=== PATIENT | male | born 1940 ===

== ENCOUNTER 2016-12-25 13:15 | Inpatient (IN) | payer MEDICARE ==
--- NOTE | 2016-12-25 14:17 | ED PDOC ---
HPI: Altered Mental Status Time Seen by Provider: 12/25/16 13:34 Chief Complaint (Nursing): Altered Mental Status Chief Complaint (Provider): Altered mental status History Per: Family History/Exam Limitations: Clinical Condition Onset/Duration Of Symptoms: Days (1) Current Symptoms Are (Timing): Still Present Description Of Symptoms: Not At Baseline Usual Baseline: Alert Confused Exacerbating Factor(s): Other (multiple sclerosis) Additional Complaint(s): The patient is a 76yo male, with past medical history of multiple sclerosis, brought to the ED by his son for evaluation of altered mental status with associated agitation since last night. Per son, the patient has been increasingly agitated and is constantly moving his left upper and lower extremities. Son reports at baseline, the patient is awake, alert and oriented x 3. A full HPI and ROS is limited due to the patient's clinical condition. Past Medical History Reviewed: Historical Data, Nursing Documentation, Vital Signs Vital Signs: Last Vital Signs Temp 98 F 12/25/16 13:20 Pulse 79 12/25/16 13:20 Resp 20 12/25/16 13:20 BP 162/89 H 12/25/16 13:20 Pulse Ox 98 12/25/16 13:20 - Medical History PMH: Multiple Sclerosis - Surgical History Surgical History: No Surg Hx - Family History Family History: States: No Known Family Hx - Living Arrangements Living Arrangements: With Family - Home Medications Home Medications: Ambulatory Orders Medication Instructions Recorded Aspirin [Ecotrin] 81 mg PO DAILY 12/25/16 Atorvastatin [Lipitor] 20 mg PO HS 12/25/16 Baclofen [Lioresal] 20 mg PO BID 12/25/16 Citalopram Hydrobromide 40 mg PO HS 12/25/16 [Citalopram HBr] Clopidogrel [Plavix] 75 mg PO DAILY 12/25/16 Docusate [Colace] 100 mg PO HS 12/25/16 Fenofibrate [Tricor] 48 mg PO QPM 12/25/16 Gabapentin [Neurontin] 300 mg PO BID 12/25/16 Glipizide [Glucotrol] 10 mg PO BID 12/25/16 Insulin Detemir [Levemir] 40 unit SC HS 12/25/16 Multivitamin [Multi-Vitamin Daily] 1 tab PO DAILY 12/25/16 Tamsulosin [Flomax] 0.8 mg PO HS 12/25/16 Topiramate [Topamax] 50 mg PO DAILY 12/25/16 hydroCHLOROthiazide [Microzide] 12.5 mg PO DAILY 12/25/16 Enoxaparin [Lovenox] 30 mg SC DAILY syr 12/29/16 Haloperidol Lactate [Haldol] 2.5 mg IM Q6 PRN vial 12/29/16 Insulin Detemir [Levemir] 40 units SC HS vial 12/29/16 Insulin Human Regular [HumuLIN R] 0 units SC ACHS ml 12/29/16 Lacosamide [Vimpat] 100 mg PO BID tab 12/29/16 Metoprolol Tartrate [Lopressor] 25 mg PO Q12 tab 12/29/16 cloNIDine [Catapres] 0.2 mg PO Q8 tab 12/29/16 guaiFENesin/Dextromethorphan 1 tab PO BID tab 12/29/16 [Mucinex-DM 600-30 mg] - Allergies Allergies/Adverse Reactions: Allergies Allergy/AdvReac Type Severity Reaction Status Date / Time No Known Allergies Allergy Verified 12/25/16 13:20 Review of Systems Review Of Systems: ROS cannot be obtained secondary to pt's inabilty to answer questions. (patient is altered) Musculoskeletal: Positive for: Other (constantly moving left upper and lower extremities) Neurological: Positive for: Altered Mental Status Physical Exam - Reviewed Nursing Documentation Reviewed: Yes Vital Signs Reviewed: Yes - Physical Exam Appears: Positive for: No Acute Distress Head Exam: Positive for: ATRAUMATIC, NORMAL INSPECTION, NORMOCEPHALIC Skin: Positive for: Normal Color Eye Exam: Positive for: Normal appearance, EOMI, PERRL Neck: Positive for: Supple Cardiovascular/Chest: Positive for: Regular Rate, Rhythm Respiratory: Positive for: Normal Breath Sounds. Negative for: Respiratory Distress Extremity: Positive for: Normal ROM, Other (constant movement to left upper and lower extremity) Neurologic/Psych: Positive for: Alert. Negative for: Oriented - Laboratory Results Result Diagrams: 12/29/16 09:00 12/29/16 09:00 - ECG O2 Sat by Pulse Oximetry: 98 (RA) Pulse Ox Interpretation: Normal Medical Decision Making Medical Decision Making: Impression: Multiple sclerosis exacerbation Plan: -- Call placed to neurologist correctional cook -- CBC -- CMP -- Urinalysis [address] Obrien, who recommends MRI neck and brain, with and without contrast. 1542 Patient to be placed under ED observation pending MRI studies. Unable to obtain MRI secondary to pt unable to hold still despite Ativan X 2. Anesthesiologist states he is unavailable for conscious sedation because he is in the OR. Case discussed with Dr. Obrien again, agrees with MRI in AM under conscious sedation. Hold steroids until MRI performed. Plan discussed with Eric Solis. Scribe Attestation: Documented by Mamie Torres, acting as a scribe for Anabel Ty MD Provider Scribe Attestation: All medical record entries made by the Scribe were at my direction and personally dictated by me. I have reviewed the chart and agree that the record accurately reflects my personal performance of the history, physical exam, medical decision making, and the department course for this patient. I have also personally directed, reviewed, and agree with the discharge instructions and disposition. ED OBSERVATION Date of observation admission: 12/25/16 Time of observation admission: 15:42 - Observation admission statement Patient is being placed in observation because:: Patient with altered mental status - Goals of Observation Goals of observation are:: Patient pending MRI studies - Progress Note Progress Note: 12/25/16 17:[address] Obrien who advised patient to be admitted and will have MRI done tomorrow with conscious sedation. Dr. Obrien also recommends no steroids to be used. 12/25/2016 17:25 Case discussed with Eric Solis, who is aware of plan for MRI studies to be completed tomorrow with patient under conscious sedation. Disposition - Clinical Impression Clinical Impression: Multiple sclerosis exacerbation - Patient ED Disposition Is Patient to be Admitted: Yes - Disposition Disposition Time: 17:19 Condition: STABLE - Pt Status Changed To: Hospital Disposition Of: Inpatient - Admit Certification Admit to Inpatient:: After my assessment, the patient will require hospitalization for at least two midnights. This is because of the severity of symptoms shown, intensity of services needed, and/or the medical risk in this patient being treated as an outpatient. - POA Present On Arrival: None
[2016-12-25] MEDS ORDERED: Sodium Chloride 0.9% 1,000 ML IV STA (14:43)
[2016-12-25 14:45] LABS: BASO % 0.4 % (0.0-2.0); EOS # 0.2 K/uL (0.0-0.7); EOS % 2.1 % (0.0-4.0); HEMATOCRIT 36.1 % (35.0-51.0); LYMPH # 1.8 K/uL (1.0-4.3); MEAN CELL VOLUME 89.6 fl (80.0-94.0); MEAN CORPUSCULAR HEMOGLOBIN 28.8 pg (27.0-31.0); MEAN CORPUSCULAR HGB CONC 32.1 g/dL (33.0-37.0); MONO # 1.3 K/uL (0.0-0.8); MONO % 11.9 % (0.0-10.0); NEUT # 7.7 K/uL (1.8-7.0); NEUT % 69.6 % (50.0-75.0); NRBC % 0.1 % (0.0-0.0); RED CELL DISTRIBUTION WIDTH 13.2 % (11.5-14.5); WHITE BLOOD COUNT 11.1 K/uL (4.8-10.8)
[2016-12-25 14:51] LABS: ALB/GLOB RATIO 1.4 (1.0-2.1); BILIRUBIN,TOTAL 0.5 mg/dl (0.2-1.3); CALCIUM 9.5 mg/dL (8.4-10.2); POTASSIUM 4.5 MMOL/L (3.6-5.0); TOTAL PROTEIN 6.8 G/DL (6.3-8.2)
[2016-12-25] MEDS ORDERED: Sodium Chloride 0.9% 500 ML IV STA (15:06)
[2016-12-25] MEDS ORDERED: Gadodiamide 287 MG/ML VIAL (15ML) IV ONE (15:22)
[2016-12-25] MEDS ORDERED: Sodium Chloride 0.9% 1,000 ML IV SCH (17:45)
[2016-12-25 18:30] LABS: ABG ALLEN TEST YES; ARTERIAL BLOOD GAS O2 CAPACITY 16.7 mL/dL (16-24); ARTERIAL BLOOD GAS O2 CONTENT 16.7 ML/dL (15-23); ARTERIAL BLOOD GAS PH 7.29 (7.35-7.45); ARTERIAL BLOOD GAS PO2 132 mm/Hg (80-100); ARTERIAL BLOOD HGB O2 SAT 96.2 % (95.0-98.0); CARBOXYHEMOGLOBIN 2.1 % (0.5-1.5); METHEMOGLOBIN 1.7 % (0.0-3.0)
[2016-12-26] MEDS: Dextrose 5%/0.45% NS 1,000 ML IV SCH ×2 (02:00→15:08)
[2016-12-26] MEDS ORDERED: Albuterol-Ipratrop 3 mg / 0.5 (3 ml) UD ONE (04:27)
[2016-12-26] MEDS: Albuterol-Ipratrop 3 mg / 0.5 (3 ml) UD INH PRN ×2 (04:30→13:11)
[2016-12-26 05:09] LABS: ALB/GLOB RATIO 1.4 (1.0-2.1); BILIRUBIN,TOTAL 0.6 mg/dl (0.2-1.3); CALCIUM 9.2 mg/dL (8.4-10.2); TOTAL PROTEIN 6.9 G/DL (6.3-8.2)
[2016-12-26 05:10] LABS: POTASSIUM 5.3 MMOL/L (3.6-5.0)
--- NOTE | 2016-12-26 07:26 | CP.PCM.HP ---
History of Present Illness - History of Present Illness History of Present Illness: pt admitted for ms exacerbation. + weakness, agitation. overnight had difficulty swallowing secretions. has been intubated in past for diff breathing. at present calm and comfortable. no distress. nsr on monitor. for mri w/ conscious sedation. Present on Admission - Present on Admission Any Indicators Present on Admission: Yes History of Uncontrolled Diabetes: Yes Review of Systems - Musculoskeletal Musculoskeletal: As Per HPI, Muscle Weakness Past Patient History - Past Social History Smoking Status: Never Smoked - NEUROLOGICAL Hx Multiple Sclerosis: Yes - ENDOCRINE/METABOLIC Hx Diabetes Mellitus Type 2: Yes - PSYCHIATRIC Hx Substance Use: No Meds Allergies/Adverse Reactions: Allergies Allergy/AdvReac Type Severity Reaction Status Date / Time No Known Allergies Allergy Verified 12/25/16 13:20 Physical Exam - Constitutional Appears: Non-toxic, No Acute Distress, Chronically Ill - Head Exam Head Exam: ATRAUMATIC, NORMAL INSPECTION, NORMOCEPHALIC - Eye Exam Eye Exam: EOMI, Normal appearance, PERRL Pupil Exam: NORMAL ACCOMODATION, PERRL - ENT Exam ENT Exam: Mucous Membranes Moist, Normal Exam - Neck Exam Neck exam: Positive for: Normal Inspection - Respiratory Exam Respiratory Exam: Clear to Auscultation Bilateral, NORMAL BREATHING PATTERN - Cardiovascular Exam Cardiovascular Exam: REGULAR RHYTHM, RRR, +S1, +S2 - GI/Abdominal Exam GI & Abdominal Exam: Normal Bowel Sounds, Soft. absent: Tenderness - Extremities Exam Extremities exam: Positive for: full ROM, normal capillary refill, normal inspection, pedal pulses present - Back Exam Back exam: NORMAL INSPECTION - Neurological Exam Neurological exam: Abnormal Gait, Alert, CN II-XII Intact, Reflexes Normal - Psychiatric Exam Psychiatric exam: Normal Affect, Normal Mood - Skin Skin Exam: Dry, Intact, Normal Color, Warm Results - Vital Signs Recent Vital Signs: Last Vital Signs Temp 98 F 12/25/16 13:20 Pulse 54 L 12/26/16 02:16 Resp 16 12/26/16 02:16 BP 109/52 L 12/26/16 02:16 Pulse Ox 95 12/26/16 02:16 - Labs Result Diagrams: 12/26/16 04:48 12/26/16 04:48 Labs: Laboratory Results - last 24 hr 12/25/16 12/25/16 12/25/16 14:20 14:20 17:18 WBC 11.1 H RBC 4.03 L Hgb 11.6 L Hct 36.1 MCV 89.6 MCH 28.8 MCHC 32.1 L RDW 13.2 Plt Count 338 MPV 8.0 Neut % (Auto) 69.6 Lymph % (Auto) 16.0 L [place] % (Auto) 11.9 H Eos % (Auto) 2.1 Baso % (Auto) 0.4 Neut # 7.7 H Lymph # 1.8 [place] # 1.3 H Eos # 0.2 Baso # 0.0 pCO2 pO2 HCO3 ABG pH ABG Total CO2 ABG O2 Saturation ABG O2 Content ABG Base Excess ABG Hemoglobin ABG Carboxyhemoglobin POC ABG HHb (Measured) ABG Methemoglobin ABG O2 Capacity Rudy Test A-a O2 Difference Hgb O2 Saturation FiO2 Sodium 144 Potassium 4.5 Chloride 106 Carbon Dioxide 25 Anion Gap 19 BUN 36 H Creatinine 1.8 H Est GFR ( Amer) 45 Est GFR (Non-Af Amer) 37 POC Glucose (mg/dL) 164 H Random Glucose 155 H Calcium 9.5 Total Bilirubin 0.5 AST 41 ALT 44 Alkaline Phosphatase 87 Troponin I NT-Pro-B Natriuret Pep Total Protein 6.8 Albumin 3.9 Globulin 2.9 Albumin/Globulin Ratio 1.4 12/25/16 12/25/16 12/26/16 18:15 18:20 04:41 WBC RBC Hgb Hct MCV MCH MCHC RDW Plt Count MPV Neut % (Auto) Lymph % (Auto) [place] % (Auto) Eos % (Auto) Baso % (Auto) Neut # Lymph # [place] # Eos # Baso # pCO2 51 H pO2 132 H HCO3 23.0 ABG pH 7.29 L ABG Total CO2 26.1 ABG O2 Saturation 100.0 H ABG O2 Content 16.7 ABG Base Excess -2.5 L ABG Hemoglobin 12.2 ABG Carboxyhemoglobin 2.1 H POC ABG HHb (Measured) 0.0 ABG Methemoglobin 1.7 ABG O2 Capacity 16.7 Rduy Test Yes A-a O2 Difference 4.0 Hgb O2 Saturation 96.2 FiO2 28.0 Sodium Potassium Chloride Carbon Dioxide Anion Gap BUN Creatinine Est GFR ( Amer) Est GFR (Non-Af Amer) POC Glucose (mg/dL) 197 H Random Glucose Calcium Total Bilirubin AST ALT Alkaline Phosphatase Troponin I < 0.0120 NT-Pro-B Natriuret Pep 722 Total Protein Albumin Globulin Albumin/Globulin Ratio 12/26/16 12/26/16 04:48 04:48 WBC 10.7 RBC 3.93 L Hgb 11.4 L Hct 35.5 MCV 90.5 MCH 29.0 MCHC 32.1 L RDW 13.6 Plt Count 333 MPV 7.9 Neut % (Auto) Lymph % (Auto) 17.4 L [place] % (Auto) 10.3 H Eos % (Auto) 0.3 Baso % (Auto) 0.4 Neut # Lymph # 1.9 [place] # 1.1 H Eos # 0.0 Baso # 0.0 pCO2 pO2 HCO3 ABG pH ABG Total CO2 ABG O2 Saturation ABG O2 Content ABG Base Excess ABG Hemoglobin ABG Carboxyhemoglobin POC ABG HHb (Measured) ABG Methemoglobin ABG O2 Capacity Rudy Test A-a O2 Difference Hgb O2 Saturation FiO2 Sodium 145 Potassium 5.3 H Chloride 107 Carbon Dioxide 23 Anion Gap 20 BUN 46 H Creatinine 2.4 H Est GFR ( Amer) 32 Est GFR (Non-Af Amer) 26 POC Glucose (mg/dL) Random Glucose 203 H Calcium 9.2 Total Bilirubin 0.6 AST 43 ALT 43 Alkaline Phosphatase 80 Troponin I NT-Pro-B Natriuret Pep Total Protein 6.9 Albumin 4.0 Globulin 2.9 Albumin/Globulin Ratio 1.4 Assessment & Plan (1) Multiple sclerosis exacerbation Assessment and Plan: mri w/ sedation neuro pt/ot yancy Status: Acute (2) Difficulty swallowing Assessment and Plan: duoneb to loosen secretion [employer] eval Status: Acute (3) DVT prophylaxis Assessment and Plan: scd nad aehose, ambulation Status: Acute (4) ARF (acute renal failure) Assessment and Plan: ivf nephro trend bun/cr/k Status: Acute Decision To Admit - Pt Status Changed To: Hospital Disposition Of: Observation - . Bed Request Type: Telemetry Admitting Physician: Pillo Kelly
--- NOTE | 2016-12-26 08:10 | RAD ---
HISTORY: sob COMPARISON: Portable chest 11/27/2012 FINDINGS: LUNGS: Patient appears to been extubated with nasogastric tube also removed. No acute infiltrate bilaterally. History volume is slightly diminished. PLEURA: No significant pleural effusion identified, no pneumothorax apparent. CARDIOVASCULAR: Normal. OSSEOUS STRUCTURES: No significant abnormalities. VISUALIZED UPPER ABDOMEN: Normal. OTHER FINDINGS: None. IMPRESSION: Slight decrease in inspiratory volume. No acute infiltrate or pleural effusion bilaterally. No definite cardiomegaly. Status post apparent extubation and nasogastric tube removal.
[2016-12-26 08:14] LABS: BASO % 0.4 % (0.0-2.0); EOS % 0.3 % (0.0-4.0); HEMATOCRIT 35.5 % (35.0-51.0); LYMPH # 1.9 K/uL (1.0-4.3); LYMPH % 17.4 % (20.0-40.0); MEAN CELL VOLUME 90.5 fl (80.0-94.0); MEAN CORPUSCULAR HGB CONC 32.1 g/dL (33.0-37.0); MEAN PLATELET VOLUME 7.9 fl (7.2-11.7); MONO # 1.1 K/uL (0.0-0.8); MONO % 10.3 % (0.0-10.0); NEUT # 7.7 K/uL (1.8-7.0); NEUT % 71.6 % (50.0-75.0); RED CELL DISTRIBUTION WIDTH 13.6 % (11.5-14.5); WHITE BLOOD COUNT 10.7 K/uL (4.8-10.8)
[2016-12-26] MEDS ORDERED: Propofol 10 mg/ml Inj (20 ML) ONE (08:42)
[2016-12-26] MEDS ORDERED: Midazolam 2 MG/2 ML VIAL ONE (08:42)
[2016-12-26] MEDS ORDERED: Chlorhexidine Gluconate 1 APPL/PKT TP ONE (09:02)
[2016-12-26 09:39] LABS: RBC URINE 3 /hpf (0-3); URINE BILIRUBIN NEGATIVE (NEGATIVE); URINE BLOOD NEGATIVE (NEGATIVE); URINE COLOR AMBER (YELLOW); URINE GLUCOSE (UA) 150 mg/dL (Normal); URINE KETONE NEGATIVE (NEGATIVE); URINE LEUKOCYTE ESTERASE SMALL Leu/uL (Negative); URINE PROTEIN NEGATIVE (NEGATIVE); URINE UROBILINOGEN 0.2-1.0 mg/dL (0.2-1.0); WBC URINE 13 /hpf (0-5)
--- NOTE | 2016-12-26 11:01 | MRI ---
PROCEDURE: MRI BRAIN WITHOUT CONTRAST HISTORY: ms exacerbation COMPARISON: None. TECHNIQUE: Multiplanar, multisequence MR images of the brain were obtained without intravenous contrast enhancement. FINDINGS: HEMORRHAGE: None DWI: No evidence of an acute or early subacute infarction. BRAIN PARENCHYMA: Diffuse periventricular, subcortical and centrum semiovale white matter changes are reiterated the current examination with limited similar changes at the lola again evident. The findings likely reflect combination of not only chronic microangiopathy but also demyelination this patient has a known history of multiple sclerosis. There is no mass effect. There is no suspicious extra-axial fluid collection appreciated. Midline brain anatomy appears stable including corpus callosum. VENTRICLES: Unremarkable. No hydrocephalus. CRANIUM: Unremarkable. ORBITS: Grossly unremarkable. PARANASAL SINUSES/MASTOIDS: Clear VASCULAR SYSTEM: Skull base flow voids intact. OTHER FINDINGS: None. IMPRESSION: Stable combination of likely chronic microangiopathy and demyelination plaques scattered primarily throughout the cerebrum and minimally involving the lola once again. Next significant interval change compared to prior brain MRI 11/19/2012.
--- NOTE | 2016-12-26 11:15 | MRI ---
PROCEDURE: MR CERVICAL SPINE WITHOUT CONTRAST HISTORY: ms exacerbation COMPARISON: None available. TECHNIQUE: Multiecho multiplanar sequences were performed through the cervical spine without the use of intravenous contrast. FINDINGS: Cervical curvature is normal. There is no displaced fracture or spondylolisthesis or definite suspicious marrow signal change. Overall quality examination is limited due patient's heavy breathing. There is likely no significant signal change throughout the cervical spinal cord with the cord appear normal in course caliber and contour. Diffuse disc desiccation is appreciated throughout the cervical spine as well as multilevel mid cervical spondylosis. Prevertebral paraspinal soft tissues appear diffusely unremarkable as well as the craniocervical junction. C1-2 articulation is degenerated moderately. C2-C3: No disc herniation, spinal canal stenosis or neural foraminal narrowing. C3-C4: No disc herniation, spinal canal stenosis or neural foraminal narrowing. C4-C5: A mild disc osteophyte complex abuts the ventral cord without significant stenosis resulting. Ventral nerve roots are encroached if not mildly impinged. No definite disc herniation. C5-C6: An additional mild disc osteophyte complex is appreciated encroachment impinging ventral nerve roots without significant central stenosis resulting. No definite disc herniation. C6-C7: Limited disc bulging appreciate without stenosis or disc herniation appreciated. C7-T1: No disc herniation, spinal canal stenosis or neural foraminal narrowing. OTHER FINDINGS: None. IMPRESSION: Suboptimal examination due to heavy respirations during the examination however no severe stenosis appreciated or prominent cord signal abnormality evident. Disc osteophyte complexes are identified a multiple levels better seen encroaches on and potentially impinging the ventral nerve roots at C4-5 and C5-6.
[2016-12-26] MEDS ORDERED: Albuterol 0.083% Inhal Sol (2.5 mg/3 mL) UD INH ONE (11:43)
--- NOTE | 2016-12-26 13:35 | CP.PCM.CON ---
History of Present Illness - History of Present Illness History of Present Illness: Patient is a 76 years of age I was called to see him for abnormal kidney function. I cannot get any history from the patient who is already sedated. But the patient reported that he was very agitated restless and the emergency room note as noted The patient is a 76yo male, with past medical history of multiple sclerosis, brought to the ED by his son for evaluation of altered mental status with associated agitation since last night. Per son, the patient has been increasingly agitated and is constantly moving his left upper and lower extremities. Son reports at baseline, the patient is awake, alert and oriented x 3. A full HPI and ROS is limited due to the patient's clinical condition. Review of Systems - Constitutional Constitutional: As Per HPI - EENT Eyes: As Per HPI Nose/Mouth/Throat: As Per HPI - Cardiovascular Cardiovascular: absent: Chest Pain, Dyspnea - Respiratory Respiratory: As Per HPI - Gastrointestinal Gastrointestinal: absent: Abdominal Pain - Genitourinary Genitourinary: Nocturia - Musculoskeletal Musculoskeletal: As Per HPI - Neurological Neurological: As Per HPI - Psychiatric Psychiatric: As Per HPI Past Patient History - Past Social History Smoking Status: Never Smoked - NEUROLOGICAL Hx Multiple Sclerosis: Yes - ENDOCRINE/METABOLIC Hx Diabetes Mellitus Type 2: Yes - PSYCHIATRIC Hx Substance Use: No Meds Allergies/Adverse Reactions: Allergies Allergy/AdvReac Type Severity Reaction Status Date / Time No Known Allergies Allergy Verified 12/25/16 13:20 - Medications Medications: Current Medications Albuterol/Ipratropium (Duoneb 3 Mg/0.5 Mg (3 Ml) Ud) 3 ml INH RQ4 PRN PRN Reason: Shortness of Breath Last Admin: 12/26/16 13:11 Dose: 3 ml Aspirin (Ecotrin) 81 mg PO DAILY COUNTS INCLUDE 234 BEDS AT THE [facility] Atorvastatin Calcium (Lipitor) 20 mg PO HS COUNTS INCLUDE 234 BEDS AT THE [facility] Last Admin: 12/26/16 02:00 Dose: Not Given Baclofen (Lioresal) 20 mg PO BID COUNTS INCLUDE 234 BEDS AT THE [facility] Citalopram Hydrobromide (Celexa) 40 mg PO HS COUNTS INCLUDE 234 BEDS AT THE [facility] Last Admin: 12/26/16 02:00 Dose: Not Given Clopidogrel Bisulfate (Plavix) 75 mg PO DAILY COUNTS INCLUDE 234 BEDS AT THE [facility] Docusate Sodium (Colace) 100 mg PO HS COUNTS INCLUDE 234 BEDS AT THE [facility] Last Admin: 12/26/16 02:00 Dose: Not Given Fenofibrate (Tricor) 48 mg PO QPM COUNTS INCLUDE 234 BEDS AT THE [facility] Last Admin: 12/26/16 02:01 Dose: Not Given Gabapentin (Neurontin) 300 mg PO BID COUNTS INCLUDE 234 BEDS AT THE [facility] Glipizide (Glucotrol) 10 mg PO BID COUNTS INCLUDE 234 BEDS AT THE [facility] Haloperidol Lactate (Haldol) 2.5 mg IM Q6 PRN PRN Reason: Agitation Hydrochlorothiazide (Microzide) 12.5 mg PO DAILY COUNTS INCLUDE 234 BEDS AT THE [facility] Dextrose/Sodium Chloride (Dextrose 5%/0.45% Ns 1000 Ml) 1,000 mls @ 100 mls/hr IV .Q10H COUNTS INCLUDE 234 BEDS AT THE [facility] Stop: 12/27/16 00:05 Last Admin: 12/26/16 02:00 Dose: 100 mls/hr Sodium Chloride (Sodium Chloride 0.9%) 1,000 mls @ 100 mls/hr IV .Q10H COUNTS INCLUDE 234 BEDS AT THE [facility] Methylprednisolone 1 gm/ (Sodium Chloride) 250 mls @ 62.5 mls/hr IV DAILY COUNTS INCLUDE 234 BEDS AT THE [facility] Stop: 12/29/16 13:31 Insulin Detemir (Levemir) 40 units SC HS COUNTS INCLUDE 234 BEDS AT THE [facility] Multivitamins/Minerals (Therapeutic-M Tab) 1 tab PO DAILY COUNTS INCLUDE 234 BEDS AT THE [facility] Tamsulosin HCl (Flomax) 0.8 mg PO HS COUNTS INCLUDE 234 BEDS AT THE [facility] Last Admin: 12/26/16 02:00 Dose: Not Given Topiramate (Topamax) 50 mg PO DAILY COUNTS INCLUDE 234 BEDS AT THE [facility] Physical Exam - Constitutional Appears: No Acute Distress - ENT Exam ENT Exam: Mucous Membranes Dry - Respiratory Exam Respiratory Exam: NORMAL BREATHING PATTERN - Cardiovascular Exam Cardiovascular Exam: REGULAR RHYTHM. absent: JVD, Rubs - GI/Abdominal Exam GI & Abdominal Exam: Normal Bowel Sounds - Extremities Exam Extremities exam: Negative for: calf tenderness - Back Exam Back exam: absent: CVA tenderness (L), CVA tenderness (R) - Neurological Exam Neurological exam: Altered - Psychiatric Exam Psychiatric exam: Agitated Results - Vital Signs Recent Vital Signs: Last Vital Signs Temp 97.6 F 12/26/16 12:58 Pulse 72 12/26/16 12:58 Resp 20 12/26/16 12:58 BP 153/75 H 12/26/16 12:58 Pulse Ox 98 12/26/16 12:58 - Labs Result Diagrams: 12/26/16 07:30 12/26/16 04:48 Labs: Laboratory Results - last 24 hr 12/25/16 12/25/16 12/25/16 14:20 14:20 17:18 WBC 11.1 H RBC 4.03 L Hgb 11.6 L Hct 36.1 MCV 89.6 MCH 28.8 MCHC 32.1 L RDW 13.2 Plt Count 338 MPV 8.0 Gran % Neut % (Auto) 69.6 Lymph % (Auto) 16.0 L [place] % (Auto) 11.9 H Eos % (Auto) 2.1 Baso % (Auto) 0.4 Gran # Neut # 7.7 H Lymph # 1.8 [place] # 1.3 H Eos # 0.2 Baso # 0.0 pCO2 pO2 HCO3 ABG pH ABG Total CO2 ABG O2 Saturation ABG O2 Content ABG Base Excess ABG Hemoglobin ABG Carboxyhemoglobin POC ABG HHb (Measured) ABG Methemoglobin ABG O2 Capacity Rudy Test A-a O2 Difference Hgb O2 Saturation FiO2 Sodium 144 Potassium 4.5 Chloride 106 Carbon Dioxide 25 Anion Gap 19 BUN 36 H Creatinine 1.8 H Est GFR ( Amer) 45 Est GFR (Non-Af Amer) 37 POC Glucose (mg/dL) 164 H Random Glucose 155 H Calcium 9.5 Total Bilirubin 0.5 AST 41 ALT 44 Alkaline Phosphatase 87 Troponin I NT-Pro-B Natriuret Pep Total Protein 6.8 Albumin 3.9 Globulin 2.9 Albumin/Globulin Ratio 1.4 Urine Color Urine Clarity Urine pH Ur Specific [place] Urine Protein Urine Glucose (UA) Urine Ketones Urine Blood Urine Nitrate Urine Bilirubin Urine Urobilinogen Ur Leukocyte Esterase Urine RBC (Auto) Urine Microscopic WBC Ur Squamous Epith Cells Hyaline Casts 12/25/16 12/25/16 12/26/16 18:15 18:20 04:41 WBC RBC Hgb Hct MCV MCH MCHC RDW Plt Count MPV Gran % Neut % (Auto) Lymph % (Auto) [place] % (Auto) Eos % (Auto) Baso % (Auto) Gran # Neut # Lymph # [place] # Eos # Baso # pCO2 51 H pO2 132 H HCO3 23.0 ABG pH 7.29 L ABG Total CO2 26.1 ABG O2 Saturation 100.0 H ABG O2 Content 16.7 ABG Base Excess -2.5 L ABG Hemoglobin 12.2 ABG Carboxyhemoglobin 2.1 H POC ABG HHb (Measured) 0.0 ABG Methemoglobin 1.7 ABG O2 Capacity 16.7 Rudy Test Yes A-a O2 Difference 4.0 Hgb O2 Saturation 96.2 FiO2 28.0 Sodium Potassium Chloride Carbon Dioxide Anion Gap BUN Creatinine Est GFR ( Amer) Est GFR (Non-Af Amer) POC Glucose (mg/dL) 197 H Random Glucose Calcium Total Bilirubin AST ALT Alkaline Phosphatase Troponin I < 0.0120 NT-Pro-B Natriuret Pep 722 Total Protein Albumin Globulin Albumin/Globulin Ratio Urine Color Urine Clarity Urine pH Ur Specific [place] Urine Protein Urine Glucose (UA) Urine Ketones Urine Blood Urine Nitrate Urine Bilirubin Urine Urobilinogen Ur Leukocyte Esterase Urine RBC (Auto) Urine Microscopic WBC Ur Squamous Epith Cells Hyaline Casts 12/26/16 12/26/16 12/26/16 04:48 04:48 07:30 WBC Cancelled 10.7 RBC Cancelled 3.93 L Hgb Cancelled 11.4 L Hct Cancelled 35.5 MCV Cancelled 90.5 MCH Cancelled 29.0 MCHC Cancelled 32.1 L RDW Cancelled 13.6 Plt Count Cancelled 333 MPV Cancelled 7.9 Gran % Cancelled Neut % (Auto) 71.6 Lymph % (Auto) Cancelled 17.4 L [place] % (Auto) Cancelled 10.3 H Eos % (Auto) Cancelled 0.3 Baso % (Auto) Cancelled 0.4 Gran # Cancelled Neut # 7.7 H Lymph # Cancelled 1.9 [place] # Cancelled 1.1 H Eos # Cancelled 0.0 Baso # Cancelled 0.0 pCO2 pO2 HCO3 ABG pH ABG Total CO2 ABG O2 Saturation ABG O2 Content ABG Base Excess ABG Hemoglobin ABG Carboxyhemoglobin POC ABG HHb (Measured) ABG Methemoglobin ABG O2 Capacity Rudy Test A-a O2 Difference Hgb O2 Saturation FiO2 Sodium 145 Potassium 5.3 H Chloride 107 Carbon Dioxide 23 Anion Gap 20 BUN 46 H Creatinine 2.4 H Est GFR ( Amer) 32 Est GFR (Non-Af Amer) 26 POC Glucose (mg/dL) Random Glucose 203 H Calcium 9.2 Total Bilirubin 0.6 AST 43 ALT 43 Alkaline Phosphatase 80 Troponin I NT-Pro-B Natriuret Pep Total Protein 6.9 Albumin 4.0 Globulin 2.9 Albumin/Globulin Ratio 1.4 Urine Color Urine Clarity Urine pH Ur Specific [place] Urine Protein Urine Glucose (UA) Urine Ketones Urine Blood Urine Nitrate Urine Bilirubin Urine Urobilinogen Ur Leukocyte Esterase Urine RBC (Auto) Urine Microscopic WBC Ur Squamous Epith Cells Hyaline Casts 12/26/16 12/26/16 09:12 10:49 WBC RBC Hgb Hct MCV MCH MCHC RDW Plt Count MPV Gran % Neut % (Auto) Lymph % (Auto) [place] % (Auto) Eos % (Auto) Baso % (Auto) Gran # Neut # Lymph # [place] # Eos # Baso # pCO2 pO2 HCO3 ABG pH ABG Total CO2 ABG O2 Saturation ABG O2 Content ABG Base Excess ABG Hemoglobin ABG Carboxyhemoglobin POC ABG HHb (Measured) ABG Methemoglobin ABG O2 Capacity Rudy Test A-a O2 Difference Hgb O2 Saturation FiO2 Sodium Potassium Chloride Carbon Dioxide Anion Gap BUN Creatinine Est GFR ( Amer) Est GFR (Non-Af Amer) POC Glucose (mg/dL) 270 H Random Glucose Calcium Total Bilirubin AST ALT Alkaline Phosphatase Troponin I NT-Pro-B Natriuret Pep Total Protein Albumin Globulin Albumin/Globulin Ratio Urine Color [place] Urine Clarity Cloudy Urine pH 5.0 Ur Specific [place] 1.018 Urine Protein Negative Urine Glucose (UA) 150 Urine Ketones Negative Urine Blood Negative Urine Nitrate Negative Urine Bilirubin Negative Urine Urobilinogen 0.2-1.0 Ur Leukocyte Esterase Small Urine RBC (Auto) 3 Urine Microscopic WBC 13 H Ur Squamous Epith Cells < 1 Hyaline Casts 3-5 H Assessment & Plan (1) Acute renal injury Assessment and Plan: Patient appeared to have acute kidney injury related perhaps to dehydration. Patient appeared to be dry and reported he was agitated overnight although he is sedated at this point and he has not been eating. So the plan continue with the volume expansion IV fluid Spot urine for sodium osmolality and creatinine Avoid nephrotoxic drug Discussed with the neurologist regarding his exacerbation of multiple sclerosis patient started on pulse steroid. Give monitoring kidney function Status: Acute (2) Multiple sclerosis exacerbation Status: Acute
--- NOTE | 2016-12-26 13:56 | CP.PCM.CON ---
History of Present Illness - History of Present Illness History of Present Illness: Mr. Rees is a 76-year-old man with a past medical history of MS, who is wheelchair bound, requiring assistance with most activities of daily living at baseline, but is conversant. However, for the last several days, he has become progressively more lethargic, and has begun having shaking episodes. He is contracted and does not open his eyes. At home, he was starting to yell and became upset with episodes of crying with agitation. Overnight, the patient has received several doses of Ativan due to agitation. When I saw him, he was moving all extremities, but refusing to follow commands or open eyes, unless he was given painful stimulus. The history was obtained from the family, who was at bedside. Review of Systems - Review of Systems All systems: reviewed and no additional remarkable complaints except Past Patient History - Past Social History Smoking Status: Never Smoked - NEUROLOGICAL Hx Multiple Sclerosis: Yes - ENDOCRINE/METABOLIC Hx Diabetes Mellitus Type 2: Yes - PSYCHIATRIC Hx Substance Use: No Meds Allergies/Adverse Reactions: Allergies Allergy/AdvReac Type Severity Reaction Status Date / Time No Known Allergies Allergy Verified 12/25/16 13:20 - Medications Medications: Current Medications Albuterol/Ipratropium (Duoneb 3 Mg/0.5 Mg (3 Ml) Ud) 3 ml INH RQ4 PRN PRN Reason: Shortness of Breath Last Admin: 12/26/16 13:11 Dose: 3 ml Aspirin (Ecotrin) 81 mg PO DAILY [facility] Atorvastatin Calcium (Lipitor) 20 mg PO HS [facility] Last Admin: 12/26/16 02:00 Dose: Not Given Baclofen (Lioresal) 20 mg PO BID [facility] Citalopram Hydrobromide (Celexa) 40 mg PO HS [facility] Last Admin: 12/26/16 02:00 Dose: Not Given Clopidogrel Bisulfate (Plavix) 75 mg PO DAILY [facility] Docusate Sodium (Colace) 100 mg PO HS [facility] Last Admin: 12/26/16 02:00 Dose: Not Given Fenofibrate (Tricor) 48 mg PO QPM [facility] Last Admin: 12/26/16 02:01 Dose: Not Given Gabapentin (Neurontin) 300 mg PO BID [facility] Glipizide (Glucotrol) 10 mg PO BID [facility] Haloperidol Lactate (Haldol) 2.5 mg IM Q6 PRN PRN Reason: Agitation Hydrochlorothiazide (Microzide) 12.5 mg PO DAILY [facility] Dextrose/Sodium Chloride (Dextrose 5%/0.45% Ns 1000 Ml) 1,000 mls @ 100 mls/hr IV .Q10H [facility] Stop: 12/27/16 00:05 Last Admin: 12/26/16 02:00 Dose: 100 mls/hr Sodium Chloride (Sodium Chloride 0.9%) 1,000 mls @ 100 mls/hr IV .Q10H [facility] Methylprednisolone 1 gm/ (Sodium Chloride) 250 mls @ 62.5 mls/hr IV DAILY [facility] Stop: 12/29/16 13:31 Insulin Detemir (Levemir) 40 units SC HS [facility] Multivitamins/Minerals (Therapeutic-M Tab) 1 tab PO DAILY [facility] Tamsulosin HCl (Flomax) 0.8 mg PO HS [facility] Last Admin: 12/26/16 02:00 Dose: Not Given Topiramate (Topamax) 50 mg PO DAILY [facility] Physical Exam - Constitutional Appears: Chronically Ill - Head Exam Head Exam: ATRAUMATIC, NORMAL INSPECTION - Eye Exam Pupil Exam: PERRL - ENT Exam ENT Exam: Mucous Membranes Moist, Normal Exam - Neck Exam Neck exam: Positive for: Normal Inspection - Respiratory Exam Respiratory Exam: Wheezes - Cardiovascular Exam Cardiovascular Exam: REGULAR RHYTHM, +S1, +S2 - GI/Abdominal Exam GI & Abdominal Exam: Normal Bowel Sounds, Soft. absent: Tenderness - Rectal Exam Rectal Exam: Deferred - Extremities Exam Extremities exam: Positive for: normal inspection - Back Exam Back exam: NORMAL INSPECTION - Neurological Exam Neurological exam: Altered, CN II-XII Intact Additional comments: Moves all extremities, but unable to assess strength due to lack of mental status and ability to follow commands. Reflexes are brisk throughout with upgoing plantar response. Gait could not be assessed, sensation was intact. Results - Vital Signs Recent Vital Signs: Last Vital Signs Temp 97.6 F 12/26/16 12:58 Pulse 72 12/26/16 12:58 Resp 20 12/26/16 12:58 BP 153/75 H 12/26/16 12:58 Pulse Ox 98 12/26/16 12:58 - Labs Result Diagrams: 12/26/16 07:30 12/26/16 04:48 Labs: Laboratory Results - last 24 hr 12/25/16 12/25/1617 14:20 14:20 17:18 WBC 11.1 H RBC 4.03 L Hgb 11.6 L Hct 36.1 MCV 89.6 MCH 28.8 MCHC 32.1 L RDW 13.2 Plt Count 338 MPV 8.0 Gran % Neut % (Auto) 69.6 Lymph % (Auto) 16.0 L [place] % (Auto) 11.9 H Eos % (Auto) 2.1 Baso % (Auto) 0.4 Gran # Neut # 7.7 H Lymph # 1.8 [place] # 1.3 H Eos # 0.2 Baso # 0.0 pCO2 pO2 HCO3 ABG pH ABG Total CO2 ABG O2 Saturation ABG O2 Content ABG Base Excess ABG Hemoglobin ABG Carboxyhemoglobin POC ABG HHb (Measured) ABG Methemoglobin ABG O2 Capacity Rudy Test A-a O2 Difference Hgb O2 Saturation FiO2 Sodium 144 Potassium 4.5 Chloride 106 Carbon Dioxide 25 Anion Gap 19 BUN 36 H Creatinine 1.8 H Est GFR ( Amer) 45 Est GFR (Non-Af Amer) 37 POC Glucose (mg/dL) 164 H Random Glucose 155 H Calcium 9.5 Total Bilirubin 0.5 AST 41 ALT 44 Alkaline Phosphatase 87 Troponin I NT-Pro-B Natriuret Pep Total Protein 6.8 Albumin 3.9 Globulin 2.9 Albumin/Globulin Ratio 1.4 Urine Color Urine Clarity Urine pH Ur Specific [place] Urine Protein Urine Glucose (UA) Urine Ketones Urine Blood Urine Nitrate Urine Bilirubin Urine Urobilinogen Ur Leukocyte Esterase Urine RBC (Auto) Urine Microscopic WBC Ur Squamous Epith Cells Hyaline Casts 12/25/16 12/25/16 12/26/16 18:15 18:20 04:41 WBC RBC Hgb Hct MCV MCH MCHC RDW Plt Count MPV Gran % Neut % (Auto) Lymph % (Auto) [place] % (Auto) Eos % (Auto) Baso % (Auto) Gran # Neut # Lymph # [place] # Eos # Baso # pCO2 51 H pO2 132 H HCO3 23.0 ABG pH 7.29 L ABG Total CO2 26.1 ABG O2 Saturation 100.0 H ABG O2 Content 16.7 ABG Base Excess -2.5 L ABG Hemoglobin 12.2 ABG Carboxyhemoglobin 2.1 H POC ABG HHb (Measured) 0.0 ABG Methemoglobin 1.7 ABG O2 Capacity 16.7 Rudy Test Yes A-a O2 Difference 4.0 Hgb O2 Saturation 96.2 FiO2 28.0 Sodium Potassium Chloride Carbon Dioxide Anion Gap BUN Creatinine Est GFR ( Amer) Est GFR (Non-Af Amer) POC Glucose (mg/dL) 197 H Random Glucose Calcium Total Bilirubin AST ALT Alkaline Phosphatase Troponin I < 0.0120 NT-Pro-B Natriuret Pep 722 Total Protein Albumin Globulin Albumin/Globulin Ratio Urine Color Urine Clarity Urine pH Ur Specific [place] Urine Protein Urine Glucose (UA) Urine Ketones Urine Blood Urine Nitrate Urine Bilirubin Urine Urobilinogen Ur Leukocyte Esterase Urine RBC (Auto) Urine Microscopic WBC Ur Squamous Epith Cells Hyaline Casts 12/26/16 12/26/16 12/26/16 04:48 04:48 07:30 WBC Cancelled 10.7 RBC Cancelled 3.93 L Hgb Cancelled 11.4 L Hct Cancelled 35.5 MCV Cancelled 90.5 MCH Cancelled 29.0 MCHC Cancelled 32.1 L RDW Cancelled 13.6 Plt Count Cancelled 333 MPV Cancelled 7.9 Gran % Cancelled Neut % (Auto) 71.6 Lymph % (Auto) Cancelled 17.4 L [place] % (Auto) Cancelled 10.3 H Eos % (Auto) Cancelled 0.3 Baso % (Auto) Cancelled 0.4 Gran # Cancelled Neut # 7.7 H Lymph # Cancelled 1.9 [place] # Cancelled 1.1 H Eos # Cancelled 0.0 Baso # Cancelled 0.0 pCO2 pO2 HCO3 ABG pH ABG Total CO2 ABG O2 Saturation ABG O2 Content ABG Base Excess ABG Hemoglobin ABG Carboxyhemoglobin POC ABG HHb (Measured) ABG Methemoglobin ABG O2 Capacity Rudy Test A-a O2 Difference Hgb O2 Saturation FiO2 Sodium 145 Potassium 5.3 H Chloride 107 Carbon Dioxide 23 Anion Gap 20 BUN 46 H Creatinine 2.4 H Est GFR ( Amer) 32 Est GFR (Non-Af Amer) 26 POC Glucose (mg/dL) Random Glucose 203 H Calcium 9.2 Total Bilirubin 0.6 AST 43 ALT 43 Alkaline Phosphatase 80 Troponin I NT-Pro-B Natriuret Pep Total Protein 6.9 Albumin 4.0 Globulin 2.9 Albumin/Globulin Ratio 1.4 Urine Color Urine Clarity Urine pH Ur Specific [place] Urine Protein Urine Glucose (UA) Urine Ketones Urine Blood Urine Nitrate Urine Bilirubin Urine Urobilinogen Ur Leukocyte Esterase Urine RBC (Auto) Urine Microscopic WBC Ur Squamous Epith Cells Hyaline Casts 12/26/16 12/26/16 09:12 10:49 WBC RBC Hgb Hct MCV MCH MCHC RDW Plt Count MPV Gran % Neut % (Auto) Lymph % (Auto) [place] % (Auto) Eos % (Auto) Baso % (Auto) Gran # Neut # Lymph # [place] # Eos # Baso # pCO2 pO2 HCO3 ABG pH ABG Total CO2 ABG O2 Saturation ABG O2 Content ABG Base Excess ABG Hemoglobin ABG Carboxyhemoglobin POC ABG HHb (Measured) ABG Methemoglobin ABG O2 Capacity Rudy Test A-a O2 Difference Hgb O2 Saturation FiO2 Sodium Potassium Chloride Carbon Dioxide Anion Gap BUN Creatinine Est GFR ( Amer) Est GFR (Non-Af Amer) POC Glucose (mg/dL) 270 H Random Glucose Calcium Total Bilirubin AST ALT Alkaline Phosphatase Troponin I NT-Pro-B Natriuret Pep Total Protein Albumin Globulin Albumin/Globulin Ratio Urine Color [place] Urine Clarity Cloudy Urine pH 5.0 Ur Specific [place] 1.018 Urine Protein Negative Urine Glucose (UA) 150 Urine Ketones Negative Urine Blood Negative Urine Nitrate Negative Urine Bilirubin Negative Urine Urobilinogen 0.2-1.0 Ur Leukocyte Esterase Small Urine RBC (Auto) 3 Urine Microscopic WBC 13 H Ur Squamous Epith Cells < 1 Hyaline Casts 3-5 H - Imaging and Cardiology MRI - head Status: Image reviewed by me, Report reviewed by me (MRI brain and cervical spine consistent with chronic MS. ) Assessment & Plan (1) Multiple sclerosis exacerbation Assessment and Plan: Will start a 3 day course of 1 gram of solumedrol daily, and monitor closely for improvement. PT/OT is recommended. GI and DVT Px is recommended. Continue fluids and conservative management for acute dehydration. Treat underlying infection. The patient will need good outpatient neurology follow- up. Thank you. Status: Acute Priority: High
[2016-12-26] MEDS: Multivitamin With Minerals Tab PO SCH (15:09)
[2016-12-26] MEDS: Sodium Chloride 0.9% 1,000 ML IV SCH ×2 (15:09→22:03)
[2016-12-26] MEDS ORDERED: Influenza Vaccine 18yr & older 0.5 ML/45 MCG SYR IM ONE (16:21)
[2016-12-26] MEDS ORDERED: Pneumococcal 23-Valent Vaccine IM ONE (16:21)
[2016-12-26 16:33] VITALS: RESP 20
[2016-12-26] MEDS: methylPREDNISolone 1 GM in Sodium Chloride 0.9% 250 ML IV SCH (16:57)
[2016-12-26] MEDS: Insulin Detemir 100 Units/ml Inj SC SCH (22:04)
[2016-12-27] MEDS: Sodium Chloride 0.9% 1,000 ML IV SCH (02:00)
[2016-12-27 09:44] LABS: HEMATOCRIT 34.9 % (35.0-51.0); LYMPH # 0.8 K/uL (1.0-4.3); LYMPH % 7.7 % (20.0-40.0); MEAN CELL VOLUME 89.9 fl (80.0-94.0); MEAN CORPUSCULAR HEMOGLOBIN 29.6 pg (27.0-31.0); MEAN CORPUSCULAR HGB CONC 32.9 g/dL (33.0-37.0); MEAN PLATELET VOLUME 8.6 fl (7.2-11.7); MONO # 0.1 K/uL (0.0-0.8); MONO % 1.5 % (0.0-10.0); NEUT # 8.9 K/uL (1.8-7.0); NEUT % 90.8 % (50.0-75.0); PLATELET COUNT 325 K/uL (130-400); RED CELL DISTRIBUTION WIDTH 13.6 % (11.5-14.5); WHITE BLOOD COUNT 9.8 K/uL (4.8-10.8)
[2016-12-27 09:52] LABS: ALB/GLOB RATIO 1.4 (1.0-2.1); BILIRUBIN,TOTAL 0.5 mg/dl (0.2-1.3); CALCIUM 9.4 mg/dL (8.4-10.2); POTASSIUM 5.1 MMOL/L (3.6-5.0)
--- NOTE | 2016-12-27 09:56 | CP.PCM.PN ---
Subjective - Date & Time of Evaluation Date of Evaluation: 12/27/16 Time of Evaluation: 09:54 - Subjective Subjective: pt more alert, responding to name. nof /c, n/v/d alert but confused. responds to name calm and cooperative mri suboptimal r/t lack of contrast penidgn am labs Objective - Vital Signs/Intake and Output Vital Signs (last 24 hours): Temp Pulse Resp BP Pulse Ox 98.1 F 73 20 173/66 H 95 12/27/16 07:26 12/27/16 07:26 12/27/16 07:26 12/27/16 07:12/27/16 07:26 - Medications Medications: Current Medications Albuterol/Ipratropium (Duoneb 3 Mg/0.5 Mg (3 Ml) Ud) 3 ml INH RQ4 PRN PRN Reason: Shortness of Breath Last Admin: 12/26/16 13:11 Dose: 3 ml Aspirin (Ecotrin) 81 mg PO DAILY [facility] Last Admin: 12/26/16 15:08 Dose: Not Given Atorvastatin Calcium (Lipitor) 20 mg PO HS [facility] Last Admin: 12/27/16 02:09 Dose: 20 mg Baclofen (Lioresal) 20 mg PO BID [facility] Last Admin: 12/26/16 16:45 Dose: Not Given Citalopram Hydrobromide (Celexa) 40 mg PO HS [facility] Last Admin: 12/26/16 21:52 Dose: 40 mg Clopidogrel Bisulfate (Plavix) 75 mg PO DAILY [facility] Last Admin: 12/26/16 15:09 Dose: Not Given Docusate Sodium (Colace) 100 mg PO HS [facility] Last Admin: 12/27/16 02:02 Dose: 100 mg Enoxaparin Sodium (Lovenox) 30 mg SC DAILY [facility] PRN Reason: Protocol Fenofibrate (Tricor) 48 mg PO QPM [facility] Last Admin: 12/26/16 02:01 Dose: Not Given Gabapentin (Neurontin) 300 mg PO BID [facility] Last Admin: 12/26/16 16:46 Dose: Not Given Glipizide (Glucotrol) 10 mg PO BID [facility] Last Admin: 12/26/16 16:45 Dose: Not Given Haloperidol Lactate (Haldol) 2.5 mg IM Q6 PRN PRN Reason: Agitation Hydrochlorothiazide (Microzide) 12.5 mg PO DAILY [facility] Last Admin: 12/26/16 15:08 Dose: Not Given Sodium Chloride (Sodium Chloride 0.9%) 1,000 mls @ 100 mls/hr IV .Q10H [facility] Last Admin: 12/27/16 02:00 Dose: 100 mls/hr Methylprednisolone 1 gm/ (Sodium Chloride) 250 mls @ 62.5 mls/hr IV DAILY [facility] Stop: 12/29/16 13:31 Last Admin: 12/26/16 16:57 Dose: 62.5 mls/hr Insulin Detemir (Levemir) 40 units SC [facility] Last Admin: 12/26/16 22:04 Dose: 40 unit Insulin Human Regular (Humulin R) 0 units SC [facility] PRN Reason: Protocol Multivitamins/Minerals (Therapeutic-M Tab) 1 tab PO DAILY [facility] Last Admin: 12/26/16 15:09 Dose: Not Given Tamsulosin HCl (Flomax) 0.8 mg PO [facility] Last Admin: 12/26/16 21:53 Dose: 0.8 mg Topiramate (Topamax) 50 mg PO DAILY [facility] Last Admin: 12/26/16 15:09 Dose: Not Given - Labs Labs: 12/27/16 08:45 12/26/16 04:48 - Constitutional Appears: Well, Non-toxic, No Acute Distress - Head Exam Head Exam: ATRAUMATIC, NORMAL INSPECTION, NORMOCEPHALIC - Eye Exam Eye Exam: EOMI, Normal appearance, PERRL Pupil Exam: NORMAL ACCOMODATION, PERRL - ENT Exam ENT Exam: Mucous Membranes Moist, Normal Exam - Neck Exam Neck Exam: Full ROM, Normal Inspection. absent: Lymphadenopathy - Respiratory Exam Respiratory Exam: Clear to Ausculation Bilateral, NORMAL BREATHING PATTERN - Cardiovascular Exam Cardiovascular Exam: REGULAR RHYTHM, RRR, +S1, +S2. absent: Murmur - GI/Abdominal Exam GI & Abdominal Exam: Soft, Normal Bowel Sounds. absent: Tenderness - Extremities Exam Extremities Exam: Full ROM, Normal Capillary Refill, Normal Inspection. absent : Joint Swelling, Pedal Edema - Back Exam Back Exam: NORMAL INSPECTION - Neurological Exam Neurological Exam: Abnormal Gait, Alert, Awake, CN II-XII Intact - Psychiatric Exam Psychiatric exam: Normal Affect, Normal Mood - Skin Skin Exam: Dry, Intact, Normal Color, Warm Assessment and Plan (1) Multiple sclerosis exacerbation Status: Acute (2) Difficulty swallowing Status: Acute (3) DVT prophylaxis Status: Acute (4) ARF (acute renal failure) Status: Acute - Assessment and Plan (Free Text) Assessment: (1) Multiple sclerosis exacerbation Assessment and Plan: mri w/ sedation-noted neuro pt/ot yancy pulse steroids Status: Acute (2) Difficulty swallowing Assessment and Plan: duoneb to loosen secretion life enrichment specialist eval Status: Acute (3) DVT prophylaxis Assessment and Plan: scd nad aehose, ambulation Status: Acute (4) ARF (acute renal failure) Assessment and Plan: ivf nephro trend bun/cr/k am labs pending Status: Acute
[2016-12-27] MEDS: Enoxaparin 30 mg Syringe SC SCH (10:12)
[2016-12-27] MEDS: Multivitamin With Minerals Tab PO SCH (10:16)
[2016-12-27] MEDS ORDERED: Dextrose 50% SYRINGE Inj (50 ml) IVP ONE (10:32)
[2016-12-27] MEDS ORDERED: Calcium Gluconate 4.65 mEq/10 ml Inj IV ONE (10:33)
[2016-12-27] MEDS: Albuterol-Ipratrop 3 mg / 0.5 (3 ml) UD INH PRN (10:34)
[2016-12-27] MEDS ORDERED: Labetalol 5mg/ml (4ml) ONE (10:35)
[2016-12-27] MEDS ORDERED: Insulin Regular 100 units/ml IV STA (10:36)
[2016-12-27] MEDS ORDERED: Albuterol-Ipratrop 3 mg / 0.5 (3 ml) UD INH STA (10:37)
[2016-12-27] MEDS ORDERED: Labetalol 5 mg/ml Inj 20ML IVP STA (10:46)
[2016-12-27 10:47] LABS: ABG ALLEN TEST YES; ARTERIAL BLOOD GAS HCO3 21.2 mmol/L (21-28); ARTERIAL BLOOD GAS O2 CAPACITY 17.4 mL/dL (16-24); ARTERIAL BLOOD GAS O2 CONTENT 17.1 ML/dL (15-23); ARTERIAL BLOOD GAS PO2 148 mm/Hg (80-100); ARTERIAL BLOOD HGB O2 SAT 96.4 % (95.0-98.0); CARBOXYHEMOGLOBIN 0.6 % (0.5-1.5); HHB 1.9 % (0.0-5.0); METHEMOGLOBIN 1.1 % (0.0-3.0)
--- NOTE | 2016-12-27 10:57 | PCM.RRT ---
FISHER POT Nurse Assessment - Situation FISHER POT Responder Arrival Time: 10:05 Location: 6th floor Room Number: [id number] FISHER POT Reason for Call: Tachycardia, Hypertension, Respiratory Distress, O2 Saturation below 90%, Change in Mental Status FISHER POT Called By: RN - IV IV Inserted during FISHER POT?: No IV Fluids Initiated During FISHER POT?: no, was NPO and on fluids so d/c due to HTN - Respiratory Oxygen Delivery Method: Nasal Cannula, Mask Received Nebulizer Treatments: Yes Was the Patient Ventilated with Bag/Mask 100% O2?: No Secretions Suctioned?: No Was the Patient Intubated?: No Was the Patient Placed on a Ventilator?: No - Diagnostic Test Ordered EKG: Yes (sinus tachy) Chest X-Ray: Yes (no acute changes ) - Stat Labs Ordered FISHER POT Stat Labs Ordered: TROPONIN, ABG CPR started during FISHER POT?: No I.Reason for FISHER POT - A) Acute Change in Patient: (Select all that apply): Staff member or family is worried about patient, Acute change in SpO2 less Subjective: FISHER POT was called on 76 y/o M with PMH of MS, DM2, HTN and HLD, for SOB, low 02 sat in 70s, confusion and HTN. Upon arrival, pt BP 220/98, O2 sat 85% and HR 108. POC glucose 205, PE unremarkable. pt was started on Duoneb treatment, Labetalol 10mg given, calcium gluconate IV 4.6 and insulin/D50 given. Stat CXR, EKG, Troponin and ABG was done. CXR showed no acute changes, EKG showed sinus Tachycardia and AB.30/44/148/21.2/98.1/-4.7. pt started on Norvasc 10mg PO. FISHER POT was ended after 15 mins and BP 165/66, HR 93 and 98% O2 sat. Continue current medications and off fluids. Case discussed with Dr. Suri Mary, PGY-1 - Neurological Status (Select all that apply): Confused - Respiratory Oxygen Delivery Method: Nasal Cannula @L/min (3L) - Constitutional Appears: No Acute Distress, Agitated - Head Head Exam: ATRAUMATIC - Eyes Eye Exam: Normal appearance - Respiratory Exam Respiratory Exam: Clear to Ausculation Bilateral, NORMAL BREATHING PATTERN - Cardiovascular Exam Cardiovascular Exam: REGULAR RHYTHM, +S1, +S2 - GI/Abdominal Exam GI & Abdominal Exam: Soft, Normal Bowel Sounds - Neurological Exam Neurological Exam: Alert, Awake - Extremities Exam Extremities Exam: absent: Pedal Edema
[2016-12-27 10:58] LABS: NEUTROPHIL 88 % (42-75); TOTAL CELLS COUNTED 100
--- NOTE | 2016-12-27 10:58 | RAD ---
HISTORY: SOB COMPARISON: 12/25/2016 FINDINGS: LUNGS: No active pulmonary disease. PLEURA: No significant pleural effusion identified, no pneumothorax apparent. CARDIOVASCULAR: Normal. OSSEOUS STRUCTURES: No significant abnormalities. VISUALIZED UPPER ABDOMEN: Normal. OTHER FINDINGS: None. IMPRESSION: No active disease.
[2016-12-27] MEDS ORDERED: Lacosamide 200mg/20ml 200 MG in Sodium Chloride 0.9% 100 ML IVPB ONE (11:29)
--- NOTE | 2016-12-27 11:35 | CP.PCM.PN ---
Subjective - Date & Time of Evaluation Date of Evaluation: 12/27/16 Time of Evaluation: 11:31 - Subjective Subjective: Mr Rees was seen and examined at the bedside. They had called for rapid response on him due to shortness of breath and elevated blood pressure fro baseline. Patient was placed on non- rebreathing mask for few minutes and oxygen saturation ranging in the 90's. Replaced non- rebreathing mask with nasal cannula and oxygen saturation remains in the 90's. Patient is more responsive today in comparison from yesterday. Objective - Vital Signs/Intake and Output Vital Signs (last 24 hours): Temp Pulse Resp BP Pulse Ox 98.1 F 73 20 173/66 H 95 12/27/16 07:26 12/27/16 07:26 12/27/16 07:26 12/27/16 07:26 12/27/16 07:26 - Medications Medications: Current Medications Albuterol/Ipratropium (Duoneb 3 Mg/0.5 Mg (3 Ml) Ud) 3 ml INH RQ4 PRN PRN Reason: Shortness of Breath Last Admin: 12/27/16 10:34 Dose: 3 ml Amlodipine Besylate (Norvasc) 5 mg PO DAILY [facility] Aspirin (Ecotrin) 81 mg PO DAILY [facility] Last Admin: 12/27/16 10:10 Dose: 81 mg Atorvastatin Calcium (Lipitor) 20 mg PO HS [facility] Last Admin: 12/27/16 02:09 Dose: 20 mg Baclofen (Lioresal) 20 mg PO BID [facility] Last Admin: 12/27/16 10:12 Dose: 20 mg Citalopram Hydrobromide (Celexa) 40 mg PO HS [facility] Last Admin: 12/26/16 21:52 Dose: 40 mg Clopidogrel Bisulfate (Plavix) 75 mg PO DAILY [facility] Last Admin: 12/27/16 10:14 Dose: 75 mg Docusate Sodium (Colace) 100 mg PO HS [facility] Last Admin: 12/27/16 02:02 Dose: 100 mg Enoxaparin Sodium (Lovenox) 30 mg SC DAILY [facility] PRN Reason: Protocol Last Admin: 12/27/16 10:12 Dose: 30 mg Fenofibrate (Tricor) 48 mg PO QPM [facility] Last Admin: 12/26/16 02:01 Dose: Not Given Gabapentin (Neurontin) 300 mg PO BID [facility] Last Admin: 12/27/16 10:14 Dose: 300 mg Glipizide (Glucotrol) 10 mg PO BID [facility] Last Admin: 12/27/16 10:10 Dose: 10 mg Haloperidol Lactate (Haldol) 2.5 mg IM Q6 PRN PRN Reason: Agitation Hydrochlorothiazide (Microzide) 12.5 mg PO DAILY [facility] Last Admin: 12/27/16 10:13 Dose: 12.5 mg Sodium Chloride (Sodium Chloride 0.9%) 1,000 mls @ 100 mls/hr IV .Q10H [facility] Last Admin: 12/27/16 02:00 Dose: 100 mls/hr Methylprednisolone 1 gm/ (Sodium Chloride) 250 mls @ 62.5 mls/hr IV DAILY [facility] Stop: 12/29/16 13:31 Last Admin: 12/26/16 16:57 Dose: 62.5 mls/hr Lacosamide 200mg/20ml 200 mg/ (Sodium Chloride) 120 mls @ 120 mls/hr IVPB ONCE ONE Stop: 12/27/16 12:28 Insulin Detemir (Levemir) 40 units SC [facility] Last Admin: 12/26/16 22:04 Dose: 40 unit Insulin Human Regular (Humulin R) 0 units SC [facility] PRN Reason: Protocol Multivitamins/Minerals (Therapeutic-M Tab) 1 tab PO DAILY [facility] Last Admin: 12/27/16 10:16 Dose: 1 tab Tamsulosin HCl (Flomax) 0.8 mg PO HS [facility] Last Admin: 12/26/16 21:53 Dose: 0.8 mg Topiramate (Topamax) 50 mg PO DAILY [facility] Last Admin: 12/27/16 10:17 Dose: 50 mg - Labs Labs: 12/27/16 08:45 12/27/16 08:45 - Constitutional Appears: Other - Head Exam Head Exam: ATRAUMATIC, NORMAL INSPECTION, NORMOCEPHALIC - Neurological Exam Neurological Exam: Alert, Awake, CN II-XII Intact, Oriented x3 Neuro motor strength exam: Left Upper Extremity: 5, Right Upper Extremity: 5, Left Lower Extremity: 4, Right Lower Extremity: 4 Additional comments: Neurological improved from previous examination, There was minimal shaking, able to open his his without any painful stimuli. He is able to follow simple commands such as touching his nose raising his arms. Assessment and Plan (1) Multiple sclerosis exacerbation Assessment & Plan: Case discussed with Dr. Obrien, to start Vimpat 200 mg IVPB for 1 dose and Vimpat 100 mg PO BID. continue medical, physical, and occupational therapies. Status: Acute
[2016-12-27] MEDS: Insulin Regular 100 units/ml SC SCH ×3 (11:47→21:58)
--- NOTE | 2016-12-27 12:06 | PCM.RRT ---
TACK CUTTER Nurse Assessment - Situation TACK CUTTER Responder Arrival Time: 11:05 Location: 6th floor Room Number: [id number] TACK CUTTER Reason for Call: Tachycardia, Hypertension, Respiratory Distress, O2 Saturation below 90%, Change in Mental Status TACK CUTTER Called By: RN - IV IV Inserted during TACK CUTTER?: No IV Fluids Initiated During TACK CUTTER?: no, was NPO and on fluids so d/c due to HTN - Respiratory Oxygen Delivery Method: Nasal Cannula, Mask Received Nebulizer Treatments: Yes Was the Patient Ventilated with Bag/Mask 100% O2?: No Secretions Suctioned?: No Was the Patient Intubated?: No Was the Patient Placed on a Ventilator?: No - Medication Medications Administered During TACK CUTTER: labetalol 10mg po - Diagnostic Test Ordered EKG: Yes (sinus tachy) Chest X-Ray: Yes (no acute changes ) - Stat Labs Ordered TACK CUTTER Stat Labs Ordered: TROPONIN, ABG CPR started during TACK CUTTER?: No - Vital Signs Vital Signs: Rapid Response Vital Sign Blood Pressure 206/76 Pulse Rate 95 Respiratory Rate 24 Temperature 99 F Oxygen Saturation 100 - Time TACK CUTTER Ended Time TACK CUTTER Ended: 11:11 - Vital Signs at end of TACK CUTTER Vital Signs at end of TACK CUTTER: Rapid Response End Vital Sign Blood Pressure 178/74 Pulse Rate 86 Respiratory Rate 20 Temperature 99 F O2 Sat by Pulse Oximetry 98 - Recommendations TACK CUTTER Level of Care Recommendations: Remain in current setting I.Reason for TACK CUTTER - A) Acute Change in Patient: (Select all that apply): Acute change in SpO2 less Subjective: Second TACK CUTTER was called at 11:00 AM on 76 y/o M with PMH of MS, DM2, HTN and HLD, for SOB, low 02 sat in 70s, confusion/anxious and HTN. Upon arrival, pt BP 226/ 89, O2 sat 80% and HR 110. Patient again given Labetalol 10mg, started on 100% non re-breather mask. D-dim ordered and possible V/Q scan after. after 10 mins pt was alert, with BP 158/71, HR of 77 and O2 sat 98%. pt was started on Norvasc 10mg PO. (Previous TACK CUTTER 30 mins before: POC glucose 205, PE unremarkable. pt was started on Duoneb treatment, Labetalol 10mg given, calcium gluconate IV 4.6 and D50 given. Stat CXR, EKG, Troponin and ABG was done. CXR showed no acute changes, EKG showed sinus Tachycardia and AB.30/44/148/21.2/98.1/-4.7. TACK CUTTER was ended after 15 mins and BP 165/66, HR 93 and 98% O2 sat. Continue current medications and off fluids). Case discussed with Dr. Suri Mary, PGY-1 - Respiratory Oxygen Delivery Method: Nasal Cannula @L/min (3L) - Constitutional Appears: No Acute Distress, Agitated - Head Head Exam: ATRAUMATIC - Eyes Eye Exam: Normal appearance - Respiratory Exam Respiratory Exam: Clear to Ausculation Bilateral, NORMAL BREATHING PATTERN - Cardiovascular Exam Cardiovascular Exam: Tachycardia, +S1, +S2 - GI/Abdominal Exam GI & Abdominal Exam: Normal Bowel Sounds - Neurological Exam Neurological Exam: Alert, Awake - Extremities Exam Extremities Exam: Normal Capillary Refill, Normal Inspection. absent: Pedal Edema Additional comments: pt seems anxious
--- NOTE | 2016-12-27 12:10 | CP.PCM.PN ---
Subjective - Date & Time of Evaluation Date of Evaluation: 12/27/16 Time of Evaluation: 12:09 - Subjective Subjective: Patient very much agitated To get his vital sign CLAM DIGGER was called Objective - Vital Signs/Intake and Output Vital Signs (last 24 hours): Temp Pulse Resp BP Pulse Ox 98.1 F 73 20 173/66 H 95 12/27/16 07:26 12/27/16 07:26 12/27/16 07:26 12/27/16 07:26 12/27/16 07:26 - Medications Medications: Current Medications Albuterol/Ipratropium (Duoneb 3 Mg/0.5 Mg (3 Ml) Ud) 3 ml INH RQ4 PRN PRN Reason: Shortness of Breath Last Admin: 12/27/16 10:34 Dose: 3 ml Amlodipine Besylate (Norvasc) 5 mg PO DAILY [facility] Aspirin (Ecotrin) 81 mg PO DAILY [facility] Last Admin: 12/27/16 10:10 Dose: 81 mg Atorvastatin Calcium (Lipitor) 20 mg PO HS [facility] Last Admin: 12/27/16 02:09 Dose: 20 mg Baclofen (Lioresal) 20 mg PO BID [facility] Last Admin: 12/27/16 10:12 Dose: 20 mg Citalopram Hydrobromide (Celexa) 40 mg PO HS [facility] Last Admin: 12/26/16 21:52 Dose: 40 mg Clopidogrel Bisulfate (Plavix) 75 mg PO DAILY [facility] Last Admin: 12/27/16 10:14 Dose: 75 mg Docusate Sodium (Colace) 100 mg PO HS [facility] Last Admin: 12/27/16 02:02 Dose: 100 mg Enoxaparin Sodium (Lovenox) 30 mg SC DAILY [facility] PRN Reason: Protocol Last Admin: 12/27/16 10:12 Dose: 30 mg Fenofibrate (Tricor) 48 mg PO QPM [facility] Last Admin: 12/26/16 02:01 Dose: Not Given Gabapentin (Neurontin) 300 mg PO BID [facility] Last Admin: 12/27/16 10:14 Dose: 300 mg Glipizide (Glucotrol) 10 mg PO BID [facility] Last Admin: 12/27/16 10:10 Dose: 10 mg Haloperidol Lactate (Haldol) 2.5 mg IM Q6 PRN PRN Reason: Agitation Hydrochlorothiazide (Microzide) 12.5 mg PO DAILY [facility] Last Admin: 12/27/16 10:13 Dose: 12.5 mg Sodium Chloride (Sodium Chloride 0.9%) 1,000 mls @ 100 mls/hr IV .Q10H [facility] Last Admin: 12/27/16 02:00 Dose: 100 mls/hr Methylprednisolone 1 gm/ (Sodium Chloride) 250 mls @ 62.5 mls/hr IV DAILY [facility] Stop: 12/29/16 13:31 Last Admin: 12/26/16 16:57 Dose: 62.5 mls/hr Lacosamide 200mg/20ml 200 mg/ (Sodium Chloride) 120 mls @ 120 mls/hr IVPB ONCE ONE Stop: 12/27/16 12:28 Insulin Detemir (Levemir) 40 units SC [facility] Last Admin: 12/26/16 22:04 Dose: 40 unit Insulin Human Regular (Humulin R) 0 units SC [facility] PRN Reason: Protocol Last Admin: 12/27/16 11:47 Dose: 2 unit Multivitamins/Minerals (Therapeutic-M Tab) 1 tab PO DAILY [facility] Last Admin: 12/27/16 10:16 Dose: 1 tab Tamsulosin HCl (Flomax) 0.8 mg PO HS [facility] Last Admin: 12/26/16 21:53 Dose: 0.8 mg Topiramate (Topamax) 50 mg PO DAILY [facility] Last Admin: 12/27/16 10:17 Dose: 50 mg - Labs Labs: 12/27/16 08:45 12/27/16 08:45 - Constitutional Appears: Combative - ENT Exam ENT Exam: Mucous Membranes Dry - Respiratory Exam Respiratory Exam: NORMAL BREATHING PATTERN. absent: Chest Wall Tenderness - Cardiovascular Exam Cardiovascular Exam: absent: JVD, Rubs - GI/Abdominal Exam GI & Abdominal Exam: Normal Bowel Sounds - Extremities Exam Extremities Exam: absent: Calf Tenderness - Back Exam Back Exam: absent: CVA tenderness (L), CVA tenderness (R) - Neurological Exam Neurological Exam: Altered Assessment and Plan (1) Acute renal injury Assessment & Plan: Acute kidney injury related to multifactorial perhaps dehydration Kidney function improving continue hydration Patient is very agitated Blood pressure was high during episode of agitation Increase Norvasc 10 mg daily Add a clonidine 0.1 mg every 8 hours As per neurology for the pulse steroid treatment and the multiple sclerosis Status: Acute (2) Multiple sclerosis exacerbation Status: Acute
[2016-12-27] MEDS: methylPREDNISolone 1 GM in Sodium Chloride 0.9% 250 ML IV SCH (13:07)
[2016-12-27] MEDS: Lacosamide 50 MG Tab PO SCH (16:42)
[2016-12-27] MEDS ORDERED: Lacosamide 200mg/20ml 200 MG in Sodium Chloride 0.9% 100 ML IVPB SCH (17:00)
[2016-12-27] MEDS: Insulin Detemir 100 Units/ml Inj SC SCH (22:00)
[2016-12-28] MEDS: Insulin Regular 100 units/ml SC SCH ×4 (07:10→22:29)
[2016-12-28] MEDS ORDERED: Insulin Regular 100 units/ml IV SCH (07:30)
[2016-12-28 07:35] LABS: BASO % 0.1 % (0.0-2.0); HEMATOCRIT 37.3 % (35.0-51.0); LYMPH # 0.9 K/uL (1.0-4.3); LYMPH % 5.9 % (20.0-40.0); MEAN CELL VOLUME 90.2 fl (80.0-94.0); MEAN CORPUSCULAR HEMOGLOBIN 28.5 pg (27.0-31.0); MEAN CORPUSCULAR HGB CONC 31.6 g/dL (33.0-37.0); MEAN PLATELET VOLUME 8.6 fl (7.2-11.7); MONO # 0.9 K/uL (0.0-0.8); MONO % 5.6 % (0.0-10.0); NEUT # 13.6 K/uL (1.8-7.0); NEUT % 88.4 % (50.0-75.0); RED CELL DISTRIBUTION WIDTH 13.4 % (11.5-14.5); WHITE BLOOD COUNT 15.4 K/uL (4.8-10.8)
[2016-12-28 07:51] LABS: ALB/GLOB RATIO 1.5 (1.0-2.1); BILIRUBIN,TOTAL 0.5 mg/dl (0.2-1.3); CALCIUM 9.7 mg/dL (8.4-10.2); POTASSIUM 4.8 MMOL/L (3.6-5.0); TOTAL PROTEIN 7.1 G/DL (6.3-8.2)
--- NOTE | 2016-12-28 08:09 | CP.PCM.PN ---
Subjective - Date & Time of Evaluation Date of Evaluation: 12/28/16 Time of Evaluation: 08:07 - Subjective Subjective: pt more alert no distress. more conversant. no f/c, n/v/d. 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 at present pt is good on nrb and removed from nrb and maintaind spo2. will place on nc. for pt/ot eval today chema po well at present for tcu/yancy Objective - Vital Signs/Intake and Output Vital Signs (last 24 hours): Temp Pulse Resp BP Pulse Ox 97.9 F 83 20 190/77 H 100 12/28/16 07:42 12/28/16 07:42 12/28/16 07:42 12/28/16 07:42 12/28/16 07:42 - Medications Medications: Current Medications Albuterol/Ipratropium (Duoneb 3 Mg/0.5 Mg (3 Ml) Ud) 3 ml INH RQ4 PRN PRN Reason: Shortness of Breath Last Admin: 12/27/16 10:34 Dose: 3 ml Amlodipine Besylate (Norvasc) 10 mg PO DAILY [facility] Aspirin (Ecotrin) 81 mg PO DAILY [facility] Last Admin: 12/27/16 10:10 Dose: 81 mg Atorvastatin Calcium (Lipitor) 20 mg PO HS [facility] Last Admin: 12/27/16 22:00 Dose: 20 mg Baclofen (Lioresal) 20 mg PO BID [facility] Last Admin: 12/27/16 18:48 Dose: 20 mg Citalopram Hydrobromide (Celexa) 40 mg PO HS [facility] Last Admin: 12/27/16 21:53 Dose: 40 mg Clonidine HCl (Catapres) 0.1 mg PO Q8 [facility] Last Admin: 12/28/16 02:56 Dose: 0.1 mg Clopidogrel Bisulfate (Plavix) 75 mg PO DAILY [facility] Last Admin: 12/27/16 10:14 Dose: 75 mg Docusate Sodium (Colace) 100 mg PO HS [facility] Last Admin: 12/27/16 21:53 Dose: 100 mg Enoxaparin Sodium (Lovenox) 30 mg SC DAILY [facility] PRN Reason: Protocol Last Admin: 12/27/16 10:12 Dose: 30 mg Fenofibrate (Tricor) 48 mg PO QPM [facility] Last Admin: 12/27/16 17:01 Dose: 48 mg Gabapentin (Neurontin) 300 mg PO BID [facility] Last Admin: 12/27/16 16:45 Dose: 300 mg Glipizide (Glucotrol) 10 mg PO BID [facility] Last Admin: 12/27/16 16:47 Dose: 10 mg Guaifenesin/Dextromethorphan (Mucinex-Dm 600-30 Mg) 1 tab PO BID [facility] Haloperidol Lactate (Haldol) 2.5 mg IM Q6 PRN PRN Reason: Agitation Hydrochlorothiazide (Microzide) 12.5 mg PO DAILY [facility] Last Admin: 12/27/16 10:13 Dose: 12.5 mg Sodium Chloride (Sodium Chloride 0.9%) 1,000 mls @ 100 mls/hr IV .Q10H [facility] Last Admin: 12/27/16 02:00 Dose: 100 mls/hr Methylprednisolone 1 gm/ (Sodium Chloride) 250 mls @ 62.5 mls/hr IV DAILY [facility] Stop: 12/29/16 13:31 Last Admin: 12/27/16 13:07 Dose: 62.5 mls/hr Insulin Detemir (Levemir) 40 units SC [facility] Last Admin: 12/27/16 22:00 Dose: 40 unit Insulin Human Regular (Humulin R) 0 units SC [facility] PRN Reason: Protocol Last Admin: 12/28/16 07:10 Dose: 2 unit Multivitamins/Minerals (Therapeutic-M Tab) 1 tab PO DAILY [facility] Last Admin: 12/27/16 10:16 Dose: 1 tab Tamsulosin HCl (Flomax) 0.8 mg PO [facility] Last Admin: 12/27/16 21:54 Dose: 0.8 mg Topiramate (Topamax) 50 mg PO DAILY [facility] Last Admin: 12/27/16 10:17 Dose: 50 mg - Labs Labs: 12/28/16 07:10 12/28/16 07:10 - Constitutional Appears: Well, Non-toxic, No Acute Distress - Head Exam Head Exam: ATRAUMATIC, NORMAL INSPECTION, NORMOCEPHALIC - Eye Exam Eye Exam: EOMI, Normal appearance, PERRL Pupil Exam: NORMAL ACCOMODATION, PERRL - ENT Exam ENT Exam: Mucous Membranes Moist, Normal Exam - Neck Exam Neck Exam: Full ROM, Normal Inspection. absent: Lymphadenopathy - Respiratory Exam Respiratory Exam: Clear to Ausculation Bilateral, NORMAL BREATHING PATTERN - Cardiovascular Exam Cardiovascular Exam: REGULAR RHYTHM, RRR, +S1, +S2. absent: Murmur - GI/Abdominal Exam GI & Abdominal Exam: Soft, Normal Bowel Sounds. absent: Tenderness - Extremities Exam Extremities Exam: Full ROM, Normal Capillary Refill, Normal Inspection. absent : Joint Swelling, Pedal Edema - Back Exam Back Exam: NORMAL INSPECTION - Neurological Exam Neurological Exam: Abnormal Gait, Alert, Awake, CN II-XII Intact. absent: Oriented x3 - Psychiatric Exam Psychiatric exam: Normal Affect, Normal Mood - Skin Skin Exam: Dry, Intact, Normal Color, Warm Assessment and Plan (1) Multiple sclerosis exacerbation Status: Acute (2) Difficulty swallowing Status: Acute (3) DVT prophylaxis Status: Acute (4) ARF (acute renal failure) Status: Acute - Assessment and Plan (Free Text) Assessment: (1) Multiple sclerosis exacerbation Assessment and Plan: mri w/ sedation-noted neuro pt/ot yancy pulse steroids doing much better, more alert Status: Acute (2) Difficulty swallowing Assessment and Plan: duoneb to loosen secretion die repairer forging eval Status: Acute (3) DVT prophylaxis Assessment and Plan: scd nad aehose, ambulation Status: Acute (4) ARF (acute renal failure) Assessment and Plan: ivf nephro trend bun/cr/k bun/cr appear stable, k down after meds yesterday Status: Acute 5-thick secretions/resp difficulty-mucinex, albuterol, o2 prn
[2016-12-28] MEDS: Enoxaparin 30 mg Syringe SC SCH (08:54)
[2016-12-28] MEDS: Multivitamin With Minerals Tab PO SCH (08:57)
[2016-12-28] MEDS: guaiFENesin-DM 600-30 mg ER Tab PO SCH ×2 (09:00→16:55)
--- NOTE | 2016-12-28 09:30 | CP.PCM.PN ---
Subjective - Date & Time of Evaluation Date of Evaluation: 12/28/16 Time of Evaluation: :28 - Subjective Subjective: Patient appeared to be less confused somewhat Vital sign noted was blood pressure is still high Objective - Vital Signs/Intake and Output Vital Signs (last 24 hours): Temp Pulse Resp BP Pulse Ox 97.9 F 83 20 190/77 H 100 12/28/16 07:42 12/28/16 08:56 12/28/16 07:42 12/28/16 08:56 12/28/16 07:42 - Medications Medications: Current Medications Albuterol/Ipratropium (Duoneb 3 Mg/0.5 Mg (3 Ml) Ud) 3 ml INH RQ4 PRN PRN Reason: Shortness of Breath Last Admin: 12/27/16 10:34 Dose: 3 ml Amlodipine Besylate (Norvasc) 10 mg PO DAILY [facility] Last Admin: 12/28/16 08:56 Dose: 10 mg Aspirin (Ecotrin) 81 mg PO DAILY [facility] Last Admin: 12/28/16 08:49 Dose: 81 mg Atorvastatin Calcium (Lipitor) 20 mg PO HS [facility] Last Admin: 12/27/16 22:00 Dose: 20 mg Baclofen (Lioresal) 20 mg PO BID [facility] Last Admin: 12/28/16 08:54 Dose: 20 mg Citalopram Hydrobromide (Celexa) 40 mg PO HS [facility] Last Admin: 12/27/16 21:53 Dose: 40 mg Clonidine HCl (Catapres) 0.2 mg PO Q8 [facility] Clopidogrel Bisulfate (Plavix) 75 mg PO DAILY [facility] Last Admin: 12/28/16 09:01 Dose: 75 mg Docusate Sodium (Colace) 100 mg PO HS [facility] Last Admin: 12/27/16 21:53 Dose: 100 mg Enoxaparin Sodium (Lovenox) 30 mg SC DAILY [facility] PRN Reason: Protocol Last Admin: 12/28/16 08:54 Dose: 30 mg Fenofibrate (Tricor) 48 mg PO QPM [facility] Last Admin: 12/27/16 17:01 Dose: 48 mg Gabapentin (Neurontin) 300 mg PO BID [facility] Last Admin: 12/28/16 08:55 Dose: 300 mg Glipizide (Glucotrol) 10 mg PO BID [facility] Last Admin: 12/28/16 08:49 Dose: 10 mg Guaifenesin/Dextromethorphan (Mucinex-Dm 600-30 Mg) 1 tab PO BID [facility] Haloperidol Lactate (Haldol) 2.5 mg IM Q6 PRN PRN Reason: Agitation Hydrochlorothiazide (Microzide) 12.5 mg PO DAILY [facility] Last Admin: 12/28/16 08:55 Dose: 12.5 mg Sodium Chloride (Sodium Chloride 0.9%) 1,000 mls @ 100 mls/hr IV .Q10H [facility] Last Admin: 12/27/16 02:00 Dose: 100 mls/hr Methylprednisolone 1 gm/ (Sodium Chloride) 250 mls @ 62.5 mls/hr IV DAILY [facility] Stop: 12/29/16 13:31 Last Admin: 12/27/16 13:07 Dose: 62.5 mls/hr Insulin Detemir (Levemir) 40 units SC [facility] Last Admin: 12/27/16 22:00 Dose: 40 unit Insulin Human Regular (Humulin R) 0 units SC ACHS [facility] PRN Reason: Protocol Last Admin: 12/28/16 07:10 Dose: 2 unit Multivitamins/Minerals (Therapeutic-M Tab) 1 tab PO DAILY [facility] Last Admin: 12/28/16 08:57 Dose: 1 tab Tamsulosin HCl (Flomax) 0.8 mg PO HS [facility] Last Admin: 12/27/16 21:54 Dose: 0.8 mg Topiramate (Topamax) 50 mg PO DAILY [facility] Last Admin: 12/28/16 08:58 Dose: 50 mg - Labs Labs: 12/28/16 07:10 12/28/16 07:10 - Constitutional Appears: No Acute Distress - Respiratory Exam Respiratory Exam: absent: Chest Wall Tenderness - Cardiovascular Exam Cardiovascular Exam: absent: JVD, Rubs - GI/Abdominal Exam GI & Abdominal Exam: Soft - Extremities Exam Extremities Exam: absent: Calf Tenderness - Back Exam Back Exam: absent: CVA tenderness (L), CVA tenderness (R) - Neurological Exam Neurological Exam: Altered Assessment and Plan (1) Acute renal injury Assessment & Plan: Acute renal injury continued to improve serum creatinine and BU and improving every day Hypertension blood pressure continue to be elevated increase clonidine from 0.1 mg to 0.2 mg every 8 hours hold if systolic 120 or less Multiple sclerosis as per neurology patient receiving pulsed steroid for 3 days Continue monitoring Status: Acute (2) Multiple sclerosis exacerbation Status: Acute
--- NOTE | 2016-12-28 09:33 | CARD ---
APPROVED REPORT EKG Measurement Heart [id number] <Conclusion> Sinus tachycardia ST & T wave abnormality, consider lateral ischemia Abnormal ECG
[2016-12-28] MEDS: Lacosamide 50 MG Tab PO SCH ×2 (09:35→16:57)
[2016-12-28] MEDS: methylPREDNISolone 1 GM in Sodium Chloride 0.9% 250 ML IV SCH (10:02)
--- NOTE | 2016-12-28 11:10 | CP.PCM.PN ---
Subjective - Date & Time of Evaluation Date of Evaluation: 12/28/16 Time of Evaluation: 11:08 - Subjective Subjective: Mr Rees was seen and examined at the bedside. He denies any SOB, headache dayana to follow simple commands. There was no untoward events overnight. He is not in any kind of distress. Objective - Vital Signs/Intake and Output Vital Signs (last 24 hours): Temp Pulse Resp BP Pulse Ox 97.9 F 83 20 190/77 H 100 12/28/16 07:42 12/28/16 08:56 12/28/16 07:42 12/28/16 08:56 12/28/16 07:42 - Medications Medications: Current Medications Albuterol/Ipratropium (Duoneb 3 Mg/0.5 Mg (3 Ml) Ud) 3 ml INH RQ4 PRN PRN Reason: Shortness of Breath Last Admin: 12/27/16 10:34 Dose: 3 ml Amlodipine Besylate (Norvasc) 10 mg PO DAILY [facility] Last Admin: 12/28/16 08:56 Dose: 10 mg Aspirin (Ecotrin) 81 mg PO DAILY [facility] Last Admin: 12/28/16 08:49 Dose: 81 mg Atorvastatin Calcium (Lipitor) 20 mg PO HS [facility] Last Admin: 12/27/16 22:00 Dose: 20 mg Baclofen (Lioresal) 20 mg PO BID [facility] Last Admin: 12/28/16 08:54 Dose: 20 mg Citalopram Hydrobromide (Celexa) 40 mg PO HS [facility] Last Admin: 12/27/16 21:53 Dose: 40 mg Clonidine HCl (Catapres) 0.2 mg PO Q8 [facility] Clopidogrel Bisulfate (Plavix) 75 mg PO DAILY [facility] Last Admin: 12/28/16 09:01 Dose: 75 mg Docusate Sodium (Colace) 100 mg PO HS [facility] Last Admin: 12/27/16 21:53 Dose: 100 mg Enoxaparin Sodium (Lovenox) 30 mg SC DAILY [facility] PRN Reason: Protocol Last Admin: 12/28/16 08:54 Dose: 30 mg Fenofibrate (Tricor) 48 mg PO QPM [facility] Last Admin: 12/27/16 17:01 Dose: 48 mg Gabapentin (Neurontin) 300 mg PO BID [facility] Last Admin: 12/28/16 08:55 Dose: 300 mg Glipizide (Glucotrol) 10 mg PO BID [facility] Last Admin: 12/28/16 08:49 Dose: 10 mg Guaifenesin/Dextromethorphan (Mucinex-Dm 600-30 Mg) 1 tab PO BID [facility] Haloperidol Lactate (Haldol) 2.5 mg IM Q6 PRN PRN Reason: Agitation Hydrochlorothiazide (Microzide) 12.5 mg PO DAILY [facility] Last Admin: 12/28/16 08:55 Dose: 12.5 mg Sodium Chloride (Sodium Chloride 0.9%) 1,000 mls @ 100 mls/hr IV .Q10H [facility] Last Admin: 12/27/16 02:00 Dose: 100 mls/hr Methylprednisolone 1 gm/ (Sodium Chloride) 250 mls @ 62.5 mls/hr IV DAILY [facility] Stop: 12/29/16 13:31 Last Admin: 12/28/16 10:02 Dose: 62.5 mls/hr Insulin Detemir (Levemir) 40 units SC [facility] Last Admin: 12/27/16 22:00 Dose: 40 unit Insulin Human Regular (Humulin R) 0 units SC ACHS [facility] PRN Reason: Protocol Last Admin: 12/28/16 07:10 Dose: 2 unit Multivitamins/Minerals (Therapeutic-M Tab) 1 tab PO DAILY [facility] Last Admin: 12/28/16 08:57 Dose: 1 tab Tamsulosin HCl (Flomax) 0.8 mg PO HS [facility] Last Admin: 12/27/16 21:54 Dose: 0.8 mg Topiramate (Topamax) 50 mg PO DAILY [facility] Last Admin: 12/28/16 08:58 Dose: 50 mg - Labs Labs: 12/28/16 07:10 12/28/16 07:10 - Constitutional Appears: Well - Neurological Exam Neurological Exam: Alert, Awake, Oriented x3 Neuro motor strength exam: Left Upper Extremity: 5, Right Upper Extremity: 5, Left Lower Extremity: 4, Right Lower Extremity: 4 Additional comments: Neurological improved from previous examination. He is able to follow simple commands Assessment and Plan (1) Multiple sclerosis exacerbation Assessment & Plan: Case discussed with Dr. Obrien, Continue current medical, physical therapies. Status: Acute
[2016-12-28] MEDS: Insulin Detemir 100 Units/ml Inj SC SCH (22:31)
[2016-12-28] MEDS: Sodium Chloride 0.9% 1,000 ML IV SCH (23:45)
[2016-12-29] MEDS: Insulin Regular 100 units/ml SC SCH ×3 (06:41→11:30)
[2016-12-29] MEDS: Enoxaparin 30 mg Syringe SC SCH (08:24)
[2016-12-29 08:31] VITALS: BP 153/70; PULSE 68; TEMP 98.3
[2016-12-29] MEDS: guaiFENesin-DM 600-30 mg ER Tab PO SCH (08:38)
[2016-12-29] MEDS: Multivitamin With Minerals Tab PO SCH (08:39)
[2016-12-29 09:42] LABS: HEMATOCRIT 37.8 % (35.0-51.0); LYMPH # 1.2 K/uL (1.0-4.3); LYMPH % 7.2 % (20.0-40.0); MEAN CELL VOLUME 89.8 fl (80.0-94.0); MEAN CORPUSCULAR HEMOGLOBIN 28.5 pg (27.0-31.0); MEAN CORPUSCULAR HGB CONC 31.7 g/dL (33.0-37.0); MEAN PLATELET VOLUME 8.3 fl (7.2-11.7); MONO # 1.4 K/uL (0.0-0.8); MONO % 8.5 % (0.0-10.0); NEUT # 13.5 K/uL (1.8-7.0); NEUT % 84.3 % (50.0-75.0); NRBC % 0.1 % (0.0-0.0); RED CELL DISTRIBUTION WIDTH 13.4 % (11.5-14.5); WHITE BLOOD COUNT 16.1 K/uL (4.8-10.8)
--- NOTE | 2016-12-29 09:51 | CP.PCM.PN ---
Subjective - Date & Time of Evaluation Date of Evaluation: 12/29/16 Time of Evaluation: 09:49 - Subjective Subjective: doign well, a/oritented to person.no resp distress. bp better. pending am labs karen meng to yancy today Objective - Vital Signs/Intake and Output Vital Signs (last 24 hours): Temp Pulse Resp BP Pulse Ox 98.3 F 68 20 153/70 H 99 12/29/16 08:31 12/29/16 08:39 12/29/16 08:31 12/29/16 08:39 12/29/16 08:31 - Medications Medications: Current Medications Albuterol/Ipratropium (Duoneb 3 Mg/0.5 Mg (3 Ml) Ud) 3 ml INH RQ4 PRN PRN Reason: Shortness of Breath Last Admin: 12/27/16 10:34 Dose: 3 ml Amlodipine Besylate (Norvasc) 10 mg PO DAILY [facility] Last Admin: 12/29/16 08:39 Dose: 10 mg Aspirin (Ecotrin) 81 mg PO DAILY [facility] Last Admin: 12/29/16 08:18 Dose: 81 mg Atorvastatin Calcium (Lipitor) 20 mg PO HS [facility] Last Admin: 12/28/16 21:19 Dose: 20 mg Baclofen (Lioresal) 20 mg PO BID [facility] Last Admin: 12/29/16 08:19 Dose: 20 mg Citalopram Hydrobromide (Celexa) 40 mg PO HS [facility] Last Admin: 12/28/16 21:19 Dose: 40 mg Clonidine HCl (Catapres) 0.2 mg PO Q8 [facility] Last Admin: 12/29/16 08:23 Dose: 0.2 mg Clopidogrel Bisulfate (Plavix) 75 mg PO DAILY [facility] Last Admin: 12/29/16 08:39 Dose: 75 mg Docusate Sodium (Colace) 100 mg PO HS [facility] Last Admin: 12/28/16 21:21 Dose: 100 mg Enoxaparin Sodium (Lovenox) 30 mg SC DAILY [facility] PRN Reason: Protocol Last Admin: 12/29/16 08:24 Dose: 30 mg Fenofibrate (Tricor) 48 mg PO QPM [facility] Last Admin: 12/28/16 19:58 Dose: 48 mg Gabapentin (Neurontin) 300 mg PO BID [facility] Last Admin: 12/29/16 08:38 Dose: 300 mg Glipizide (Glucotrol) 10 mg PO BID [facility] Last Admin: 12/29/16 08:19 Dose: 10 mg Guaifenesin/Dextromethorphan (Mucinex-Dm 600-30 Mg) 1 tab PO BID [facility] Last Admin: 12/29/16 08:38 Dose: 1 tab Haloperidol Lactate (Haldol) 2.5 mg IM Q6 PRN PRN Reason: Agitation Hydrochlorothiazide (Microzide) 12.5 mg PO DAILY [facility] Last Admin: 12/29/16 08:38 Dose: 12.5 mg Sodium Chloride (Sodium Chloride 0.9%) 1,000 mls @ 100 mls/hr IV .Q10H [facility] Last Admin: 12/28/16 23:45 Dose: Not Given Methylprednisolone 1 gm/ (Sodium Chloride) 250 mls @ 62.5 mls/hr IV DAILY [facility] Stop: 12/29/16 13:31 Last Admin: 12/28/16 10:02 Dose: 62.5 mls/hr Insulin Detemir (Levemir) 40 units SC [facility] Last Admin: 12/28/16 22:31 Dose: 40 unit Insulin Human Regular (Humulin R) 0 units SC [facility] PRN Reason: Protocol Last Admin: 12/29/16 06:43 Dose: 1 unit Metoprolol Tartrate (Lopressor) 25 mg PO Q12 [facility] Last Admin: 12/29/16 08:20 Dose: 25 mg Multivitamins/Minerals (Therapeutic-M Tab) 1 tab PO DAILY [facility] Last Admin: 12/29/16 08:39 Dose: 1 tab Tamsulosin HCl (Flomax) 0.8 mg PO HS [facility] Last Admin: 12/28/16 21:19 Dose: 0.8 mg Topiramate (Topamax) 50 mg PO DAILY [facility] Last Admin: 12/29/16 08:39 Dose: 50 mg - Labs Labs: 12/28/16 07:10 12/28/16 07:10 - Constitutional Appears: Well, Non-toxic, No Acute Distress, Chronically Ill - Head Exam Head Exam: ATRAUMATIC, NORMAL INSPECTION, NORMOCEPHALIC - Eye Exam Eye Exam: EOMI, Normal appearance, PERRL Pupil Exam: NORMAL ACCOMODATION, PERRL - ENT Exam ENT Exam: Mucous Membranes Moist, Normal Exam - Neck Exam Neck Exam: Full ROM, Normal Inspection. absent: Lymphadenopathy - Respiratory Exam Respiratory Exam: Clear to Ausculation Bilateral, NORMAL BREATHING PATTERN - Cardiovascular Exam Cardiovascular Exam: REGULAR RHYTHM, RRR, +S1, +S2. absent: Murmur - GI/Abdominal Exam GI & Abdominal Exam: Soft, Normal Bowel Sounds. absent: Tenderness - Extremities Exam Extremities Exam: Full ROM, Normal Capillary Refill, Normal Inspection. absent : Joint Swelling, Pedal Edema - Back Exam Back Exam: NORMAL INSPECTION - Neurological Exam Neurological Exam: Abnormal Gait, Alert, Awake, CN II-XII Intact, Oriented x3 - Psychiatric Exam Psychiatric exam: Normal Affect, Normal Mood - Skin Skin Exam: Dry, Intact, Normal Color, Warm Assessment and Plan (1) Multiple sclerosis exacerbation Status: Acute (2) Difficulty swallowing Status: Acute (3) DVT prophylaxis Status: Acute (4) ARF (acute renal failure) Status: Acute - Assessment and Plan (Free Text) Assessment: (1) Multiple sclerosis exacerbation Assessment and Plan: mri w/ sedation-noted neuro pt/ot yancy pulse steroids doing much better, more alert Status: Acute (2) Difficulty swallowing Assessment and Plan: duoneb to loosen secretion simulation technician eval Status: Acute (3) DVT prophylaxis Assessment and Plan: scd nad aehose, ambulation Status: Acute (4) ARF (acute renal failure) Assessment and Plan: ivf nephro trend bun/cr/k bun/cr appear stable, k down after meds yesterday Status: Acute 5-thick secretions/resp difficulty-mucinex, albuterol, o2 prn-improved 6-htn-d/c diovan r/t arf start clonidine, norvasc, metoprolol bp doing well
[2016-12-29 10:07] LABS: ALB/GLOB RATIO 1.4 (1.0-2.1); BILIRUBIN,TOTAL 0.5 mg/dl (0.2-1.3); CALCIUM 9.2 mg/dL (8.4-10.2); POTASSIUM 4.5 MMOL/L (3.6-5.0); TOTAL PROTEIN 6.7 G/DL (6.3-8.2)
[2016-12-29] MEDS: Lacosamide 50 MG Tab PO SCH (10:08)
[2016-12-29] MEDS: methylPREDNISolone 1 GM in Sodium Chloride 0.9% 250 ML IV SCH (10:08)
[2016-12-29] MEDS: Sodium Chloride 0.9% 1,000 ML IV SCH ×3 (10:42→10:47)
--- NOTE | 2016-12-29 12:11 | CP.PCM.PN ---
Subjective - Date & Time of Evaluation Date of Evaluation: 12/29/16 Time of Evaluation: 12:09 - Subjective Subjective: Mr. Rees was seen and examined at the bedside. He denies any headache, dizziness, lightheadedness, numbness. He is more responsive to all stimuli. There was no untoward events overnight. He does not need supplemental oxygen. He is not in any kind of distress. Per daughter, the patient will be transferred to a subacute rehab today. Objective - Vital Signs/Intake and Output Vital Signs (last 24 hours): Temp Pulse Resp BP Pulse Ox 98.3 F 68 20 153/70 H 99 12/29/16 08:31 12/29/16 08:39 12/29/16 08:31 12/29/16 08:39 12/29/16 08:31 - Medications Medications: Current Medications Albuterol/Ipratropium (Duoneb 3 Mg/0.5 Mg (3 Ml) Ud) 3 ml INH RQ4 PRN PRN Reason: Shortness of Breath Last Admin: 12/27/16 10:34 Dose: 3 ml Amlodipine Besylate (Norvasc) 10 mg PO DAILY [facility] Last Admin: 12/29/16 08:39 Dose: 10 mg Aspirin (Ecotrin) 81 mg PO DAILY [facility] Last Admin: 12/29/16 08:18 Dose: 81 mg Atorvastatin Calcium (Lipitor) 20 mg PO HS [facility] Last Admin: 12/28/16 21:19 Dose: 20 mg Baclofen (Lioresal) 20 mg PO BID [facility] Last Admin: 12/29/16 08:19 Dose: 20 mg Citalopram Hydrobromide (Celexa) 40 mg PO HS [facility] Last Admin: 12/28/16 21:19 Dose: 40 mg Clonidine HCl (Catapres) 0.2 mg PO Q8 [facility] Last Admin: 12/29/16 08:23 Dose: 0.2 mg Clopidogrel Bisulfate (Plavix) 75 mg PO DAILY [facility] Last Admin: 12/29/16 08:39 Dose: 75 mg Docusate Sodium (Colace) 100 mg PO HS [facility] Last Admin: 12/28/16 21:21 Dose: 100 mg Enoxaparin Sodium (Lovenox) 30 mg SC DAILY [facility] PRN Reason: Protocol Last Admin: 12/29/16 08:24 Dose: 30 mg Fenofibrate (Tricor) 48 mg PO QPM [facility] Last Admin: 12/28/16 19:58 Dose: 48 mg Gabapentin (Neurontin) 300 mg PO BID [facility] Last Admin: 12/29/16 08:38 Dose: 300 mg Glipizide (Glucotrol) 10 mg PO BID [facility] Last Admin: 12/29/16 08:19 Dose: 10 mg Guaifenesin/Dextromethorphan (Mucinex-Dm 600-30 Mg) 1 tab PO BID [facility] Last Admin: 12/29/16 08:38 Dose: 1 tab Haloperidol Lactate (Haldol) 2.5 mg IM Q6 PRN PRN Reason: Agitation Hydrochlorothiazide (Microzide) 12.5 mg PO DAILY [facility] Last Admin: 12/29/16 08:38 Dose: 12.5 mg Sodium Chloride (Sodium Chloride 0.9%) 1,000 mls @ 100 mls/hr IV .Q10H [facility] Last Admin: 12/29/16 10:47 Dose: Not Given Methylprednisolone 1 gm/ (Sodium Chloride) 250 mls @ 62.5 mls/hr IV DAILY [facility] Stop: 12/29/16 13:31 Last Admin: 12/29/16 10:08 Dose: 62.5 mls/hr Insulin Detemir (Levemir) 40 units SC HS [facility] Last Admin: 12/28/16 22:31 Dose: 40 unit Insulin Human Regular (Humulin R) 0 units SC ACHS [facility] PRN Reason: Protocol Last Admin: 12/29/16 11:30 Dose: 1 unit Metoprolol Tartrate (Lopressor) 25 mg PO Q12 [facility] Last Admin: 12/29/16 08:20 Dose: 25 mg Multivitamins/Minerals (Therapeutic-M Tab) 1 tab PO DAILY [facility] Last Admin: 12/29/16 08:39 Dose: 1 tab Tamsulosin HCl (Flomax) 0.8 mg PO HS [facility] Last Admin: 12/28/16 21:19 Dose: 0.8 mg Topiramate (Topamax) 50 mg PO DAILY [facility] Last Admin: 12/29/16 08:39 Dose: 50 mg - Labs Labs: 12/29/16 09:00 12/29/16 09:00 - Constitutional Appears: Well - Head Exam Head Exam: ATRAUMATIC, NORMAL INSPECTION, NORMOCEPHALIC - Neurological Exam Neurological Exam: Alert, Awake, Oriented x3 Neuro motor strength exam: Left Upper Extremity: 4, Right Upper Extremity: 4, Left Lower Extremity: 3, Right Lower Extremity: 3 Additional comments: Neurologically improved from previous examination. He is able to follow simple commands. Assessment and Plan (1) Multiple sclerosis exacerbation Assessment & Plan: Case discussed with Dr. Obrien, continue current medical treatment, physical therapies. There is no need for repeat MRI of the brain post solumedrol drip treatment. Will discontinue Vimpat. Status: Acute
--- NOTE | 2016-12-29 12:15 | CP.PCM.PN ---
Subjective - Date & Time of Evaluation Date of Evaluation: 12/29/16 Time of Evaluation: 12:13 - Subjective Subjective: Patient appears to be improving Vital signs stable Chest no rales Heart no rubs Abdomen soft Extremity no edema Impression and plan #1 acute kidney injury continued to improve. #2 hypertension much better controlled on adjustment of the medication yesterday Objective - Vital Signs/Intake and Output Vital Signs (last 24 hours): Temp Pulse Resp BP Pulse Ox 98.3 F 68 20 153/70 H 99 12/29/16 08:31 12/29/16 08:39 12/29/16 08:31 12/29/16 08:39 12/29/16 08:31 - Medications Medications: Current Medications Albuterol/Ipratropium (Duoneb 3 Mg/0.5 Mg (3 Ml) Ud) 3 ml INH RQ4 PRN PRN Reason: Shortness of Breath Last Admin: 12/27/16 10:34 Dose: 3 ml Amlodipine Besylate (Norvasc) 10 mg PO DAILY [facility] Last Admin: 12/29/16 08:39 Dose: 10 mg Aspirin (Ecotrin) 81 mg PO DAILY [facility] Last Admin: 12/29/16 08:18 Dose: 81 mg Atorvastatin Calcium (Lipitor) 20 mg PO HS [facility] Last Admin: 12/28/16 21:19 Dose: 20 mg Baclofen (Lioresal) 20 mg PO BID [facility] Last Admin: 12/29/16 08:19 Dose: 20 mg Citalopram Hydrobromide (Celexa) 40 mg PO HS [facility] Last Admin: 12/28/16 21:19 Dose: 40 mg Clonidine HCl (Catapres) 0.2 mg PO Q8 [facility] Last Admin: 12/29/16 08:23 Dose: 0.2 mg Clopidogrel Bisulfate (Plavix) 75 mg PO DAILY [facility] Last Admin: 12/29/16 08:39 Dose: 75 mg Docusate Sodium (Colace) 100 mg PO HS [facility] Last Admin: 12/28/16 21:21 Dose: 100 mg Enoxaparin Sodium (Lovenox) 30 mg SC DAILY [facility] PRN Reason: Protocol Last Admin: 12/29/16 08:24 Dose: 30 mg Fenofibrate (Tricor) 48 mg PO QPM [facility] Last Admin: 12/28/16 19:58 Dose: 48 mg Gabapentin (Neurontin) 300 mg PO BID [facility] Last Admin: 12/29/16 08:38 Dose: 300 mg Glipizide (Glucotrol) 10 mg PO BID [facility] Last Admin: 12/29/16 08:19 Dose: 10 mg Guaifenesin/Dextromethorphan (Mucinex-Dm 600-30 Mg) 1 tab PO BID [facility] Last Admin: 12/29/16 08:38 Dose: 1 tab Haloperidol Lactate (Haldol) 2.5 mg IM Q6 PRN PRN Reason: Agitation Hydrochlorothiazide (Microzide) 12.5 mg PO DAILY [facility] Last Admin: 12/29/16 08:38 Dose: 12.5 mg Sodium Chloride (Sodium Chloride 0.9%) 1,000 mls @ 100 mls/hr IV .Q10H [facility] Last Admin: 12/29/16 10:47 Dose: Not Given Methylprednisolone 1 gm/ (Sodium Chloride) 250 mls @ 62.5 mls/hr IV DAILY [facility] Stop: 12/29/16 13:31 Last Admin: 12/29/16 10:08 Dose: 62.5 mls/hr Insulin Detemir (Levemir) 40 units SC HS [facility] Last Admin: 12/28/16 22:31 Dose: 40 unit Insulin Human Regular (Humulin R) 0 units SC ACHS [facility] PRN Reason: Protocol Last Admin: 12/29/16 11:30 Dose: 1 unit Metoprolol Tartrate (Lopressor) 25 mg PO Q12 [facility] Last Admin: 12/29/16 08:20 Dose: 25 mg Multivitamins/Minerals (Therapeutic-M Tab) 1 tab PO DAILY [facility] Last Admin: 12/29/16 08:39 Dose: 1 tab Tamsulosin HCl (Flomax) 0.8 mg PO HS [facility] Last Admin: 12/28/16 21:19 Dose: 0.8 mg Topiramate (Topamax) 50 mg PO DAILY [facility] Last Admin: 12/29/16 08:39 Dose: 50 mg - Labs Labs: 12/29/16 09:00 12/29/16 09:00 Assessment and Plan (1) Acute renal injury Status: Acute (2) Multiple sclerosis exacerbation Status: Acute
[2016-12-29] MEDS: Albuterol-Ipratrop 3 mg / 0.5 (3 ml) UD INH PRN (13:10)
[2016-12-30 14:26] VITALS: O2SAT 98
== END 2016-12-29 14:00 | DRG 59 ==
LOC: H.ER 13:15 → H.EROBSV 15:42 → OBSVTOIN 17:19 → H.ERHOLD 17:38 → H.MEDSURG1 12-26 12:52
PROVIDERS: ADMIT Family Medicine; ATTEND Family Medicine
PROC: 3E0234Z Introduction of Serum, Toxoid and Vaccine into Muscle, Percutaneous Approach (ICD-10-PCS; principal; 2016-12-26)
DX: G35 Multiple sclerosis (principal); N17.9 Acute kidney failure, unspecified; E86.0 Dehydration; E11.9 Type 2 diabetes mellitus without complications; R13.10 Dysphagia, unspecified; I10 Essential (primary) hypertension; Z79.02 Long term (current) use of antithrombotics/antiplatelets; Z79.4 Long term (current) use of insulin; Z79.82 Long term (current) use of aspirin; Z79.899 Other long term (current) drug therapy; Z99.3 Dependence on wheelchair; Z79.84 Long term (current) use of oral hypoglycemic drugs; R06.02 Shortness of breath; Z23 Encounter for immunization

== ENCOUNTER 2017-01-25 21:43 | Inpatient (IN) | payer MEDICARE ==
[2017-01-25 22:12] VITALS: BMI 31.6
[2017-01-26] MEDS ORDERED: Promethazine DM 6.25 mg-15 mg/5 ml Syrup PO PRN (00:16)
[2017-01-26] MEDS ORDERED: Dextrose 50% SYRINGE Inj (50 ml) IV PRN (00:16)
[2017-01-26] MEDS: Insulin Detemir 100 Units/ml Inj SC SCH ×2 (00:41→22:49)
[2017-01-26] MEDS: Insulin Regular 100 units/ml SC SCH ×4 (06:37→22:51)
[2017-01-26 08:30] VITALS: RESP 20
[2017-01-26] MEDS ORDERED: Patient's Own Med (Multivitamin [Multi-Vitamin Daily] 1 TAB) PO SCH (09:00)
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
[2017-01-26] MEDS: Multivitamin With Minerals Tab PO SCH (10:46)
[2017-01-26] MEDS: guaiFENesin-DM 600-30 mg ER Tab PO SCH ×2 (10:46→18:36)
[2017-01-26] MEDS: Enoxaparin 30 mg Syringe SC SCH (10:49)
--- NOTE | 2017-01-26 16:59 | RAD ---
PROCEDURE: Right Knee Radiographs. HISTORY: s/p fall right knee COMPARISON: None. FINDINGS: BONES: Normal. No fracture. JOINTS: Patellofemoral osteoarthritis. No articular erosions. JOINT EFFUSION: None. OTHER FINDINGS: None. IMPRESSION: Patellofemoral osteoarthritis. No fracture
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
[2017-01-26] MEDS ORDERED: INSULIN DETEMIR 40 UNIT SC SCH (22:00)
--- NOTE | 2017-01-27 08:21 | CP.PCM.PN ---
Subjective - Date & Time of Evaluation Date of Evaluation: 01/27/17 Time of Evaluation: 08:19 - Subjective Subjective: doing well, no f/c, n/v/d no cough/congestion, no dyspnea or cp. pt had "fall" yesterday but denies pain. per rn pt got up by himself and slipped to ground. no bruising noted. xr completed. Objective - Vital Signs/Intake and Output Vital Signs (last 24 hours): Temp Pulse Resp BP Pulse Ox 98.6 F 81 20 133/53 L 98 01/26/17 22:11 01/26/17 22:53 01/26/17 22:11 01/27/17 02:35 01/26/17 22:11 - Medications Medications: Current Medications Aspirin (Ecotrin) 81 mg PO DAILY [facility] Last Admin: 01/26/17 10:45 Dose: 81 mg Atorvastatin Calcium (Lipitor) 20 mg PO HS [facility] Last Admin: 01/26/17 22:51 Dose: 20 mg Baclofen (Lioresal) 20 mg PO BID [facility] Last Admin: 01/26/17 18:36 Dose: 20 mg Citalopram Hydrobromide (Celexa) 40 mg PO DAILY [facility] Last Admin: 01/26/17 10:45 Dose: 40 mg Clonidine HCl (Catapres) 0.2 mg PO Q8 [facility] Last Admin: 01/27/17 02:35 Dose: 0.2 mg Clopidogrel Bisulfate (Plavix) 75 mg PO DAILY [facility] Last Admin: 01/26/17 10:46 Dose: 75 mg Dextrose (Dextrose 50% Inj) 50 ml IV STAT PRN PRN Reason: Hyglycemia Protocol Dextrose (Glutose 15) 15 gm PO ONCE PRN PRN Reason: Hypoglycemia Protocol Docusate Sodium (Colace) 100 mg PO HS [facility] Last Admin: 01/26/17 22:52 Dose: 100 mg Enoxaparin Sodium (Lovenox) 30 mg SC DAILY [facility] PRN Reason: Protocol Last Admin: 01/26/17 10:49 Dose: 30 mg Fenofibrate (Tricor) 48 mg PO QPM [facility] Last Admin: 01/26/17 18:36 Dose: 48 mg Ferrous Sulfate (Feosol) 325 mg PO BID [facility] Last Admin: 01/26/17 18:35 Dose: 325 mg Furosemide (Lasix) 40 mg PO DAILY [facility] Last Admin: 01/26/17 10:38 Dose: 40 mg Gabapentin (Neurontin) 300 mg PO BID [facility] Last Admin: 01/26/17 18:36 Dose: 300 mg Glipizide (Glucotrol) 5 mg PO BID [facility] Last Admin: 01/26/17 18:36 Dose: 5 mg Guaifenesin/Dextromethorphan (Mucinex-Dm 600-30 Mg) 1 tab PO BID [facility] Last Admin: 01/26/17 18:36 Dose: 1 tab Hydrochlorothiazide (Microzide) 12.5 mg PO DAILY [facility] Last Admin: 01/26/17 10:45 Dose: 12.5 mg Insulin Detemir (Levemir) 40 units SC [facility] Last Admin: 01/26/17 22:49 Dose: 40 u Insulin Human Regular (Humulin R) 0 units SC [facility] PRN Reason: Protocol Last Admin: 01/26/17 22:51 Dose: Not Given Metoprolol Tartrate (Lopressor) 25 mg PO Q12 [facility] Last Admin: 01/26/17 22:53 Dose: 25 mg Multivitamins/Minerals (Therapeutic-M Tab) 1 tab PO DAILY [facility] Last Admin: 01/26/17 10:46 Dose: 1 tab Promethazine HCl/Dextromethorphan (Phenergan Dm Syrup) 5 ml PO Q6 PRN PRN Reason: cough Last Admin: 01/26/17 22:51 Dose: 5 ml Tamsulosin HCl (Flomax) 0.8 mg PO HS [facility] Last Admin: 01/26/17 22:52 Dose: 0.8 mg Topiramate (Topamax) 50 mg PO DAILY [facility] Last Admin: 01/26/17 10:45 Dose: 50 mg - Constitutional Appears: Well, Non-toxic, No Acute Distress - Head Exam Head Exam: ATRAUMATIC, NORMAL INSPECTION, NORMOCEPHALIC - Eye Exam Eye Exam: EOMI, Normal appearance, PERRL Pupil Exam: NORMAL ACCOMODATION, PERRL - ENT Exam ENT Exam: Mucous Membranes Moist, Normal Exam - Neck Exam Neck Exam: Full ROM, Normal Inspection. absent: Lymphadenopathy - Respiratory Exam Respiratory Exam: Clear to Ausculation Bilateral, NORMAL BREATHING PATTERN - Cardiovascular Exam Cardiovascular Exam: REGULAR RHYTHM, RRR, +S1, +S2. absent: Murmur - GI/Abdominal Exam GI & Abdominal Exam: Soft, Normal Bowel Sounds. absent: Tenderness - Extremities Exam Extremities Exam: Full ROM, Normal Capillary Refill, Normal Inspection. absent : Joint Swelling, Pedal Edema - Back Exam Back Exam: NORMAL INSPECTION - Neurological Exam Neurological Exam: Alert, Awake, CN II-XII Intact, Normal Gait, Oriented x3 - Psychiatric Exam Psychiatric exam: Normal Affect, Normal Mood - Skin Skin Exam: Dry, Intact, Normal Color, Warm Assessment and Plan (1) CHF (congestive heart failure) Status: Acute (2) DVT prophylaxis Status: Acute (3) Multiple sclerosis Status: Acute - Assessment and Plan (Free Text) Assessment: (1) CHF (congestive heart failure) Assessment and Plan: cont all meds, cardio Status: Acute (2) DVT prophylaxis Assessment and Plan: scd nad ae hose lovenox Status: Acute (3) Multiple sclerosis Assessment and Plan: pt/ot home meds Status: Acute
[2017-01-27] MEDS: Insulin Regular 100 units/ml SC SCH ×4 (09:08→22:58)
[2017-01-27] MEDS: Enoxaparin 30 mg Syringe SC SCH (09:13)
[2017-01-27] MEDS: guaiFENesin-DM 600-30 mg ER Tab PO SCH ×2 (09:14→16:56)
[2017-01-27] MEDS: Multivitamin With Minerals Tab PO SCH (09:15)
--- NOTE | 2017-01-27 11:33 | RAD ---
PROCEDURE: Right Hip Radiographs. HISTORY: s/p fall right side of body COMPARISON: None. FINDINGS: BONES: The pelvic ring is intact. There is no acute displaced fracture or bone destruction. JOINTS: Normal. SOFT TISSUES: Normal. OTHER FINDINGS: There atherosclerotic vascular calcifications. IMPRESSION: No acute displaced fracture or dislocation. Please note occult fractures cannot be excluded on plain radiographs. If there is a persistent clinical concern, an MRI of the hip may be performed for further evaluation.
[2017-01-27] MEDS: Insulin Detemir 100 Units/ml Inj SC SCH (22:06)
[2017-01-28] MEDS: Insulin Regular 100 units/ml SC SCH ×4 (08:03→22:34)
[2017-01-28] MEDS: guaiFENesin-DM 600-30 mg ER Tab PO SCH ×2 (08:30→17:36)
[2017-01-28] MEDS: Multivitamin With Minerals Tab PO SCH (08:31)
[2017-01-28] MEDS: Enoxaparin 30 mg Syringe SC SCH (08:33)
[2017-01-28] MEDS: Insulin Detemir 100 Units/ml Inj SC SCH (21:56)
[2017-01-29] MEDS: Insulin Regular 100 units/ml SC SCH ×4 (06:50→21:25)
[2017-01-29] MEDS: Multivitamin With Minerals Tab PO SCH (08:12)
[2017-01-29] MEDS: guaiFENesin-DM 600-30 mg ER Tab PO SCH ×2 (08:12→17:18)
[2017-01-29] MEDS: Enoxaparin 30 mg Syringe SC SCH (08:13)
--- NOTE | 2017-01-29 08:22 | CP.PCM.PN ---
Subjective - Date & Time of Evaluation Date of Evaluation: 01/29/17 Time of Evaluation: 08:22 - Subjective Subjective: doing well w/o complaitns. no f/c, n/v/d. chema phys therapy. gait getting steadier per cindy reports no cough, congestion, plapitations, dyspnea, cp Objective - Vital Signs/Intake and Output Vital Signs (last 24 hours): Temp Pulse Resp BP Pulse Ox 97.7 F 60 20 118/56 L 98 01/29/17 08:00 01/29/17 08:12 01/29/17 08:00 01/29/17 08:12 01/29/17 08:00 - Medications Medications: Current Medications Aspirin (Ecotrin) 81 mg PO DAILY [facility] Last Admin: 01/29/17 08:13 Dose: 81 mg Atorvastatin Calcium (Lipitor) 20 mg PO HS [facility] Last Admin: 01/28/17 21:57 Dose: 20 mg Baclofen (Lioresal) 20 mg PO BID [facility] Last Admin: 01/29/17 08:13 Dose: 20 mg Citalopram Hydrobromide (Celexa) 40 mg PO DAILY [facility] Last Admin: 01/29/17 08:13 Dose: 40 mg Clonidine HCl (Catapres) 0.2 mg PO Q8 [facility] Last Admin: 01/29/17 01:27 Dose: 0.2 mg Clopidogrel Bisulfate (Plavix) 75 mg PO DAILY [facility] Last Admin: 01/29/17 08:13 Dose: 75 mg Dextrose (Dextrose 50% Inj) 50 ml IV STAT PRN PRN Reason: Hyglycemia Protocol Dextrose (Glutose 15) 15 gm PO ONCE PRN PRN Reason: Hypoglycemia Protocol Docusate Sodium (Colace) 100 mg PO HS [facility] Last Admin: 01/28/17 22:35 Dose: Not Given Enoxaparin Sodium (Lovenox) 30 mg SC DAILY [facility] PRN Reason: Protocol Last Admin: 01/29/17 08:13 Dose: 30 mg Fenofibrate (Tricor) 48 mg PO QPM [facility] Last Admin: 01/28/17 17:36 Dose: 48 mg Ferrous Sulfate (Feosol) 325 mg PO BID [facility] Last Admin: 01/29/17 08:13 Dose: 325 mg Furosemide (Lasix) 40 mg PO DAILY [facility] Last Admin: 01/29/17 08:11 Dose: 40 mg Gabapentin (Neurontin) 300 mg PO BID [facility] Last Admin: 01/29/17 08:13 Dose: 300 mg Glipizide (Glucotrol) 5 mg PO BID [facility] Last Admin: 01/29/17 08:13 Dose: 5 mg Guaifenesin/Dextromethorphan (Mucinex-Dm 600-30 Mg) 1 tab PO BID [facility] Last Admin: 01/29/17 08:12 Dose: 1 tab Hydrochlorothiazide (Microzide) 12.5 mg PO DAILY [facility] Last Admin: 01/29/17 08:13 Dose: 12.5 mg Insulin Detemir (Levemir) 40 units SC [facility] Last Admin: 01/28/17 21:56 Dose: 40 u Insulin Human Regular (Humulin R) 0 units SC [facility] PRN Reason: Protocol Last Admin: 01/29/17 06:50 Dose: Not Given Metoprolol Tartrate (Lopressor) 25 mg PO Q12 [facility] Last Admin: 01/29/17 08:12 Dose: 25 mg Multivitamins/Minerals (Therapeutic-M Tab) 1 tab PO DAILY [facility] Last Admin: 01/29/17 08:12 Dose: 1 tab Promethazine HCl/Dextromethorphan (Phenergan Dm Syrup) 5 ml PO Q6 PRN PRN Reason: cough Last Admin: 01/26/17 22:51 Dose: 5 ml Tamsulosin HCl (Flomax) 0.8 mg PO [facility] Last Admin: 01/28/17 21:57 Dose: 0.8 mg Topiramate (Topamax) 50 mg PO DAILY [facility] Last Admin: 01/29/17 08:12 Dose: 50 mg - Constitutional Appears: Well, Non-toxic, No Acute Distress - Head Exam Head Exam: ATRAUMATIC, NORMAL INSPECTION, NORMOCEPHALIC - Eye Exam Eye Exam: EOMI, Normal appearance, PERRL Pupil Exam: NORMAL ACCOMODATION, PERRL - ENT Exam ENT Exam: Mucous Membranes Moist, Normal Exam - Neck Exam Neck Exam: Full ROM, Normal Inspection. absent: Lymphadenopathy - Respiratory Exam Respiratory Exam: Clear to Ausculation Bilateral, NORMAL BREATHING PATTERN - Cardiovascular Exam Cardiovascular Exam: REGULAR RHYTHM, RRR, +S1, +S2. absent: Murmur - GI/Abdominal Exam GI & Abdominal Exam: Soft, Normal Bowel Sounds. absent: Tenderness - Extremities Exam Extremities Exam: Full ROM, Normal Capillary Refill, Normal Inspection. absent : Joint Swelling, Pedal Edema - Back Exam Back Exam: NORMAL INSPECTION - Neurological Exam Neurological Exam: Alert, Awake, CN II-XII Intact, Normal Gait, Oriented x3 - Psychiatric Exam Psychiatric exam: Normal Affect, Normal Mood - Skin Skin Exam: Dry, Intact, Normal Color, Warm Assessment and Plan (1) CHF (congestive heart failure) Status: Acute (2) DVT prophylaxis Status: Acute (3) Multiple sclerosis Status: Acute - Assessment and Plan (Free Text) Assessment: (1) CHF (congestive heart failure) Assessment and Plan: cont all meds, cardio Status: Acute (2) DVT prophylaxis Assessment and Plan: scd nad ae hose lovenox Status: Acute (3) Multiple sclerosis Assessment and Plan: pt/ot home meds Status: Acute
[2017-01-29] MEDS: Insulin Detemir 100 Units/ml Inj SC SCH (21:32)
[2017-01-30] MEDS: Insulin Regular 100 units/ml SC SCH ×4 (06:33→21:14)
[2017-01-30] MEDS: Enoxaparin 30 mg Syringe SC SCH (09:01)
[2017-01-30] MEDS: Multivitamin With Minerals Tab PO SCH (09:02)
[2017-01-30] MEDS: guaiFENesin-DM 600-30 mg ER Tab PO SCH ×2 (09:03→16:04)
[2017-01-30] MEDS: Insulin Detemir 100 Units/ml Inj SC SCH (21:14)
[2017-01-31] MEDS: Insulin Regular 100 units/ml SC SCH ×4 (06:50→22:34)
--- NOTE | 2017-01-31 08:20 | CP.PCM.PN ---
Subjective - Date & Time of Evaluation Date of Evaluation: 01/31/17 Time of Evaluation: 08:19 - Subjective Subjective: denies complaints. doing well. no f/c n/v/d. no cough/congestion. for dc tomorrow Objective - Vital Signs/Intake and Output Vital Signs (last 24 hours): Temp Pulse Resp BP Pulse Ox 97.3 F L 66 20 132/51 L 94 L 01/31/17 07:58 01/31/17 07:58 01/31/17 07:58 01/31/17 07:58 01/31/17 07:58 - Medications Medications: Current Medications Aspirin (Ecotrin) 81 mg PO DAILY [facility] Last Admin: 01/30/17 09:02 Dose: 81 mg Atorvastatin Calcium (Lipitor) 20 mg PO HS [facility] Last Admin: 01/30/17 21:04 Dose: 20 mg Baclofen (Lioresal) 20 mg PO BID [facility] Last Admin: 01/30/17 16:04 Dose: 20 mg Citalopram Hydrobromide (Celexa) 40 mg PO DAILY [facility] Last Admin: 01/30/17 09:01 Dose: 40 mg Clonidine HCl (Catapres) 0.2 mg PO Q8 [facility] Last Admin: 01/31/17 00:23 Dose: Not Given Clopidogrel Bisulfate (Plavix) 75 mg PO DAILY [facility] Last Admin: 01/30/17 09:04 Dose: 75 mg Dextrose (Dextrose 50% Inj) 50 ml IV STAT PRN PRN Reason: Hyglycemia Protocol Dextrose (Glutose 15) 15 gm PO ONCE PRN PRN Reason: Hypoglycemia Protocol Docusate Sodium (Colace) 100 mg PO HS [facility] Last Admin: 01/30/17 21:02 Dose: 100 mg Enoxaparin Sodium (Lovenox) 30 mg SC DAILY [facility] PRN Reason: Protocol Last Admin: 01/30/17 09:01 Dose: 30 mg Fenofibrate (Tricor) 48 mg PO QPM [facility] Last Admin: 01/30/17 18:40 Dose: 48 mg Ferrous Sulfate (Feosol) 325 mg PO BID [facility] Last Admin: 01/30/17 16:03 Dose: 325 mg Furosemide (Lasix) 40 mg PO DAILY [facility] Last Admin: 01/30/17 09:00 Dose: 40 mg Gabapentin (Neurontin) 300 mg PO BID [facility] Last Admin: 01/30/17 16:03 Dose: 300 mg Glipizide (Glucotrol) 5 mg PO BID [facility] Last Admin: 01/30/17 16:03 Dose: 5 mg Guaifenesin/Dextromethorphan (Mucinex-Dm 600-30 Mg) 1 tab PO BID [facility] Last Admin: 01/30/17 16:04 Dose: 1 tab Hydrochlorothiazide (Microzide) 12.5 mg PO DAILY [facility] Last Admin: 01/30/17 09:02 Dose: 12.5 mg Insulin Detemir (Levemir) 40 units SC [facility] Last Admin: 01/30/17 21:14 Dose: 40 u Insulin Human Regular (Humulin R) [address] [facility] PRN Reason: Protocol Last Admin: 01/31/17 06:50 Dose: Not Given Metoprolol Tartrate (Lopressor) 25 mg PO Q12 [facility] Last Admin: 01/30/17 21:03 Dose: 25 mg Multivitamins/Minerals (Therapeutic-M Tab) 1 tab PO DAILY [facility] Last Admin: 01/30/17 09:02 Dose: 1 tab Promethazine HCl/Dextromethorphan (Phenergan Dm Syrup) 5 ml PO Q6 PRN PRN Reason: cough Last Admin: 01/26/17 22:51 Dose: 5 ml Tamsulosin HCl (Flomax) 0.8 mg PO [facility] Last Admin: 01/30/17 21:04 Dose: 0.8 mg Topiramate (Topamax) 50 mg PO DAILY [facility] Last Admin: 01/30/17 09:02 Dose: 50 mg - Constitutional Appears: Well, Non-toxic, No Acute Distress - Head Exam Head Exam: ATRAUMATIC, NORMAL INSPECTION, NORMOCEPHALIC - Eye Exam Eye Exam: EOMI, Normal appearance, PERRL Pupil Exam: NORMAL ACCOMODATION, PERRL - ENT Exam ENT Exam: Mucous Membranes Moist, Normal Exam - Neck Exam Neck Exam: Full ROM, Normal Inspection. absent: Lymphadenopathy - Respiratory Exam Respiratory Exam: Clear to Ausculation Bilateral, NORMAL BREATHING PATTERN - Cardiovascular Exam Cardiovascular Exam: REGULAR RHYTHM, RRR, +S1, +S2. absent: Murmur - GI/Abdominal Exam GI & Abdominal Exam: Soft, Normal Bowel Sounds. absent: Tenderness - Extremities Exam Extremities Exam: Full ROM, Normal Capillary Refill, Normal Inspection. absent : Joint Swelling, Pedal Edema - Back Exam Back Exam: NORMAL INSPECTION - Neurological Exam Neurological Exam: Alert, Awake, CN II-XII Intact, Normal Gait, Oriented x3 - Psychiatric Exam Psychiatric exam: Normal Affect, Normal Mood - Skin Skin Exam: Dry, Intact, Normal Color, Warm Assessment and Plan (1) CHF (congestive heart failure) Status: Acute (2) DVT prophylaxis Status: Acute (3) Multiple sclerosis Status: Acute - Assessment and Plan (Free Text) Assessment: (1) CHF (congestive heart failure) Assessment and Plan: cont all meds, cardio Status: Acute (2) DVT prophylaxis Assessment and Plan: scd nad ae hose lovenox Status: Acute (3) Multiple sclerosis Assessment and Plan: pt/ot home meds Status: Acute
[2017-01-31] MEDS: Enoxaparin 30 mg Syringe SC SCH (08:21)
[2017-01-31] MEDS: guaiFENesin-DM 600-30 mg ER Tab PO SCH ×2 (08:24→17:12)
[2017-01-31] MEDS: Multivitamin With Minerals Tab PO SCH (08:25)
[2017-01-31] MEDS: Insulin Detemir 100 Units/ml Inj SC SCH (22:31)
[2017-02-01] MEDS: Insulin Regular 100 units/ml SC SCH ×2 (06:36→12:47)
[2017-02-01 07:46] VITALS: PULSE 54; TEMP 97.7; O2SAT 92
[2017-02-01] MEDS: Enoxaparin 30 mg Syringe SC SCH (08:22)
[2017-02-01] MEDS: Multivitamin With Minerals Tab PO SCH (08:24)
[2017-02-01] MEDS: guaiFENesin-DM 600-30 mg ER Tab PO SCH ×2 (08:27→16:19)
--- NOTE | 2017-02-01 09:06 | CP.PCM.DIS ---
Provider - Provider Date of Admission: 01/25/17 22:39 Attending physician: Pillo Kelly MD Primary care physician: Ike Washington MD Time Spent in preparation of Discharge (in minutes): 15 Diagnosis - Discharge Diagnosis (1) CHF (congestive heart failure) Status: Acute (2) DVT prophylaxis Status: Acute (3) Multiple sclerosis Status: Acute Hospital Course - Lab Results Lab Results: Most Recent Lab Values POC Glucose (mg/dL) 100 mg/dL (65-110) 02/01/17 05:32 Discharge Exam - Head Exam Head Exam: ATRAUMATIC, NORMAL INSPECTION, NORMOCEPHALIC Discharge Plan - Discharge Medications Prescriptions: Furosemide [Lasix] 40 mg PO DAILY #30 tab Multimineral/Multivitamin [Therapeutic-M Tab] 1 tab PO DAILY #30 tab - Follow Up Plan Condition: GOOD Disposition: HOME/ ROUTINE Additional Instructions: doing well, cleared for dc, f/u w/ pmd in office. rted prn, meds per med rec final dx- chf, multiple sclerosis, cough Referrals: Ike Washington MD [Primary Care Provider] -
[2017-02-01 16:19] VITALS: BP 124/55
== END 2017-02-01 16:35 | disposition home or self-care (01) | DRG 293 ==
LOC: H.TCU 22:39
PROVIDERS: ADMIT Family Medicine; ATTEND Family Medicine
PROC: F07Z9FZ Gait Training/Functional Ambulation Treatment using Assistive, Adaptive, Supportive or Protective Equipment (ICD-10-PCS; principal; 2017-01-25)
PROC: F07M6FZ Therapeutic Exercise Treatment of Musculoskeletal System - Whole Body using Assistive, Adaptive, Supportive or Protective Equipment (ICD-10-PCS; 2017-01-25)
PROC: F08Z4FZ Home Management Treatment using Assistive, Adaptive, Supportive or Protective Equipment (ICD-10-PCS; 2017-01-26)
DX: I11.0 Hypertensive heart disease with heart failure (principal); E10.51 Type 1 diabetes mellitus with diabetic peripheral angiopathy without gangrene; I42.9 Cardiomyopathy, unspecified; G35 Multiple sclerosis; I50.9 Heart failure, unspecified; F41.9 Anxiety disorder, unspecified; Z79.4 Long term (current) use of insulin; Z87.891 Personal history of nicotine dependence

== ENCOUNTER 2017-03-01 16:23 | Inpatient (IN) | payer MEDICARE ==
[2017-03-01 16:23] VITALS: BMI 31.6
[2017-03-01] MEDS ORDERED: Sodium Chloride 0.9% 1,000 ML IV STA (16:50)
--- NOTE | 2017-03-01 16:54 | ED PDOC ---
HPI: Altered Mental Status Time Seen by Provider: 03/01/17 16:39 Chief Complaint (Nursing): Weakness/Neurological Deficit History Per: Family Onset/Duration Of Symptoms: Days (5) Current Symptoms Are (Timing): Still Present Description Of Symptoms: Confused Usual Baseline: Alert Oriented Exacerbating Factor(s): Diabetic Severity: Moderate Associated Symptoms: denies: Fever Additional Complaint(s): Daughter states pt increasingly confused over past weak. No fever. Glucose at home elevated above 400. BP at home also low.. No vomiting or diarrhea. Past Medical History Vital Signs: Last Vital Signs Temp 97.5 F L 03/01/17 16:28 Pulse 66 03/01/17 16:28 Resp 20 03/01/17 16:28 BP 100/55 L 03/01/17 16:28 Pulse Ox 100 03/01/17 16:28 - Medical History PMH: Anxiety, CHF, Diabetes, HTN, Multiple Sclerosis Denies: HIV, Chronic Kidney Disease Other PMH: MS - Family History Family History: States: Unknown Family Hx - Immunization History Hx Tetanus Toxoid Vaccination: No Hx Influenza Vaccination: No Hx Pneumococcal Vaccination: No - Home Medications Home Medications: Ambulatory Orders Medication Instructions Recorded Aspirin [Ecotrin] 81 mg PO DAILY 12/25/16 Atorvastatin [Lipitor] 20 mg PO HS 12/25/16 Baclofen [Lioresal] 20 mg PO BID 12/25/16 Citalopram Hydrobromide 40 mg PO HS 12/25/16 [Citalopram HBr] Clopidogrel [Plavix] 75 mg PO DAILY 12/25/16 Docusate [Colace] 100 mg PO HS 12/25/16 Fenofibrate [Tricor] 48 mg PO QPM 12/25/16 Gabapentin [Neurontin] 300 mg PO BID 12/25/16 Glipizide [Glucotrol] 5 mg PO BID 12/25/16 Insulin Detemir [Levemir] 40 unit SC HS 12/25/16 Multivitamin [Multi-Vitamin Daily] 1 tab PO DAILY 12/25/16 Tamsulosin [Flomax] 0.8 mg PO HS 12/25/16 Topiramate [Topamax] 50 mg PO DAILY 12/25/16 hydroCHLOROthiazide [Microzide] 12.5 mg PO DAILY 12/25/16 Metoprolol Tartrate [Lopressor] 25 mg PO Q12 tab 12/29/16 guaiFENesin/Dextromethorphan 1 tab PO BID tab 12/29/16 [Mucinex-DM 600-30 mg] Dextrose Oral [Glutose 15] 0 gm PO ONCE PRN tube 01/25/17 Ferrous Sulfate [Feosol] 325 mg PO BID tab 01/25/17 Insulin Human Regular [HumuLIN R] 0 units SC [facility]CHS ml 01/25/17 Furosemide [Lasix] 40 mg PO DAILY #30 tab 02/01/17 Multimineral/Multivitamin 1 tab PO DAILY #30 tab 02/01/17 [Therapeutic-M Tab] cloNIDine [clonidine HCl] 0.2 mg PO Q12 02/01/17 - Allergies Allergies/Adverse Reactions: Allergies Allergy/AdvReac Type Severity Reaction Status Date / Time No Known Allergies Allergy Verified 01/24/17 01:35 Review of Systems ROS Statement: Except As Marked, All Systems Reviewed And Found Negative Neurological: Positive for: Confusion Physical Exam - Reviewed Nursing Documentation Reviewed: Yes Vital Signs Reviewed: Yes - Physical Exam Appears: Positive for: Non-toxic, No Acute Distress Head Exam: Positive for: ATRAUMATIC, NORMAL INSPECTION, NORMOCEPHALIC Skin: Positive for: Normal Color, Warm, DRY Eye Exam: Positive for: EOMI, Normal appearance, PERRL ENT: Positive for: Other (Mucous membranes dry) Neck: Positive for: Normal, Painless ROM Cardiovascular/Chest: Positive for: Regular Rate, Rhythm Respiratory: Positive for: CNT, Normal Breath Sounds Gastrointestinal/Abdominal: Positive for: Normal Exam, Bowel Sounds, Soft Back: Positive for: Normal Inspection Extremity: Positive for: Normal ROM Neurologic/Psych: Negative for: Alert (lethargic), Oriented (x 1), Motor/ Sensory Deficits - Laboratory Results Result Diagrams: 03/01/17 16:54 03/01/17 16:54 - ECG O2 Sat by Pulse Oximetry: 100 Disposition - Clinical Impression Clinical Impression: ARF (acute renal failure), Dehydration, Multiple sclerosis, Uncontrolled diabetes mellitus - Patient ED Disposition Is Patient to be Admitted: Yes - Disposition Disposition: Routine/Home Disposition Time: 17:31 Condition: FAIR Forms: [facility] ([place]) - Pt Status Changed To: Hospital Disposition Of: Inpatient - Admit Certification Admit to Inpatient:: After my assessment, the patient will require hospitalization for at least two midnights. This is because of the severity of symptoms shown, intensity of services needed, and/or the medical risk in this patient being treated as an outpatient. - POA Present On Arrival: None
[2017-03-01 17:07] LABS: BASO # 0.1 K/uL (0.0-0.2); BASO % 0.8 % (0.0-2.0); EOS # 0.4 K/uL (0.0-0.7); EOS % 3.6 % (0.0-4.0); HEMATOCRIT 36.9 % (35.0-51.0); LYMPH # 2.7 K/uL (1.0-4.3); LYMPH % 22.1 % (20.0-40.0); MEAN CELL VOLUME 89.4 fl (80.0-94.0); MEAN CORPUSCULAR HEMOGLOBIN 27.9 pg (27.0-31.0); MEAN CORPUSCULAR HGB CONC 31.2 g/dL (33.0-37.0); MEAN PLATELET VOLUME 7.8 fl (7.2-11.7); MONO # 1.4 K/uL (0.0-0.8); NEUT # 7.7 K/uL (1.8-7.0); NEUT % 62.5 % (50.0-75.0); RED CELL DISTRIBUTION WIDTH 13.7 % (11.5-14.5); WHITE BLOOD COUNT 12.4 K/uL (4.8-10.8)
[2017-03-01 17:09] LABS: ABG ALLEN TEST YES; ARTERIAL BLOOD GAS HCO3 29.5 mmol/L (21-28); ARTERIAL BLOOD GAS PH 7.37 (7.35-7.45); ARTERIAL BLOOD GAS PO2 79 mm/Hg (80-100)
[2017-03-01 17:23] LABS: ALB/GLOB RATIO 1.3 (1.0-2.1); BILIRUBIN,TOTAL 0.6 mg/dl (0.2-1.3); CALCIUM 9.1 mg/dL (8.4-10.2); POTASSIUM 4.3 MMOL/L (3.6-5.0); TOTAL PROTEIN 6.4 G/DL (6.3-8.2)
[2017-03-01] MEDS ORDERED: Insulin Regular 100 units/ml IV STA (17:27)
[2017-03-01] MEDS ORDERED: Insulin Regular 100 units/ml ONE (17:57)
--- NOTE | 2017-03-01 18:09 | CT ---
PROCEDURE: CT HEAD WITHOUT CONTRAST. HISTORY: r/o bleed COMPARISON: Unenhanced head CT 12/24/2012. TECHNIQUE: Axial computed tomography images were obtained through the head/brain without intravenous contrast. Radiation dose: Total exam DLP = 1752.53 mGy-cm. This CT exam was performed using one or more of the following dose reduction techniques: Automated exposure control, adjustment of the mA and/or kV according to patient size, and/or use of iterative reconstruction technique. FINDINGS: HEMORRHAGE: No intracranial hemorrhage. BRAIN: The price-white matter differentiation is well preserved. There is no mass effect or definitive edema pattern appreciate including the cortex. There is expansion of the ventriculosulcal and cisternal spaces however in a pattern most compatible with diffuse cerebral atrophy. No suspicious extra-axial fluid collection is identified in the midline brain anatomy appears grossly nonfocal as imaged. VENTRICLES: Unremarkable. No hydrocephalus. CALVARIUM: Unremarkable. PARANASAL SINUSES: Unremarkable as visualized. No significant inflammatory changes. MASTOID AIR CELLS: Unremarkable as visualized. No inflammatory changes. OTHER FINDINGS: None. IMPRESSION: Stable age related neuro degenerative changes are identified without acute intracranial findings as discussed above. Follow up CT or MRI as clinically warranted.
--- NOTE | 2017-03-01 18:20 | CP.CCUPN ---
CCU Subjective - Physician Review Subjective (Free Text): Available EMR records reviewed, no HG&P available, no reliable HPI obtainable from patient: Discussed with ER MD- 76M admitted with AMS, hyperglycemia, dehydration; given fluid bolus in ER, BP responded from 70s systolic to approx. 100; hyperglycemic with BS 402 and appears severely dehydrated; and hypotensive, no s/sx Sepsis. Progressive lethargy, worse today. Other vitals and I/O's reviewed. Bradycardic, 55/min, T= 97/5, RR shallow, 11/ min, 98% SPO2 on RA. ALLERGIES: NKDA Home Meds: ASA, Lipitor, Lioresal, Clonidine, Plavix, Tricor, :asix, Gabapentin , Glucotrol, HCTZ, Lopressor, Flomax, Topamax, Levemir. ROS: Unobtainable due to AMS. No other pertinent negs or positives on 10+ system review. PMSFH: Multiple Sclerosis, HTN, DM II, Falls at home, non-drinker, former smoker- Otherwise all Nursing and physician documentation reviewed to date; no new pertinent info noted relevant to current medical problems. CXR: clear lung rodriguez, no gross consolidation, no cardiomegaly (my interp). EKG: pending IMPRESSION / MAJOR PROBLEMS NOW: 1. Hyperosmolar State 2 Uncontrolled DII, no other identifiable concurrent active illnesses 2. Severe Dehydration with Azotemia 3. Acute Resp Insuff with Hypercarbia 4. Acute on Chronic CKD II 5. Chronic Disease Anemia 6. Multiple Sclerosis PLAN: 1. IVF hydration with NSS for now. Switching to dextrose-supplemented fluids later when BS levels improve to 250 mg/dl or less. Insulin drip regimen for now. Follow serum osmolarity and ketones. Calculated serum osmo= 314.7. No other toxic ingestions suspected or known. 2. Monitor serial lytes, BUN/Cr, urine output. 3. Neurochecks, seizure precautions, HOB elevation, CT Brain. 4. Check old records for any MS treatments or exacerbations in the past. 5. Hold antihypertensives, DIURETICS; and [employer]-acting Home medications: Clonidine, Lasix, Gabapentin, HCTZ, Lopressor, Flomax, Topamax. 6. Hold Baclofen (Lioresal) unless there is intolerable spasticity. 7. Does not need assisted breathing support; reflexive airway protection mechanisms intact. Check repeat ABG. 8. Clarify baseline neuromental status and functional status level, clarify and Advance Directives. He may be wheelchair bound as well. CCU Objective - Vital Signs / Intake & Output Vital Signs (Last 4 hours): Vital Signs Temp Pulse Resp BP Pulse Ox 03/01/17 18:14 55 L 11 L 72/41 L 03/01/17 17:32 100 03/01/17 16:54 55 L 11 L 72/41 L 98 03/01/17 16:35 61 17 77/47 L 100 03/01/17 16:28 97.5 F L 66 20 100/55 L 100 Intake and Output (Last 8hrs): Intake & Output 03/01/17 03/01/17 03/01/17 06:59 14:59 22:59 Weight 210 lb - Physical Exam Physical Exam Limitations: Positive for: Altered Mental Status Head: Positive for: Atraumatic, Normocephalic Pupils: Positive for: PERRL Extroacular Muscles: Positive for: EOMI. Negative for: Gaze Palsy Conjunctiva: Positive for: Normal. Negative for: Icteric Mouth: Positive for: Dry Neck: Positive for: Normal Range of Motion. Negative for: JVD Respiratory/Chest: Positive for: Clear to Auscultation. Negative for: Accessory Muscle Use, Wheezes Cardiovascular: Positive for: Bradycardic Abdomen: Positive for: Normal Bowel Sounds. Negative for: Tenderness, Distention, Mass/Organomegaly Lower Extremity: Positive for: NORMAL PULSES. Negative for: CALF TENDERNESS, Cyanosis Neurological: Positive for: Motor Func Grossly Intact. Negative for: GCS=15 ( GCS = 12), Normal Sensory Function Skin: Positive for: Warm, Dry. Negative for: Rashes Psychiatric: Positive for: Lethargic. Negative for: Oriented x 3 (to person only) - Medications Active Medications: Active Medications Generic Name Dose Route Start Last Admin Trade Name Freq PRN Reason Stop Dose Admin Aspirin 81 mg 03/02/17 09:00 Ecotrin PO DAILY [facility] Atorvastatin Calcium 20 mg 03/01/17 22:00 Lipitor PO HS [facility] Baclofen 20 mg 03/02/17 09:00 Lioresal PO BID [facility] Citalopram Hydrobromide 40 mg 03/01/17 22:00 Celexa PO HS [facility] Clopidogrel Bisulfate 75 mg 03/02/17 09:00 Plavix PO DAILY [facility] Fenofibrate 48 mg 03/02/17 18:00 Tricor PO QPM [facility] Ferrous Sulfate 325 mg 03/02/17 09:00 Feosol PO BID [facility] Gabapentin 300 mg 03/02/17 09:00 Neurontin PO BID [facility] Glipizide 5 mg 03/02/17 09:00 Glucotrol PO BID [facility] Sodium Chloride 1,000 mls @ 250 mls/hr 03/01/17 16:50 03/01/17 17:01 Sodium Chloride 0.9% IV 03/01/17 20:49 250 mls/hr .Q4H STA Administration Insulin Detemir 40 units 03/01/17 22:00 Levemir SC HS [facility] Multivitamins/Minerals 1 tab 03/02/17 09:00 Therapeutic-M Tab PO DAILY [facility] Tamsulosin HCl 0.8 mg 03/01/17 22:00 Flomax PO HS [facility] Topiramate 50 mg 03/02/17 09:00 Topamax PO DAILY [facility] - Patient Studies Lab Studies: Lab Studies 03/01/17 03/01/17 03/01/17 Range/Units 17:06 16:54 16:54 WBC 12.4 H D (4.8-10.8) K/uL RBC 4.13 L (4.40-5.90) Mil/uL Hgb 11.5 L D (12.0-18.0) g/dL Hct 36.9 (35.0-51.0) % MCV 89.4 (80.0-94.0) fl MCH 27.9 (27.0-31.0) pg MCHC 31.2 L (33.0-37.0) g/dL RDW 13.7 (11.5-14.5) % Plt Count 355 (130-400) K/uL MPV 7.8 (7.2-11.7) fl Neut % (Auto) 62.5 (50.0-75.0) % Lymph % (Auto) 22.1 (20.0-40.0) % Schleicher % (Auto) 11.0 H (0.0-10.0) % Eos % (Auto) 3.6 (0.0-4.0) % Baso % (Auto) 0.8 (0.0-2.0) % Neut # 7.7 H (1.8-7.0) K/uL Lymph # 2.7 (1.0-4.3) K/uL Schleicher # 1.4 H (0.0-0.8) K/uL Eos # 0.4 (0.0-0.7) K/uL Baso # 0.1 (0.0-0.2) K/uL pCO2 57 H (35-45) mm/Hg pO2 79 L (80-100) mm/Hg HCO3 29.5 H (21-28) mmol/L ABG pH 7.37 (7.35-7.45) ABG Total CO2 34.7 H (22-28) mmol/L ABG O2 Saturation 98.8 H (95-98) % ABG Base Excess 6.0 H (-2.0-3.0) mmol/L Rudy Test Yes ABG Potassium 3.8 (3.6-5.2) mmol/L A-a O2 Difference 49.0 mm/Hg Glucose 399 H (75-110) mg/dL Lactate 1.2 (0.7-2.1) mmol/L FiO2 28.0 % Blood Gas Comments 2l/m nc,rr Crit Value Read Back N Sodium 131.0 L 136 (132-148) mmol/l Potassium 4.3 (3.6-5.0) MMOL/L Chloride 96.0 L 95 L (98-107) mmol/L Carbon Dioxide 29 (22-30) mmol/L Anion Gap 16 (10-20) BUN 57 H (9-20) mg/dl Creatinine 4.5 H (0.8-1.5) mg/dl Est GFR ( Amer) 15 Est GFR (Non-Af Amer) 13 Random Glucose 402 H* D (75-110) mg/dL Calcium 9.1 (8.4-10.2) mg/dL Total Bilirubin 0.6 (0.2-1.3) mg/dl AST 53 (17-59) U/L ALT 35 (21-72) U/L Alkaline Phosphatase 79 (38-126) U/L Total Protein 6.4 (6.3-8.2) G/DL Albumin 3.7 (3.5-5.0) g/dL Globulin 2.7 (2.2-3.9) gm/dL Albumin/Globulin Ratio 1.3 (1.0-2.1) Arterial Blood Potassium 3.8 (3.6-5.2) mmol/L Laboratory Results - last 24 hr 03/01/17 03/01/17 03/01/17 16:54 16:54 17:06 WBC 12.4 H D RBC 4.13 L Hgb 11.5 L D Hct 36.9 MCV 89.4 MCH 27.9 MCHC 31.2 L RDW 13.7 Plt Count 355 MPV 7.8 Neut % (Auto) 62.5 Lymph % (Auto) 22.1 Schleicher % (Auto) 11.0 H Eos % (Auto) 3.6 Baso % (Auto) 0.8 Neut # 7.7 H Lymph # 2.7 Schleicher # 1.4 H Eos # 0.4 Baso # 0.1 pCO2 57 H pO2 79 L HCO3 29.5 H ABG pH 7.37 ABG Total CO2 34.7 H ABG O2 Saturation 98.8 H ABG Base Excess 6.0 H Rudy Test Yes ABG Potassium 3.8 A-a O2 Difference 49.0 Glucose 399 H Lactate 1.2 FiO2 28.0 Blood Gas Comments 2l/m nc,rr Crit Value Read Back N Sodium 136 131.0 L Potassium 4.3 Chloride 95 L 96.0 L Carbon Dioxide 29 Anion Gap 16 BUN 57 H Creatinine 4.5 H Est GFR ( Amer) 15 Est GFR (Non-Af Amer) 13 Random Glucose 402 H* D Calcium 9.1 Total Bilirubin 0.6 AST 53 ALT 35 Alkaline Phosphatase 79 Total Protein 6.4 Albumin 3.7 Globulin 2.7 Albumin/Globulin Ratio 1.3 Arterial Blood Potassium 3.8 Radiology Interpretations (Free Text): see above Fingerstick Blood Sugar Results: 419 Review of Systems - Review of Systems Systems not reviewed;Unavailable: Altered Mental Status Critical Care Progress Note - Extremities/Vascular Does the Patient have a Central Venous Catheter?: No Does the Patient need a Central Venous Catheter?: No Does the Patient have a Perez Catheter?: Yes Does the Patient need a Perez Catheter?: Yes Catheter Insertion Criteria: Need for accurate measurement of output in critically ill patient - Prophylaxis GI Prophylaxis GI: Pepsid - Prophylaxis DVT Prophylaxis DVT: SCDs
[2017-03-01] MEDS ORDERED: Dextrose 50% SYRINGE Inj (50 ml) IV PRN (18:36)
[2017-03-01] MEDS ORDERED: Sodium Chloride 0.9% 1,000 ML IV SCH (18:45)
[2017-03-01] MEDS ORDERED: Sodium Chloride 0.9% 500 ML IV ONE (20:05)
[2017-03-01] MEDS: Dextrose 5%/0.45% NS 1,000 ML IV SCH (20:35)
[2017-03-01 20:42] LABS: CALCIUM 9.1 mg/dL (8.4-10.2); POTASSIUM 3.6 MMOL/L (3.6-5.0)
[2017-03-01] MEDS: Sodium Chloride 0.9% 1,000 ML IV SCH (20:51)
[2017-03-01] MEDS: Insulin Lispro (humaLOG) 100 Units/ml Inj SC SCH (21:56)
[2017-03-01] MEDS ORDERED: Insulin Detemir 100 Units/ml Inj SC SCH (22:00)
[2017-03-01] MEDS: Insulin Detemir 100 Units/ml Inj SC SCH (22:36)
[2017-03-02 03:12] LABS: RBC URINE 5 /hpf (0-3); URINE BILIRUBIN NEGATIVE (NEGATIVE); URINE BLOOD MODERATE (NEGATIVE); URINE COLOR AMBER (YELLOW); URINE GLUCOSE (UA) >=500 mg/dL (Normal); URINE KETONE NEGATIVE (NEGATIVE); URINE LEUKOCYTE ESTERASE NEG Leu/uL (Negative); URINE PROTEIN NEGATIVE (NEGATIVE); URINE UROBILINOGEN 0.2-1.0 mg/dL (0.2-1.0); WBC URINE 2 /hpf (0-5)
[2017-03-02 03:29] LABS: URINE BACTERIA FEW (<OCC)
[2017-03-02] MEDS: Dextrose 5%/0.45% NS 1,000 ML IV SCH (04:23)
[2017-03-02] MEDS: Sodium Chloride 0.9% 1,000 ML IV SCH (04:25)
[2017-03-02 05:54] LABS: BASO # 0.1 K/uL (0.0-0.2); BASO % 0.6 % (0.0-2.0); EOS # 0.3 K/uL (0.0-0.7); EOS % 2.3 % (0.0-4.0); HEMATOCRIT 36.2 % (35.0-51.0); LYMPH # 2.4 K/uL (1.0-4.3); LYMPH % 20.5 % (20.0-40.0); MEAN CELL VOLUME 88.9 fl (80.0-94.0); MEAN CORPUSCULAR HEMOGLOBIN 28.4 pg (27.0-31.0); MEAN CORPUSCULAR HGB CONC 31.9 g/dL (33.0-37.0); MONO # 0.7 K/uL (0.0-0.8); NEUT # 8.4 K/uL (1.8-7.0); NEUT % 70.6 % (50.0-75.0); NRBC % 0.1 % (0.0-0.0); RED CELL DISTRIBUTION WIDTH 13.8 % (11.5-14.5); WHITE BLOOD COUNT 11.9 K/uL (4.8-10.8)
[2017-03-02 06:01] LABS: ALB/GLOB RATIO 1.3 (1.0-2.1); ALKALINE PHOSPHATASE 65 U/L (38-126); ALT/SGPT 34 U/L (21-72); AST/SGOT 30 U/L (17-59); BILIRUBIN,TOTAL 0.5 mg/dl (0.2-1.3); BLOOD UREA NITROGEN 56 mg/dl (9-20); CALCIUM 8.9 mg/dL (8.4-10.2); CARBON DIOXIDE 29 mmol/L (22-30); CHLORIDE 100 mmol/L (98-107); GFR AFRICAN-AMERICAN 13; GLUCOSE,RANDOM 219 mg/dL (75-110); POTASSIUM 4.3 MMOL/L (3.6-5.0); SODIUM 139 mmol/l (132-148); TOTAL PROTEIN 6.5 G/DL (6.3-8.2)
[2017-03-02 06:17] LABS: ABG ALLEN TEST YES; ARTERIAL BLOOD GAS HCO3 28.7 mmol/L (21-28); ARTERIAL BLOOD GAS PH 7.38 (7.35-7.45); ARTERIAL BLOOD GAS PO2 90 mm/Hg (80-100)
[2017-03-02 06:36] LABS: PARTIAL THROMBOPLASTIN TIME 26.1 Seconds (25.6-37.1)
--- NOTE | 2017-03-02 06:57 | CP.CCUPN ---
CCU Subjective - Physician Review Subjective (Free Text): Intermittently moaning, non-conversant, not following commands, vomited coffee- ground like fluid, no resp distress, on IVFs with D5hal saline at 125 ml/hr, Insulin drip not started overnight due to low BS levels. BP levels 89-109 systolic. Other vitals and I/O's reviewed. Bradycardic, 50-67/min, T= 97/5, RR shallow, 11 /min, 98% SPO2 on RA. ROS: Unobtainable due to AMS. No other pertinent negs or positives on 10+ system review. PMSFH: Multiple Sclerosis, HTN, DM II, Falls at home, non-drinker, former smoker- Otherwise all Nursing and physician documentation reviewed to date; no new pertinent info noted relevant to current medical problems. CXR: clear lung rodriguez, no gross consolidation, no cardiomegaly (my interp). EKG: sinus dewey 57/min, no acute ischemic changes IMPRESSION / MAJOR PROBLEMS NOW: 1. Hyperosmolar State 2 Uncontrolled DII, no other identifiable concurrent active illnesses 2. Severe Dehydration with Azotemia 3. Acute Resp Insuff with Hypercarbia 4. Acute on Chronic CKD II 5. Chronic Disease Anemia 6. Multiple Sclerosis PLAN: 1. Increase IVFs, fluid challenge again now with NSS. Maiantain Q1-2 H accuchecks. Serial Serum osmo levels. Resumption of Insulin drip pending BS levels if above 250. 2. Monitor serial lytes, BUN/Cr, urine output. 3. Neurochecks, seizure precautions, HOB elevation, CT Brain was negative for ay acute structural changes. 4. 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 5. Hold Baclofen (Lioresal) unless there is intolerable spasticity. 6. Does not need assisted breathing support; reflexive airway protection mechanisms intact. Check repeat ABG does show less hypercarbia. 7. Clarify baseline neuromental status and functional status level, clarify any Advance Directives. 8. All PO meds placed on hold for now unless his mental status and ability to follow commands improves. 9. He may need Perez, required straight cath overnight for bladder distention. Flomax on hold. CCU Objective - Vital Signs / Intake & Output Vital Signs (Last 4 hours): Vital Signs Temp Pulse Resp BP Pulse Ox 03/02/17 06:00 67 15 109/54 L 98 03/02/17 04:00 98.2 F 63 14 90/47 L 96 Intake and Output (Last 8hrs): Intake & Output 03/01/17 03/01/17 03/02/17 14:59 22:59 06:59 Weight 210 lb - Physical Exam Head: Positive for: Atraumatic, Normocephalic Pupils: Positive for: PERRL Extroacular Muscles: Positive for: EOMI. Negative for: Gaze Palsy Conjunctiva: Positive for: Normal. Negative for: Icteric Mouth: Positive for: Dry Neck: Positive for: Normal Range of Motion. Negative for: JVD Respiratory/Chest: Positive for: Clear to Auscultation. Negative for: Accessory Muscle Use, Wheezes Cardiovascular: Positive for: Bradycardic Abdomen: Positive for: Normal Bowel Sounds. Negative for: Tenderness, Distention, Mass/Organomegaly Upper Extremity: Positive for: Other (healed circular skin lesion over dorsal Left hand.) Lower Extremity: Positive for: NORMAL PULSES. Negative for: Edema, CALF TENDERNESS, Cyanosis Neurological: Positive for: Motor Func Grossly Intact. Negative for: GCS=15 ( GCS = 12), Normal Sensory Function Skin: Positive for: Warm, Dry. Negative for: Rashes Psychiatric: Positive for: Lethargic. Negative for: Oriented x 3 (to person only) - Medications Active Medications: Active Medications Generic Name Dose Route Start Last Admin Trade Name Freq PRN Reason Stop Dose Admin Aspirin 81 mg 03/02/17 09:00 Ecotrin PO DAILY [facility] Atorvastatin Calcium 20 mg 03/01/17 22:00 03/01/17 22:26 Lipitor PO Not Given HS EMMY Clopidogrel Bisulfate 75 mg 03/02/17 09:00 Plavix PO DAILY EMMY Dextrose 0 ml 03/01/17 18:36 Dextrose 50% Inj IV STAT PRN Hypoglycemia Protocol Protocol Fenofibrate 48 mg 03/02/17 18:00 Tricor PO QPM EMM[facility] Ferrous Sulfate 325 mg 03/02/17 09:00 Feosol PO BID EMMY Sodium Chloride 1,000 mls @ 150 mls/hr 03/01/17 18:30 03/02/17 04:25 Sodium Chloride 0.9% IV 03/02/17 18:29 Not Given .[id number] EMMY Dextrose/Sodium Chloride 1,000 mls @ 125 mls/hr 03/01/17 20:15 03/02/17 04:23 Dextrose 5%/0.45% Ns 1000 Ml IV 03/02/17 12:14 125 mls/hr .Q8H EMMY Administration Insulin Detemir 20 units 03/01/17 22:00 03/01/17 22:36 Levemir SC 20 units HS EMMY Administration Insulin Human Lispro 0 units 03/01/17 22:00 03/01/17 21:56 Humalog SC Not Given ACHS [facility] Protocol Multivitamins/Minerals 1 tab 03/02/17 09:00 Therapeutic-M Tab PO DAILY EMMY - Patient Studies Lab Studies: Lab Studies 03/02/17 03/02/17 03/02/17 Range/Units 06:00 05:53 04:20 WBC (4.8-10.8) K/uL RBC (4.40-5.90) Mil/uL Hgb (12.0-18.0) g/dL Hct (35.0-51.0) % MCV (80.0-94.0) fl MCH (27.0-31.0) pg MCHC (33.0-37.0) g/dL RDW (11.5-14.5) % Plt Count (130-400) K/uL MPV (7.2-11.7) fl Neut % (Auto) (50.0-75.0) % Lymph % (Auto) (20.0-40.0) % [place] % (Auto) (0.0-10.0) % Eos % (Auto) (0.0-4.0) % Baso % (Auto) (0.0-2.0) % Neut # (1.8-7.0) K/uL Lymph # (1.0-4.3) K/uL Webster # (0.0-0.8) K/uL Eos # (0.0-0.7) K/uL Baso # (0.0-0.2) K/uL PT 10.7 (9.8-13.1) Seconds INR 1.0 (0.9-1.2) APTT 26.1 (25.6-37.1) Seconds pCO2 53 H (35-45) mm/Hg pO2 90 (80-100) mm/Hg HCO3 28.7 H (21-28) mmol/L ABG pH 7.38 (7.35-7.45) ABG Total CO2 33.0 H (22-28) mmol/L ABG O2 Saturation 97.8 (95-98) % ABG Base Excess 4.9 H (-2.0-3.0) mmol/L Rudy Test Yes ABG Potassium 3.8 (3.6-5.2) mmol/L A-a O2 Difference 43.0 mm/Hg Glucose 241 H (75-110) mg/dL Lactate 1.0 (0.7-2.1) mmol/L FiO2 28.0 % Blood Gas Comments Crit Value Read Back Sodium 136.0 (132-148) mmol/l Potassium (3.6-5.0) MMOL/L Chloride 101.0 (98-107) mmol/L Carbon Dioxide (22-30) mmol/L Anion Gap (10-20) BUN (9-20) mg/dl Creatinine (0.8-1.5) mg/dl Est GFR ( Amer) Est GFR (Non-Af Amer) POC Glucose (mg/dL) 244 H (65-110) mg/dL Random Glucose (75-110) mg/dL Serum Osmolality (272-300) mosm/kg Lactic Acid (0.7-2.1) MMOL/L Calcium (8.4-10.2) mg/dL Total Bilirubin (0.2-1.3) mg/dl AST (17-59) U/L ALT (21-72) U/L Alkaline Phosphatase (38-126) U/L Troponin I (0.00-0.120) ng/mL Total Protein (6.3-8.2) G/DL Albumin (3.5-5.0) g/dL Globulin (2.2-3.9) gm/dL Albumin/Globulin Ratio (1.0-2.1) Arterial Blood Potassium 3.8 (3.6-5.2) mmol/L Urine Color (YELLOW) Urine Clarity (Clear) Urine pH (5.0-8.0) Ur Specific [place] (1.003-1.030) Urine Protein (NEGATIVE) mg/dL Urine Glucose (UA) (Normal) mg/dL Urine Ketones (NEGATIVE) mg/dL Urine Blood (NEGATIVE) Urine Nitrate (NEGATIVE) Urine Bilirubin (NEGATIVE) Urine Urobilinogen (0.2-1.0) mg/dL Ur Leukocyte Esterase (Negative) Mayra/uL Urine RBC (Auto) (0-3) /hpf Urine Microscopic WBC (0-5) /hpf Ur Squamous Epith Cells (0-5) /hpf Urine Bacteria (<OCC) Ur Random Sodium meq/L Ur Random Potassium mmol/L 03/02/17 03/02/17 03/02/17 Range/Units 04:20 04:20 04:20 WBC (4.8-10.8) K/uL RBC (4.40-5.90) Mil/uL Hgb (12.0-18.0) g/dL Hct (35.0-51.0) % MCV (80.0-94.0) fl MCH (27.0-31.0) pg MCHC (33.0-37.0) g/dL RDW (11.5-14.5) % Plt Count (130-400) K/uL MPV (7.2-11.7) fl Neut % (Auto) (50.0-75.0) % Lymph % (Auto) (20.0-40.0) % [place] % (Auto) (0.0-10.0) % Eos % (Auto) (0.0-4.0) % Baso % (Auto) (0.0-2.0) % Neut # (1.8-7.0) K/uL Lymph # (1.0-4.3) K/uL Webster # (0.0-0.8) K/uL Eos # (0.0-0.7) K/uL Baso # (0.0-0.2) K/uL PT (9.8-13.1) Seconds INR (0.9-1.2) APTT (25.6-37.1) Seconds pCO2 (35-45) mm/Hg pO2 (80-100) mm/Hg HCO3 (21-28) mmol/L ABG pH (7.35-7.45) ABG Total CO2 (22-28) mmol/L ABG O2 Saturation (95-98) % ABG Base Excess (-2.0-3.0) mmol/L Rudy Test ABG Potassium (3.6-5.2) mmol/L A-a O2 Difference mm/Hg Glucose (75-110) mg/dL Lactate (0.7-2.1) mmol/L FiO2 % Blood Gas Comments Crit Value Read Back Sodium 139 (132-148) mmol/l Potassium 4.3 (3.6-5.0) MMOL/L Chloride 100 (98-107) mmol/L Carbon Dioxide 29 (22-30) mmol/L Anion Gap 14 (10-20) BUN 56 H (9-20) mg/dl Creatinine 5.1 H (0.8-1.5) mg/dl Est GFR ( Amer) 13 Est GFR (Non-Af Amer) 11 POC Glucose (mg/dL) (65-110) mg/dL Random Glucose 219 H (75-110) mg/dL Serum Osmolality 318 H (272-300) mosm/kg Lactic Acid 1.7 (0.7-2.1) MMOL/L Calcium 8.9 (8.4-10.2) mg/dL Total Bilirubin 0.5 (0.2-1.3) mg/dl AST 30 (17-59) U/L ALT 34 (21-72) U/L Alkaline Phosphatase 65 (38-126) U/L Troponin I (0.00-0.120) ng/mL Total Protein 6.5 (6.3-8.2) G/DL Albumin 3.7 (3.5-5.0) g/dL Globulin 2.8 (2.2-3.9) gm/dL Albumin/Globulin Ratio 1.3 (1.0-2.1) Arterial Blood Potassium (3.6-5.2) mmol/L Urine Color (YELLOW) Urine Clarity (Clear) Urine pH (5.0-8.0) Ur Specific [place] (1.003-1.030) Urine Protein (NEGATIVE) mg/dL Urine Glucose (UA) (Normal) mg/dL Urine Ketones (NEGATIVE) mg/dL Urine Blood (NEGATIVE) Urine Nitrate (NEGATIVE) Urine Bilirubin (NEGATIVE) Urine Urobilinogen (0.2-1.0) mg/dL Ur Leukocyte Esterase (Negative) Mayra/uL Urine RBC (Auto) (0-3) /hpf Urine Microscopic WBC (0-5) /hpf Ur Squamous Epith Cells (0-5) /hpf Urine Bacteria (<OCC) Ur Random Sodium meq/L Ur Random Potassium mmol/L 03/02/17 03/02/17 03/02/17 Range/Units 04:20 02:44 02:44 WBC 11.9 H (4.8-10.8) K/uL RBC 4.07 L (4.40-5.90) Mil/uL Hgb 11.5 L (12.0-18.0) g/dL Hct 36.2 (35.0-51.0) % MCV 88.9 (80.0-94.0) fl MCH 28.4 (27.0-31.0) pg MCHC 31.9 L (33.0-37.0) g/dL RDW 13.8 (11.5-14.5) % Plt Count 360 (130-400) K/uL MPV 8.0 (7.2-11.7) fl Neut % (Auto) 70.6 (50.0-75.0) % Lymph % (Auto) 20.5 (20.0-40.0) % Webster % (Auto) 6.0 (0.0-10.0) % Eos % (Auto) 2.3 (0.0-4.0) % Baso % (Auto) 0.6 (0.0-2.0) % Neut # 8.4 H (1.8-7.0) K/uL Lymph # 2.4 (1.0-4.3) K/uL Webster # 0.7 (0.0-0.8) K/uL Eos # 0.3 (0.0-0.7) K/uL Baso # 0.1 (0.0-0.2) K/uL PT (9.8-13.1) Seconds INR (0.9-1.2) APTT (25.6-37.1) Seconds pCO2 (35-45) mm/Hg pO2 (80-100) mm/Hg HCO3 (21-28) mmol/L ABG pH (7.35-7.45) ABG Total CO2 (22-28) mmol/L ABG O2 Saturation (95-98) % ABG Base Excess (-2.0-3.0) mmol/L Rudy Test ABG Potassium (3.6-5.2) mmol/L A-a O2 Difference mm/Hg Glucose (75-110) mg/dL Lactate (0.7-2.1) mmol/L FiO2 % Blood Gas Comments Crit Value Read Back Sodium (132-148) mmol/l Potassium (3.6-5.0) MMOL/L Chloride (98-107) mmol/L Carbon Dioxide (22-30) mmol/L Anion Gap (10-20) BUN (9-20) mg/dl Creatinine (0.8-1.5) mg/dl Est GFR ( Amer) Est GFR (Non-Af Amer) POC Glucose (mg/dL) (65-110) mg/dL Random Glucose (75-110) mg/dL Serum Osmolality (272-300) mosm/kg Lactic Acid (0.7-2.1) MMOL/L Calcium (8.4-10.2) mg/dL Total Bilirubin (0.2-1.3) mg/dl AST (17-59) U/L ALT (21-72) U/L Alkaline Phosphatase (38-126) U/L Troponin I 0.0170 (0.00-0.120) ng/mL Total Protein (6.3-8.2) G/DL Albumin (3.5-5.0) g/dL Globulin (2.2-3.9) gm/dL Albumin/Globulin Ratio (1.0-2.1) Arterial Blood Potassium (3.6-5.2) mmol/L Urine Color Peyton (YELLOW) Urine Clarity Cloudy (Clear) Urine pH 5.0 (5.0-8.0) Ur Specific [place] 1.014 (1.003-1.030) Urine Protein Negative (NEGATIVE) mg/dL Urine Glucose (UA) >=500 (Normal) mg/dL Urine Ketones Negative (NEGATIVE) mg/dL Urine Blood Moderate (NEGATIVE) Urine Nitrate Negative (NEGATIVE) Urine Bilirubin Negative (NEGATIVE) Urine Urobilinogen 0.2-1.0 (0.2-1.0) mg/dL Ur Leukocyte Esterase Neg (Negative) Mayra/uL Urine RBC (Auto) 5 H (0-3) /hpf Urine Microscopic WBC 2 (0-5) /hpf Ur Squamous Epith Cells 1 (0-5) /hpf Urine Bacteria Few H (<OCC) Ur Random Sodium meq/L Ur Random Potassium mmol/L 03/02/17 03/01/17 03/01/17 Range/Units 02:44 21:37 20:20 WBC (4.8-10.8) K/uL RBC (4.40-5.90) Mil/uL Hgb (12.0-18.0) g/dL Hct (35.0-51.0) % MCV (80.0-94.0) fl MCH (27.0-31.0) pg MCHC (33.0-37.0) g/dL RDW (11.5-14.5) % Plt Count (130-400) K/uL MPV (7.2-11.7) fl Neut % (Auto) (50.0-75.0) % Lymph % (Auto) (20.0-40.0) % [place] % (Auto) (0.0-10.0) % Eos % (Auto) (0.0-4.0) % Baso % (Auto) (0.0-2.0) % Neut # (1.8-7.0) K/uL Lymph # (1.0-4.3) K/uL Webster # (0.0-0.8) K/uL Eos # (0.0-0.7) K/uL Baso # (0.0-0.2) K/uL PT (9.8-13.1) Seconds INR (0.9-1.2) APTT (25.6-37.1) Seconds pCO2 (35-45) mm/Hg pO2 (80-100) mm/Hg HCO3 (21-28) mmol/L ABG pH (7.35-7.45) ABG Total CO2 (22-28) mmol/L ABG O2 Saturation (95-98) % ABG Base Excess (-2.0-3.0) mmol/L Rudy Test ABG Potassium (3.6-5.2) mmol/L A-a O2 Difference mm/Hg Glucose (75-110) mg/dL Lactate (0.7-2.1) mmol/L FiO2 % Blood Gas Comments Crit Value Read Back Sodium 141 (132-148) mmol/l Potassium 3.6 (3.6-5.0) MMOL/L Chloride 100 (98-107) mmol/L Carbon Dioxide 31 H (22-30) mmol/L Anion Gap 14 (10-20) BUN 56 H (9-20) mg/dl Creatinine 4.9 H (0.8-1.5) mg/dl Est GFR ( Amer) 14 Est GFR (Non-Af Amer) 12 POC Glucose (mg/dL) 137 H (65-110) mg/dL Random Glucose 126 H (75-110) mg/dL Serum Osmolality (272-300) mosm/kg Lactic Acid (0.7-2.1) MMOL/L Calcium 9.1 (8.4-10.2) mg/dL Total Bilirubin (0.2-1.3) mg/dl AST (17-59) U/L ALT (21-72) U/L Alkaline Phosphatase (38-126) U/L Troponin I (0.00-0.120) ng/mL Total Protein (6.3-8.2) G/DL Albumin (3.5-5.0) g/dL Globulin (2.2-3.9) gm/dL Albumin/Globulin Ratio (1.0-2.1) Arterial Blood Potassium (3.6-5.2) mmol/L Urine Color (YELLOW) Urine Clarity (Clear) Urine pH (5.0-8.0) Ur Specific [place] (1.003-1.030) Urine Protein (NEGATIVE) mg/dL Urine Glucose (UA) (Normal) mg/dL Urine Ketones (NEGATIVE) mg/dL Urine Blood (NEGATIVE) Urine Nitrate (NEGATIVE) Urine Bilirubin (NEGATIVE) Urine Urobilinogen (0.2-1.0) mg/dL Ur Leukocyte Esterase (Negative) Mayra/uL Urine RBC (Auto) (0-3) /hpf Urine Microscopic WBC (0-5) /hpf Ur Squamous Epith Cells (0-5) /hpf Urine Bacteria (<OCC) Ur Random Sodium 50 meq/L Ur Random Potassium 30.8 mmol/L 03/01/17 03/01/17 03/01/17 Range/Units 19:29 19:07 19:07 WBC (4.8-10.8) K/uL RBC (4.40-5.90) Mil/uL Hgb (12.0-18.0) g/dL Hct (35.0-51.0) % MCV (80.0-94.0) fl MCH (27.0-31.0) pg MCHC (33.0-37.0) g/dL RDW (11.5-14.5) % Plt Count (130-400) K/uL MPV (7.2-11.7) fl Neut % (Auto) (50.0-75.0) % Lymph % (Auto) (20.0-40.0) % [place] % (Auto) (0.0-10.0) % Eos % (Auto) (0.0-4.0) % Baso % (Auto) (0.0-2.0) % Neut # (1.8-7.0) K/uL Lymph # (1.0-4.3) K/uL [place] # (0.0-0.8) K/uL Eos # (0.0-0.7) K/uL Baso # (0.0-0.2) K/uL PT (9.8-13.1) Seconds INR (0.9-1.2) APTT (25.6-37.1) Seconds pCO2 (35-45) mm/Hg pO2 (80-100) mm/Hg HCO3 (21-28) mmol/L ABG pH (7.35-7.45) ABG Total CO2 (22-28) mmol/L ABG O2 Saturation (95-98) % ABG Base Excess (-2.0-3.0) mmol/L Rudy Test ABG Potassium (3.6-5.2) mmol/L A-a O2 Difference mm/Hg Glucose (75-110) mg/dL Lactate (0.7-2.1) mmol/L FiO2 % Blood Gas Comments Crit Value Read Back Sodium (132-148) mmol/l Potassium (3.6-5.0) MMOL/L Chloride (98-107) mmol/L Carbon Dioxide (22-30) mmol/L Anion Gap (10-20) BUN (9-20) mg/dl Creatinine (0.8-1.5) mg/dl Est GFR ( Amer) Est GFR (Non-Af Amer) POC Glucose (mg/dL) 134 H (65-110) mg/dL Random Glucose (75-110) mg/dL Serum Osmolality 313 H (272-300) mosm/kg Lactic Acid (0.7-2.1) MMOL/L Calcium (8.4-10.2) mg/dL Total Bilirubin (0.2-1.3) mg/dl AST (17-59) U/L ALT (21-72) U/L Alkaline Phosphatase (38-126) U/L Troponin I 0.0200 (0.00-0.120) ng/mL Total Protein (6.3-8.2) G/DL Albumin (3.5-5.0) g/dL Globulin (2.2-3.9) gm/dL Albumin/Globulin Ratio (1.0-2.1) Arterial Blood Potassium (3.6-5.2) mmol/L Urine Color (YELLOW) Urine Clarity (Clear) Urine pH (5.0-8.0) Ur Specific [place] (1.003-1.030) Urine Protein (NEGATIVE) mg/dL Urine Glucose (UA) (Normal) mg/dL Urine Ketones (NEGATIVE) mg/dL Urine Blood (NEGATIVE) Urine Nitrate (NEGATIVE) Urine Bilirubin (NEGATIVE) Urine Urobilinogen (0.2-1.0) mg/dL Ur Leukocyte Esterase (Negative) Mayra/uL Urine RBC (Auto) (0-3) /hpf Urine Microscopic WBC (0-5) /hpf Ur Squamous Epith Cells (0-5) /hpf Urine Bacteria (<OCC) Ur Random Sodium meq/L Ur Random Potassium mmol/L 03/01/17 03/01/17 03/01/17 Range/Units 17:06 16:54 16:54 WBC 12.4 H D (4.8-10.8) K/uL RBC 4.13 L (4.40-5.90) Mil/uL Hgb 11.5 L D (12.0-18.0) g/dL Hct 36.9 (35.0-51.0) % MCV 89.4 (80.0-94.0) fl MCH 27.9 (27.0-31.0) pg MCHC 31.2 L (33.0-37.0) g/dL RDW 13.7 (11.5-14.5) % Plt Count 355 (130-400) K/uL MPV 7.8 (7.2-11.7) fl Neut % (Auto) 62.5 (50.0-75.0) % Lymph % (Auto) 22.1 (20.0-40.0) % [place] % (Auto) 11.0 H (0.0-10.0) % Eos % (Auto) 3.6 (0.0-4.0) % Baso % (Auto) 0.8 (0.0-2.0) % Neut # 7.7 H (1.8-7.0) K/uL Lymph # 2.7 (1.0-4.3) K/uL [place] # 1.4 H (0.0-0.8) K/uL Eos # 0.4 (0.0-0.7) K/uL Baso # 0.1 (0.0-0.2) K/uL PT (9.8-13.1) Seconds INR (0.9-1.2) APTT (25.6-37.1) Seconds pCO2 57 H (35-45) mm/Hg pO2 79 L (80-100) mm/Hg HCO3 29.5 H (21-28) mmol/L ABG pH 7.37 (7.35-7.45) ABG Total CO2 34.7 H (22-28) mmol/L ABG O2 Saturation 98.8 H (95-98) % ABG Base Excess 6.0 H (-2.0-3.0) mmol/L Rudy Test Yes ABG Potassium 3.8 (3.6-5.2) mmol/L A-a O2 Difference 49.0 mm/Hg Glucose 399 H (75-110) mg/dL Lactate 1.2 (0.7-2.1) mmol/L FiO2 28.0 % Blood Gas Comments 2l/m nc,rr Crit Value Read Back N Sodium 131.0 L 136 (132-148) mmol/l Potassium 4.3 (3.6-5.0) MMOL/L Chloride 96.0 L 95 L (98-107) mmol/L Carbon Dioxide 29 (22-30) mmol/L Anion Gap 16 (10-20) BUN 57 H (9-20) mg/dl Creatinine 4.5 H (0.8-1.5) mg/dl Est GFR ( Amer) 15 Est GFR (Non-Af Amer) 13 POC Glucose (mg/dL) (65-110) mg/dL Random Glucose 402 H* D (75-110) mg/dL Serum Osmolality (272-300) mosm/kg Lactic Acid (0.7-2.1) MMOL/L Calcium 9.1 (8.4-10.2) mg/dL Total Bilirubin 0.6 (0.2-1.3) mg/dl AST 53 (17-59) U/L ALT 35 (21-72) U/L Alkaline Phosphatase 79 (38-126) U/L Troponin I (0.00-0.120) ng/mL Total Protein 6.4 (6.3-8.2) G/DL Albumin 3.7 (3.5-5.0) g/dL Globulin 2.7 (2.2-3.9) gm/dL Albumin/Globulin Ratio 1.3 (1.0-2.1) Arterial Blood Potassium 3.8 (3.6-5.2) mmol/L Urine Color (YELLOW) Urine Clarity (Clear) Urine pH (5.0-8.0) Ur Specific [place] (1.003-1.030) Urine Protein (NEGATIVE) mg/dL Urine Glucose (UA) (Normal) mg/dL Urine Ketones (NEGATIVE) mg/dL Urine Blood (NEGATIVE) Urine Nitrate (NEGATIVE) Urine Bilirubin (NEGATIVE) Urine Urobilinogen (0.2-1.0) mg/dL Ur Leukocyte Esterase (Negative) Mayra/uL Urine RBC (Auto) (0-3) /hpf Urine Microscopic WBC (0-5) /hpf Ur Squamous Epith Cells (0-5) /hpf Urine Bacteria (<OCC) Ur Random Sodium meq/L Ur Random Potassium mmol/L Laboratory Results - last 24 hr 03/01/17 03/01/17 03/01/17 16:54 16:54 17:06 WBC 12.4 H D RBC 4.13 L Hgb 11.5 L D Hct 36.9 MCV 89.4 MCH 27.9 MCHC 31.2 L RDW 13.7 Plt Count 355 MPV 7.8 Neut % (Auto) 62.5 Lymph % (Auto) 22.1 [place] % (Auto) 11.0 H Eos % (Auto) 3.6 Baso % (Auto) 0.8 Neut # 7.7 H Lymph # 2.7 Webster # 1.4 H Eos # 0.4 Baso # 0.1 PT INR APTT pCO2 57 H pO2 79 L HCO3 29.5 H ABG pH 7.37 ABG Total CO2 34.7 H ABG O2 Saturation 98.8 H ABG Base Excess 6.0 H Rudy Test Yes ABG Potassium 3.8 A-a O2 Difference 49.0 Glucose 399 H Lactate 1.2 FiO2 28.0 Blood Gas Comments 2l/m nc,rr Crit Value Read Back N Sodium 136 131.0 L Potassium 4.3 Chloride 95 L 96.0 L Carbon Dioxide 29 Anion Gap 16 BUN 57 H Creatinine 4.5 H Est GFR ( Amer) 15 Est GFR (Non-Af Amer) 13 POC Glucose (mg/dL) Random Glucose 402 H* D Serum Osmolality Lactic Acid Calcium 9.1 Total Bilirubin 0.6 AST 53 ALT 35 Alkaline Phosphatase 79 Troponin I Total Protein 6.4 Albumin 3.7 Globulin 2.7 Albumin/Globulin Ratio 1.3 Arterial Blood Potassium 3.8 Urine Color Urine Clarity Urine pH Ur Specific [place] Urine Protein Urine Glucose (UA) Urine Ketones Urine Blood Urine Nitrate Urine Bilirubin Urine Urobilinogen Ur Leukocyte Esterase Urine RBC (Auto) Urine Microscopic WBC Ur Squamous Epith Cells Urine Bacteria Ur Random Sodium Ur Random Potassium 03/01/17 03/01/17 03/01/17 19:07 19:07 19:29 WBC RBC Hgb Hct MCV MCH MCHC RDW Plt Count MPV Neut % (Auto) Lymph % (Auto) [place] % (Auto) Eos % (Auto) Baso % (Auto) Neut # Lymph # [place] # Eos # Baso # PT INR APTT pCO2 pO2 HCO3 ABG pH ABG Total CO2 ABG O2 Saturation ABG Base Excess Rudy Test ABG Potassium A-a O2 Difference Glucose Lactate FiO2 Blood Gas Comments Crit Value Read Back Sodium Potassium Chloride Carbon Dioxide Anion Gap BUN Creatinine Est GFR ( Amer) Est GFR (Non-Af Amer) POC Glucose (mg/dL) 134 H Random Glucose Serum Osmolality 313 H Lactic Acid Calcium Total Bilirubin AST ALT Alkaline Phosphatase Troponin I 0.0200 Total Protein Albumin Globulin Albumin/Globulin Ratio Arterial Blood Potassium Urine Color Urine Clarity Urine pH Ur Specific [place] Urine Protein Urine Glucose (UA) Urine Ketones Urine Blood Urine Nitrate Urine Bilirubin Urine Urobilinogen Ur Leukocyte Esterase Urine RBC (Auto) Urine Microscopic WBC Ur Squamous Epith Cells Urine Bacteria Ur Random Sodium Ur Random Potassium 03/01/17 03/01/17 03/02/17 20:20 21:37 02:44 WBC RBC Hgb Hct MCV MCH MCHC RDW Plt Count MPV Neut % (Auto) Lymph % (Auto) [place] % (Auto) Eos % (Auto) Baso % (Auto) Neut # Lymph # [place] # Eos # Baso # PT INR APTT pCO2 pO2 HCO3 ABG pH ABG Total CO2 ABG O2 Saturation ABG Base Excess Rudy Test ABG Potassium A-a O2 Difference Glucose Lactate FiO2 Blood Gas Comments Crit Value Read Back Sodium 141 Potassium 3.6 Chloride 100 Carbon Dioxide 31 H Anion Gap 14 BUN 56 H Creatinine 4.9 H Est GFR ( Amer) 14 Est GFR (Non-Af Amer) 12 POC Glucose (mg/dL) 137 H Random Glucose 126 H Serum Osmolality Lactic Acid Calcium 9.1 Total Bilirubin AST ALT Alkaline Phosphatase Troponin I Total Protein Albumin Globulin Albumin/Globulin Ratio Arterial Blood Potassium Urine Color Urine Clarity Urine pH Ur Specific [place] Urine Protein Urine Glucose (UA) Urine Ketones Urine Blood Urine Nitrate Urine Bilirubin Urine Urobilinogen Ur Leukocyte Esterase Urine RBC (Auto) Urine Microscopic WBC Ur Squamous Epith Cells Urine Bacteria Ur Random Sodium 50 Ur Random Potassium 30.8 03/02/17 03/02/17 03/02/17 02:44 02:44 04:20 WBC 11.9 H RBC 4.07 L Hgb 11.5 L Hct 36.2 MCV 88.9 MCH 28.4 MCHC 31.9 L RDW 13.8 Plt Count 360 MPV 8.0 Neut % (Auto) 70.6 Lymph % (Auto) 20.5 [place] % (Auto) 6.0 Eos % (Auto) 2.3 Baso % (Auto) 0.6 Neut # 8.4 H Lymph # 2.4 [place] # 0.7 Eos # 0.3 Baso # 0.1 PT INR APTT pCO2 pO2 HCO3 ABG pH ABG Total CO2 ABG O2 Saturation ABG Base Excess Rudy Test ABG Potassium A-a O2 Difference Glucose Lactate FiO2 Blood Gas Comments Crit Value Read Back Sodium Potassium Chloride Carbon Dioxide Anion Gap BUN Creatinine Est GFR ( Amer) Est GFR (Non-Af Amer) POC Glucose (mg/dL) Random Glucose Serum Osmolality Lactic Acid Calcium Total Bilirubin AST ALT Alkaline Phosphatase Troponin I 0.0170 Total Protein Albumin Globulin Albumin/Globulin Ratio Arterial Blood Potassium Urine Color [place] Urine Clarity Cloudy Urine pH 5.0 Ur Specific [place] 1.014 Urine Protein Negative Urine Glucose (UA) >=500 Urine Ketones Negative Urine Blood Moderate Urine Nitrate Negative Urine Bilirubin Negative Urine Urobilinogen 0.2-1.0 Ur Leukocyte Esterase Neg Urine RBC (Auto) 5 H Urine Microscopic WBC 2 Ur Squamous Epith Cells 1 Urine Bacteria Few H Ur Random Sodium Ur Random Potassium 03/02/17 03/02/17 03/02/17 04:20 04:20 04:20 WBC RBC Hgb Hct MCV MCH MCHC RDW Plt Count MPV Neut % (Auto) Lymph % (Auto) [place] % (Auto) Eos % (Auto) Baso % (Auto) Neut # Lymph # [place] # Eos # Baso # PT INR APTT pCO2 pO2 HCO3 ABG pH ABG Total CO2 ABG O2 Saturation ABG Base Excess Rudy Test ABG Potassium A-a O2 Difference Glucose Lactate FiO2 Blood Gas Comments Crit Value Read Back Sodium 139 Potassium 4.3 Chloride 100 Carbon Dioxide 29 Anion Gap 14 BUN 56 H Creatinine 5.1 H Est GFR ( Amer) 13 Est GFR (Non-Af Amer) 11 POC Glucose (mg/dL) Random Glucose 219 H Serum Osmolality 318 H Lactic Acid 1.7 Calcium 8.9 Total Bilirubin 0.5 AST 30 ALT 34 Alkaline Phosphatase 65 Troponin I Total Protein 6.5 Albumin 3.7 Globulin 2.8 Albumin/Globulin Ratio 1.3 Arterial Blood Potassium Urine Color Urine Clarity Urine pH Ur Specific [place] Urine Protein Urine Glucose (UA) Urine Ketones Urine Blood Urine Nitrate Urine Bilirubin Urine Urobilinogen Ur Leukocyte Esterase Urine RBC (Auto) Urine Microscopic WBC Ur Squamous Epith Cells Urine Bacteria Ur Random Sodium Ur Random Potassium 03/02/17 03/02/17 03/02/17 04:20 05:53 06:00 WBC RBC Hgb Hct MCV MCH MCHC RDW Plt Count MPV Neut % (Auto) Lymph % (Auto) [place] % (Auto) Eos % (Auto) Baso % (Auto) Neut # Lymph # [place] # Eos # Baso # PT 10.7 INR 1.0 APTT 26.1 pCO2 53 H pO2 90 HCO3 28.7 H ABG pH 7.38 ABG Total CO2 33.0 H ABG O2 Saturation 97.8 ABG Base Excess 4.9 H Rudy Test Yes ABG Potassium 3.8 A-a O2 Difference 43.0 Glucose 241 H Lactate 1.0 FiO2 28.0 Blood Gas Comments Crit Value Read Back Sodium 136.0 Potassium Chloride 101.0 Carbon Dioxide Anion Gap BUN Creatinine Est GFR ( Amer) Est GFR (Non-Af Amer) POC Glucose (mg/dL) 244 H Random Glucose Serum Osmolality Lactic Acid Calcium Total Bilirubin AST ALT Alkaline Phosphatase Troponin I Total Protein Albumin Globulin Albumin/Globulin Ratio Arterial Blood Potassium 3.8 Urine Color Urine Clarity Urine pH Ur Specific [place] Urine Protein Urine Glucose (UA) Urine Ketones Urine Blood Urine Nitrate Urine Bilirubin Urine Urobilinogen Ur Leukocyte Esterase Urine RBC (Auto) Urine Microscopic WBC Ur Squamous Epith Cells Urine Bacteria Ur Random Sodium Ur Random Potassium EKG/Cardiology Studies: Cardiology / EKG Studies 03/01/17 16:49 ELECTROCARDIOGRAM Stat Comment: Mode Of Transportation: Reason For Exam: dehydration Fingerstick Blood Sugar Results: 157 Review of Systems - Review of Systems Systems not reviewed;Unavailable: Altered Mental Status
[2017-03-02] MEDS ORDERED: Sodium Chloride 0.9% 1,000 ML IV SCH (07:00)
[2017-03-02] MEDS: Insulin Lispro (humaLOG) 100 Units/ml Inj SC SCH (07:15)
[2017-03-02] MEDS: Dextrose 5%/0.9% NS 1,000 ML IV SCH ×3 (08:01→21:34)
--- NOTE | 2017-03-02 09:18 | RAD ---
HISTORY: cough COMPARISON: Chest radiograph dated 01/25/2017. FINDINGS: LUNGS: No active pulmonary disease. PLEURA: No significant pleural effusion identified, no pneumothorax apparent. CARDIOVASCULAR: Atherosclerotic aortic calcifications. Cardiomediastinal silhouette within normal limits. OSSEOUS STRUCTURES: Unchanged. VISUALIZED UPPER ABDOMEN: Normal. OTHER FINDINGS: None. IMPRESSION: No active disease.
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
--- NOTE | 2017-03-02 12:05 | CARD ---
APPROVED REPORT EKG Measurement Heart [id number] <Conclusion> Sinus bradycardia Otherwise normal ECG
[2017-03-02] MEDS: Insulin Regular 100 units/ml SC SCH ×3 (12:16→22:02)
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
[2017-03-02] MEDS ORDERED: Vitamin A/D oint 60G TP PRN (13:16)
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
[2017-03-02] MEDS: Insulin Detemir 100 Units/ml Inj SC SCH (21:36)
[2017-03-03] MEDS: Dextrose 5%/0.9% NS 1,000 ML IV SCH ×2 (02:20→09:51)
[2017-03-03] MEDS: Insulin Regular 100 units/ml SC SCH ×4 (06:38→23:00)
[2017-03-03 07:34] LABS: BASO # 0.1 K/uL (0.0-0.2); BASO % 0.8 % (0.0-2.0); EOS # 0.4 K/uL (0.0-0.7); EOS % 3.5 % (0.0-4.0); HEMATOCRIT 34.3 % (35.0-51.0); LYMPH # 2.7 K/uL (1.0-4.3); LYMPH % 26.1 % (20.0-40.0); MEAN CELL VOLUME 87.9 fl (80.0-94.0); MEAN PLATELET VOLUME 8.1 fl (7.2-11.7); MONO % 9.7 % (0.0-10.0); NEUT # 6.2 K/uL (1.8-7.0); NEUT % 59.9 % (50.0-75.0); NRBC % 0.1 % (0.0-0.0); RED CELL DISTRIBUTION WIDTH 14.1 % (11.5-14.5); WHITE BLOOD COUNT 10.3 K/uL (4.8-10.8)
[2017-03-03 07:52] LABS: ALB/GLOB RATIO 1.2 (1.0-2.1); BILIRUBIN,TOTAL 0.4 mg/dl (0.2-1.3); CALCIUM 8.5 mg/dL (8.4-10.2); POTASSIUM 3.4 MMOL/L (3.6-5.0); TOTAL PROTEIN 6.4 G/DL (6.3-8.2)
--- NOTE | 2017-03-03 10:31 | CP.PCM.PN ---
Subjective - Date & Time of Evaluation Date of Evaluation: 03/03/17 Time of Evaluation: 10:30 - Subjective Subjective: more awake/alert today. closes eyes after answers questions however. bw noted. consults appriciated. no f/c, n/v/d. failed speech eval family deciding on peg Objective - Vital Signs/Intake and Output Vital Signs (last 24 hours): Temp Pulse Resp BP Pulse Ox 98.7 F 72 18 153/61 H 97 03/03/17 08:00 03/03/17 08:00 03/03/17 08:00 03/03/17 08:00 03/03/17 08:00 Intake and Output: 03/03/17 03/03/17 06:59 18:59 Output Total 1150 Balance -1150 - Medications Medications: Current Medications Aspirin (Ecotrin) 81 mg PO DAILY [facility] Atorvastatin Calcium (Lipitor) 20 mg PO HS [facility] Last Admin: 03/01/17 22:26 Dose: Not Given Clopidogrel Bisulfate (Plavix) 75 mg PO DAILY [facility] Dextrose (Dextrose 50% Inj) 0 ml IV STAT PRN; Protocol PRN Reason: Hypoglycemia Protocol Ferrous Sulfate (Feosol) 325 mg PO BID [facility] Insulin Detemir (Levemir) 20 units SC HS [facility] Last Admin: 03/02/17 21:36 Dose: 20 units Insulin Human Regular (Humulin R) 0 units SC ACCU-CHECK [facility] PRN Reason: Protocol Last Admin: 03/03/17 06:38 Dose: 3 units Multivitamins/Minerals (Therapeutic-M Tab) 1 tab PO DAILY [facility] Ondansetron HCl (Zofran Inj) 4 mg IVP Q4 PRN PRN Reason: Nausea/Vomiting Last Admin: 03/02/17 15:46 Dose: 4 mg Vitamin A (Vitamin A&D) 1 applic TP Q8 PRN PRN Reason: Other - Labs Labs: 03/03/17 05:20 03/03/17 05:20 PT 10.7 Seconds (9.8-13.1) 03/02/17 04:20 INR 1.0 (0.9-1.2) 03/02/17 04:20 APTT 26.1 Seconds (25.6-37.1) 03/02/17 04:20 - Constitutional Appears: Non-toxic, No Acute Distress, Chronically Ill - Head Exam Head Exam: ATRAUMATIC, NORMAL INSPECTION, NORMOCEPHALIC - Eye Exam Eye Exam: EOMI, Normal appearance, PERRL Pupil Exam: NORMAL ACCOMODATION, PERRL - ENT Exam ENT Exam: Mucous Membranes Moist, Normal Exam - Neck Exam Neck Exam: Full ROM, Normal Inspection. absent: Lymphadenopathy - Respiratory Exam Respiratory Exam: Clear to Ausculation Bilateral, NORMAL BREATHING PATTERN - Cardiovascular Exam Cardiovascular Exam: REGULAR RHYTHM, RRR, +S1, +S2. absent: Murmur - GI/Abdominal Exam GI & Abdominal Exam: Soft, Normal Bowel Sounds. absent: Tenderness - Extremities Exam Extremities Exam: Full ROM, Normal Capillary Refill, Normal Inspection. absent : Joint Swelling, Pedal Edema - Back Exam Back Exam: NORMAL INSPECTION - Neurological Exam Neurological Exam: Alert, Awake, CN II-XII Intact, Normal Gait, Oriented x3 - Psychiatric Exam Psychiatric exam: Normal Affect, Normal Mood - Skin Skin Exam: Dry, Intact, Normal Color, Warm Assessment and Plan (1) Multiple sclerosis Status: Acute (2) Uncontrolled diabetes mellitus Status: Acute (3) DVT prophylaxis Status: Acute (4) Difficulty swallowing Status: Acute - Assessment and Plan (Free Text) Assessment: (1) Multiple sclerosis Assessment and Plan: meds for spasticity on hold for now neuro ?? steroids mri Status: Acute (2) Uncontrolled diabetes mellitus Assessment and Plan: fsbg, ivf insulin, home meds is on d5/0.9 as is npo Status: Acute (3) DVT prophylaxis Assessment and Plan: scd and ae hose asa/plavix Status: Acute (4) Difficulty swallowing Assessment and Plan: speech path eval ??ngt ?? peg vs hospice Status: Acute [id number] add kcl to ivf, monitor k. dc/tx if hyperkalemia occurs.
[2017-03-03] MEDS ORDERED: Dextrose 5%/0.9% NS 1,000 ML IV SCH (10:45)
[2017-03-03] MEDS: Potassium Chl 20 mEq in D5-NS 1,000 ML IV SCH ×2 (11:53→21:30)
--- NOTE | 2017-03-03 16:57 | CP.PCM.PN ---
Subjective - Date & Time of Evaluation Date of Evaluation: 03/03/17 Time of Evaluation: 16:57 - Subjective Subjective: renal follow up note please call us at [phone] if any qs. no events overnight PE: vitals reviewed heent normal op moist nad s1s2 present no resp distress abd soft skin grossly normal no edema flat affect awake, oriented to self, cooperative PLAN: prince/ckd stage 3/dm/htn/volume depletion cr is improving with iv fluids continue iv fluids monitor UOP monitor lytes and replace as needed Objective - Vital Signs/Intake and Output Vital Signs (last 24 hours): Temp Pulse Resp BP Pulse Ox 98.7 F 66 18 172/64 H 97 03/03/17 16:12 03/03/17 16:12 03/03/17 16:12 03/03/17 16:12 03/03/17 16:12 Intake and Output: 03/03/17 03/03/17 06:59 18:59 Output Total 1150 Balance -1150 - Medications Medications: Current Medications Aspirin (Ecotrin) 81 mg PO DAILY [facility] Atorvastatin Calcium (Lipitor) 20 mg PO HS [facility] Last Admin: 03/01/17 22:26 Dose: Not Given Clopidogrel Bisulfate (Plavix) 75 mg PO DAILY [facility] Dextrose (Dextrose 50% Inj) 0 ml IV STAT PRN; Protocol PRN Reason: Hypoglycemia Protocol Ferrous Sulfate (Feosol) 325 mg PO BID [facility] Potassium Chloride/Dextrose/Sod Cl (Potassium Chl 20 Meq In D5-Ns) 1,000 mls @ 123.762 mls/hr IV .Q8H5M [facility] Stop: 03/04/17 10:31 Last Admin: 03/03/17 11:53 Dose: 123.762 mls/hr Insulin Detemir (Levemir) 20 units SC HS [facility] Last Admin: 03/02/17 21:36 Dose: 20 units Insulin Human Regular (Humulin R) 0 units SC ACCU-CHECK [facility] PRN Reason: Protocol Last Admin: 03/03/17 12:46 Dose: 3 units Multivitamins/Minerals (Therapeutic-M Tab) 1 tab PO DAILY [facility] Ondansetron HCl (Zofran Inj) 4 mg IVP Q4 PRN PRN Reason: Nausea/Vomiting Last Admin: 03/02/17 15:46 Dose: 4 mg Vitamin A (Vitamin A&D) 1 applic TP Q8 PRN PRN Reason: Other - Labs Labs: 03/03/17 05:20 03/03/17 05:20 PT 10.7 Seconds (9.8-13.1) 03/02/17 04:20 INR 1.0 (0.9-1.2) 03/02/17 04:20 APTT 26.1 Seconds (25.6-37.1) 03/02/17 04:20
[2017-03-03] MEDS: Insulin Detemir 100 Units/ml Inj SC SCH (21:26)
[2017-03-04] MEDS: Potassium Chl 20 mEq in D5-NS 1,000 ML IV SCH (06:51)
[2017-03-04] MEDS: Insulin Regular 100 units/ml SC SCH ×4 (09:06→22:35)
[2017-03-04] MEDS: Metoprolol 1 mg/ml Inj IVP SCH ×2 (09:39→20:42)
[2017-03-04 11:10] LABS: HEMATOCRIT 37.6 % (35.0-51.0); MEAN CELL VOLUME 88.7 fl (80.0-94.0); MEAN CORPUSCULAR HEMOGLOBIN 29.1 pg (27.0-31.0); MEAN CORPUSCULAR HGB CONC 32.9 g/dL (33.0-37.0); WHITE BLOOD COUNT 10.3 K/uL (4.8-10.8)
--- NOTE | 2017-03-04 12:11 | CP.PCM.PN ---
Subjective - Date & Time of Evaluation Date of Evaluation: 03/04/17 Time of Evaluation: 12:11 - Subjective Subjective: more awake/alert, no f/c, n/v/d. bun/cr improving. c/o b/l calf pain. case d/c at length w/ family. mri and speech eval tomorrow. ?? yancy sunday Objective - Vital Signs/Intake and Output Vital Signs (last 24 hours): Temp Pulse Resp BP Pulse Ox 98.6 F 75 20 183/73 H 98 03/04/17 08:00 03/04/17 09:50 03/04/17 08:00 03/04/17 09:50 03/04/17 08:00 Intake and Output: 03/04/17 03/04/17 06:59 18:59 Intake Total 1480 Output Total 950 Balance 530 - Medications Medications: Current Medications Aspirin (Ecotrin) 81 mg PO DAILY [facility] Atorvastatin Calcium (Lipitor) 20 mg PO HS [facility] Last Admin: 03/01/17 22:26 Dose: Not Given Clonidine HCl (Catapres-Tts3 0.3 Mg/24 Hr) 1 patch TD Q7D [facility] Last Admin: 03/04/17 09:50 Dose: 1 patch Clopidogrel Bisulfate (Plavix) 75 mg PO DAILY [facility] Dextrose (Dextrose 50% Inj) 0 ml IV STAT PRN; Protocol PRN Reason: Hypoglycemia Protocol Ferrous Sulfate (Feosol) 325 mg PO BID [facility] Insulin Detemir (Levemir) 20 units SC [facility] Last Admin: 03/03/17 21:26 Dose: 20 units Insulin Human Regular (Humulin R) 0 units SC ACCU-CHECK [facility] PRN Reason: Protocol Last Admin: 03/04/17 09:06 Dose: Not Given Metoprolol Tartrate (Lopressor) 5 mg IVP Q12 [facility] Last Admin: 03/04/17 09:39 Dose: 5 mg Multivitamins/Minerals (Therapeutic-M Tab) 1 tab PO DAILY [facility] Ondansetron HCl (Zofran Inj) 4 mg IVP Q4 PRN PRN Reason: Nausea/Vomiting Last Admin: 03/02/17 15:46 Dose: 4 mg Vitamin A (Vitamin A&D) 1 applic TP Q8 PRN PRN Reason: Other - Labs Labs: 03/04/17 10:40 12/03/17 10:40 PT 10.7 Seconds (9.8-13.1) 03/02/17 04:20 INR 1.0 (0.9-1.2) 03/02/17 04:20 APTT 26.1 Seconds (25.6-37.1) 03/02/17 04:20 - Constitutional Appears: Non-toxic, No Acute Distress, Chronically Ill - Head Exam Head Exam: ATRAUMATIC, NORMAL INSPECTION, NORMOCEPHALIC - Eye Exam Eye Exam: EOMI, Normal appearance, PERRL Pupil Exam: NORMAL ACCOMODATION, PERRL - ENT Exam ENT Exam: Mucous Membranes Moist, Normal Exam - Neck Exam Neck Exam: Full ROM, Normal Inspection. absent: Lymphadenopathy - Respiratory Exam Respiratory Exam: Clear to Ausculation Bilateral, NORMAL BREATHING PATTERN - Cardiovascular Exam Cardiovascular Exam: REGULAR RHYTHM, RRR, +S1, +S2. absent: Murmur - GI/Abdominal Exam GI & Abdominal Exam: Soft, Normal Bowel Sounds. absent: Tenderness - Exam Bimanual exam: NORMAL BIMANUAL EXAM - Extremities Exam Extremities Exam: Calf Tenderness, Full ROM, Normal Capillary Refill, Normal Inspection. absent: Joint Swelling, Pedal Edema - Back Exam Back Exam: NORMAL INSPECTION - Neurological Exam Neurological Exam: Alert, Awake, CN II-XII Intact, Normal Gait, Oriented x3 - Psychiatric Exam Psychiatric exam: Normal Affect, Normal Mood - Skin Skin Exam: Dry, Intact, Normal Color, Warm Assessment and Plan (1) Multiple sclerosis Status: Acute (2) Uncontrolled diabetes mellitus Status: Acute (3) DVT prophylaxis Status: Acute (4) Difficulty swallowing Status: Acute - Assessment and Plan (Free Text) Assessment: (1) Multiple sclerosis Assessment and Plan: meds for spasticity on hold for now neuro ?? steroids mri Status: Acute (2) Uncontrolled diabetes mellitus Assessment and Plan: fsbg, ivf insulin, home meds is on d5/0.9 as is npo Status: Acute (3) DVT prophylaxis Assessment and Plan: scd and ae hose lovenox Status: Acute (4) Difficulty swallowing Assessment and Plan: speech path eval ??ngt ?? peg vs hospice Status: Acute [id number] add kcl to ivf, monitor k. dc/tx if hyperkalemia occurs. normalized today [id number] to take po meds, iv metoprolol, clonidine patch, will monitor, ?? iv enalapril 7-calf pain-venous duplex, tylenol prn pain
--- NOTE | 2017-03-04 17:18 | CP.PCM.PN ---
Subjective - Date & Time of Evaluation Date of Evaluation: 03/04/17 Time of Evaluation: 17:16 - Subjective Subjective: Mr. Rees was seen and examined today at bedside. His family was in the room. The patient was sitting up in bed. He was awake, alert, responsive and conversant. He complained of bilateral lower extremity pain. He said he was feeling better. Objective - Vital Signs/Intake and Output Vital Signs (last 24 hours): Temp Pulse Resp BP Pulse Ox 98.7 F 76 20 191/67 H 95 03/04/17 16:00 03/04/17 16:00 03/04/17 16:00 03/04/17 16:00 03/04/17 16:00 Intake and Output: 03/04/17 03/04/17 06:59 18:59 Intake Total 1480 Output Total 950 Balance 530 - Medications Medications: Current Medications Aspirin (Ecotrin) 81 mg PO DAILY [facility] Atorvastatin Calcium (Lipitor) 20 mg PO HS [facility] Last Admin: 03/01/17 22:26 Dose: Not Given Clonidine HCl (Catapres-Tts3 0.3 Mg/24 Hr) 1 patch TD Q7D [facility] Last Admin: 03/04/17 09:50 Dose: 1 patch Clopidogrel Bisulfate (Plavix) 75 mg PO DAILY [facility] Dextrose (Dextrose 50% Inj) 0 ml IV STAT PRN; Protocol PRN Reason: Hypoglycemia Protocol Enoxaparin Sodium (Lovenox) 40 mg SC DAILY [facility] PRN Reason: Protocol Ferrous Sulfate (Feosol) 325 mg PO BID [facility] Dextrose/Sodium Chloride (Dextrose 5%/0.9% Ns 1000 Ml) 1,000 mls @ 125 mls/hr IV .Q8H [facility] Stop: 03/05/17 13:03 Insulin Detemir (Levemir) 20 units SC [facility] Last Admin: 03/03/17 21:26 Dose: 20 units Insulin Human Regular (Humulin R) 0 units SC ACCU-CHECK [facility] PRN Reason: Protocol Last Admin: 03/04/17 12:58 Dose: 2 units Metoprolol Tartrate (Lopressor) 5 mg IVP Q12 [facility] Last Admin: 03/04/17 09:39 Dose: 5 mg Multivitamins/Minerals (Therapeutic-M Tab) 1 tab PO DAILY [facility] Ondansetron HCl (Zofran Inj) 4 mg IVP Q4 PRN PRN Reason: Nausea/Vomiting Last Admin: 03/02/17 15:46 Dose: 4 mg Vitamin A (Vitamin A&D) 1 applic TP Q8 PRN PRN Reason: Other - Labs Labs: 03/04/17 10:40 03/04/17 10:40 PT 10.7 Seconds (9.8-13.1) 03/02/17 04:20 INR 1.0 (0.9-1.2) 03/02/17 04:20 APTT 26.1 Seconds (25.6-37.1) 03/02/17 04:20 - Neurological Exam Neurological Exam: Alert, Awake, CN II-XII Intact, Oriented x3 Neuro motor strength exam: Left Upper Extremity: 3, Right Upper Extremity: 3, Left Lower Extremity: 3, Right Lower Extremity: 3 Additional comments: Unable to ambulate Assessment and Plan (1) Toxic metabolic encephalopathy Assessment & Plan: Seems to be resolving with treatment of underlying cause. Continue conservative management and refer to PT/OT for continued management and transition of care. Status: Acute
[2017-03-04] MEDS: Enoxaparin 40 mg Syringe SC SCH (17:57)
[2017-03-04] MEDS: Dextrose 5%/0.9% NS 1,000 ML IV SCH ×2 (17:57→22:39)
[2017-03-04] MEDS: Insulin Detemir 100 Units/ml Inj SC SCH (22:36)
[2017-03-05 05:33] LABS: BASO # 0.1 K/uL (0.0-0.2); BASO % 1.2 % (0.0-2.0); EOS # 0.2 K/uL (0.0-0.7); EOS % 2.3 % (0.0-4.0); HEMATOCRIT 38.9 % (35.0-51.0); LYMPH # 2.1 K/uL (1.0-4.3); LYMPH % 22.6 % (20.0-40.0); MEAN CELL VOLUME 89.7 fl (80.0-94.0); MEAN CORPUSCULAR HEMOGLOBIN 28.3 pg (27.0-31.0); MEAN CORPUSCULAR HGB CONC 31.6 g/dL (33.0-37.0); MEAN PLATELET VOLUME 8.2 fl (7.2-11.7); MONO # 0.7 K/uL (0.0-0.8); MONO % 7.2 % (0.0-10.0); NEUT # 6.4 K/uL (1.8-7.0); NEUT % 66.7 % (50.0-75.0); WHITE BLOOD COUNT 9.5 K/uL (4.8-10.8)
[2017-03-05] MEDS: Dextrose 5%/0.9% NS 1,000 ML IV SCH ×2 (06:22→12:18)
[2017-03-05] MEDS: Insulin Regular 100 units/ml SC SCH ×4 (06:27→22:59)
[2017-03-05 06:57] LABS: ALB/GLOB RATIO 1.2 (1.0-2.1); BILIRUBIN,TOTAL 0.4 mg/dl (0.2-1.3); CALCIUM 9.2 mg/dL (8.4-10.2); POTASSIUM 4.4 MMOL/L (3.6-5.0); TOTAL PROTEIN 6.9 G/DL (6.3-8.2)
--- NOTE | 2017-03-05 08:23 | CP.PCM.PN ---
Subjective - Date & Time of Evaluation Date of Evaluation: 03/05/17 Time of Evaluation: 08:22 - Subjective Subjective: pt denies complaints. nof /c, n/v/d. slightly more awake/alert today. mri pending. was unable to complete venous dopplar yesterday but pt has no calf pain today. yancy when ready speech path eval Objective - Vital Signs/Intake and Output Vital Signs (last 24 hours): Temp Pulse Resp BP Pulse Ox 98.6 F 61 20 190/73 H 99 03/05/17 08:08 03/05/17 08:08 03/05/17 08:08 03/05/17 08:08 03/05/17 08:08 - Medications Medications: Current Medications Aspirin (Ecotrin) 81 mg PO DAILY [facility] Atorvastatin Calcium (Lipitor) 20 mg PO HS [facility] Last Admin: 03/01/17 22:26 Dose: Not Given Clonidine HCl (Catapres-Tts3 0.3 Mg/24 Hr) 1 patch TD Q7D [facility] Last Admin: 03/04/17 09:50 Dose: 1 patch Clopidogrel Bisulfate (Plavix) 75 mg PO DAILY [facility] Dextrose (Dextrose 50% Inj) 0 ml IV STAT PRN; Protocol PRN Reason: Hypoglycemia Protocol Enoxaparin Sodium (Lovenox) 40 mg SC DAILY [facility] PRN Reason: Protocol Last Admin: 03/04/17 17:57 Dose: 40 mg Ferrous Sulfate (Feosol) 325 mg PO BID [facility] Dextrose/Sodium Chloride (Dextrose 5%/0.9% Ns 1000 Ml) 1,000 mls @ 125 mls/hr IV .Q8H [facility] Stop: 03/05/17 13:03 Last Admin: 03/05/17 06:22 Dose: Not Given Insulin Detemir (Levemir) 20 units SC [facility] Last Admin: 03/04/17 22:36 Dose: Not Given Insulin Human Regular (Humulin R) 0 units SC ACCU-CHECK [facility] PRN Reason: Protocol Last Admin: 03/05/17 06:27 Dose: 2 units Metoprolol Tartrate (Lopressor) 5 mg IVP Q12 [facility] Last Admin: 03/04/17 20:42 Dose: 5 mg Multivitamins/Minerals (Therapeutic-M Tab) 1 tab PO DAILY [facility] Ondansetron HCl (Zofran Inj) 4 mg IVP Q4 PRN PRN Reason: Nausea/Vomiting Last Admin: 03/02/17 15:46 Dose: 4 mg Vitamin A (Vitamin A&D) 1 applic TP Q8 PRN PRN Reason: Other - Labs Labs: 03/05/17 04:20 03/05/17 04:20 PT 10.7 Seconds (9.8-13.1) 03/02/17 04:20 INR 1.0 (0.9-1.2) 03/02/17 04:20 APTT 26.1 Seconds (25.6-37.1) 03/02/17 04:20 - Constitutional Appears: Non-toxic, No Acute Distress, Chronically Ill - Head Exam Head Exam: ATRAUMATIC, NORMAL INSPECTION, NORMOCEPHALIC - Eye Exam Eye Exam: EOMI, Normal appearance, PERRL Pupil Exam: NORMAL ACCOMODATION, PERRL - ENT Exam ENT Exam: Mucous Membranes Moist, Normal Exam - Neck Exam Neck Exam: Full ROM, Normal Inspection. absent: Lymphadenopathy - Respiratory Exam Respiratory Exam: Clear to Ausculation Bilateral, NORMAL BREATHING PATTERN - Cardiovascular Exam Cardiovascular Exam: REGULAR RHYTHM, RRR, +S1, +S2. absent: Murmur - GI/Abdominal Exam GI & Abdominal Exam: Soft, Normal Bowel Sounds. absent: Tenderness - Extremities Exam Extremities Exam: Full ROM, Normal Capillary Refill, Normal Inspection. absent : Joint Swelling, Pedal Edema - Back Exam Back Exam: NORMAL INSPECTION - Neurological Exam Neurological Exam: Abnormal Gait, Alert, Awake, CN II-XII Intact, Oriented x3 - Psychiatric Exam Psychiatric exam: Normal Affect, Normal Mood - Skin Skin Exam: Dry, Intact, Normal Color, Warm Assessment and Plan (1) Multiple sclerosis Status: Acute (2) Uncontrolled diabetes mellitus Status: Acute (3) DVT prophylaxis Status: Acute (4) Difficulty swallowing Status: Acute - Assessment and Plan (Free Text) Assessment: (1) Multiple sclerosis Assessment and Plan: meds for spasticity on hold for now neuro ?? steroids mri Status: Acute (2) Uncontrolled diabetes mellitus Assessment and Plan: fsbg, ivf insulin, home meds is on d5/0.9 as is npo Status: Acute (3) DVT prophylaxis Assessment and Plan: scd and ae hose lovenox Status: Acute (4) Difficulty swallowing Assessment and Plan: speech path eval today for decision ??ngt ?? peg vs hospice Status: Acute [id number] add kcl to ivf, monitor k. dc/tx if hyperkalemia occurs. normalized today 2-mqr-[id number] to take po meds, iv metoprolol, clonidine patch, will monitor, ?? iv enalapril 7-calf pain-venous duplex, tylenol prn pain
[2017-03-05] MEDS: Enoxaparin 40 mg Syringe SC SCH (08:53)
[2017-03-05] MEDS: Metoprolol 1 mg/ml Inj IVP SCH ×2 (08:53→22:58)
--- NOTE | 2017-03-05 09:42 | CP.PCM.PN ---
Subjective - Date & Time of Evaluation Date of Evaluation: 03/05/17 Time of Evaluation: 09:40 - Subjective Subjective: Mr. Rees was seen and examined at the bedside. He is alert, able to answer questions appropriately. He is able to recal their house telephone number.He follows simple commands. He denies any headache, dizziness, lightheadedness, numbness, nausea, or vomiting. There was no untoward events overnight. Objective - Vital Signs/Intake and Output Vital Signs (last 24 hours): Temp Pulse Resp BP Pulse Ox 98.6 F 92 H 20 123/69 99 03/05/17 08:08 03/05/17 08:53 03/05/17 08:08 03/05/17 08:53 03/05/17 08:08 - Medications Medications: Current Medications Aspirin (Ecotrin) 81 mg PO DAILY [facility] Atorvastatin Calcium (Lipitor) 20 mg PO HS [facility] Last Admin: 03/01/17 22:26 Dose: Not Given Clonidine HCl (Catapres-Tts3 0.3 Mg/24 Hr) 1 patch TD Q7D [facility] Last Admin: 03/04/17 09:50 Dose: 1 patch Clopidogrel Bisulfate (Plavix) 75 mg PO DAILY [facility] Dextrose (Dextrose 50% Inj) 0 ml IV STAT PRN; Protocol PRN Reason: Hypoglycemia Protocol Enoxaparin Sodium (Lovenox) 40 mg SC DAILY [facility] PRN Reason: Protocol Last Admin: 03/05/17 08:53 Dose: 40 mg Ferrous Sulfate (Feosol) 325 mg PO BID [facility] Dextrose/Sodium Chloride (Dextrose 5%/0.9% Ns 1000 Ml) 1,000 mls @ 125 mls/hr IV .Q8H [facility] Stop: 03/05/17 13:03 Last Admin: 03/05/17 06:22 Dose: Not Given Insulin Detemir (Levemir) 20 units SC [facility] Last Admin: 03/04/17 22:36 Dose: Not Given Insulin Human Regular (Humulin R) 0 units SC ACCU-CHECK [facility] PRN Reason: Protocol Last Admin: 03/05/17 06:27 Dose: 2 units Metoprolol Tartrate (Lopressor) 5 mg IVP Q12 [facility] Last Admin: 03/05/17 08:53 Dose: 5 mg Multivitamins/Minerals (Therapeutic-M Tab) 1 tab PO DAILY [facility] Ondansetron HCl (Zofran Inj) 4 mg IVP Q4 PRN PRN Reason: Nausea/Vomiting Last Admin: 03/02/17 15:46 Dose: 4 mg Vitamin A (Vitamin A&D) 1 applic TP Q8 PRN PRN Reason: Other - Labs Labs: 03/05/17 04:20 03/05/17 04:20 PT 10.7 Seconds (9.8-13.1) 03/02/17 04:20 INR 1.0 (0.9-1.2) 03/02/17 04:20 APTT 26.1 Seconds (25.6-37.1) 03/02/17 04:20 - Constitutional Appears: No Acute Distress - Head Exam Head Exam: ATRAUMATIC - Neurological Exam Neurological Exam: Alert, Awake, CN II-XII Intact, Oriented x3 Neuro motor strength exam: Left Upper Extremity: 5, Right Upper Extremity: 5, Left Lower Extremity: 3, Right Lower Extremity: 3 Additional comments: Neurological improved from previous examination. Assessment and Plan (1) Toxic metabolic encephalopathy Assessment & Plan: Case discussed with Dr. Obrien, continue all current medical, physical, and occupation therapies. Follow up with speech for repeat swallowing eval and threat. Status: Acute
--- NOTE | 2017-03-05 09:52 | CP.PCM.PN ---
Subjective - Date & Time of Evaluation Date of Evaluation: 03/05/17 Time of Evaluation: 09:49 - Subjective Subjective: Patient is more awake and consciousness. He appeared to be more oriented. Vital signs noted to have high blood pressure. No nausea no vomiting. Objective - Vital Signs/Intake and Output Vital Signs (last 24 hours): Temp Pulse Resp BP Pulse Ox 98.6 F 92 H 20 123/69 99 03/05/17 08:08 03/05/17 08:53 03/05/17 08:08 03/05/17 08:53 03/05/17 08:08 - Medications Medications: Current Medications Aspirin (Ecotrin) 81 mg PO DAILY [facility] Atorvastatin Calcium (Lipitor) 20 mg PO HS [facility] Last Admin: 03/01/17 22:26 Dose: Not Given Clonidine HCl (Catapres-Tts3 0.3 Mg/24 Hr) 1 patch TD Q7D [facility] Last Admin: 03/04/17 09:50 Dose: 1 patch Clopidogrel Bisulfate (Plavix) 75 mg PO DAILY [facility] Dextrose (Dextrose 50% Inj) 0 ml IV STAT PRN; Protocol PRN Reason: Hypoglycemia Protocol Enoxaparin Sodium (Lovenox) 40 mg SC DAILY [facility] PRN Reason: Protocol Last Admin: 03/05/17 08:53 Dose: 40 mg Ferrous Sulfate (Feosol) 325 mg PO BID [facility] Dextrose/Sodium Chloride (Dextrose 5%/0.9% Ns 1000 Ml) 1,000 mls @ 125 mls/hr IV .Q8H [facility] Stop: 03/05/17 13:03 Last Admin: 03/05/17 06:22 Dose: Not Given Insulin Detemir (Levemir) 20 units SC [facility] Last Admin: 03/04/17 22:36 Dose: Not Given Insulin Human Regular (Humulin R) 0 units SC ACCU-CHECK [facility] PRN Reason: Protocol Last Admin: 03/05/17 06:27 Dose: 2 units Metoprolol Tartrate (Lopressor) 5 mg IVP Q12 [facility] Last Admin: 03/05/17 08:53 Dose: 5 mg Multivitamins/Minerals (Therapeutic-M Tab) 1 tab PO DAILY [facility] Ondansetron HCl (Zofran Inj) 4 mg IVP Q4 PRN PRN Reason: Nausea/Vomiting Last Admin: 03/02/17 15:46 Dose: 4 mg Vitamin A (Vitamin A&D) 1 applic TP Q8 PRN PRN Reason: Other - Labs Labs: 03/05/17 04:20 03/05/17 04:20 PT 10.7 Seconds (9.8-13.1) 03/02/17 04:20 INR 1.0 (0.9-1.2) 03/02/17 04:20 APTT 26.1 Seconds (25.6-37.1) 03/02/17 04:20 - Constitutional Appears: No Acute Distress - ENT Exam ENT Exam: Mucous Membranes Moist - Neck Exam Neck Exam: absent: Lymphadenopathy - Respiratory Exam Respiratory Exam: NORMAL BREATHING PATTERN. absent: Chest Wall Tenderness, Rales - Cardiovascular Exam Cardiovascular Exam: REGULAR RHYTHM. absent: Rubs - GI/Abdominal Exam GI & Abdominal Exam: Normal Bowel Sounds - Extremities Exam Extremities Exam: absent: Calf Tenderness, Pedal Edema - Back Exam Back Exam: absent: CVA tenderness (L), CVA tenderness (R) - Neurological Exam Neurological Exam: Alert - Skin Skin Exam: absent: Cyanosis Assessment and Plan (1) Acute renal injury Assessment & Plan: #2 status post cardiac arrest. #3 respiratory failure on ventilator. #4 anoxic encephalopathy. #5 alcohol intoxication on admission #6 hypertension which has been controlled with difficulties. On multiple medication and dialysis. #7 hyperphosphatemia and secondary hyperparathyroidism. Patient receiving hypothermic therapeutic for cardiac arrest. And also as per the primary team management. Dialysis to continue. Prognosis very poor. #8 anemia . EPO 10,000 units IV to be given on each hemodialysis #9 leukocytosis patient receiving antibiotics. Status: Chronic Status: Acute
--- NOTE | 2017-03-05 09:59 | CP.PCM.PN ---
Subjective - Date & Time of Evaluation Date of Evaluation: 03/05/17 Time of Evaluation: 09:56 - Subjective Subjective: Patient is more awake and responsive. Patient is more oriented. Blood pressure noted to be high. Need adjustment of antihypertensive medication. Objective - Vital Signs/Intake and Output Vital Signs (last 24 hours): Temp Pulse Resp BP Pulse Ox 98.6 F 92 H 20 123/69 99 03/05/17 08:08 03/05/17 08:53 03/05/17 08:08 03/05/17 08:53 03/05/17 08:08 - Medications Medications: Current Medications Aspirin (Ecotrin) 81 mg PO DAILY [facility] Atorvastatin Calcium (Lipitor) 20 mg PO HS [facility] Last Admin: 03/01/17 22:26 Dose: Not Given Clonidine HCl (Catapres-Tts3 0.3 Mg/24 Hr) 1 patch TD Q7D [facility] Last Admin: 03/04/17 09:50 Dose: 1 patch Clopidogrel Bisulfate (Plavix) 75 mg PO DAILY [facility] Dextrose (Dextrose 50% Inj) 0 ml IV STAT PRN; Protocol PRN Reason: Hypoglycemia Protocol Enoxaparin Sodium (Lovenox) 40 mg SC DAILY [facility] PRN Reason: Protocol Last Admin: 03/05/17 08:53 Dose: 40 mg Ferrous Sulfate (Feosol) 325 mg PO BID [facility] Dextrose/Sodium Chloride (Dextrose 5%/0.9% Ns 1000 Ml) 1,000 mls @ 125 mls/hr IV .Q8H [facility] Stop: 03/05/17 13:03 Last Admin: 03/05/17 06:22 Dose: Not Given Insulin Detemir (Levemir) 20 units SC [facility] Last Admin: 03/04/17 22:36 Dose: Not Given Insulin Human Regular (Humulin R) 0 units SC ACCU-CHECK [facility] PRN Reason: Protocol Last Admin: 03/05/17 06:27 Dose: 2 units Metoprolol Tartrate (Lopressor) 5 mg IVP Q12 [facility] Last Admin: 03/05/17 08:53 Dose: 5 mg Multivitamins/Minerals (Therapeutic-M Tab) 1 tab PO DAILY [facility] Ondansetron HCl (Zofran Inj) 4 mg IVP Q4 PRN PRN Reason: Nausea/Vomiting Last Admin: 03/02/17 15:46 Dose: 4 mg Vitamin A (Vitamin A&D) 1 applic TP Q8 PRN PRN Reason: Other - Labs Labs: 03/05/17 04:20 03/05/17 04:20 PT 10.7 Seconds (9.8-13.1) 03/02/17 04:20 INR 1.0 (0.9-1.2) 03/02/17 04:20 APTT 26.1 Seconds (25.6-37.1) 03/02/17 04:20 - Constitutional Appears: No Acute Distress - ENT Exam ENT Exam: Mucous Membranes Moist - Respiratory Exam Respiratory Exam: absent: Chest Wall Tenderness - Cardiovascular Exam Cardiovascular Exam: absent: JVD, Rubs - GI/Abdominal Exam GI & Abdominal Exam: Soft, Normal Bowel Sounds - Extremities Exam Extremities Exam: absent: Calf Tenderness - Back Exam Back Exam: absent: CVA tenderness (L), CVA tenderness (R) - Neurological Exam Neurological Exam: Alert - Psychiatric Exam Psychiatric exam: Normal Mood - Skin Skin Exam: absent: Cyanosis Assessment and Plan (1) Acute renal injury Assessment & Plan: Patient is recovering from acute kidney injury. Serum creatinine 1.6 which is his baseline. Consistent with CK D stage III. Patient responded very well to hydration that was the cause of his acute kidney injury dehydration. Mentally improving. Glycemic control as per primary team. Status: Acute
--- NOTE | 2017-03-05 14:21 | US ---
PROCEDURE: Bilateral lower extremity venous duplex Doppler. HISTORY: Calf pain COMPARISON: None available. TECHNIQUE: Bilateral common femoral, superficial femoral, popliteal and posterior tibial veins were evaluated. Flow was assessed with color Doppler, compressibility, assessment of phasic flow and augmentation response. FINDINGS: COMMON FEMORAL VEIN: Right CFV: Normal color flow, compressibility and augmentation response. Left CFV: Normal color flow, compressibility and augmentation response.. SUPERFICIAL FEMORAL VEIN: Right SFV: Normal color flow, compressibility and augmentation response.. Left SFV: Normal color flow, compressibility and augmentation response.. POPLITEAL VEIN: Right Popliteal: Normal color flow, compressibility and augmentation response.. Left Popliteal: Normal color flow, compressibility and augmentation response.. POSTERIOR TIBIAL VEIN: Right PTV: Normal color flow, compressibility and augmentation response.. Left PTV: Normal color flow, compressibility and augmentation response.. OTHER FINDINGS: None. IMPRESSION: No evidence of deep venous thrombosis.
[2017-03-05] MEDS: Insulin Detemir 100 Units/ml Inj SC SCH (22:59)
[2017-03-06 05:45] LABS: BASO # 0.1 K/uL (0.0-0.2); BASO % 1.1 % (0.0-2.0); EOS # 0.2 K/uL (0.0-0.7); EOS % 2.2 % (0.0-4.0); HEMATOCRIT 37.2 % (35.0-51.0); LYMPH # 2.9 K/uL (1.0-4.3); LYMPH % 25.4 % (20.0-40.0); MEAN CELL VOLUME 88.6 fl (80.0-94.0); MEAN CORPUSCULAR HEMOGLOBIN 28.5 pg (27.0-31.0); MEAN CORPUSCULAR HGB CONC 32.2 g/dL (33.0-37.0); MEAN PLATELET VOLUME 8.1 fl (7.2-11.7); MONO % 9.2 % (0.0-10.0); NEUT % 62.1 % (50.0-75.0); RED CELL DISTRIBUTION WIDTH 13.7 % (11.5-14.5); WHITE BLOOD COUNT 11.3 K/uL (4.8-10.8)
[2017-03-06 06:19] LABS: ALB/GLOB RATIO 1.3 (1.0-2.1); BILIRUBIN,TOTAL 0.5 mg/dl (0.2-1.3); CALCIUM 8.8 mg/dL (8.4-10.2); POTASSIUM 3.7 MMOL/L (3.6-5.0); TOTAL PROTEIN 6.9 G/DL (6.3-8.2)
[2017-03-06 06:43] LABS: PARTIAL THROMBOPLASTIN TIME 31.7 Seconds (25.6-37.1)
[2017-03-06] MEDS: Insulin Regular 100 units/ml SC SCH ×3 (06:50→17:11)
--- NOTE | 2017-03-06 08:23 | CP.PCM.PN ---
Subjective - Date & Time of Evaluation Date of Evaluation: 03/06/17 Time of Evaluation: 08:20 - Subjective Subjective: no distress/complaints. nof /c, n/v/d. bw noted. pt has small amt of blood in urine last night but ua noted and hgb, pt /inr stable. cleared by specialists for dc. for shannan kohli today Objective - Vital Signs/Intake and Output Vital Signs (last 24 hours): Temp Pulse Resp BP Pulse Ox 99.5 F 75 16 165/70 H 96 03/06/17 05:00 03/06/17 05:00 03/06/17 05:00 03/06/17 05:00 03/06/17 05:00 Intake and Output: 03/06/17 03/06/17 06:59 18:59 Intake Total 700 Output Total 1600 Balance -900 - Medications Medications: Current Medications Aspirin (Ecotrin) 81 mg PO DAILY [facility] Atorvastatin Calcium (Lipitor) 20 mg PO [facility] Last Admin: 03/01/17 22:26 Dose: Not Given Clonidine HCl (Catapres-Tts3 0.3 Mg/24 Hr) 1 patch TD Q7D [facility] Last Admin: 03/04/17 09:50 Dose: 1 patch Clopidogrel Bisulfate (Plavix) 75 mg PO DAILY [facility] Dextrose (Dextrose 50% Inj) 0 ml IV STAT PRN; Protocol PRN Reason: Hypoglycemia Protocol Ferrous Sulfate (Feosol) 325 mg PO BID [facility] Insulin Detemir (Levemir) 20 units SC [facility] Last Admin: 03/05/17 22:59 Dose: 20 units Insulin Human Regular (Humulin R) 0 units SC ACCU-CHECK [facility] PRN Reason: Protocol Last Admin: 03/06/17 06:50 Dose: Not Given Metoprolol Tartrate (Lopressor) 5 mg IVP Q12 [facility] Last Admin: 03/05/17 22:58 Dose: 5 mg Multivitamins/Minerals (Therapeutic-M Tab) 1 tab PO DAILY [facility] Ondansetron HCl (Zofran Inj) 4 mg IVP Q4 PRN PRN Reason: Nausea/Vomiting Last Admin: 03/02/17 15:46 Dose: 4 mg Vitamin A (Vitamin A&D) 1 applic TP Q8 PRN PRN Reason: Other - Labs Labs: 03/06/17 04:15 03/06/17 04:15 PT 12.5 Seconds (9.8-13.1) 03/06/17 04:15 INR 1.1 (0.9-1.2) 03/06/17 04:15 APTT 31.7 Seconds (25.6-37.1) 03/06/17 04:15 - Constitutional Appears: Non-toxic, No Acute Distress, Chronically Ill - Head Exam Head Exam: ATRAUMATIC, NORMAL INSPECTION, NORMOCEPHALIC - Eye Exam Eye Exam: EOMI, Normal appearance, PERRL Pupil Exam: NORMAL ACCOMODATION, PERRL - ENT Exam ENT Exam: Mucous Membranes Moist, Normal Exam - Neck Exam Neck Exam: Full ROM, Normal Inspection. absent: Lymphadenopathy - Respiratory Exam Respiratory Exam: Clear to Ausculation Bilateral, NORMAL BREATHING PATTERN - Cardiovascular Exam Cardiovascular Exam: REGULAR RHYTHM, RRR, +S1, +S2. absent: Murmur - GI/Abdominal Exam GI & Abdominal Exam: Soft, Normal Bowel Sounds. absent: Tenderness - Extremities Exam Extremities Exam: Full ROM, Normal Capillary Refill, Normal Inspection. absent : Joint Swelling, Pedal Edema - Back Exam Back Exam: NORMAL INSPECTION - Neurological Exam Neurological Exam: Alert, Awake, CN II-XII Intact, Normal Gait, Oriented x3 - Psychiatric Exam Psychiatric exam: Normal Affect, Normal Mood - Skin Skin Exam: Dry, Intact, Normal Color, Warm Assessment and Plan (1) Multiple sclerosis Status: Acute (2) Uncontrolled diabetes mellitus Status: Acute (3) DVT prophylaxis Status: Acute (4) Difficulty swallowing Status: Acute - Assessment and Plan (Free Text) Assessment: (1) Multiple sclerosis Assessment and Plan: meds for spasticity on hold for now neuro cleared by neuro for dc Status: Acute (2) Uncontrolled diabetes mellitus Assessment and Plan: fsbg, ivf insulin, home meds Status: Acute (3) DVT prophylaxis Assessment and Plan: scd and ae hose lovenox held r/t hematuria, restart asa/plavix Status: Acute (4) Difficulty swallowing Assessment and Plan: speech path eval today for decision ??ngt ?? peg vs hospice Status: Acute 1-[id number] add kcl to ivf, monitor k. dc/tx if hyperkalemia occurs. normalized today [id number] all po meds 7-calf pain-venous duplex-negative, tylenol prn pain
[2017-03-06 08:35] VITALS: PULSE 70
[2017-03-06 11:00] LABS: RBC URINE 165 /hpf (0-3); URINE BACTERIA RARE (<OCC); URINE BILIRUBIN NEGATIVE (NEGATIVE); URINE BLOOD LARGE (NEGATIVE); URINE COLOR YELLOW (YELLOW); URINE GLUCOSE (UA) >=500 mg/dL (Normal); URINE KETONE NEGATIVE (NEGATIVE); URINE LEUKOCYTE ESTERASE NEG Leu/uL (Negative); URINE PROTEIN 100 mg/dL (NEGATIVE); WBC URINE 8 /hpf (0-5)
--- NOTE | 2017-03-06 12:16 | CP.PCM.PN ---
Subjective - Date & Time of Evaluation Date of Evaluation: 03/06/17 Time of Evaluation: 12:14 - Subjective Subjective: Patient is awake and conscious comfortable and eating Vital signs stable Physical exam Chest no rales Heart no rubs Abdomen soft Extremity no edema Impression and plan Recovering from acute kidney injury to his serum creatinine continued to improve. Hypertension blood pressures are still high suggestive increase her clonidine 0.2 mg every 8 hours to [facility] and the patient made to do PSA blood test as outpatient at the [facility]. Objective - Vital Signs/Intake and Output Vital Signs (last 24 hours): Temp Pulse Resp BP Pulse Ox 98.7 F 70 20 186/79 H 99 03/06/17 08:00 03/06/17 09:48 03/06/17 08:00 03/06/17 09:48 03/06/17 08:00 Intake and Output: 03/06/17 03/06/17 06:59 18:59 Intake Total 700 Output Total 1600 Balance -900 - Medications Medications: Current Medications Aspirin (Ecotrin) 81 mg PO DAILY [facility] Last Admin: 03/06/17 09:46 Dose: 81 mg Atorvastatin Calcium (Lipitor) 20 mg PO [facility] Last Admin: 03/01/17 22:26 Dose: Not Given Clonidine HCl (Catapres) 0.2 mg PO Q12 [facility] Last Admin: 03/06/17 09:44 Dose: 0.2 mg Clopidogrel Bisulfate (Plavix) 75 mg PO DAILY [facility] Last Admin: 03/06/17 09:54 Dose: 75 mg Dextrose (Dextrose 50% Inj) 0 ml IV STAT PRN; Protocol PRN Reason: Hypoglycemia Protocol Ferrous Sulfate (Feosol) 325 mg PO BID [facility] Last Admin: 03/06/17 09:47 Dose: 325 mg Furosemide (Lasix) 40 mg PO DAILY [facility] Last Admin: 03/06/17 09:47 Dose: 40 mg Hydrochlorothiazide (Microzide) 12.5 mg PO DAILY [facility] Last Admin: 03/06/17 09:49 Dose: 12.5 mg Insulin Detemir (Levemir) 20 units SC [facility] Last Admin: 03/05/17 22:59 Dose: 20 units Insulin Human Regular (Humulin R) 0 units SC ACCU-CHECK [facility] PRN Reason: Protocol Last Admin: 03/06/17 06:50 Dose: Not Given Metoprolol Tartrate (Lopressor) 25 mg PO Q12 [facility] Last Admin: 03/06/17 09:48 Dose: 25 mg Multivitamins/Minerals (Therapeutic-M Tab) 1 tab PO DAILY [facility] Ondansetron HCl (Zofran Inj) 4 mg IVP Q4 PRN PRN Reason: Nausea/Vomiting Last Admin: 03/02/17 15:46 Dose: 4 mg Polymyxin/Trimethoprim Sulfate (Polytrim Ophth Soln) 1 drop OU Q6 [facility] Vitamin A (Vitamin A&D) 1 applic TP Q8 PRN PRN Reason: Other - Labs Labs: 03/06/17 04:15 03/06/17 04:15 PT 12.5 Seconds (9.8-13.1) 03/06/17 04:15 INR 1.1 (0.9-1.2) 03/06/17 04:15 APTT 31.7 Seconds (25.6-37.1) 03/06/17 04:15 Assessment and Plan (1) Acute renal injury Status: Acute
[2017-03-06] MEDS: Polymyxin/Trimethoprim Ophth Soln OU SCH ×2 (13:31→17:14)
[2017-03-06] MEDS: Multivitamin With Minerals Tab PO SCH ×2 (13:38→13:39)
[2017-03-06 15:56] VITALS: BP 171/70; RESP 20; TEMP 99.5; O2SAT 99
--- NOTE | 2017-03-06 19:16 | CP.PCM.PN ---
Subjective - Date & Time of Evaluation Date of Evaluation: 03/06/17 Time of Evaluation: 14:00 - Subjective Subjective: Mr. Rees was seen and examined today while he sat up in his chair. He was doing well and was pleasant and conversant. There were no acute events overnight. He is scheduled to be transferred to a subacute rehab facility. Objective - Vital Signs/Intake and Output Vital Signs (last 24 hours): Temp Pulse Resp BP Pulse Ox 99.5 F 70 20 171/70 H 99 03/06/17 15:55 03/06/17 17:05 03/06/17 15:55 03/06/17 17:05 03/06/17 15:55 - Medications Medications: Current Medications Aspirin (Ecotrin) 81 mg PO DAILY [facility] Last Admin: 03/06/17 09:46 Dose: 81 mg Atorvastatin Calcium (Lipitor) 20 mg PO HS [facility] Last Admin: 03/01/17 22:26 Dose: Not Given Clonidine HCl (Catapres) 0.2 mg PO TID [facility] Last Admin: 03/06/17 17:05 Dose: 0.2 mg Clopidogrel Bisulfate (Plavix) 75 mg PO DAILY [facility] Last Admin: 03/06/17 09:54 Dose: 75 mg Dextrose (Dextrose 50% Inj) 0 ml IV STAT PRN; Protocol PRN Reason: Hypoglycemia Protocol Ferrous Sulfate (Feosol) 325 mg PO BID [facility] Last Admin: 03/06/17 17:11 Dose: 325 mg Furosemide (Lasix) 40 mg PO DAILY [facility] Last Admin: 03/06/17 09:47 Dose: 40 mg Hydrochlorothiazide (Microzide) 12.5 mg PO DAILY [facility] Last Admin: 03/06/17 09:49 Dose: 12.5 mg Insulin Detemir (Levemir) 20 units SC [facility] Last Admin: 03/05/17 22:59 Dose: 20 units Insulin Human Regular (Humulin R) 0 units SC ACCU-CHECK [facility] PRN Reason: Protocol Last Admin: 03/06/17 17:11 Dose: 2 units Metoprolol Tartrate (Lopressor) 25 mg PO Q12 [facility] Last Admin: 03/06/17 09:48 Dose: 25 mg Multivitamins/Minerals (Therapeutic-M Tab) 1 tab PO DAILY [facility] Last Admin: 03/06/17 13:39 Dose: 1 tab Polymyxin/Trimethoprim Sulfate (Polytrim Ophth Soln) 1 drop OU Q6 [facility] Last Admin: 03/06/17 17:14 Dose: 1 drop Vitamin A (Vitamin A&D) 1 applic TP Q8 PRN PRN Reason: Other - Labs Labs: 03/06/17 04:15 03/06/17 04:15 PT 12.5 Seconds (9.8-13.1) 03/06/17 04:15 INR 1.1 (0.9-1.2) 03/06/17 04:15 APTT 31.7 Seconds (25.6-37.1) 03/06/17 04:15 - Neurological Exam Neurological Exam: Abnormal Gait, Alert, Awake, CN II-XII Intact, Oriented x3 Neuro motor strength exam: Left Upper Extremity: 4, Right Upper Extremity: 4, Left Lower Extremity: 4, Right Lower Extremity: 4 Assessment and Plan (1) Toxic metabolic encephalopathy Assessment & Plan: Improved with treatment of infection and dehydration. I will follow up with the patient in the outpatient neurology clinic in one month. Status: Acute
== END 2017-03-06 18:20 | DRG 682 ==
LOC: H.ER 16:23 → H.ERHOLD 17:29 → H.ICU/CCU 18:56 → H.TEL 03-02 17:03
PROVIDERS: ADMIT Family Medicine; ATTEND Family Medicine
DX: N17.9 Acute kidney failure, unspecified (principal); G92 Toxic encephalopathy; I95.9 Hypotension, unspecified; E11.22 Type 2 diabetes mellitus with diabetic chronic kidney disease; E11.51 Type 2 diabetes mellitus with diabetic peripheral angiopathy without gangrene; E11.65 Type 2 diabetes mellitus with hyperglycemia; G35 Multiple sclerosis; R13.10 Dysphagia, unspecified; I13.0 Hypertensive heart and chronic kidney disease with heart failure and stage 1 through stage 4 chronic kidney disease, or unspecified chronic kidney disease; E86.0 Dehydration; E87.6 Hypokalemia; I50.9 Heart failure, unspecified; N18.9 Chronic kidney disease, unspecified; Z79.02 Long term (current) use of antithrombotics/antiplatelets; Z79.82 Long term (current) use of aspirin; Z79.899 Other long term (current) drug therapy; Z87.891 Personal history of nicotine dependence; F41.9 Anxiety disorder, unspecified; Z79.84 Long term (current) use of oral hypoglycemic drugs; M79.662 Pain in left lower leg; M79.661 Pain in right lower leg; R00.1 Bradycardia, unspecified; R31.9 Hematuria, unspecified

== ENCOUNTER 2017-03-12 04:47 | Emergency (ER) | payer MEDICARE ==
[2017-03-12 04:49] VITALS: BMI 31.6
--- NOTE | 2017-03-12 05:45 | ED PDOC ---
HPI: Psych/Substance Abuse Time Seen by Provider: 03/12/17 05:01 Chief Complaint (Nursing): Psychiatric Evaluation Chief Complaint (Provider): Suicidal Ideation History Per: Patient History/Exam Limitations: no limitations Suicide/Self Injury Attempted (Context): None Associated Symptoms: Depression Additional Complaint(s): 76 year old male brought in by EMS presents to ED with complaints of suicidal ideation x2-3 days and has a past medical history of multiple sclerosis, DM, HTN , and depression. Patient notes that he was discharged from [facility] x1[facility]5 weeks ago after diabetic complications and [facility]. EMS states patient wants to jump out of a window. Patient tells ED staff that he wants to stab himself with a knife. Patient denies all medical complaints. (-) SOB, chest pain, or headache. PCP: Trey Davenport Past Medical History Reviewed: Historical Data, Nursing Documentation, Vital Signs Vital Signs: Last Vital Signs Temp 98.0 F 03/12/17 04:56 Pulse 57 L 03/12/17 04:56 Resp 16 03/12/17 04:56 BP 120/56 L 03/12/17 04:56 Pulse Ox 98 03/12/17 04:56 - Medical History PMH: Anxiety, CHF, Diabetes, HTN, Multiple Sclerosis Denies: HIV, Chronic Kidney Disease - Family History Family History: States: Unknown Family Hx - Living Arrangements Living Arrangements: Alf/Assist Lvng - Social History Drugs: Denies - Immunization History Hx Tetanus Toxoid Vaccination: No Hx Influenza Vaccination: No Hx Pneumococcal Vaccination: No - Home Medications Home Medications: Ambulatory Orders Medication Instructions Recorded Aspirin [Ecotrin] 81 mg PO DAILY 12/25/16 Atorvastatin [Lipitor] 20 mg PO HS 12/25/16 Baclofen [Lioresal] 20 mg PO BID 12/25/16 Citalopram Hydrobromide 40 mg PO HS 12/25/16 [Citalopram HBr] Clopidogrel [Plavix] 75 mg PO DAILY 12/25/16 Fenofibrate [Tricor] 48 mg PO QPM 12/25/16 Gabapentin [Neurontin] 300 mg PO BID 12/25/16 Glipizide [Glucotrol] 5 mg PO BID 12/25/16 Tamsulosin [Flomax] 0.8 mg PO HS 12/25/16 Topiramate [Topamax] 50 mg PO DAILY 12/25/16 hydroCHLOROthiazide [Microzide] 12.5 mg PO DAILY 12/25/16 Metoprolol Tartrate [Lopressor] 25 mg PO Q12 tab 12/29/16 Ferrous Sulfate [Feosol] 325 mg PO BID tab 01/25/17 Furosemide [Lasix] 40 mg PO DAILY #30 tab 02/01/17 Multimineral/Multivitamin 1 tab PO DAILY #30 tab 02/01/17 [Therapeutic-M Tab] Insulin Detemir [Levemir] 20 units SC HS vial 03/06/17 cloNIDine [Catapres] 0.2 mg PO TID tab 03/06/17 - Allergies Allergies/Adverse Reactions: Allergies Allergy/AdvReac Type Severity Reaction Status Date / Time No Known Allergies Allergy Verified 01/24/17 01:35 Review of Systems ROS Statement: Except As Marked, All Systems Reviewed And Found Negative ( denies all medical complaints) Cardiovascular: Negative for: Chest Pain Respiratory: Negative for: Shortness of Breath Gastrointestinal: Negative for: Abdominal Pain Musculoskeletal: Negative for: Back Pain, Leg Pain Neurological: Negative for: Headache Psych: Positive for: Suicidal ideation Physical Exam - Reviewed Nursing Documentation Reviewed: Yes Vital Signs Reviewed: Yes - Physical Exam Appears: Positive for: Non-toxic, No Acute Distress Skin: Positive for: Normal Color, Warm, Dry Eye Exam: Positive for: Normal appearance Cardiovascular/Chest: Positive for: Regular Rate, Rhythm. Negative for: Murmur Respiratory: Positive for: Normal Breath Sounds. Negative for: Respiratory Distress Gastrointestinal/Abdominal: Positive for: Soft. Negative for: Tenderness Back: Positive for: Normal Inspection Extremity: Positive for: Normal ROM. Negative for: Deformity Neurologic/Psych: Positive for: Alert, Oriented (x3), Mood/Affect (depressed affect). Negative for: Motor/Sensory Deficits - Laboratory Results Result Diagrams: 03/12/17 05:45 03/12/17 05:45 - ECG O2 Sat by Pulse Oximetry: 98 (RA) Pulse Ox Interpretation: Normal Medical Decision Making Medical Decision Makin Initial impression: suicidal ideation in setting of depression and multiple sclerosis Initial plan: * EKG * Acetaminophen * EtOH serum * Labs * UDrug screen * Salicylate * CXR * UA * Crisis evaluation 0700 Patient is medically cleared for crisis eval. Patient will be signed out to Dr. Ty pending crisis eval. Scribe Attestation: Documented by Aishwarya Desir acting as a scribe for Qasim Small MD. Scribe Attestation: All medical record entries made by the Scribe were at my direction and personally dictated by me. I have reviewed the chart and agree that the record accurately reflects my personal performance of the history, physical exam, medical decision making, and the department course for this patient. I have also personally directed, reviewed, and agree with the discharge instructions and disposition. Disposition - Clinical Impression Clinical Impression: Suicidal ideation, Depression - Disposition Referrals: Ike Washington MD [Primary Care Provider] - Disposition: Transfer of Care Disposition Time: 07:00 Condition: STABLE Forms: [employer] (Central African) Patient Signed Over To: Anabel Ty Handoff Comments: pending crisis eval
[2017-03-12 06:24] LABS: ALCOHOL SERUM < 10 mg/dl (0-10); BLOOD UREA NITROGEN 58 mg/dl (9-20); CALCIUM 9.5 mg/dL (8.4-10.2); CARBON DIOXIDE 33 mmol/L (22-30); CHLORIDE 99 mmol/L (98-107); GFR AFRICAN-AMERICAN 40; GLUCOSE,RANDOM 93 mg/dL (75-110); POTASSIUM 3.7 MMOL/L (3.6-5.0); SODIUM 141 mmol/l (132-148)
[2017-03-12 06:32] LABS: BASO # 0.1 K/uL (0.0-0.2); BASO % 1.2 % (0.0-2.0); EOS # 0.4 K/uL (0.0-0.7); EOS % 3.4 % (0.0-4.0); HEMATOCRIT 39.2 % (35.0-51.0); LYMPH # 3.7 K/uL (1.0-4.3); LYMPH % 34.1 % (20.0-40.0); MEAN CELL VOLUME 87.2 fl (80.0-94.0); MEAN CORPUSCULAR HEMOGLOBIN 28.2 pg (27.0-31.0); MEAN CORPUSCULAR HGB CONC 32.3 g/dL (33.0-37.0); MEAN PLATELET VOLUME 8.5 fl (7.2-11.7); MONO # 1.1 K/uL (0.0-0.8); MONO % 10.1 % (0.0-10.0); NEUT # 5.5 K/uL (1.8-7.0); NEUT % 51.2 % (50.0-75.0); NRBC % 0.2 % (0.0-0.0); RED CELL DISTRIBUTION WIDTH 13.5 % (11.5-14.5); WHITE BLOOD COUNT 10.9 K/uL (4.8-10.8)
[2017-03-12 06:38] LABS: RBC URINE 1 /hpf (0-3); URINE BILIRUBIN NEGATIVE (NEGATIVE); URINE BLOOD NEGATIVE (NEGATIVE); URINE COLOR YELLOW (YELLOW); URINE GLUCOSE (UA) NEG (Normal); URINE KETONE NEGATIVE (NEGATIVE); URINE LEUKOCYTE ESTERASE NEG Leu/uL (Negative); URINE PROTEIN NEGATIVE (NEGATIVE); URINE UROBILINOGEN 0.2-1.0 mg/dL (0.2-1.0); WBC URINE 1 /hpf (0-5)
--- NOTE | 2017-03-12 07:22 | ED PDOC ---
- Laboratory Results Result Diagrams: 03/12/17 05:45 03/12/17 05:45 - ECG O2 Sat by Pulse Oximetry: 98 (RA) Medical Decision Making Medical Decision Makin -Patient transferred to sd by Dr. Small, pending crisis evaluation. Disposition - Clinical Impression Clinical Impression: Suicidal ideation, Depression - Disposition Referrals: Ike Washington MD [Primary Care Provider] - Condition: STABLE Forms: [employer] (Slovenian)
[2017-03-12 08:44] VITALS: RESP 18
--- NOTE | 2017-03-12 11:05 | RAD ---
PROCEDURE: CHEST RADIOGRAPH, 1 VIEW HISTORY: SI COMPARISON: Chest radiograph 01/29/2017. FINDINGS: LUNGS: Clear. PLEURA: No pneumothorax or pleural fluid seen. CARDIOVASCULAR: Normal. OSSEOUS STRUCTURES: No significant abnormalities. VISUALIZED UPPER ABDOMEN: Normal. OTHER FINDINGS: None. IMPRESSION: No interval acute cardiopulmonary disease appreciated.
--- NOTE | 2017-03-12 11:44 | CP.PCM.CON ---
History of Present Illness - History of Present Illness History of Present Illness: Psychiatry Consult note CC: "I don't want to kill myself." HPI: 76 yo Thai male, BIB EMS for expressing suicidal ideation while at the custodial. Patient currently A + O x 3, denies any ideation to harm himself or others. States that he wants to live with his and family and that he is fearful of . He denies AH/VH/SI/HI. He does not want psychiatric admission at this time. He denies eating/sleeping disturbances. He was calm, cooperative and pleasant on interview. PPHx: Pt is presently staying at [facility] in [place], [place] to treat his medical problems. As per pt's (Mrs. Rees), pt is taking anti- depressants, Celexa and other medication, but she could not recall their names. PMHx: multiple sclerosis, DM, HTN, and depression. SHx: , Thai. 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 No drugs/etoh/cig. 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 -Discharge to custodial Past Patient History - Past Medical History & Family History Past Medical History?: Yes - Past Social History Drugs: Denies - CARDIAC Hx Cardiac Disorders: No Hx Hypertension: Yes - PULMONARY Hx Tuberculosis: No (Pt denies) - NEUROLOGICAL HX Cerebrovascular Accident: No Hx Seizures: No - HEENT Hx HEENT Problems: No - RENAL Hx Chronic Kidney Disease: No - ENDOCRINE/METABOLIC Hx Endocrine Disorders: Yes Hx Diabetes Mellitus Type 2: Yes - HEMATOLOGICAL/ONCOLOGICAL Hx Cancer: No Hx Human Immunodeficiency Virus (HIV): No - INTEGUMENTARY Hx Dermatological Problems: Yes Other/Comment: Stage 1 sacral decubitus - MUSCULOSKELETAL/RHEUMATOLOGICAL Hx Musculoskeletal Disorders: Yes Hx Falls: Yes - GASTROINTESTINAL Hx Gastrointestinal Disorders: No - GENITOURINARY/GYNECOLOGICAL Hx Sexually Transmitted Disorders: No - PSYCHIATRIC Hx Anxiety: Yes - SURGICAL HISTORY Hx Surgeries: Yes Other/Comment: Hx cyst removal from back. Hx LLE stent placement. Hx tatyana filter - ANESTHESIA Hx Anesthesia: Yes Hx Anesthesia Reactions: No Hx Malignant Hyperthermia: No Meds Allergies/Adverse Reactions: Allergies Allergy/AdvReac Type Severity Reaction Status Date / Time No Known Allergies Allergy Verified 01/24/17 01:35 Results - Vital Signs Recent Vital Signs: Last Vital Signs Temp 97.5 F L 03/12/17 08:43 Pulse 55 L 03/12/17 08:43 Resp 18 03/12/17 08:43 BP 102/48 L 03/12/17 08:43 Pulse Ox 96 03/12/17 08:43 - Labs Result Diagrams: 03/12/17 05:45 03/12/17 05:45 Labs: Laboratory Results - last 24 hr 03/12/17 03/12/17 03/12/17 05:19 05:45 05:45 WBC RBC Hgb Hct MCV MCH MCHC RDW Plt Count MPV Neut % (Auto) Lymph % (Auto) [place] % (Auto) Eos % (Auto) Baso % (Auto) Neut # Lymph # Deuel # Eos # Baso # Sodium 141 Potassium 3.7 Chloride 99 Carbon Dioxide 33 H Anion Gap 13 BUN 58 H Creatinine 2.0 H Est GFR ( Amer) 40 Est GFR (Non-Af Amer) 33 POC Glucose (mg/dL) 103 Random Glucose 93 Calcium 9.5 Troponin I 0.0170 NT-Pro-B Natriuret Pep 122 Urine Color Urine Clarity Urine pH Ur Specific [place] Urine Protein Urine Glucose (UA) Urine Ketones Urine Blood Urine Nitrate Urine Bilirubin Urine Urobilinogen Ur Leukocyte Esterase Urine RBC (Auto) Urine Microscopic WBC Hyaline Casts Salicylates Urine Opiates Screen Urine Methadone Screen Acetaminophen < 10.0 L Ur Barbiturates Screen Ur Phencyclidine Scrn Ur Amphetamines Screen U Benzodiazepines Scrn U Oth Cocaine Metabols U Cannabinoids Screen Alcohol, Quantitative < 10 03/12/17 03/12/17 03/12/17 05:45 05:45 06:20 WBC 10.9 H RBC 4.49 Hgb 12.7 Hct 39.2 MCV 87.2 MCH 28.2 MCHC 32.3 L RDW 13.5 Plt Count 423 H MPV 8.5 Neut % (Auto) 51.2 Lymph % (Auto) 34.1 Deuel % (Auto) 10.1 H Eos % (Auto) 3.4 Baso % (Auto) 1.2 Neut # 5.5 Lymph # 3.7 Deuel # 1.1 H Eos # 0.4 Baso # 0.1 Sodium Potassium Chloride Carbon Dioxide Anion Gap BUN Creatinine Est GFR ( Amer) Est GFR (Non-Af Amer) POC Glucose (mg/dL) Random Glucose Calcium Troponin I NT-Pro-B Natriuret Pep Urine Color Yellow Urine Clarity Slighty-cloudy Urine pH 5.0 Ur Specific [place] 1.012 Urine Protein Negative Urine Glucose (UA) Neg Urine Ketones Negative Urine Blood Negative Urine Nitrate Negative Urine Bilirubin Negative Urine Urobilinogen 0.2-1.0 Ur Leukocyte Esterase Neg Urine RBC (Auto) 1 Urine Microscopic WBC 1 Hyaline Casts 0-2 Salicylates < 1.0 Urine Opiates Screen Urine Methadone Screen Acetaminophen Ur Barbiturates Screen Ur Phencyclidine Scrn Ur Amphetamines Screen U Benzodiazepines Scrn U Oth Cocaine Metabols U Cannabinoids Screen Alcohol, Quantitative 03/12/17 06:20 WBC RBC Hgb Hct MCV MCH MCHC RDW Plt Count MPV Neut % (Auto) Lymph % (Auto) [place] % (Auto) Eos % (Auto) Baso % (Auto) Neut # Lymph # [place] # Eos # Baso # Sodium Potassium Chloride Carbon Dioxide Anion Gap BUN Creatinine Est GFR ( Amer) Est GFR (Non-Af Amer) POC Glucose (mg/dL) Random Glucose Calcium Troponin I NT-Pro-B Natriuret Pep Urine Color Urine Clarity Urine pH Ur Specific [place] Urine Protein Urine Glucose (UA) Urine Ketones Urine Blood Urine Nitrate Urine Bilirubin Urine Urobilinogen Ur Leukocyte Esterase Urine RBC (Auto) Urine Microscopic WBC Hyaline Casts Salicylates Urine Opiates Screen Negative Urine Methadone Screen Negative Acetaminophen Ur Barbiturates Screen Negative Ur Phencyclidine Scrn Negative Ur Amphetamines Screen Negative U Benzodiazepines Scrn Negative U Oth Cocaine Metabols Negative U Cannabinoids Screen Negative Alcohol, Quantitative
[2017-03-12 12:17] VITALS: BP 142/54; PULSE 74; TEMP 98; O2SAT 97
--- NOTE | 2017-03-13 00:32 | CARD ---
APPROVED REPORT EKG Measurement Heart [id number] <Conclusion> Sinus bradycardia Otherwise normal ECG
== END 2017-03-12 12:25 ==
LOC: H.ER 04:47
DX: F41.9 Anxiety disorder, unspecified (principal); F32.9 Major depressive disorder, single episode, unspecified; G35 Multiple sclerosis; I11.0 Hypertensive heart disease with heart failure; I50.9 Heart failure, unspecified; R45.851 Suicidal ideations
CPT/HCPCS: 71010; 80048; 81003; 82948; 83880; 84484; 85025; 93005; 99282; G0480

== ENCOUNTER 2017-04-06 15:54 | Inpatient (IN) | payer MEDICARE ==
[2017-04-06 15:55] VITALS: BMI 31.6
[2017-04-06] MEDS ORDERED: Albuterol-Ipratrop 3 mg / 0.5 (3 ml) UD INH STA (16:15)
[2017-04-06] MEDS ORDERED: Albuterol 0.083% Inhal Sol (2.5 mg/3 mL) UD INH STA (16:18)
--- NOTE | 2017-04-06 16:25 | ED PDOC ---
HPI: SOB/CHF/COPD Time Seen by Provider: 04/06/17 16:08 Chief Complaint (Nursing): Shortness Of Breath History Per: Family (This is a 76 yo male who is transferred to the ER via EMS from home because acutely confusion that started this morning. His daughter, with who he lives with, states that he has been coughing since discharge from acute rehab 4 days ago when he was noted to have a cough. She has not noted fever but notes that he has been breathing heavily. There is no reports of vomiting or diarrhea. She has noted the presence of sudden jerking tremors of the upper extremities.) History/Exam Limitations: physical impairment Onset/Duration Of Symptoms: Waxing/Waning, Gradual Initiating Event: Upper Respiratory Illness Current Respiratory Medications: See Home Med List Severity: Moderate Past Medical History Reviewed: Historical Data, Nursing Documentation, Vital Signs Vital Signs: Last Vital Signs Temp 97.3 F L 04/06/17 16:20 Pulse 56 L 04/06/17 16:20 Resp 20 04/06/17 17:14 BP 140/104 H 04/06/17 16:20 Pulse Ox 93 L 04/06/17 17:14 - Medical History PMH: Anxiety, Benign Prostatic Hyperplasia, CHF, Depression, Diabetes, Deep Vein Thrombosis, HTN, Hypercholesterolemia, Hyperlipidemia, Multiple Sclerosis Denies: Hepatitis, HIV, Chronic Kidney Disease, Seizures, Sexually Transmitted Disease - Surgical History Surgical History: No Surg Hx - Family History Family History: States: Unknown Family Hx - Living Arrangements Living Arrangements: With Family - Social History Current smoker - smoking cessation education provided: No Alcohol: None - Immunization History Hx Tetanus Toxoid Vaccination: No Hx Influenza Vaccination: No Hx Pneumococcal Vaccination: No - Home Medications Home Medications: Ambulatory Orders Medication Instructions Recorded Aspirin [Ecotrin] 81 mg PO DAILY 12/25/16 Atorvastatin [Lipitor] 20 mg PO HS 12/25/16 Baclofen [Lioresal] 20 mg PO BID 12/25/16 Citalopram Hydrobromide 40 mg PO HS 12/25/16 [Citalopram HBr] Clopidogrel [Plavix] 75 mg PO DAILY 12/25/16 Fenofibrate [Tricor] 48 mg PO QPM 12/25/16 Gabapentin [Neurontin] 300 mg PO BID 12/25/16 Glipizide [Glucotrol] 5 mg PO BID 12/25/16 Tamsulosin [Flomax] 0.8 mg PO HS 12/25/16 Topiramate [Topamax] 50 mg PO DAILY 12/25/16 hydroCHLOROthiazide [Microzide] 12.5 mg PO DAILY 12/25/16 Metoprolol Tartrate [Lopressor] 25 mg PO Q12 tab 12/29/16 Furosemide [Lasix] 40 mg PO DAILY #30 tab 02/01/17 Multimineral/Multivitamin 1 tab PO DAILY #30 tab 02/01/17 [Therapeutic-M Tab] cloNIDine [Catapres] 0.2 mg PO TID tab 03/06/17 Docusate Sodium [Robles' 100 mg PO HS 04/06/17 Laxative] Guaifenesin [Mucinex] 600 mg PO Q12 04/06/17 Insulin Detemir [Levemir] 40 units SC HS 04/06/17 - Allergies Allergies/Adverse Reactions: Allergies Allergy/AdvReac Type Severity Reaction Status Date / Time No Known Allergies Allergy Verified 01/24/17 01:35 Curb-65 Severity Score - CURB-65 Severity Score Confusion: Yes Curb-65 Score: 1 Percentage 30-day mortality: 2.7% Review of Systems ROS Statement: Except As Marked, All Systems Reviewed And Found Negative Constitutional: Negative for: Fever Respiratory: Positive for: Shortness of Breath Gastrointestinal: Negative for: Vomiting, Abdominal Pain, Diarrhea Neurological: Positive for: Weakness (generalized), Confusion (baseline dementia with worsening noted today). Negative for: Incoordination, Headache Physical Exam - Reviewed Nursing Documentation Reviewed: Yes Vital Signs Reviewed: Yes - Physical Exam Appears: Positive for: Well, Non-toxic, Uncomfortable Head Exam: Positive for: ATRAUMATIC, NORMAL INSPECTION, NORMOCEPHALIC Skin: Positive for: Normal Color, Warm, DRY Eye Exam: Positive for: Normal appearance ENT: Positive for: Normal ENT Inspection Neck: Positive for: Normal, Painless ROM Cardiovascular/Chest: Positive for: Regular Rate, Rhythm Respiratory: Positive for: Decreased Breath Sounds, Accessory Muscle Use, Rales (base bilaterally), Wheezing Gastrointestinal/Abdominal: Positive for: Normal Exam, Soft Back: Positive for: Normal Inspection Extremity: Positive for: Normal ROM Neurologic/Psych: Positive for: Alert (responds to name and follows instructions ) - Laboratory Results Result Diagrams: 04/06/17 17:11 04/06/17 17:11 - ECG O2 Sat by Pulse Oximetry: 95 Medical Decision Making Medical Decision Making: patient has evidence of AMS, most likely metabolic in nature based on the worsening renal function. His WBC is elevated despite lack of obvious focus and fever. Case d/w Eric Solis for admission to med/surgery for hydration and monitoring. Disposition - Clinical Impression Clinical Impression: Altered mental status, Acute renal insufficiency - Patient ED Disposition Is Patient to be Admitted: Yes Doctor Will See Patient In The: Hospital - Disposition Disposition: Transfer of Care Disposition Time: 17:45 Condition: STABLE Forms: [employer] (Portuguese) - Pt Status Changed To: Hospital Disposition Of: Inpatient - Admit Certification Admit to Inpatient:: After my assessment, the patient will require hospitalization for at least two midnights. This is because of the severity of symptoms shown, intensity of services needed, and/or the medical risk in this patient being treated as an outpatient. - POA Present On Arrival: None
[2017-04-06] MEDS ORDERED: Albuterol-Ipratrop 3 mg / 0.5 (3 ml) UD ONE ×2 (16:32→20:17)
[2017-04-06] MEDS ORDERED: Albuterol 0.083% Inhal Sol (2.5 mg/3 mL) UD ONE (16:32)
--- NOTE | 2017-04-06 17:09 | RAD ---
PROCEDURE: CHEST RADIOGRAPH, 1 VIEW HISTORY: dyspnea COMPARISON: 03/12/2017 FINDINGS: LUNGS: Clear. PLEURA: No pneumothorax or pleural fluid seen. CARDIOVASCULAR: Normal. OSSEOUS STRUCTURES: No significant abnormalities. VISUALIZED UPPER ABDOMEN: Normal. OTHER FINDINGS: None. IMPRESSION: No active disease. No acute/significant interval changes. Concordant results with the preliminary interpretation rendered by the emergency department physician procedure.
[2017-04-06 17:27] LABS: BASO # 0.1 K/uL (0.0-0.2); BASO % 0.5 % (0.0-2.0); EOS # 0.4 K/uL (0.0-0.7); EOS % 2.3 % (0.0-4.0); LYMPH # 3.1 K/uL (1.0-4.3); LYMPH % 19.3 % (20.0-40.0); MEAN CELL VOLUME 87.1 fl (80.0-94.0); MEAN CORPUSCULAR HEMOGLOBIN 28.2 pg (27.0-31.0); MEAN CORPUSCULAR HGB CONC 32.4 g/dL (33.0-37.0); MEAN PLATELET VOLUME 7.8 fl (7.2-11.7); MONO # 1.9 K/uL (0.0-0.8); MONO % 11.6 % (0.0-10.0); NEUT # 10.6 K/uL (1.8-7.0); NEUT % 66.3 % (50.0-75.0); NRBC % 0.1 % (0.0-0.0); RBC 4.27 Mil/uL (4.40-5.90); RED CELL DISTRIBUTION WIDTH 14.1 % (11.5-14.5)
[2017-04-06 17:36] LABS: ALB/GLOB RATIO 1.2 (1.0-2.1)
[2017-04-06 17:47] LABS: PARTIAL THROMBOPLASTIN TIME 30.9 Seconds (25.6-37.1); PROTHROMBIN TIME 11.6 Seconds (9.8-13.1)
[2017-04-06 18:23] LABS: ABG ALLEN TEST YES; ARTERIAL BLOOD GAS HCO3 29.6 mmol/L (21-28); ARTERIAL BLOOD GAS PCO2 49 mm/Hg (35-45); ARTERIAL BLOOD GAS PH 7.42 (7.35-7.45); ARTERIAL BLOOD GAS PO2 60 mm/Hg (80-100); ARTERIAL BLOOD GAS TCO2 33.3 mmol/L (22-28)
--- NOTE | 2017-04-06 19:02 | CT ---
PROCEDURE: CT scan brain dated 04/06/2017 HISTORY: Altered mental status COMPARISON: Comparison made with prior CT scan brain 03/01/2017 . Comparison also made with prior MRI brain 11/28/2012. TECHNIQUE: Axial computed tomography images were obtained through the head/brain without intravenous contrast. Radiation dose: Total exam DLP = 1845.44 mGy-cm. This CT exam was performed using one or more of the following dose reduction techniques: Automated exposure control, adjustment of the mA and/or kV according to patient size, and/or use of iterative reconstruction technique. FINDINGS: HEMORRHAGE: No acute parenchymal, subarachnoid or extra-axial hemorrhage. BRAIN: Moderate diffuse/confluent chronic white matter ischemic changes seen extending peripherally into the deep and subcortical white matter both cerebral hemispheres. Scattered chronic bilateral basal nuclei lacunar type infarcts present though less well seen compared to prior MRI brain Moderate central volume loss evidenced by disproportionate enlargement of the ventricles as compared the sulci. Vascular calcifications both carotid siphons and left vertebral artery. VENTRICLES: No obstructive hydrocephalus. CALVARIUM: No acute calvarial fractures. PARANASAL SINUSES: Mild mucosal thickening present within both maxillary antra with mild to moderate mucosal thickening in the ethmoid air complex extending superiorly slightly into the inferior margin of the frontal sinus. There is also mild mucosal thickening within the sphenoid sinus. MASTOID AIR CELLS: Unremarkable as visualized. No inflammatory changes. OTHER FINDINGS: Changes of bilateral cataract surgery present IMPRESSION: Moderate diffuse/ confluent chronic white matter ischemic changes with some extension into the white matter tracts of both basal nuclei. Additionally, there are also a few scattered chronic bilateral basal nuclei lacunar type infarcts which are seen to much better advantage on prior MRI of the brain. If acute infarct is suspected clinically consider followup emergent MRI of the brain.
[2017-04-06] MEDS: Albuterol-Ipratrop 3 mg / 0.5 (3 ml) UD INH PRN ×2 (20:17→20:26)
[2017-04-06 20:56] LABS: SQUAMOUS EPITHIAL < 1 /hpf (0-5); URINE BILIRUBIN NEGATIVE (NEGATIVE); URINE BLOOD NEGATIVE (NEGATIVE); URINE CLARITY SLIGHTY-CLOUDY (Clear); URINE COLOR YELLOW (YELLOW); URINE GLUCOSE (UA) NEG (Normal); URINE LEUKOCYTE ESTERASE NEG Leu/uL (Negative); URINE NITRATE NEGATIVE (NEGATIVE); URINE PROTEIN NEGATIVE (NEGATIVE); URINE UROBILINOGEN 0.2-1.0 mg/dL (0.2-1.0)
[2017-04-06] MEDS: guaiFENesin 600 mg ER Tab PO SCH (22:18)
[2017-04-06] MEDS: Insulin Detemir 100 Units/ml Inj SC SCH (22:35)
[2017-04-07] MEDS: Albuterol-Ipratrop 3 mg / 0.5 (3 ml) UD INH PRN ×3 (00:11→11:13)
--- NOTE | 2017-04-07 07:21 | CP.PCM.HP ---
History of Present Illness - History of Present Illness History of Present Illness: pt admitted for wheezing/wbc elevation, dehydration. pt also presented w/ ams but at present is mentating at baseline. was placed on 1:1 and given haldol for agitation/aggression.-not present at this time. no f/c, n/v/d. 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 am labs pending. er labs noted. imaging reviewed. neuro consult pending. Present on Admission - Present on Admission Any Indicators Present on Admission: Yes History of Uncontrolled Diabetes: Yes Review of Systems - Respiratory Respiratory: As Per HPI, Wheezing - Neurological Neurological: As Per HPI, Behavioral Changes Past Patient History - Past Medical History & Family History Past Medical History?: Yes - Past Social History Smoking Status: Former Smoker - CARDIAC Hx Cardiac Disorders: Yes Hx Hypercholesterolemia: Yes Hx Hypertension: Yes - PULMONARY Hx Respiratory Disorders: Yes Hx Tuberculosis: No (Pt denies) Other/Comment: former smoker - NEUROLOGICAL Hx Neurological Disorder: Yes Hx Dementia: Yes Hx Multiple Sclerosis: Yes Hx Seizures: No - HEENT Hx HEENT Problems: Yes Other/Comment: [place] - RENAL Hx Chronic Kidney Disease: No - ENDOCRINE/METABOLIC Hx Endocrine Disorders: Yes Hx Diabetes Mellitus Type 2: Yes - HEMATOLOGICAL/ONCOLOGICAL Hx Blood Disorders: No Hx AIDS: No Hx Hepatitis C: No Hx Human Immunodeficiency Virus (HIV): No - INTEGUMENTARY Hx Dermatological Problems: Yes Other/Comment: Stage 1 sacral decubitus hx. skin intact now 04/06/17 - MUSCULOSKELETAL/RHEUMATOLOGICAL Hx Musculoskeletal Disorders: Yes Hx Falls: Yes (2 weeks ago at [place]) Hx Unsteady Gait: Yes - GASTROINTESTINAL Hx Gastrointestinal Disorders: No - GENITOURINARY/GYNECOLOGICAL Hx Genitourinary Disorders: Yes Hx Prostate Problems: Yes - PSYCHIATRIC Hx Psychophysiologic Disorder: Yes Hx Anxiety: Yes Hx Depression: Yes Hx Hallucinations: Yes (per dgtr pt experienced hallucinations yesterday/visual) Hx Substance Use: No - SURGICAL HISTORY Hx Surgeries: Yes Hx Coronary Stent: Yes (x1, hx of DVT 1992) Other/Comment: Hx cyst removal from back. Hx LLE stent placement. Hx tatyana filter / IVC filter - ANESTHESIA Hx Anesthesia: Yes Hx Anesthesia Reactions: No Hx Malignant Hyperthermia: No Meds Allergies/Adverse Reactions: Allergies Allergy/AdvReac Type Severity Reaction Status Date / Time No Known Allergies Allergy Verified 01/24/17 01:35 Physical Exam - Constitutional Appears: Well, Non-toxic, No Acute Distress - Head Exam Head Exam: ATRAUMATIC, NORMAL INSPECTION, NORMOCEPHALIC - Eye Exam Eye Exam: EOMI, Normal appearance, PERRL Pupil Exam: NORMAL ACCOMODATION, PERRL - ENT Exam ENT Exam: Mucous Membranes Moist, Normal Exam - Neck Exam Neck exam: Positive for: Normal Inspection - Respiratory Exam Respiratory Exam: Clear to Auscultation Bilateral, NORMAL BREATHING PATTERN - Cardiovascular Exam Cardiovascular Exam: REGULAR RHYTHM, RRR, +S1, +S2 - GI/Abdominal Exam GI & Abdominal Exam: Normal Bowel Sounds, Soft. absent: Tenderness - Exam Bimanual exam: NORMAL BIMANUAL EXAM - Extremities Exam Extremities exam: Positive for: full ROM, normal capillary refill, normal inspection, pedal pulses present - Back Exam Back exam: NORMAL INSPECTION - Neurological Exam Neurological exam: Abnormal Gait, Alert, CN II-XII Intact, Oriented x3, Reflexes Normal - Psychiatric Exam Psychiatric exam: Normal Affect, Normal Mood - Skin Skin Exam: Dry, Intact, Normal Color, Warm Results - Vital Signs Recent Vital Signs: Last Vital Signs Temp 97.5 F L 04/06/17 21:25 Pulse 62 04/07/17 00:12 Resp 20 04/06/17 21:25 BP 159/61 H 04/06/17 22:18 Pulse Ox 93 L 04/06/17 21:25 - Labs Result Diagrams: 04/07/17 05:30 04/06/17 17:11 Labs: Laboratory Results - last 24 hr 04/06/17 04/06/17 04/06/17 16:12 16:18 17:11 WBC 16.0 H RBC 4.27 L Hgb 12.0 Hct 37.2 MCV 87.1 MCH 28.2 MCHC 32.4 L RDW 14.1 Plt Count 429 H MPV 7.8 Neut % (Auto) 66.3 Lymph % (Auto) 19.3 L [place] % (Auto) 11.6 H Eos % (Auto) 2.3 Baso % (Auto) 0.5 Neut # 10.6 H Lymph # 3.1 [place] # 1.9 H Eos # 0.4 Baso # 0.1 PT INR APTT pCO2 49 H pO2 60 L HCO3 29.6 H ABG pH 7.42 ABG Total CO2 33.3 H ABG O2 Saturation 95.0 ABG Base Excess 6.2 H Rudy Test Yes ABG Potassium 3.1 L A-a O2 Difference 28.0 Sodium 140.0 Chloride 105.0 Glucose 71 L Lactate 0.8 FiO2 21.0 Potassium Carbon Dioxide Anion Gap BUN Creatinine Est GFR ( Amer) Est GFR (Non-Af Amer) POC Glucose (mg/dL) 95 Random Glucose Calcium Total Bilirubin AST ALT Alkaline Phosphatase Total Protein Albumin Globulin Albumin/Globulin Ratio Arterial Blood Potassium 3.1 L Urine Color Urine Appearance Urine Clarity Urine pH Ur Specific [place] Urine Protein Urine Glucose (UA) Urine Ketones Urine Blood Urine Nitrate Urine Bilirubin Urine Urobilinogen Ur Leukocyte Esterase Urine RBC (Auto) Urine RBC Urine WBC Urine Microscopic WBC Ur Squamous Epith Cells Hyaline Casts Influenza Typ A,B (EIA) 04/06/17 04/06/17 04/06/17 17:11 17:11 17:11 WBC RBC Hgb Hct MCV MCH MCHC RDW Plt Count MPV Neut % (Auto) Lymph % (Auto) [place] % (Auto) Eos % (Auto) Baso % (Auto) Neut # Lymph # [place] # Eos # Baso # PT 11.6 INR 1.0 APTT 30.9 pCO2 pO2 HCO3 ABG pH ABG Total CO2 ABG O2 Saturation ABG Base Excess Rudy Test ABG Potassium A-a O2 Difference Sodium 143 Chloride 100 Glucose Lactate FiO2 Potassium 3.9 Carbon Dioxide 31 H Anion Gap 16 BUN 57 H Creatinine 2.6 H Est GFR ( Amer) 29 Est GFR (Non-Af Amer) 24 POC Glucose (mg/dL) Random Glucose 60 L Calcium 10.0 Total Bilirubin 0.4 AST 37 ALT 50 Alkaline Phosphatase 76 Total Protein 7.3 Albumin 4.0 Globulin 3.3 Albumin/Globulin Ratio 1.2 Arterial Blood Potassium Urine Color Urine Appearance Urine Clarity Urine pH Ur Specific [place] Urine Protein Urine Glucose (UA) Urine Ketones Urine Blood Urine Nitrate Urine Bilirubin Urine Urobilinogen Ur Leukocyte Esterase Urine RBC (Auto) Urine RBC Urine WBC Urine Microscopic WBC Ur Squamous Epith Cells Hyaline Casts Influenza Typ A,B (EIA) Negative for flu a/b 04/06/17 04/06/17 04/06/17 19:45 19:52 21:48 WBC RBC Hgb Hct MCV MCH MCHC RDW Plt Count MPV Neut % (Auto) Lymph % (Auto) [place] % (Auto) Eos % (Auto) Baso % (Auto) Neut # Lymph # [place] # Eos # Baso # PT INR APTT pCO2 pO2 HCO3 ABG pH ABG Total CO2 ABG O2 Saturation ABG Base Excess Rudy Test ABG Potassium A-a O2 Difference Sodium Chloride Glucose Lactate FiO2 Potassium Carbon Dioxide Anion Gap BUN Creatinine Est GFR ( Amer) Est GFR (Non-Af Amer) POC Glucose (mg/dL) 114 H 116 H Random Glucose Calcium Total Bilirubin AST ALT Alkaline Phosphatase Total Protein Albumin Globulin Albumin/Globulin Ratio Arterial Blood Potassium Urine Color Yellow Urine Appearance Cancelled Urine Clarity Slighty-cloudy Urine pH 5.0 Ur Specific [place] 1.012 Urine Protein Negative Urine Glucose (UA) Neg Urine Ketones Negative Urine Blood Negative Urine Nitrate Negative Urine Bilirubin Negative Urine Urobilinogen 0.2-1.0 Ur Leukocyte Esterase Neg Urine RBC (Auto) 1 Urine RBC TEST NOT PERFORMED Urine WBC TEST NOT PERFORMED Urine Microscopic WBC 1 Ur Squamous Epith Cells < 1 Hyaline Casts 3-5 H Influenza Typ A,B (EIA) 04/07/17 06:01 WBC RBC Hgb Hct MCV MCH MCHC RDW Plt Count MPV Neut % (Auto) Lymph % (Auto) [place] % (Auto) Eos % (Auto) Baso % (Auto) Neut # Lymph # [place] # Eos # Baso # PT INR APTT pCO2 pO2 HCO3 ABG pH ABG Total CO2 ABG O2 Saturation ABG Base Excess Urdy Test ABG Potassium A-a O2 Difference Sodium Chloride Glucose Lactate FiO2 Potassium Carbon Dioxide Anion Gap BUN Creatinine Est GFR ( Amer) Est GFR (Non-Af Amer) POC Glucose (mg/dL) 102 Random Glucose Calcium Total Bilirubin AST ALT Alkaline Phosphatase Total Protein Albumin Globulin Albumin/Globulin Ratio Arterial Blood Potassium Urine Color Urine Appearance Urine Clarity Urine pH Ur Specific [place] Urine Protein Urine Glucose (UA) Urine Ketones Urine Blood Urine Nitrate Urine Bilirubin Urine Urobilinogen Ur Leukocyte Esterase Urine RBC (Auto) Urine RBC Urine WBC Urine Microscopic WBC Ur Squamous Epith Cells Hyaline Casts Influenza Typ A,B (EIA) Assessment & Plan (1) Acute renal insufficiency Assessment and Plan: ivf, monitor bun/cr pt was not drinking at home Status: Acute (2) Altered mental status Assessment and Plan: improving w/ hydration neuro ct noted Status: Acute (3) DVT prophylaxis Assessment and Plan: scd and ae hoae plavix Status: Acute (4) Multiple sclerosis Assessment and Plan: cont home meds, neuro Status: Acute Decision To Admit - Pt Status Changed To: Hospital Disposition Of: Inpatient - Admit Certification Admit to Inpatient:: After my assessment, the patient will require hospitalization for at least two midnights. This is because of the severity of symptoms shown, intensity of services needed, and/or the medical risk in this patient being treated as an outpatient. - . Bed Request Type: Med/Surg Admitting Physician: Pillo Kelly
[2017-04-07 08:14] LABS: BASO # 0.1 K/uL (0.0-0.2); BASO % 0.8 % (0.0-2.0); EOS # 0.2 K/uL (0.0-0.7); EOS % 1.6 % (0.0-4.0); HEMOGLOBIN 10.9 g/dL (12.0-18.0); LYMPH # 3.6 K/uL (1.0-4.3); LYMPH % 25.4 % (20.0-40.0); MEAN CELL VOLUME 86.4 fl (80.0-94.0); MEAN CORPUSCULAR HEMOGLOBIN 27.9 pg (27.0-31.0); MEAN CORPUSCULAR HGB CONC 32.3 g/dL (33.0-37.0); MEAN PLATELET VOLUME 7.9 fl (7.2-11.7); MONO # 1.3 K/uL (0.0-0.8); MONO % 9.3 % (0.0-10.0); NEUT % 62.9 % (50.0-75.0); NRBC % 0.1 % (0.0-0.0); RBC 3.91 Mil/uL (4.40-5.90); WHITE BLOOD COUNT 14.3 K/uL (4.8-10.8)
[2017-04-07 08:24] LABS: ALB/GLOB RATIO 1.2 (1.0-2.1); ALBUMIN 3.6 g/dL (3.5-5.0); CALCIUM 9.6 mg/dL (8.4-10.2)
[2017-04-07] MEDS ORDERED: Potassium Chloride 20 mEq ER Tab PO ONE (08:26)
[2017-04-07] MEDS: guaiFENesin 600 mg ER Tab PO SCH ×2 (10:24→21:28)
[2017-04-07] MEDS: Multivitamin With Minerals Tab PO SCH (10:33)
--- NOTE | 2017-04-07 12:04 | CARD ---
APPROVED REPORT EKG Measurement Heart [id number] <Conclusion> Sinus bradycardia Otherwise normal ECG
[2017-04-07] MEDS: Azithromycin 500 MG in Sodium Chloride 0.9% 250 ML IVPB SCH (14:11)
--- NOTE | 2017-04-07 16:53 | CP.PCM.CON ---
History of Present Illness - History of Present Illness History of Present Illness: Mr. Rees is a 76-year-old man with a past medical history of DM, HTN, HLD, CHF , who was admitted for difficulty with respirations, light-headedness and altered mental status. He states that he suddenly became short of breath, had difficulty standing up and lost consciousness. In the ED, he was agitated and appeared encephalopathic, but later resolved and is now coherent. CT scan of the head showed significant chronic white matter disease and chronic lacunar infarcts in both basal ganglia, but no acute findings. Review of Systems - Review of Systems All systems: reviewed and no additional remarkable complaints except Past Patient History - Past Medical History & Family History Past Medical History?: Yes - Past Social History Smoking Status: Former Smoker - CARDIAC Hx Hypercholesterolemia: Yes Hx Hypertension: Yes - PULMONARY Hx Respiratory Disorders: Yes Hx Tuberculosis: No (Pt denies) Other/Comment: former smoker - NEUROLOGICAL Hx Neurological Disorder: Yes Hx Dementia: Yes Hx Multiple Sclerosis: Yes Hx Seizures: No - HEENT Hx HEENT Problems: Yes Other/Comment: [place] - RENAL Hx Chronic Kidney Disease: No - ENDOCRINE/METABOLIC Hx Diabetes Mellitus Type 2: Yes - HEMATOLOGICAL/ONCOLOGICAL Hx Blood Disorders: No Hx AIDS: No Hx Hepatitis C: No Hx Human Immunodeficiency Virus (HIV): No - INTEGUMENTARY Hx Dermatological Problems: Yes Other/Comment: Stage 1 sacral decubitus hx. skin intact now 04/06/17 - MUSCULOSKELETAL/RHEUMATOLOGICAL Hx Musculoskeletal Disorders: Yes Hx Falls: Yes (2 weeks ago at [place]) Hx Unsteady Gait: Yes - GASTROINTESTINAL Hx Gastrointestinal Disorders: No - GENITOURINARY/GYNECOLOGICAL Hx Genitourinary Disorders: Yes Hx Prostate Problems: Yes - PSYCHIATRIC Hx Psychophysiologic Disorder: Yes Hx Anxiety: Yes Hx Depression: Yes Hx Hallucinations: Yes (per dgtr pt experienced hallucinations yesterday/visual) Hx Substance Use: No - SURGICAL HISTORY Hx Surgeries: Yes Hx Coronary Stent: Yes (x1, hx of DVT 1992) Other/Comment: Hx cyst removal from back. Hx LLE stent placement. Hx tatyana filter / IVC filter - ANESTHESIA Hx Anesthesia: Yes Hx Anesthesia Reactions: No Hx Malignant Hyperthermia: No Meds Allergies/Adverse Reactions: Allergies Allergy/AdvReac Type Severity Reaction Status Date / Time No Known Allergies Allergy Verified 01/24/17 01:35 - Medications Medications: Current Medications Albuterol/Ipratropium (Duoneb 3 Mg/0.5 Mg (3 Ml) Ud) 3 ml INH RQ4 PRN PRN Reason: Shortness of Breath Last Admin: 04/07/17 11:13 Dose: 3 ml Aspirin (Ecotrin) 81 mg PO DAILY [facility] Last Admin: 04/07/17 10:32 Dose: 81 mg Atorvastatin Calcium (Lipitor) 20 mg PO HS [facility] Last Admin: 04/06/17 22:21 Dose: 20 mg Baclofen (Lioresal) 20 mg PO BID [facility] Last Admin: 04/07/17 16:31 Dose: 20 mg Citalopram Hydrobromide (Celexa) 20 mg PO DAILY [facility] Last Admin: 04/07/17 10:24 Dose: 20 mg Clonidine HCl (Catapres) 0.2 mg PO TID [facility] Last Admin: 04/07/17 16:32 Dose: 0.2 mg Clopidogrel Bisulfate (Plavix) 75 mg PO DAILY [facility] Last Admin: 04/07/17 10:47 Dose: 75 mg Docusate Sodium (Colace) 100 mg PO HS [facility] Last Admin: 04/06/17 22:18 Dose: 100 mg Fenofibrate (Tricor) 48 mg PO QPM [facility] Furosemide (Lasix) 40 mg PO DAILY [facility] Last Admin: 04/07/17 10:34 Dose: 40 mg Gabapentin (Neurontin) 300 mg PO BID [facility] Last Admin: 04/07/17 16:31 Dose: 300 mg Glipizide (Glucotrol) 5 mg PO BID [facility] Last Admin: 04/07/17 16:32 Dose: 5 mg Guaifenesin (Mucinex La) 600 mg PO Q12 [facility] Last Admin: 04/07/17 10:24 Dose: 600 mg Haloperidol Lactate (Haldol) 0.5 mg IM Q6 PRN PRN Reason: Agitation Last Admin: 04/06/17 23:03 Dose: 0.5 mg Hydrochlorothiazide (Microzide) 12.5 mg PO DAILY [facility] Last Admin: 04/07/17 10:24 Dose: 12.5 mg Azithromycin 500 mg/ Sodium (Chloride) 250 mls @ 250 mls/hr IVPB DAILY [facility] PRN Reason: Protocol Last Admin: 04/07/17 14:11 Dose: 250 mls/hr Insulin Detemir (Levemir) 40 units SC [facility] Last Admin: 04/06/17 22:35 Dose: Not Given Metoprolol Tartrate (Lopressor) 25 mg PO Q12 [facility] Last Admin: 04/07/17 10:31 Dose: 25 mg Multivitamins/Minerals (Therapeutic-M Tab) 1 tab PO DAILY [facility] Last Admin: 04/07/17 10:33 Dose: 1 tab Tamsulosin HCl (Flomax) 0.8 mg PO [facility] Last Admin: 04/06/17 22:19 Dose: 0.8 mg Topiramate (Topamax) 50 mg PO DAILY [facility] Last Admin: 04/07/17 10:24 Dose: 50 mg Physical Exam - Constitutional Appears: Well - Head Exam Head Exam: ATRAUMATIC, NORMAL INSPECTION, NORMOCEPHALIC - Eye Exam Eye Exam: EOMI, Normal appearance, PERRL - ENT Exam ENT Exam: Mucous Membranes Moist, Normal Exam - Neck Exam Neck exam: Positive for: Normal Inspection - Cardiovascular Exam Cardiovascular Exam: REGULAR RHYTHM, +S1, +S2 - GI/Abdominal Exam GI & Abdominal Exam: Normal Bowel Sounds, Soft. absent: Tenderness - Back Exam Back exam: NORMAL INSPECTION - Neurological Exam Neurological exam: Altered, CN II-XII Intact, Normal Gait, Oriented x3, Reflexes Normal Additional comments: Alert and awake, but did not know date (not even year). Recalled 0/3 objects. Could not spell [place] backward. Could not complete subtraction task. Results - Vital Signs Recent Vital Signs: Last Vital Signs Temp 98.9 F 04/07/17 08:36 Pulse 81 04/07/17 16:32 Resp 18 04/07/17 08:36 BP 151/68 H 04/07/17 16:32 Pulse Ox 100 04/07/17 08:36 - Labs Result Diagrams: 04/07/17 05:30 04/07/17 05:30 Labs: Laboratory Results - last 24 hr 04/06/17 04/06/17 04/06/17 16:18 17:11 17:11 WBC 16.0 H RBC 4.27 L Hgb 12.0 Hct 37.2 MCV 87.1 MCH 28.2 MCHC 32.4 L RDW 14.1 Plt Count 429 H MPV 7.8 Neut % (Auto) 66.3 Lymph % (Auto) 19.3 L [place] % (Auto) 11.6 H Eos % (Auto) 2.3 Baso % (Auto) 0.5 Neut # 10.6 H Lymph # 3.1 [place] # 1.9 H Eos # 0.4 Baso # 0.1 PT INR APTT pCO2 49 H pO2 60 L HCO3 29.6 H ABG pH 7.42 ABG Total CO2 33.3 H ABG O2 Saturation 95.0 ABG Base Excess 6.2 H Rudy Test Yes ABG Potassium 3.1 L A-a O2 Difference 28.0 Sodium 140.0 143 Chloride 105.0 100 Glucose 71 L Lactate 0.8 FiO2 21.0 Potassium 3.9 Carbon Dioxide 31 H Anion Gap 16 BUN 57 H Creatinine 2.6 H Est GFR ( Amer) 29 Est GFR (Non-Af Amer) 24 POC Glucose (mg/dL) Random Glucose 60 L Calcium 10.0 Total Bilirubin 0.4 AST 37 ALT 50 Alkaline Phosphatase 76 Total Protein 7.3 Albumin 4.0 Globulin 3.3 Albumin/Globulin Ratio 1.2 Arterial Blood Potassium 3.1 L Urine Color Urine Appearance Urine Clarity Urine pH Ur Specific [place] Urine Protein Urine Glucose (UA) Urine Ketones Urine Blood Urine Nitrate Urine Bilirubin Urine Urobilinogen Ur Leukocyte Esterase Urine RBC (Auto) Urine RBC Urine WBC Urine Microscopic WBC Ur Squamous Epith Cells Hyaline Casts Influenza Typ A,B (EIA) 04/06/17 04/06/17 04/06/17 17:11 17:11 19:45 WBC RBC Hgb Hct MCV MCH MCHC RDW Plt Count MPV Neut % (Auto) Lymph % (Auto) [place] % (Auto) Eos % (Auto) Baso % (Auto) Neut # Lymph # [place] # Eos # Baso # PT 11.6 INR 1.0 APTT 30.9 pCO2 pO2 HCO3 ABG pH ABG Total CO2 ABG O2 Saturation ABG Base Excess Rudy Test ABG Potassium A-a O2 Difference Sodium Chloride Glucose Lactate FiO2 Potassium Carbon Dioxide Anion Gap BUN Creatinine Est GFR ( Amer) Est GFR (Non-Af Amer) POC Glucose (mg/dL) Random Glucose Calcium Total Bilirubin AST ALT Alkaline Phosphatase Total Protein Albumin Globulin Albumin/Globulin Ratio Arterial Blood Potassium Urine Color Yellow Urine Appearance Cancelled Urine Clarity Slighty-cloudy Urine pH 5.0 Ur Specific [place] 1.012 Urine Protein Negative Urine Glucose (UA) Neg Urine Ketones Negative Urine Blood Negative Urine Nitrate Negative Urine Bilirubin Negative Urine Urobilinogen 0.2-1.0 Ur Leukocyte Esterase Neg Urine RBC (Auto) 1 Urine RBC TEST NOT PERFORMED Urine WBC TEST NOT PERFORMED Urine Microscopic WBC 1 Ur Squamous Epith Cells < 1 Hyaline Casts 3-5 H Influenza Typ A,B (EIA) Negative for flu a/b 04/06/17 04/06/17 04/07/17 19:52 21:48 05:30 WBC 14.3 H RBC 3.91 L Hgb 10.9 L Hct 33.8 L MCV 86.4 MCH 27.9 MCHC 32.3 L RDW 14.0 Plt Count 431 H MPV 7.9 Neut % (Auto) 62.9 Lymph % (Auto) 25.4 [place] % (Auto) 9.3 Eos % (Auto) 1.6 Baso % (Auto) 0.8 Neut # 9.0 H Lymph # 3.6 [place] # 1.3 H Eos # 0.2 Baso # 0.1 PT INR APTT pCO2 pO2 HCO3 ABG pH ABG Total CO2 ABG O2 Saturation ABG Base Excess Rudy Test ABG Potassium A-a O2 Difference Sodium Chloride Glucose Lactate FiO2 Potassium Carbon Dioxide Anion Gap BUN Creatinine Est GFR ( Amer) Est GFR (Non-Af Amer) POC Glucose (mg/dL) 114 H 116 H Random Glucose Calcium Total Bilirubin AST ALT Alkaline Phosphatase Total Protein Albumin Globulin Albumin/Globulin Ratio Arterial Blood Potassium Urine Color Urine Appearance Urine Clarity Urine pH Ur Specific [place] Urine Protein Urine Glucose (UA) Urine Ketones Urine Blood Urine Nitrate Urine Bilirubin Urine Urobilinogen Ur Leukocyte Esterase Urine RBC (Auto) Urine RBC Urine WBC Urine Microscopic WBC Ur Squamous Epith Cells Hyaline Casts Influenza Typ A,B (EIA) 04/07/17 04/07/17 04/07/17 05:30 06:01 11:11 WBC RBC Hgb Hct MCV MCH MCHC RDW Plt Count MPV Neut % (Auto) Lymph % (Auto) [place] % (Auto) Eos % (Auto) Baso % (Auto) Neut # Lymph # [place] # Eos # Baso # PT INR APTT pCO2 pO2 HCO3 ABG pH ABG Total CO2 ABG O2 Saturation ABG Base Excess Rudy Test ABG Potassium A-a O2 Difference Sodium 144 Chloride 98 Glucose Lactate FiO2 Potassium 3.2 L Carbon Dioxide 37 H Anion Gap 12 BUN 51 H Creatinine 2.4 H Est GFR ( Amer) 32 Est GFR (Non-Af Amer) 26 POC Glucose (mg/dL) 102 248 H Random Glucose 113 H Calcium 9.6 Total Bilirubin 0.3 AST 38 ALT 42 Alkaline Phosphatase 67 Total Protein 6.7 Albumin 3.6 Globulin 3.0 Albumin/Globulin Ratio 1.2 Arterial Blood Potassium Urine Color Urine Appearance Urine Clarity Urine pH Ur Specific [place] Urine Protein Urine Glucose (UA) Urine Ketones Urine Blood Urine Nitrate Urine Bilirubin Urine Urobilinogen Ur Leukocyte Esterase Urine RBC (Auto) Urine RBC Urine WBC Urine Microscopic WBC Ur Squamous Epith Cells Hyaline Casts Influenza Typ A,B (EIA) Assessment & Plan (1) Toxic metabolic encephalopathy Assessment and Plan: Likely due to current medical condition with low cognitive reserve due to previous chronic ischemic disease. I recommend treating the underlying infection, dehydration and continue aspirin/plavix, statin for stroke prevention. Thank you. Status: Acute Priority: Medium
[2017-04-07] MEDS: Insulin Detemir 100 Units/ml Inj SC SCH (21:45)
--- NOTE | 2017-04-08 08:15 | CP.PCM.PN ---
Subjective - Date & Time of Evaluation Date of Evaluation: 04/08/17 Time of Evaluation: 08:15 - Subjective Subjective: pt sitting up in bed eating w/1:1 at bedside. no f/c n/v/d. bw noted. k slightly low. no complaints offered. neuro consult appriciated. resps evn and unlabored. Objective - Vital Signs/Intake and Output Vital Signs (last 24 hours): Temp Pulse Resp BP Pulse Ox 98.5 F 61 19 124/58 L 94 L 04/08/17 00:18 04/08/17 00:18 04/08/17 00:18 04/08/17 00:18 04/08/17 00:18 - Medications Medications: Current Medications Albuterol/Ipratropium (Duoneb 3 Mg/0.5 Mg (3 Ml) Ud) 3 ml INH RQ4 PRN PRN Reason: Shortness of Breath Last Admin: 04/07/17 11:13 Dose: 3 ml Aspirin (Ecotrin) 81 mg PO DAILY [facility] Last Admin: 04/07/17 10:32 Dose: 81 mg Atorvastatin Calcium (Lipitor) 20 mg PO HS [facility] Last Admin: 04/07/17 21:30 Dose: 20 mg Baclofen (Lioresal) 20 mg PO BID [facility] Last Admin: 04/07/17 16:31 Dose: 20 mg Citalopram Hydrobromide (Celexa) 20 mg PO DAILY [facility] Last Admin: 04/07/17 10:24 Dose: 20 mg Clonidine HCl (Catapres) 0.2 mg PO TID [facility] Last Admin: 04/07/17 16:32 Dose: 0.2 mg Clopidogrel Bisulfate (Plavix) 75 mg PO DAILY [facility] Last Admin: 04/07/17 10:47 Dose: 75 mg Docusate Sodium (Colace) 100 mg PO HS [facility] Last Admin: 04/07/17 21:28 Dose: 100 mg Fenofibrate (Tricor) 48 mg PO QPM [facility] Last Admin: 04/07/17 17:36 Dose: 48 mg Furosemide (Lasix) 40 mg PO DAILY [facility] Last Admin: 04/07/17 10:34 Dose: 40 mg Gabapentin (Neurontin) 300 mg PO BID [facility] Last Admin: 04/07/17 16:31 Dose: 300 mg Glipizide (Glucotrol) 5 mg PO BID [facility] Last Admin: 04/07/17 16:32 Dose: 5 mg Guaifenesin (Mucinex La) 600 mg PO Q12 [facility] Last Admin: 04/07/17 21:28 Dose: 600 mg Haloperidol Lactate (Haldol) 0.5 mg IM Q6 PRN PRN Reason: Agitation Last Admin: 04/06/17 23:03 Dose: 0.5 mg Hydrochlorothiazide (Microzide) 12.5 mg PO DAILY [facility] Last Admin: 04/07/17 10:24 Dose: 12.5 mg Azithromycin 500 mg/ Sodium (Chloride) 250 mls @ 250 mls/hr IVPB DAILY [facility] PRN Reason: Protocol Last Admin: 04/07/17 14:11 Dose: 250 mls/hr Insulin Detemir (Levemir) 40 units SC HS [facility] Last Admin: 04/07/17 21:45 Dose: 40 units Metoprolol Tartrate (Lopressor) 25 mg PO Q12 [facility] Last Admin: 04/07/17 21:28 Dose: 25 mg Multivitamins/Minerals (Therapeutic-M Tab) 1 tab PO DAILY [facility] Last Admin: 04/07/17 10:33 Dose: 1 tab Tamsulosin HCl (Flomax) 0.8 mg PO HS [facility] Last Admin: 04/07/17 21:31 Dose: 0.8 mg Topiramate (Topamax) 50 mg PO DAILY [facility] Last Admin: 04/07/17 10:24 Dose: 50 mg - Labs Labs: 04/07/17 05:30 04/07/17 05:30 PT 11.6 Seconds (9.8-13.1) 04/06/17 17:11 INR 1.0 (0.9-1.2) 04/06/17 17:11 APTT 30.9 Seconds (25.6-37.1) 04/06/17 17:11 - Constitutional Appears: Well, Non-toxic, No Acute Distress - Head Exam Head Exam: ATRAUMATIC, NORMAL INSPECTION, NORMOCEPHALIC - Eye Exam Eye Exam: EOMI, Normal appearance, PERRL Pupil Exam: NORMAL ACCOMODATION, PERRL - ENT Exam ENT Exam: Mucous Membranes Moist, Normal Exam - Neck Exam Neck Exam: Full ROM, Normal Inspection. absent: Lymphadenopathy - Respiratory Exam Respiratory Exam: NORMAL BREATHING PATTERN Additional comments: congested b/l w/ good air entry - Cardiovascular Exam Cardiovascular Exam: REGULAR RHYTHM, RRR, +S1, +S2. absent: Murmur - GI/Abdominal Exam GI & Abdominal Exam: Soft, Normal Bowel Sounds. absent: Tenderness - Extremities Exam Extremities Exam: Full ROM, Normal Capillary Refill, Normal Inspection. absent : Joint Swelling, Pedal Edema - Back Exam Back Exam: NORMAL INSPECTION - Neurological Exam Neurological Exam: Abnormal Gait, Alert, Awake, CN II-XII Intact, Oriented x3 - Psychiatric Exam Psychiatric exam: Normal Affect, Normal Mood - Skin Skin Exam: Dry, Intact, Normal Color, Warm Assessment and Plan (1) Acute renal insufficiency Status: Acute (2) Altered mental status Status: Acute (3) DVT prophylaxis Status: Acute (4) Multiple sclerosis Status: Acute (5) Bronchitis Status: Acute - Assessment and Plan (Free Text) Assessment: (1) Acute renal insufficiency Assessment and Plan: ivf, monitor bun/cr pt was not drinking at home Status: Acute (2) Altered mental status Assessment and Plan: improving w/ hydration neuro note appriciated ct noted Status: Acute (3) DVT prophylaxis Assessment and Plan: scd and ae hoae plavix/asa Status: Acute (4) Multiple sclerosis Assessment and Plan: cont home meds, neuro Status: Acute dc to [facility] tomorrow [id number], duonebs will likely dc 1:1 today as pt is much calmer
[2017-04-08 08:18] LABS: BASO # 0.1 K/uL (0.0-0.2); BASO % 0.7 % (0.0-2.0); EOS # 0.4 K/uL (0.0-0.7); EOS % 2.1 % (0.0-4.0); HEMOGLOBIN 12.7 g/dL (12.0-18.0); LYMPH # 4.3 K/uL (1.0-4.3); LYMPH % 24.6 % (20.0-40.0); MEAN CELL VOLUME 86.8 fl (80.0-94.0); MEAN CORPUSCULAR HEMOGLOBIN 28.1 pg (27.0-31.0); MEAN CORPUSCULAR HGB CONC 32.4 g/dL (33.0-37.0); MEAN PLATELET VOLUME 7.3 fl (7.2-11.7); MONO # 1.7 K/uL (0.0-0.8); MONO % 9.8 % (0.0-10.0); NEUT % 62.8 % (50.0-75.0); RBC 4.5 Mil/uL (4.40-5.90); RED CELL DISTRIBUTION WIDTH 14.1 % (11.5-14.5); WHITE BLOOD COUNT 17.4 K/uL (4.8-10.8)
[2017-04-08 08:32] LABS: ALB/GLOB RATIO 1.1 (1.0-2.1); ALBUMIN 4.2 g/dL (3.5-5.0); CALCIUM 10.3 mg/dL (8.4-10.2)
[2017-04-08] MEDS ORDERED: Potassium Chloride 20 mEq ER Tab PO ONE (08:38)
[2017-04-08] MEDS: guaiFENesin 600 mg ER Tab PO SCH ×2 (10:28→21:08)
[2017-04-08] MEDS: Multivitamin With Minerals Tab PO SCH (10:29)
[2017-04-08] MEDS: Azithromycin 500 MG in Sodium Chloride 0.9% 250 ML IVPB SCH (10:34)
[2017-04-08] MEDS: Insulin Detemir 100 Units/ml Inj SC SCH (21:26)
[2017-04-09 06:29] LABS: BASO # 0.1 K/uL (0.0-0.2); BASO % 0.8 % (0.0-2.0); EOS # 0.4 K/uL (0.0-0.7); EOS % 2.8 % (0.0-4.0); HEMOGLOBIN 11.4 g/dL (12.0-18.0); LYMPH # 3.1 K/uL (1.0-4.3); LYMPH % 21.9 % (20.0-40.0); MEAN CELL VOLUME 86.8 fl (80.0-94.0); MEAN CORPUSCULAR HEMOGLOBIN 28.8 pg (27.0-31.0); MEAN CORPUSCULAR HGB CONC 33.2 g/dL (33.0-37.0); MEAN PLATELET VOLUME 7.1 fl (7.2-11.7); MONO # 1.4 K/uL (0.0-0.8); MONO % 9.9 % (0.0-10.0); NEUT % 64.6 % (50.0-75.0); RBC 3.97 Mil/uL (4.40-5.90); RED CELL DISTRIBUTION WIDTH 13.8 % (11.5-14.5)
[2017-04-09 06:37] LABS: ALB/GLOB RATIO 1.1 (1.0-2.1); ALBUMIN 3.9 g/dL (3.5-5.0)
[2017-04-09] MEDS ORDERED: Potassium Chloride 20 mEq ER Tab PO ONE (07:55)
--- NOTE | 2017-04-09 07:57 | CP.PCM.PN ---
Subjective - Date & Time of Evaluation Date of Evaluation: 04/09/17 Time of Evaluation: 07:55 - Subjective Subjective: pt denies f/c, n/v/d. still w/ cough/congestion. am labs noted. k 3.4 for dipso to [facility] today 1:1 dc, pt calm and cooperative Objective - Vital Signs/Intake and Output Vital Signs (last 24 hours): Temp Pulse Resp BP Pulse Ox 97.8 F 58 L 18 126/71 97 04/09/17 00:29 04/09/17 00:29 04/09/17 00:29 04/09/17 00:29 04/09/17 00:29 - Medications Medications: Current Medications Albuterol/Ipratropium (Duoneb 3 Mg/0.5 Mg (3 Ml) Ud) 3 ml INH RQ4 PRN PRN Reason: Shortness of Breath Last Admin: 04/07/17 11:13 Dose: 3 ml Aspirin (Ecotrin) 81 mg PO DAILY [facility] Last Admin: 04/08/17 10:27 Dose: 81 mg Atorvastatin Calcium (Lipitor) 20 mg PO HS [facility] Last Admin: 04/08/17 21:07 Dose: 20 mg Baclofen (Lioresal) 20 mg PO BID [facility] Last Admin: 04/08/17 16:19 Dose: 20 mg Citalopram Hydrobromide (Celexa) 20 mg PO DAILY [facility] Last Admin: 04/08/17 10:29 Dose: 20 mg Clonidine HCl (Catapres) 0.2 mg PO TID [facility] Last Admin: 04/08/17 16:19 Dose: 0.2 mg Clopidogrel Bisulfate (Plavix) 75 mg PO DAILY [facility] Last Admin: 04/08/17 10:30 Dose: 75 mg Docusate Sodium (Colace) 100 mg PO HS [facility] Last Admin: 04/08/17 21:25 Dose: 100 mg Fenofibrate (Tricor) 48 mg PO QPM [facility] Last Admin: 04/08/17 18:47 Dose: 48 mg Furosemide (Lasix) 40 mg PO DAILY [facility] Last Admin: 04/08/17 10:27 Dose: 40 mg Gabapentin (Neurontin) 300 mg PO BID [facility] Last Admin: 04/08/17 16:17 Dose: 300 mg Glipizide (Glucotrol) 5 mg PO BID [facility] Last Admin: 04/08/17 16:18 Dose: 5 mg Guaifenesin (Mucinex La) 600 mg PO Q12 [facility] Last Admin: 04/08/17 21:08 Dose: 600 mg Haloperidol Lactate (Haldol) 0.5 mg IM Q6 PRN PRN Reason: Agitation Last Admin: 04/06/17 23:03 Dose: 0.5 mg Hydrochlorothiazide (Microzide) 12.5 mg PO DAILY [facility] Last Admin: 04/08/17 10:31 Dose: 12.5 mg Azithromycin 500 mg/ Sodium (Chloride) 250 mls @ 250 mls/hr IVPB DAILY [facility] PRN Reason: Protocol Last Admin: 04/08/17 10:34 Dose: 250 mls/hr Insulin Detemir (Levemir) 40 units SC [facility] Last Admin: 04/08/17 21:26 Dose: 40 units Metoprolol Tartrate (Lopressor) 25 mg PO Q12 [facility] Last Admin: 04/08/17 21:08 Dose: 25 mg Multivitamins/Minerals (Therapeutic-M Tab) 1 tab PO DAILY [facility] Last Admin: 04/08/17 10:29 Dose: 1 tab Potassium Chloride (K-Dur 20 Meq Er Tab) 20 meq PO ONCE ONE Stop: 04/09/17 07:56 Tamsulosin HCl (Flomax) 0.8 mg PO [facility] Last Admin: 04/08/17 21:26 Dose: 0.8 mg Topiramate (Topamax) 50 mg PO DAILY [facility] Last Admin: 04/08/17 10:29 Dose: 50 mg - Labs Labs: 04/09/17 06:00 04/09/17 06:00 PT 11.6 Seconds (9.8-13.1) 04/06/17 17:11 INR 1.0 (0.9-1.2) 04/06/17 17:11 APTT 30.9 Seconds (25.6-37.1) 04/06/17 17:11 - Constitutional Appears: Well, Non-toxic, No Acute Distress - Head Exam Head Exam: ATRAUMATIC, NORMAL INSPECTION, NORMOCEPHALIC - Eye Exam Eye Exam: EOMI, Normal appearance, PERRL Pupil Exam: NORMAL ACCOMODATION, PERRL - ENT Exam ENT Exam: Mucous Membranes Moist, Normal Exam - Neck Exam Neck Exam: Full ROM, Normal Inspection. absent: Lymphadenopathy - Respiratory Exam Respiratory Exam: NORMAL BREATHING PATTERN Additional comments: congestion w/ good air entry b/l - Cardiovascular Exam Cardiovascular Exam: REGULAR RHYTHM, RRR, +S1, +S2. absent: Murmur - GI/Abdominal Exam GI & Abdominal Exam: Soft, Normal Bowel Sounds. absent: Tenderness - Extremities Exam Extremities Exam: Full ROM, Normal Capillary Refill, Normal Inspection. absent : Joint Swelling, Pedal Edema - Back Exam Back Exam: NORMAL INSPECTION - Neurological Exam Neurological Exam: Alert, Awake, CN II-XII Intact, Normal Gait, Oriented x3 - Psychiatric Exam Psychiatric exam: Normal Affect, Normal Mood - Skin Skin Exam: Dry, Intact, Normal Color, Warm Assessment and Plan (1) Acute renal insufficiency Status: Acute (2) Altered mental status Status: Acute (3) DVT prophylaxis Status: Acute (4) Multiple sclerosis Status: Acute (5) Bronchitis Status: Acute - Assessment and Plan (Free Text) Assessment: (1) Acute renal insufficiency Assessment and Plan: ivf, monitor bun/cr pt was not drinking at home Status: Acute (2) Altered mental status Assessment and Plan: improving w/ hydration neuro note appriciated ct noted Status: Acute (3) DVT prophylaxis Assessment and Plan: scd and ae hoae plavix/asa Status: Acute (4) Multiple sclerosis Assessment and Plan: cont home meds, neuro Status: Acute dc to [facility] today [id number]
[2017-04-09] MEDS: Multivitamin With Minerals Tab PO SCH (08:21)
[2017-04-09] MEDS: guaiFENesin 600 mg ER Tab PO SCH (08:21)
[2017-04-09] MEDS: Azithromycin 500 MG in Sodium Chloride 0.9% 250 ML IVPB SCH (09:33)
--- NOTE | 2017-04-09 11:32 | CP.PCM.PN ---
Subjective - Date & Time of Evaluation Date of Evaluation: 04/09/17 Time of Evaluation: 11:29 - Subjective Subjective: Mr. Rees was seen and examined at the bedside. He is alert, oriented in all spheres. He denies any headache, dizziness, lightheadedness, nausea, or vomiting. He is able to participate in a pleasant conversation and follow simple commands. He is able to sit at the edge of the bed with steady posture. There was no untoward events overnight. Objective - Vital Signs/Intake and Output Vital Signs (last 24 hours): Temp Pulse Resp BP Pulse Ox 98.3 F 72 18 110/68 95 04/09/17 08:00 04/09/17 08:21 04/09/17 08:00 04/09/17 08:25 04/09/17 08:00 - Medications Medications: Current Medications Albuterol/Ipratropium (Duoneb 3 Mg/0.5 Mg (3 Ml) Ud) 3 ml INH RQ4 PRN PRN Reason: Shortness of Breath Last Admin: 04/07/17 11:13 Dose: 3 ml Aspirin (Ecotrin) 81 mg PO DAILY [facility] Last Admin: 04/09/17 08:22 Dose: 81 mg Atorvastatin Calcium (Lipitor) 20 mg PO HS [facility] Last Admin: 04/08/17 21:07 Dose: 20 mg Baclofen (Lioresal) 20 mg PO BID [facility] Last Admin: 04/09/17 08:20 Dose: 20 mg Citalopram Hydrobromide (Celexa) 20 mg PO DAILY [facility] Last Admin: 04/09/17 08:21 Dose: 20 mg Clonidine HCl (Catapres) 0.2 mg PO TID [facility] Last Admin: 04/09/17 08:20 Dose: 0.2 mg Clopidogrel Bisulfate (Plavix) 75 mg PO DAILY [facility] Last Admin: 04/09/17 08:22 Dose: 75 mg Docusate Sodium (Colace) 100 mg PO HS [facility] Last Admin: 04/08/17 21:25 Dose: 100 mg Fenofibrate (Tricor) 48 mg PO QPM [facility] Last Admin: 04/08/17 18:47 Dose: 48 mg Furosemide (Lasix) 40 mg PO DAILY [facility] Last Admin: 04/09/17 08:25 Dose: 40 mg Gabapentin (Neurontin) 300 mg PO BID [facility] Last Admin: 04/09/17 08:21 Dose: 300 mg Glipizide (Glucotrol) 5 mg PO BID [facility] Last Admin: 04/09/17 08:21 Dose: 5 mg Guaifenesin (Mucinex La) 600 mg PO Q12 [facility] Last Admin: 04/09/17 08:21 Dose: 600 mg Haloperidol Lactate (Haldol) 0.5 mg IM Q6 PRN PRN Reason: Agitation Last Admin: 04/06/17 23:03 Dose: 0.5 mg Hydrochlorothiazide (Microzide) 12.5 mg PO DAILY [facility] Last Admin: 04/09/17 08:22 Dose: 12.5 mg Azithromycin 500 mg/ Sodium (Chloride) 250 mls @ 250 mls/hr IVPB DAILY [facility] PRN Reason: Protocol Last Admin: 04/09/17 09:33 Dose: 250 mls/hr Insulin Detemir (Levemir) 40 units SC [facility] Last Admin: 04/08/17 21:26 Dose: 40 units Metoprolol Tartrate (Lopressor) 25 mg PO Q12 [facility] Last Admin: 04/09/17 08:21 Dose: 25 mg Multivitamins/Minerals (Therapeutic-M Tab) 1 tab PO DAILY [facility] Last Admin: 04/09/17 08:21 Dose: 1 tab Tamsulosin HCl (Flomax) 0.8 mg PO [facility] Last Admin: 04/08/17 21:26 Dose: 0.8 mg Topiramate (Topamax) 50 mg PO DAILY [facility] Last Admin: 04/09/17 08:20 Dose: 50 mg - Labs Labs: 04/09/17 06:00 04/09/17 06:00 PT 11.6 Seconds (9.8-13.1) 04/06/17 17:11 INR 1.0 (0.9-1.2) 04/06/17 17:11 APTT 30.9 Seconds (25.6-37.1) 04/06/17 17:11 - Constitutional Appears: No Acute Distress - Head Exam Head Exam: NORMAL INSPECTION - Neurological Exam Neurological Exam: Alert, Awake, Oriented x3 Neuro motor strength exam: Left Upper Extremity: 4, Right Upper Extremity: 4, Left Lower Extremity: 3, Right Lower Extremity: 3 Additional comments: He is able to answer questions appropriately and follow simple commands. Assessment and Plan (1) Toxic metabolic encephalopathy Assessment & Plan: Case discussed with Dr. Obrien, continue all current medical regimen. Recommend PT/ OT eval and treat. Treat any underlying condition. Status: Acute
[2017-04-09 15:23] VITALS: BP 144/68; PULSE 67; RESP 20; TEMP 98.6; O2SAT 98
--- NOTE | 2017-04-10 06:29 | CP.PCM.DIS ---
Provider - Provider Date of Admission: 04/06/17 18:20 Attending physician: Pillo Kelly MD Time Spent in preparation of Discharge (in minutes): 30 Diagnosis - Discharge Diagnosis (1) Acute renal insufficiency Status: Acute (2) Altered mental status Status: Acute (3) DVT prophylaxis Status: Acute (4) Multiple sclerosis Status: Acute (5) Bronchitis Status: Acute Hospital Course - Lab Results Lab Results: Micro Results 04/06/17 17:11 Blood-Venous Blood Culture - Preliminary NO GROWTH AFTER 3 DAYS 04/06/17 19:45 Urine,Clean Catch Urine Culture - Final No Growth (<1,000 CFU/ML) Most Recent Lab Values WBC 14.0 K/uL (4.8-10.8) H 04/09/17 06:00 RBC 3.97 Mil/uL (4.40-5.90) L 04/09/17 06:00 Hgb 11.4 g/dL (12.0-18.0) L 04/09/17 06:00 Hct 34.4 % (35.0-51.0) L 04/09/17 06:00 MCV 86.8 fl (80.0-94.0) 04/09/17 06:00 MCH 28.8 pg (27.0-31.0) 04/09/17 06:00 MCHC 33.2 g/dL (33.0-37.0) 04/09/17 06:00 RDW 13.8 % (11.5-14.5) 04/09/17 06:00 Plt Count 455 K/uL (130-400) H 04/09/17 06:00 MPV 7.1 fl (7.2-11.7) L 04/09/17 06:00 Neut % (Auto) 64.6 % (50.0-75.0) 04/09/17 06:00 Lymph % (Auto) 21.9 % (20.0-40.0) 04/09/17 06:00 [place] % (Auto) 9.9 % (0.0-10.0) 04/09/17 06:00 Eos % (Auto) 2.8 % (0.0-4.0) 04/09/17 06:00 Baso % (Auto) 0.8 % (0.0-2.0) 04/09/17 06:00 Neut # 9.0 K/uL (1.8-7.0) H 04/09/17 06:00 Lymph # 3.1 K/uL (1.0-4.3) 04/09/17 06:00 [place] # 1.4 K/uL (0.0-0.8) H 04/09/17 06:00 Eos # 0.4 K/uL (0.0-0.7) 04/09/17 06:00 Baso # 0.1 K/uL (0.0-0.2) 04/09/17 06:00 PT 11.6 Seconds (9.8-13.1) 04/06/17 17:11 INR 1.0 (0.9-1.2) 04/06/17 17:11 APTT 30.9 Seconds (25.6-37.1) 04/06/17 17:11 pCO2 49 mm/Hg (35-45) H 04/06/17 16:18 pO2 60 mm/Hg (80-100) L 04/06/17 16:18 HCO3 29.6 mmol/L (21-28) H 04/06/17 16:18 ABG pH 7.42 (7.35-7.45) 04/06/17 16:18 ABG Total CO2 33.3 mmol/L (22-28) H 04/06/17 16:18 ABG O2 Saturation 95.0 % (95-98) 04/06/17 16:18 ABG Base Excess 6.2 mmol/L (-2.0-3.0) H 04/06/17 16:18 Rudy Test Yes 04/06/17 16:18 ABG Potassium 3.1 mmol/L (3.6-5.2) L 04/06/17 16:18 A-a O2 Difference 28.0 mm/Hg 04/06/17 16:18 Sodium 140.0 mmol/L (132-148) 04/06/17 16:18 Chloride 105.0 mmol/L (98-107) 04/06/17 16:18 Glucose 71 mg/dL (75-110) L 04/06/17 16:18 Lactate 0.8 mmol/L (0.7-2.1) 04/06/17 16:18 FiO2 21.0 % 04/06/17 16:18 Sodium 143 mmol/l (132-148) 04/09/17 06:00 Potassium 3.5 MMOL/L (3.6-5.0) L 04/09/17 06:00 Chloride 98 mmol/L (98-107) 04/09/17 06:00 Carbon Dioxide 36 mmol/L (22-30) H 04/09/17 06:00 Anion Gap 13 (10-20) 04/09/17 06:00 BUN 46 mg/dl (9-20) H 04/09/17 06:00 Creatinine 2.0 mg/dl (0.8-1.5) H 04/09/17 06:00 Est GFR ( Amer) 40 04/09/17 06:00 Est GFR (Non-Af Amer) 33 04/09/17 06:00 POC Glucose (mg/dL) 234 mg/dL (65-110) H 04/09/17 15:40 Random Glucose 86 mg/dL (75-110) 04/09/17 06:00 Calcium 10.0 mg/dL (8.4-10.2) 04/09/17 06:00 Total Bilirubin 0.4 mg/dl (0.2-1.3) 04/09/17 06:00 AST 44 U/L (17-59) 04/09/17 06:00 ALT 34 U/L (21-72) 04/09/17 06:00 Alkaline Phosphatase 67 U/L (38-126) 04/09/17 06:00 Total Protein 7.3 G/DL (6.3-8.2) 04/09/17 06:00 Albumin 3.9 g/dL (3.5-5.0) 04/09/17 06:00 Globulin 3.5 gm/dL (2.2-3.9) 04/09/17 06:00 Albumin/Globulin Ratio 1.1 (1.0-2.1) 04/09/17 06:00 Arterial Blood Potassium 3.1 mmol/L (3.6-5.2) L 04/06/17 16:18 Urine Color Yellow (YELLOW) 04/06/17 19:45 Urine Appearance Cancelled 04/06/17 19:45 Urine Clarity Slighty-cloudy (Clear) 04/06/17 19:45 Urine pH 5.0 (5.0-8.0) 04/06/17 19:45 Ur Specific Beatty 1.012 (1.003-1.030) 04/06/17 19:45 Urine Protein Negative mg/dL (NEGATIVE) 04/06/17 19:45 Urine Glucose (UA) Neg mg/dL (Normal) 04/06/17 19:45 Urine Ketones Negative mg/dL (NEGATIVE) 04/06/17 19:45 Urine Blood Negative (NEGATIVE) 04/06/17 19:45 Urine Nitrate Negative (NEGATIVE) 04/06/17 19:45 Urine Bilirubin Negative (NEGATIVE) 04/06/17 19:45 Urine Urobilinogen 0.2-1.0 mg/dL (0.2-1.0) 04/06/17 19:45 Ur Leukocyte Esterase Neg Mayra/uL (Negative) 04/06/17 19:45 Urine RBC (Auto) 1 /hpf (0-3) 04/06/17 19:45 Urine RBC TEST NOT PERFORMED 04/06/17 19:45 Urine WBC TEST NOT PERFORMED 04/06/17 19:45 Urine Microscopic WBC 1 /hpf (0-5) 04/06/17 19:45 Ur Squamous Epith Cells < 1 /hpf (0-5) 04/06/17 19:45 Hyaline Casts 3-5 /hpf (0-2) H 04/06/17 19:45 Influenza Typ A,B (EIA) Negative for flu a/b (NEGATIVE) 04/06/17 17:11 Discharge Exam - Head Exam Head Exam: NORMAL INSPECTION Discharge Plan - Discharge Medications Prescriptions: Azithromycin 500MG/NS 250ml [Zithromax 500mg in NS] 500 mg IV DAILY #3 bag - Follow Up Plan Condition: STABLE Disposition: REHAB FACILITY/REHAB UNIT Instructions: Altered Mental Status (GEN), Impaired Kidney Function (GEN) Additional Instructions: dc to [facility] rted prn. meds per med rec zithromax x 3 days more repeat labs 1 wk. hydration fianl dx-bronchitis, ams, ms exacerbation, dehydration neuro cleared
== END 2017-04-09 19:45 | DRG 93 ==
LOC: H.ER 15:54 → H.ERHOLD 18:20 → H.MEDSURG1 21:00
PROVIDERS: ADMIT Family Medicine; ATTEND Family Medicine
DX: G92 Toxic encephalopathy (principal); L89.151 Pressure ulcer of sacral region, stage 1; I11.0 Hypertensive heart disease with heart failure; E86.0 Dehydration; J20.9 Acute bronchitis, unspecified; N28.9 Disorder of kidney and ureter, unspecified; G35 Multiple sclerosis; I50.9 Heart failure, unspecified; E11.9 Type 2 diabetes mellitus without complications; E78.5 Hyperlipidemia, unspecified; F03.90 Unspecified dementia, unspecified severity, without behavioral disturbance, psychotic disturbance, mood disturbance, and anxiety; N40.0 Benign prostatic hyperplasia without lower urinary tract symptoms; Z95.5 Presence of coronary angioplasty implant and graft; Z86.718 Personal history of other venous thrombosis and embolism; Z87.891 Personal history of nicotine dependence; Z79.4 Long term (current) use of insulin; Z79.82 Long term (current) use of aspirin; Z79.02 Long term (current) use of antithrombotics/antiplatelets

== ENCOUNTER 2017-09-10 06:32 | Inpatient (IN) | payer MEDICARE ==
[2017-09-10 06:33] VITALS: BMI 31.6
--- NOTE | 2017-09-10 07:25 | ED PDOC ---
HPI: Altered Mental Status Time Seen by Provider: 09/10/17 07:07 Chief Complaint (Nursing): Altered Mental Status History Per: Patient, EMS, Family (Daughter) Onset/Duration Of Symptoms: Days (x 3) Current Symptoms Are (Timing): Still Present Additional Complaint(s): 76-year-old male, diabetes, multiple sclerosis and CAD, brought in by family via EMS for increasing confusion and agitation x 3 days. Pt complaining of headache. Pt was seen by PMD Sunday and diagnosed with UTI and was placed on antibiotic. Daughter states pt had low grade temperature on Sunday. PMD: [facility] [place] Past Medical History Reviewed: Historical Data, Nursing Documentation, Vital Signs Vital Signs: Last Vital Signs Temp 98.2 F 09/10/17 06:40 Pulse 88 09/10/17 06:40 Resp 18 09/10/17 06:40 BP 127/61 09/10/17 06:40 Pulse Ox 98 09/10/17 06:40 - Medical History PMH: Anxiety, Benign Prostatic Hyperplasia, CAD, CHF, Dementia, Depression, Diabetes, Deep Vein Thrombosis, HTN, Hypercholesterolemia, Hyperlipidemia, Multiple Sclerosis Denies: Hepatitis, HIV, Chronic Kidney Disease, Seizures, Sexually Transmitted Disease - Surgical History Surgical History: Coronary Stent (x1, hx of DVT 1992) - Family History Family History: States: Unknown Family Hx - Immunization History Hx Tetanus Toxoid Vaccination: No Hx Influenza Vaccination: No Hx Pneumococcal Vaccination: No - Home Medications Home Medications: Ambulatory Orders Medication Instructions Recorded Aspirin [Ecotrin] 81 mg PO DAILY 12/25/16 Atorvastatin [Lipitor] 20 mg PO HS 12/25/16 Baclofen [Lioresal] 20 mg PO BID 12/25/16 Citalopram Hydrobromide 40 mg PO HS 12/25/16 [Citalopram HBr] Clopidogrel [Plavix] 75 mg PO DAILY 12/25/16 Fenofibrate [Tricor] 48 mg PO QPM 12/25/16 Gabapentin [Neurontin] 300 mg PO BID 12/25/16 Glipizide [Glucotrol] 5 mg PO BID 12/25/16 Tamsulosin [Flomax] 0.8 mg PO HS 12/25/16 Topiramate [Topamax] 50 mg PO DAILY 12/25/16 hydroCHLOROthiazide [Microzide] 12.5 mg PO DAILY 12/25/16 Metoprolol Tartrate [Lopressor] 25 mg PO Q12 tab 12/29/16 Furosemide [Lasix] 40 mg PO DAILY #30 tab 02/01/17 Multimineral/Multivitamin 1 tab PO DAILY #30 tab 02/01/17 [Therapeutic-M Tab] cloNIDine [Catapres] 0.2 mg PO TID tab 03/06/17 Docusate Sodium [Robles' 100 mg PO HS 04/06/17 Laxative] Guaifenesin [Mucinex] 600 mg PO Q12 04/06/17 Insulin Detemir [Levemir] 40 units SC HS 04/06/17 Albuterol/Ipratropium [Duoneb 3 3 ml INH RQ4 PRN neb 04/09/17 mg/0.5 mg (3 ml) UD] Azithromycin 500MG/NS 250ml 500 mg IV DAILY #3 bag 04/09/17 [Zithromax 500mg in NS] - Allergies Allergies/Adverse Reactions: Allergies Allergy/AdvReac Type Severity Reaction Status Date / Time No Known Allergies Allergy Verified 01/24/17 01:35 Review of Systems ROS Statement: Except As Marked, All Systems Reviewed And Found Negative Neurological: Positive for: Confusion (Increasing), Headache, Other (Agitation) Physical Exam - Reviewed Nursing Documentation Reviewed: Yes Vital Signs Reviewed: Yes - Physical Exam Eye Exam: Positive for: Normal appearance, EOMI, PERRL Neck: Positive for: Supple Cardiovascular/Chest: Positive for: Regular Rate, Rhythm Respiratory: Positive for: Normal Breath Sounds (Lungs clear b/l) Gastrointestinal/Abdominal: Positive for: Normal Exam, Soft. Negative for: Tenderness, Mass Extremity: Positive for: Other (Tremors upper and lower extremities b/l). Negative for: Tenderness, Swelling Neurologic/Psych: Positive for: Oriented (x 1), Other (lethargic, arousable). Negative for: Motor/Sensory Deficits - Laboratory Results Result Diagrams: 09/10/17 07:48 09/10/17 07:48 - ECG O2 Sat by Pulse Oximetry: 98 (RA) Pulse Ox Interpretation: Normal Medical Decision Making Medical Decision Making: Time: 07:19 Plan: - VBG Shock Panel - CT Head w/o Contrast - CMP - ED Urine Dipstick - cbc (with differentials) - Portable CXR - Blood Culture - Urine Culture Scribe Attestation: Documented by Joshua Miller, acting as a scribe for Sabino Mcclure MD. Provider Scribe Attestation: All medical record entries made by the Scribe were at my direction and personally dictated by me. I have reviewed the chart and agree that the record accurately reflects my personal performance of the history, physical exam, medical decision making, and the department course for this patient. I have also personally directed, reviewed, and agree with the discharge instructions and disposition. Disposition - Clinical Impression Clinical Impression: Altered mental status, ARF (acute renal failure) - Patient ED Disposition Is Patient to be Admitted: Yes - Disposition Disposition Time: 08:22 Condition: FAIR Forms: AddressReport (Kinyarwanda) - Pt Status Changed To: Hospital Disposition Of: Inpatient - Admit Certification Admit to Inpatient:: After my assessment, the patient will require hospitalization for at least two midnights. This is because of the severity of symptoms shown, intensity of services needed, and/or the medical risk in this patient being treated as an outpatient. - POA Present On Arrival: None
[2017-09-10 07:47] LABS: VENOUS BLOOD GAS PCO2 64 mmHg (40-60); VENOUS BLOOD GAS PO2 31 mm/Hg (30-55); VENOUS BLOOD PH 7.38 (7.32-7.43)
[2017-09-10 07:55] LABS: BASO # 0.1 K/uL (0.0-0.2); BASO % 1.2 % (0.0-2.0); EOS # 0.3 K/uL (0.0-0.7); EOS % 3.2 % (0.0-4.0); HEMOGLOBIN 13.8 g/dL (12.0-18.0); LYMPH # 2.8 K/uL (1.0-4.3); LYMPH % 28.8 % (20.0-40.0); MEAN CELL VOLUME 88.3 fl (80.0-94.0); MEAN CORPUSCULAR HEMOGLOBIN 29.1 pg (27.0-31.0); MEAN CORPUSCULAR HGB CONC 32.9 g/dL (33.0-37.0); MEAN PLATELET VOLUME 7.9 fl (7.2-11.7); MONO # 0.9 K/uL (0.0-0.8); MONO % 9.5 % (0.0-10.0); NEUT # 5.6 K/uL (1.8-7.0); NEUT % 57.3 % (50.0-75.0); RBC 4.74 Mil/uL (4.40-5.90); RED CELL DISTRIBUTION WIDTH 13.5 % (11.5-14.5); WHITE BLOOD COUNT 9.8 K/uL (4.8-10.8)
[2017-09-10 08:06] LABS: ALB/GLOB RATIO 1.3 (1.0-2.1); ALBUMIN 4.3 g/dL (3.5-5.0); CALCIUM 10.2 mg/dL (8.4-10.2)
--- NOTE | 2017-09-10 08:25 | CP.PCM.HP ---
History of Present Illness - History of Present Illness History of Present Illness: pt admitted for ams/agitation. has h/o MS and noted to be in NAM/ARF. has h/o same. no f/c, n/v/d. calm at present but confused. per daughter wishes to go to [facility] Present on Admission - Present on Admission Any Indicators Present on Admission: Yes History of Uncontrolled Diabetes: Yes Review of Systems - Psychiatric Psychiatric: As Per HPI, Behavioral Changes, Mood Swings Past Patient History - Past Medical History & Family History Past Medical History?: Yes - Past Social History Smoking Status: Former Smoker - CARDIAC Hx Congestive Heart Failure: Yes Hx Hypercholesterolemia: Yes Hx Hypertension: Yes - PULMONARY Hx Respiratory Disorders: Yes Hx Tuberculosis: No (Pt denies) Other/Comment: former smoker - NEUROLOGICAL Hx Dementia: Yes Hx Multiple Sclerosis: Yes Hx Seizures: No - HEENT Hx HEENT Problems: Yes Other/Comment: [place] - RENAL Hx Chronic Kidney Disease: No - ENDOCRINE/METABOLIC Hx Diabetes Mellitus Type 2: Yes - HEMATOLOGICAL/ONCOLOGICAL Hx Human Immunodeficiency Virus (HIV): No - INTEGUMENTARY Hx Dermatological Problems: Yes Other/Comment: Stage 1 sacral decubitus hx. skin intact now 04/06/17 - MUSCULOSKELETAL/RHEUMATOLOGICAL Hx Musculoskeletal Disorders: Yes Hx Falls: Yes Hx Unsteady Gait: Yes - GASTROINTESTINAL Hx Gastrointestinal Disorders: No - GENITOURINARY/GYNECOLOGICAL Hx Sexually Transmitted Disorders: No - PSYCHIATRIC Hx Anxiety: Yes Hx Depression: Yes - SURGICAL HISTORY Hx Coronary Stent: Yes (x1, hx of DVT 1992) - ANESTHESIA Hx Anesthesia: Yes Hx Anesthesia Reactions: No Hx Malignant Hyperthermia: No Meds Allergies/Adverse Reactions: Allergies Allergy/AdvReac Type Severity Reaction Status Date / Time No Known Allergies Allergy Verified 01/24/17 01:35 Physical Exam - Constitutional Appears: Non-toxic, No Acute Distress, Chronically Ill - Head Exam Head Exam: ATRAUMATIC, NORMAL INSPECTION, NORMOCEPHALIC - Eye Exam Eye Exam: EOMI, Normal appearance, PERRL Pupil Exam: NORMAL ACCOMODATION, PERRL - ENT Exam ENT Exam: Mucous Membranes Moist, Normal Exam - Neck Exam Neck exam: Positive for: Normal Inspection - Respiratory Exam Respiratory Exam: Clear to Auscultation Bilateral, NORMAL BREATHING PATTERN - Cardiovascular Exam Cardiovascular Exam: REGULAR RHYTHM, RRR, +S1, +S2 - GI/Abdominal Exam GI & Abdominal Exam: Normal Bowel Sounds, Soft. absent: Tenderness - Exam Bimanual exam: absent: NORMAL BIMANUAL EXAM - Extremities Exam Extremities exam: Positive for: full ROM, normal capillary refill, normal inspection, pedal pulses present - Back Exam Back exam: NORMAL INSPECTION - Neurological Exam Neurological exam: Abnormal Gait, Alert, CN II-XII Intact, Oriented x3, Reflexes Normal - Psychiatric Exam Psychiatric exam: Normal Affect, Normal Mood - Skin Skin Exam: Dry, Intact, Normal Color, Warm Results - Vital Signs Recent Vital Signs: Last Vital Signs Temp 98.2 F 09/10/17 06:40 Pulse 88 09/10/17 06:40 Resp 18 09/10/17 06:40 BP 127/61 09/10/17 06:40 Pulse Ox 98 09/10/17 08:22 - Labs Result Diagrams: 09/10/17 07:48 09/10/17 07:48 Labs: Laboratory Results - last 24 hr 09/10/17 09/10/17 09/10/17 06:58 07:19 07:48 WBC 9.8 RBC 4.74 Hgb 13.8 D Hct 41.9 MCV 88.3 MCH 29.1 MCHC 32.9 L RDW 13.5 Plt Count 364 MPV 7.9 Neut % (Auto) 57.3 Lymph % (Auto) 28.8 [place] % (Auto) 9.5 Eos % (Auto) 3.2 Baso % (Auto) 1.2 Neut # (Auto) 5.6 Lymph # (Auto) 2.8 [place] # (Auto) 0.9 H Eos # (Auto) 0.3 Baso # (Auto) 0.1 pO2 31 VBG pH 7.38 VBG pCO2 64 H VBG HCO3 31.6 VBG Total CO2 39.9 H VBG O2 Sat (Calc) 62.3 VBG Base Excess 10.0 H VBG Potassium 3.9 Sodium 136.0 Chloride 94.0 L Glucose 116 H Lactate 1.4 FiO2 21.0 Potassium Carbon Dioxide Anion Gap BUN Creatinine Est GFR ( Amer) Est GFR (Non-Af Amer) POC Glucose (mg/dL) 113 H Random Glucose Calcium Total Bilirubin AST ALT Alkaline Phosphatase Total Protein Albumin Globulin Albumin/Globulin Ratio Venous Blood Potassium 3.9 09/10/17 07:48 WBC RBC Hgb Hct MCV MCH MCHC RDW Plt Count MPV Neut % (Auto) Lymph % (Auto) [place] % (Auto) Eos % (Auto) Baso % (Auto) Neut # (Auto) Lymph # (Auto) [place] # (Auto) Eos # (Auto) Baso # (Auto) pO2 VBG pH VBG pCO2 VBG HCO3 VBG Total CO2 VBG O2 Sat (Calc) VBG Base Excess VBG Potassium Sodium 139 Chloride 92 L Glucose Lactate FiO2 Potassium 3.6 Carbon Dioxide 34 H Anion Gap 17 BUN 71 H Creatinine 3.6 H Est GFR ( Amer) 20 Est GFR (Non-Af Amer) 17 POC Glucose (mg/dL) Random Glucose 115 H Calcium 10.2 Total Bilirubin 0.7 AST 50 ALT 46 Alkaline Phosphatase 88 Total Protein 7.7 Albumin 4.3 Globulin 3.4 Albumin/Globulin Ratio 1.3 Venous Blood Potassium Assessment & Plan (1) ARF (acute renal failure) Assessment and Plan: nephro monitor bw, gentle hydration Status: Acute (2) Altered mental status Assessment and Plan: ?? r/t ms or nam neuro and nephro to follow Status: Acute (3) DVT prophylaxis Assessment and Plan: scd adn ae hose lovenox Status: Acute (4) Multiple sclerosis Assessment and Plan: neuro consult cont home meds pt/ot yancy Status: Acute Decision To Admit - Pt Status Changed To: Hospital Disposition Of: Inpatient - Admit Certification Admit to Inpatient:: After my assessment, the patient will require hospitalization for at least two midnights. This is because of the severity of symptoms shown, intensity of services needed, and/or the medical risk in this patient being treated as an outpatient. - . Bed Request Type: Telemetry Admitting Physician: Pillo Kelly
[2017-09-10 09:10] LABS: URINE BILIRUBIN NEGATIVE (NEGATIVE); URINE BLOOD NEGATIVE (NEGATIVE); URINE CLARITY CLEAR (Clear); URINE COLOR YELLOW (YELLOW); URINE GLUCOSE (UA) NEG (Normal); URINE LEUKOCYTE ESTERASE NEG Leu/uL (Negative); URINE PROTEIN NEGATIVE (NEGATIVE); URINE UROBILINOGEN 0.2-1.0 mg/dL (0.2-1.0)
--- NOTE | 2017-09-10 09:29 | RAD ---
HISTORY: cough COMPARISON: No prior. FINDINGS: LUNGS: No active pulmonary disease. Diminished inspiratory volume noted. PLEURA: No significant pleural effusion identified, no pneumothorax apparent. CARDIOVASCULAR: Normal. OSSEOUS STRUCTURES: No significant abnormalities. VISUALIZED UPPER ABDOMEN: Normal. OTHER FINDINGS: None. IMPRESSION: Diminished inspiratory volume. No acute infiltrate pleural effusion or pneumothorax identified. No pulmonary vascular congestion or interval cardiomegaly.
--- NOTE | 2017-09-10 09:37 | CT ---
PROCEDURE: CT HEAD WITHOUT CONTRAST. HISTORY: r/o bleed COMPARISON: Noncontrast head CT 04/06/2017. TECHNIQUE: Axial computed tomography images were obtained through the head/brain without intravenous contrast. Radiation dose: Total exam DLP = 1390.87 mGy-cm. This CT exam was performed using one or more of the following dose reduction techniques: Automated exposure control, adjustment of the mA and/or kV according to patient size, and/or use of iterative reconstruction technique. FINDINGS: HEMORRHAGE: No intracranial hemorrhage. BRAIN: Diffuse cerebral atrophy chronic microangiopathy are reiterated however there is increased lucency seen at the subcortical and deep left frontal white matter anterior to the body of the left lateral ventricle without volume loss or expansion appreciated. Remaining brain parenchyma is stable in appearance overall. Good corticomedullary differentiation remains including at the left frontal lobe. No mass-effect is identified or suspicious extra-axial fluid collection. Posterior fossa contents appear unremarkable. VENTRICLES: Unremarkable. No hydrocephalus. CALVARIUM: Unremarkable. PARANASAL SINUSES: Unremarkable as visualized. No significant inflammatory changes. MASTOID AIR CELLS: Unremarkable as visualized. No inflammatory changes. OTHER FINDINGS: None. IMPRESSION: Increased lucency at the left frontal white matter is identified in the interval greater prior head CT 04/06/2017. No cortical edema or mass effect is appreciated and there is no intracranial hemorrhage identified at this time. Consider follow-up CT or MRI given left frontal findings.
--- NOTE | 2017-09-10 10:41 | CP.PCM.CON ---
History of Present Illness - History of Present Illness History of Present Illness: This patient however is 76 years of age male was called to see him for abnormal kidney function. This patient reported to the emergency room because of altered mental status and apparently he might have low-grade fever was reported by Sunday. Patient was here couple time in this hospital previously and he was in acute renal failure at the time however his baseline serum creatinine in April was in the range of 2.0 approximately. Past medical history Diabetes mellitus On a kidney disease stage III with acute kidney injury superimposed Patient apparently has respiratory failure previously. Social history as noted in the emergency room Review of Systems - Constitutional Constitutional: absent: Chills - EENT Eyes: Blurred Vision. absent: Exophthalmos Nose/Mouth/Throat: As Per HPI - Cardiovascular Cardiovascular: Dyspnea on Exertion. absent: Chest Pain, Edema, Leg Edema - Respiratory Respiratory: absent: Cough, Hemoptysis, Chest Congestion - Gastrointestinal Gastrointestinal: absent: Abdominal Pain, Coffee Ground Emesis, Loose Stools, Melena - Genitourinary Genitourinary: Nocturia, Urinary Frequency - Musculoskeletal Musculoskeletal: Muscle Weakness - Neurological Neurological: Confusion. absent: Focal Weakness, Headaches - Psychiatric Psychiatric: absent: Anxiety - Endocrine Endocrine: Fatigue - Hematologic/Lymphatic Hematologic: absent: Easy Bleeding Past Patient History - Past Medical History & Family History Past Medical History?: Yes - Past Social History Smoking Status: Former Smoker - CARDIAC Hx Congestive Heart Failure: Yes Hx Hypercholesterolemia: Yes Hx Hypertension: Yes - PULMONARY Hx Respiratory Disorders: Yes Hx Tuberculosis: No (Pt denies) Other/Comment: former smoker - NEUROLOGICAL Hx Dementia: Yes Hx Multiple Sclerosis: Yes Hx Seizures: No - HEENT Hx HEENT Problems: Yes Other/Comment: [place] - RENAL Hx Chronic Kidney Disease: No - ENDOCRINE/METABOLIC Hx Diabetes Mellitus Type 2: Yes - HEMATOLOGICAL/ONCOLOGICAL Hx Human Immunodeficiency Virus (HIV): No - INTEGUMENTARY Hx Dermatological Problems: Yes Other/Comment: Stage 1 sacral decubitus hx. skin intact now 04/06/17 - MUSCULOSKELETAL/RHEUMATOLOGICAL Hx Musculoskeletal Disorders: Yes Hx Falls: Yes Hx Unsteady Gait: Yes - GASTROINTESTINAL Hx Gastrointestinal Disorders: No - GENITOURINARY/GYNECOLOGICAL Hx Sexually Transmitted Disorders: No - PSYCHIATRIC Hx Anxiety: Yes Hx Depression: Yes - SURGICAL HISTORY Hx Coronary Stent: Yes (x1, hx of DVT 1992) - ANESTHESIA Hx Anesthesia: Yes Hx Anesthesia Reactions: No Hx Malignant Hyperthermia: No Meds Allergies/Adverse Reactions: Allergies Allergy/AdvReac Type Severity Reaction Status Date / Time No Known Allergies Allergy Verified 01/24/17 01:35 - Medications Medications: Current Medications Baclofen (Lioresal) 20 mg PO BID [facility] Clopidogrel Bisulfate (Plavix) 75 mg PO DAILY [facility] Fenofibrate (Tricor) 48 mg PO QPM [facility] Furosemide (Lasix) 40 mg PO DAILY [facility] Gabapentin (Neurontin) 300 mg PO BID [facility] Glipizide (Glucotrol) 5 mg PO BID [facility] Home Med (Citalopram Hydrobromide [Citalopram Hbr]) 40 mg PO HS [facility] Insulin Detemir (Levemir) 40 units SC HS [facility] Multivitamins/Minerals (Therapeutic-M Tab) 1 tab PO DAILY [facility] Tamsulosin HCl (Flomax) 0.8 mg PO HS [facility] Topiramate (Topamax) 50 mg PO DAILY [facility] Physical Exam - Constitutional Appears: No Acute Distress - Eye Exam Eye Exam: Conjunctival injection - ENT Exam ENT Exam: Mucous Membranes Moist - Neck Exam Neck exam: Negative for: Lymphadenopathy - Respiratory Exam Respiratory Exam: NORMAL BREATHING PATTERN. absent: Chest Wall Tenderness - Cardiovascular Exam Cardiovascular Exam: absent: Gallop, JVD, Rubs - GI/Abdominal Exam GI & Abdominal Exam: Normal Bowel Sounds. absent: Guarding - Extremities Exam Extremities exam: Negative for: calf tenderness - Back Exam Back exam: absent: CVA tenderness (L), CVA tenderness (R) - Neurological Exam Neurological exam: Altered - Psychiatric Exam Psychiatric exam: Flat Affect - Skin Skin Exam: Dry Results - Vital Signs Recent Vital Signs: Last Vital Signs Temp 98.2 F 09/10/17 06:40 Pulse 88 09/10/17 06:40 Resp 18 09/10/17 06:40 BP 127/61 09/10/17 06:40 Pulse Ox 98 09/10/17 08:22 - Labs Result Diagrams: 09/10/17 07:48 09/10/17 07:48 Labs: Laboratory Results - last 24 hr 09/10/17 09/10/17 09/10/17 06:58 07:19 07:48 WBC 9.8 RBC 4.74 Hgb 13.8 D Hct 41.9 MCV 88.3 MCH 29.1 MCHC 32.9 L RDW 13.5 Plt Count 364 MPV 7.9 Neut % (Auto) 57.3 Lymph % (Auto) 28.8 [place] % (Auto) 9.5 Eos % (Auto) 3.2 Baso % (Auto) 1.2 Neut # (Auto) 5.6 Lymph # (Auto) 2.8 [place] # (Auto) 0.9 H Eos # (Auto) 0.3 Baso # (Auto) 0.1 pO2 31 VBG pH 7.38 VBG pCO2 64 H VBG HCO3 31.6 VBG Total CO2 39.9 H VBG O2 Sat (Calc) 62.3 VBG Base Excess 10.0 H VBG Potassium 3.9 Sodium 136.0 Chloride 94.0 L Glucose 116 H Lactate 1.4 FiO2 21.0 Potassium Carbon Dioxide Anion Gap BUN Creatinine Est GFR ( Amer) Est GFR (Non-Af Amer) POC Glucose (mg/dL) 113 H Random Glucose Calcium Total Bilirubin AST ALT Alkaline Phosphatase Total Protein Albumin Globulin Albumin/Globulin Ratio Venous Blood Potassium 3.9 Urine Color Urine Clarity Urine pH Ur Specific [place] Urine Protein Urine Glucose (UA) Urine Ketones Urine Blood Urine Nitrate Urine Bilirubin Urine Urobilinogen Ur Leukocyte Esterase Urine RBC (Auto) Urine Microscopic WBC Hyaline Casts 09/10/17 09/10/17 07:48 08:48 WBC RBC Hgb Hct MCV MCH MCHC RDW Plt Count MPV Neut % (Auto) Lymph % (Auto) [place] % (Auto) Eos % (Auto) Baso % (Auto) Neut # (Auto) Lymph # (Auto) [place] # (Auto) Eos # (Auto) Baso # (Auto) pO2 VBG pH VBG pCO2 VBG HCO3 VBG Total CO2 VBG O2 Sat (Calc) VBG Base Excess VBG Potassium Sodium 139 Chloride 92 L Glucose Lactate FiO2 Potassium 3.6 Carbon Dioxide 34 H Anion Gap 17 BUN 71 H Creatinine 3.6 H Est GFR ( Amer) 20 Est GFR (Non-Af Amer) 17 POC Glucose (mg/dL) Random Glucose 115 H Calcium 10.2 Total Bilirubin 0.7 AST 50 ALT 46 Alkaline Phosphatase 88 Total Protein 7.7 Albumin 4.3 Globulin 3.4 Albumin/Globulin Ratio 1.3 Venous Blood Potassium Urine Color Yellow Urine Clarity Clear Urine pH 5.0 Ur Specific [place] 1.012 Urine Protein Negative Urine Glucose (UA) Neg Urine Ketones Negative Urine Blood Negative Urine Nitrate Negative Urine Bilirubin Negative Urine Urobilinogen 0.2-1.0 Ur Leukocyte Esterase Neg Urine RBC (Auto) 2 Urine Microscopic WBC < 1 Hyaline Casts 6-10 H Assessment & Plan (1) Altered mental status Status: Acute (2) Acute renal injury Assessment and Plan: Patient appears to have perhaps acute kidney injury superimposed on chronic kidney disease stage III. His serum creatinine baseline around 2.0 My recommendation Give gentle intravenous fluid D5 normal saline at perhaps 70 mL per hour for the next 24 hours. Septic workup Urinalysis and urine culture. Continue monitoring. Diabetic treatment and control. Patient has mixed hyperlipidemia he is on medication. Status: Acute (3) Dehydration Status: Acute
[2017-09-10] MEDS: Multivitamin With Minerals Tab PO SCH (14:34)
[2017-09-10] MEDS: Dextrose 5%/0.9% NS 1,000 ML IV SCH (14:45)
--- NOTE | 2017-09-10 17:32 | CP.PCM.CON ---
History of Present Illness - History of Present Illness History of Present Illness: Mr. Rees is a 76-year-old man who is well known to me, with a past medical history of CKD, HTN, DM and MS, who presented to the ED after a progressive decline in function and mental status. Labs showed acute kidney injury with elevated BUN and creatinine. He was hydrated and seems to be improving. There was also concern of a low grade fever, but that seems to have resolved. When I saw the patient, he was alert, awake and followed commands appropriately. Review of Systems - Review of Systems All systems: reviewed and no additional remarkable complaints except Past Patient History - Past Medical History & Family History Past Medical History?: Yes - Past Social History Smoking Status: Former Smoker - CARDIAC Hx Congestive Heart Failure: Yes Hx Hypercholesterolemia: Yes Hx Hypertension: Yes - PULMONARY Hx Respiratory Disorders: Yes Hx Tuberculosis: No (Pt denies) Other/Comment: former smoker - NEUROLOGICAL Hx Dementia: Yes Hx Multiple Sclerosis: Yes Hx Seizures: No - HEENT Hx HEENT Problems: Yes Other/Comment: [place] - RENAL Hx Chronic Kidney Disease: No - ENDOCRINE/METABOLIC Hx Diabetes Mellitus Type 2: Yes - HEMATOLOGICAL/ONCOLOGICAL Hx Human Immunodeficiency Virus (HIV): No - INTEGUMENTARY Hx Dermatological Problems: Yes Other/Comment: Stage 1 sacral decubitus hx. skin intact now 04/06/17 - MUSCULOSKELETAL/RHEUMATOLOGICAL Hx Musculoskeletal Disorders: Yes Hx Falls: Yes Hx Unsteady Gait: Yes - GASTROINTESTINAL Hx Gastrointestinal Disorders: No - GENITOURINARY/GYNECOLOGICAL Hx Sexually Transmitted Disorders: No - PSYCHIATRIC Hx Anxiety: Yes Hx Depression: Yes - SURGICAL HISTORY Hx Coronary Stent: Yes (x1, hx of DVT 1992) - ANESTHESIA Hx Anesthesia: Yes Hx Anesthesia Reactions: No Hx Malignant Hyperthermia: No Meds Allergies/Adverse Reactions: Allergies Allergy/AdvReac Type Severity Reaction Status Date / Time No Known Allergies Allergy Verified 01/24/17 01:35 - Medications Medications: Current Medications Baclofen (Lioresal) 20 mg PO BID [facility] Citalopram Hydrobromide (Celexa) 40 mg PO HS [facility] Clopidogrel Bisulfate (Plavix) 75 mg PO DAILY [facility] Last Admin: 09/10/17 14:36 Dose: 75 mg Fenofibrate (Tricor) 48 mg PO QPM [facility] Furosemide (Lasix) 40 mg PO DAILY [facility] Last Admin: 09/10/17 14:32 Dose: 40 mg Gabapentin (Neurontin) 300 mg PO BID [facility] Last Admin: 09/10/17 14:34 Dose: 300 mg Glipizide (Glucotrol) 5 mg PO BID [facility] Dextrose/Sodium Chloride (Dextrose 5%/0.9% Ns 1000 Ml) 1,000 mls @ 70 mls/hr IV .[id number] [facility] Stop: 09/11/17 13:45 Last Admin: 09/10/17 14:45 Dose: 70 mls/hr Insulin Detemir (Levemir) [address] [facility] Multivitamins/Minerals (Therapeutic-M Tab) 1 tab PO DAILY [facility] Last Admin: 09/10/17 14:34 Dose: 1 tab Tamsulosin HCl (Flomax) 0.[address] [facility] Topiramate (Topamax) 50 mg PO DAILY [facility] Last Admin: 09/10/17 14:32 Dose: 50 mg Physical Exam - Neurological Exam Neurological exam: Alert, CN II-XII Intact, Oriented x3 Additional comments: Generalized weakness with hyper-reflexia throughout. Upgoing plantar responses on the right. Results - Vital Signs Recent Vital Signs: Last Vital Signs Temp 98.2 F 09/10/17 15:59 Pulse 91 H 09/10/17 15:59 Resp 20 09/10/17 15:59 BP 189/84 H 09/10/17 15:59 Pulse Ox 98 09/10/17 15:59 - Labs Result Diagrams: 09/10/17 07:48 09/10/17 07:48 Labs: Laboratory Results - last 24 hr 09/10/17 09/10/17 09/10/17 06:58 07:19 07:48 WBC 9.8 RBC 4.74 Hgb 13.8 D Hct 41.9 MCV 88.3 MCH 29.1 MCHC 32.9 L RDW 13.5 Plt Count 364 MPV 7.9 Neut % (Auto) 57.3 Lymph % (Auto) 28.8 [place] % (Auto) 9.5 Eos % (Auto) 3.2 Baso % (Auto) 1.2 Neut # (Auto) 5.6 Lymph # (Auto) 2.8 [place] # (Auto) 0.9 H Eos # (Auto) 0.3 Baso # (Auto) 0.1 pO2 31 VBG pH 7.38 VBG pCO2 64 H VBG HCO3 31.6 VBG Total CO2 39.9 H VBG O2 Sat (Calc) 62.3 VBG Base Excess 10.0 H VBG Potassium 3.9 Sodium 136.0 Chloride 94.0 L Glucose 116 H Lactate 1.4 FiO2 21.0 Potassium Carbon Dioxide Anion Gap BUN Creatinine Est GFR ( Amer) Est GFR (Non-Af Amer) POC Glucose (mg/dL) 113 H Random Glucose Calcium Total Bilirubin AST ALT Alkaline Phosphatase Total Protein Albumin Globulin Albumin/Globulin Ratio Venous Blood Potassium 3.9 Urine Color Urine Clarity Urine pH Ur Specific [place] Urine Protein Urine Glucose (UA) Urine Ketones Urine Blood Urine Nitrate Urine Bilirubin Urine Urobilinogen Ur Leukocyte Esterase Urine RBC (Auto) Urine Microscopic WBC Hyaline Casts 09/10/17 09/10/17 09/10/17 07:48 08:48 11:27 WBC RBC Hgb Hct MCV MCH MCHC RDW Plt Count MPV Neut % (Auto) Lymph % (Auto) [place] % (Auto) Eos % (Auto) Baso % (Auto) Neut # (Auto) Lymph # (Auto) [place] # (Auto) Eos # (Auto) Baso # (Auto) pO2 VBG pH VBG pCO2 VBG HCO3 VBG Total CO2 VBG O2 Sat (Calc) VBG Base Excess VBG Potassium Sodium 139 Chloride 92 L Glucose Lactate FiO2 Potassium 3.6 Carbon Dioxide 34 H Anion Gap 17 BUN 71 H Creatinine 3.6 H Est GFR ( Amer) 20 Est GFR (Non-Af Amer) 17 POC Glucose (mg/dL) 53 L Random Glucose 115 H Calcium 10.2 Total Bilirubin 0.7 AST 50 ALT 46 Alkaline Phosphatase 88 Total Protein 7.7 Albumin 4.3 Globulin 3.4 Albumin/Globulin Ratio 1.3 Venous Blood Potassium Urine Color Yellow Urine Clarity Clear Urine pH 5.0 Ur Specific [place] 1.012 Urine Protein Negative Urine Glucose (UA) Neg Urine Ketones Negative Urine Blood Negative Urine Nitrate Negative Urine Bilirubin Negative Urine Urobilinogen 0.2-1.0 Ur Leukocyte Esterase Neg Urine RBC (Auto) 2 Urine Microscopic WBC < 1 Hyaline Casts 6-10 H 09/10/17 09/10/17 11:59 15:52 WBC RBC Hgb Hct MCV MCH MCHC RDW Plt Count MPV Neut % (Auto) Lymph % (Auto) [place] % (Auto) Eos % (Auto) Baso % (Auto) Neut # (Auto) Lymph # (Auto) [place] # (Auto) Eos # (Auto) Baso # (Auto) pO2 VBG pH VBG pCO2 VBG HCO3 VBG Total CO2 VBG O2 Sat (Calc) VBG Base Excess VBG Potassium Sodium Chloride Glucose Lactate FiO2 Potassium Carbon Dioxide Anion Gap BUN Creatinine Est GFR ( Amer) Est GFR (Non-Af Amer) POC Glucose (mg/dL) 104 213 H Random Glucose Calcium Total Bilirubin AST ALT Alkaline Phosphatase Total Protein Albumin Globulin Albumin/Globulin Ratio Venous Blood Potassium Urine Color Urine Clarity Urine pH Ur Specific [place] Urine Protein Urine Glucose (UA) Urine Ketones Urine Blood Urine Nitrate Urine Bilirubin Urine Urobilinogen Ur Leukocyte Esterase Urine RBC (Auto) Urine Microscopic WBC Hyaline Casts Assessment & Plan (1) Toxic metabolic encephalopathy Assessment and Plan: Likely due to JOSHUA and dehydration. Continue conservative management and treat underlying cause. I also recommend PT/OT eval and treatment. Thank you. Status: Acute Priority: Medium
[2017-09-10] MEDS: Insulin Detemir 100 Units/ml Inj SC SCH (21:32)
[2017-09-10] MEDS ORDERED: Tmp-Smz 800 mg-160 mg DS Tab PO SCH (22:30)
[2017-09-10] MEDS: Tmp-Smz 400 mg-80 mg SS Tab PO SCH (22:43)
[2017-09-11] MEDS: Dextrose 5%/0.9% NS 1,000 ML IV SCH (04:00)
[2017-09-11 05:34] LABS: BASO # 0.1 K/uL (0.0-0.2); BASO % 1.2 % (0.0-2.0); EOS # 0.3 K/uL (0.0-0.7); EOS % 3.5 % (0.0-4.0); HEMOGLOBIN 14.1 g/dL (12.0-18.0); LYMPH # 3.1 K/uL (1.0-4.3); LYMPH % 32.1 % (20.0-40.0); MEAN CELL VOLUME 88.1 fl (80.0-94.0); MEAN CORPUSCULAR HEMOGLOBIN 29.4 pg (27.0-31.0); MEAN CORPUSCULAR HGB CONC 33.4 g/dL (33.0-37.0); MEAN PLATELET VOLUME 7.9 fl (7.2-11.7); MONO # 1.1 K/uL (0.0-0.8); MONO % 11.6 % (0.0-10.0); NEUT # 4.9 K/uL (1.8-7.0); NEUT % 51.6 % (50.0-75.0); RBC 4.8 Mil/uL (4.40-5.90); RED CELL DISTRIBUTION WIDTH 13.3 % (11.5-14.5); WHITE BLOOD COUNT 9.5 K/uL (4.8-10.8)
[2017-09-11 05:51] LABS: ALB/GLOB RATIO 1.3 (1.0-2.1); ALBUMIN 4.1 g/dL (3.5-5.0); CALCIUM 9.5 mg/dL (8.4-10.2)
--- NOTE | 2017-09-11 08:38 | CP.PCM.PN ---
Subjective - Date & Time of Evaluation Date of Evaluation: 09/11/17 Time of Evaluation: 08:36 - Subjective Subjective: pt doing well, more alert. no f/c, n/v/d. bw noted. calm and cooperative. consults appriciated. imaging noted Objective - Vital Signs/Intake and Output Vital Signs (last 24 hours): Temp Pulse Resp BP Pulse Ox 97.8 F 75 18 162/69 H 98 09/11/17 08:19 09/11/17 08:19 09/11/17 08:19 09/11/17 08:19 09/11/17 08:19 - Medications Medications: Current Medications Acetaminophen (Tylenol 325mg Tab) 650 mg PO Q4 PRN PRN Reason: Pain, severe (8-10) Last Admin: 09/10/17 22:40 Dose: 650 mg Baclofen (Lioresal) 20 mg PO BID [facility] Last Admin: 09/10/17 17:54 Dose: 20 mg Citalopram Hydrobromide (Celexa) 40 mg PO [facility] Last Admin: 09/10/17 21:32 Dose: 40 mg Clopidogrel Bisulfate (Plavix) 75 mg PO DAILY [facility] Last Admin: 09/10/17 14:36 Dose: 75 mg Fenofibrate (Tricor) 48 mg PO QPM [facility] Last Admin: 09/10/17 17:54 Dose: 48 mg Furosemide (Lasix) 40 mg PO DAILY [facility] Last Admin: 09/10/17 14:32 Dose: 40 mg Gabapentin (Neurontin) 300 mg PO BID [facility] Last Admin: 09/10/17 17:54 Dose: 300 mg Glipizide (Glucotrol) 5 mg PO BID [facility] Last Admin: 09/10/17 17:54 Dose: 5 mg Dextrose/Sodium Chloride (Dextrose 5%/0.9% Ns 1000 Ml) 1,000 mls @ 70 mls/hr IV .[id number] [facility] Stop: 09/11/17 13:45 Last Admin: 09/11/17 04:00 Dose: 70 mls/hr Insulin Detemir (Levemir) 40 units SC [facility] Last Admin: 09/10/17 21:32 Dose: 40 units Multivitamins/Minerals (Therapeutic-M Tab) 1 tab PO DAILY [facility] Last Admin: 09/10/17 14:34 Dose: 1 tab Tamsulosin HCl (Flomax) 0.8 mg PO HS [facility] Last Admin: 09/10/17 21:31 Dose: 0.8 mg Topiramate (Topamax) 50 mg PO DAILY [facility] Last Admin: 09/10/17 14:32 Dose: 50 mg Trimethoprim/Sulfamethoxazole (Bactrim Ss Tab) 1 tab PO Q12 [facility] PRN Reason: Protocol Last Admin: 09/10/17 22:43 Dose: 1 tab - Labs Labs: 09/11/17 04:20 09/11/17 04:20 - Constitutional Appears: Non-toxic, No Acute Distress, Chronically Ill - Head Exam Head Exam: ATRAUMATIC, NORMAL INSPECTION, NORMOCEPHALIC - Eye Exam Eye Exam: EOMI, Normal appearance, PERRL Pupil Exam: NORMAL ACCOMODATION, PERRL - ENT Exam ENT Exam: Mucous Membranes Moist, Normal Exam - Neck Exam Neck Exam: Full ROM, Normal Inspection. absent: Lymphadenopathy - Respiratory Exam Respiratory Exam: Clear to Ausculation Bilateral, NORMAL BREATHING PATTERN - Cardiovascular Exam Cardiovascular Exam: REGULAR RHYTHM, RRR, +S1, +S2. absent: Murmur - GI/Abdominal Exam GI & Abdominal Exam: Soft, Normal Bowel Sounds. absent: Tenderness - Rectal Exam Rectal Exam: NORMAL INSPECTION - Extremities Exam Extremities Exam: Full ROM, Normal Capillary Refill, Normal Inspection. absent : Joint Swelling, Pedal Edema - Back Exam Back Exam: NORMAL INSPECTION - Neurological Exam Neurological Exam: Abnormal Gait, Alert, Awake, CN II-XII Intact Additional comments: more awake, alert oriented today - Psychiatric Exam Psychiatric exam: Normal Affect, Normal Mood - Skin Skin Exam: Dry, Intact, Normal Color, Warm Assessment and Plan (1) ARF (acute renal failure) Status: Acute (2) Altered mental status Status: Acute (3) DVT prophylaxis Status: Acute (4) Multiple sclerosis Status: Acute - Assessment and Plan (Free Text) Assessment: (1) ARF (acute renal failure) Assessment and Plan: nephro monitor bw, gentle hydration Status: Acute (2) Altered mental status Assessment and Plan: ?? r/t ms or maycol neuro and nephro to follow improving Status: Acute (3) DVT prophylaxis Assessment and Plan: scd adn ae hose lovenox Status: Acute (4) Multiple sclerosis Assessment and Plan: neuro consult cont home meds pt/ot yancy Status: Acute
[2017-09-11] MEDS: Multivitamin With Minerals Tab PO SCH (09:08)
[2017-09-11] MEDS: Tmp-Smz 400 mg-80 mg SS Tab PO SCH ×2 (09:08→20:02)
--- NOTE | 2017-09-11 09:32 | CARD ---
APPROVED REPORT EKG Measurement Heart [id number] <Conclusion> Normal sinus rhythm Normal ECG
--- NOTE | 2017-09-11 10:34 | CP.PCM.PN ---
Subjective - Date & Time of Evaluation Date of Evaluation: 09/11/17 Time of Evaluation: 10:32 - Subjective Subjective: Patient more awake Hui seems to be doing much better Responding well No vomiting or diarrhea reported Vital sign is stable although blood pressure is slightly elevated. Objective - Vital Signs/Intake and Output Vital Signs (last 24 hours): Temp Pulse Resp BP Pulse Ox 97.8 F 75 18 162/69 H 98 09/11/17 08:19 09/11/17 08:19 09/11/17 08:19 09/11/17 09:08 09/11/17 08:19 - Medications Medications: Current Medications Acetaminophen (Tylenol 325mg Tab) 650 mg PO Q4 PRN PRN Reason: Pain, severe (8-10) Last Admin: 09/10/17 22:40 Dose: 650 mg Baclofen (Lioresal) 20 mg PO BID [facility] Last Admin: 09/10/17 17:54 Dose: 20 mg Citalopram Hydrobromide (Celexa) 40 mg PO [facility] Last Admin: 09/10/17 21:32 Dose: 40 mg Clopidogrel Bisulfate (Plavix) 75 mg PO DAILY [facility] Last Admin: 09/11/17 09:07 Dose: 75 mg Fenofibrate (Tricor) 48 mg PO QPM [facility] Last Admin: 09/10/17 17:54 Dose: 48 mg Furosemide (Lasix) 40 mg PO DAILY [facility] Last Admin: 09/11/17 09:08 Dose: 40 mg Gabapentin (Neurontin) 300 mg PO BID [facility] Last Admin: 09/10/17 17:54 Dose: 300 mg Glipizide (Glucotrol) 5 mg PO BID [facility] Last Admin: 09/11/17 09:08 Dose: 5 mg Dextrose/Sodium Chloride (Dextrose 5%/0.9% Ns 1000 Ml) 1,000 mls @ 70 mls/hr IV .[id number] [facility] Stop: 09/11/17 13:45 Last Admin: 09/11/17 04:00 Dose: 70 mls/hr Insulin Detemir (Levemir) 40 units SC [facility] Last Admin: 09/10/17 21:32 Dose: 40 units Multivitamins/Minerals (Therapeutic-M Tab) 1 tab PO DAILY [facility] Last Admin: 09/11/17 09:08 Dose: 1 tab Tamsulosin HCl (Flomax) 0.8 mg PO [facility] Last Admin: 09/10/17 21:31 Dose: 0.8 mg Topiramate (Topamax) 50 mg PO DAILY [facility] Last Admin: 09/10/17 14:32 Dose: 50 mg Trimethoprim/Sulfamethoxazole (Bactrim Ss Tab) 1 tab PO Q12 [facility] PRN Reason: Protocol Last Admin: 09/11/17 09:08 Dose: 1 tab - Labs Labs: 09/11/17 04:20 09/11/17 04:20 - Constitutional Appears: No Acute Distress - ENT Exam ENT Exam: Mucous Membranes Moist - Neck Exam Neck Exam: absent: Lymphadenopathy - Respiratory Exam Respiratory Exam: NORMAL BREATHING PATTERN. absent: Chest Wall Tenderness - Cardiovascular Exam Cardiovascular Exam: REGULAR RHYTHM. absent: Rubs - GI/Abdominal Exam GI & Abdominal Exam: Soft, Normal Bowel Sounds - Extremities Exam Extremities Exam: absent: Calf Tenderness - Back Exam Back Exam: absent: CVA tenderness (L), CVA tenderness (R) - Neurological Exam Neurological Exam: Alert - Psychiatric Exam Psychiatric exam: Normal Affect - Skin Skin Exam: absent: Cyanosis Assessment and Plan (1) Altered mental status Status: Acute (2) Acute renal injury Assessment & Plan: Acute kidney injury appeared to be improving serum creatinine coming down slowly. Rectal light noted to be acceptable. Continue gentle hydration. Patient may need adjustment for his antihypertensive medication. Septic workup has been negative so far. Continue monitoring his kidney function and electrolyte. Status: Acute (3) Dehydration Status: Acute
[2017-09-11] MEDS: Sodium Chloride 0.45% 1,000 ML IV SCH ×2 (11:38→23:00)
[2017-09-11] MEDS: Insulin Regular 100 units/ml SC SCH ×2 (17:56→22:09)
[2017-09-11] MEDS ORDERED: Insulin Regular 100 units/ml SC SCH (22:00)
[2017-09-11] MEDS: Insulin Detemir 100 Units/ml Inj SC SCH (22:11)
[2017-09-12] VITALS: RESP 18
[2017-09-12 05:24] LABS: BASO # 0.1 K/uL (0.0-0.2); EOS # 0.3 K/uL (0.0-0.7); EOS % 3.3 % (0.0-4.0); HEMOGLOBIN 14.1 g/dL (12.0-18.0); LYMPH # 3.1 K/uL (1.0-4.3); LYMPH % 33.7 % (20.0-40.0); MEAN CELL VOLUME 88.6 fl (80.0-94.0); MEAN CORPUSCULAR HEMOGLOBIN 29.7 pg (27.0-31.0); MEAN CORPUSCULAR HGB CONC 33.5 g/dL (33.0-37.0); MEAN PLATELET VOLUME 7.9 fl (7.2-11.7); MONO # 0.9 K/uL (0.0-0.8); MONO % 10.3 % (0.0-10.0); NEUT # 4.7 K/uL (1.8-7.0); NEUT % 51.7 % (50.0-75.0); RBC 4.74 Mil/uL (4.40-5.90); RED CELL DISTRIBUTION WIDTH 13.3 % (11.5-14.5); WHITE BLOOD COUNT 9.1 K/uL (4.8-10.8)
[2017-09-12 05:48] LABS: ALB/GLOB RATIO 1.4 (1.0-2.1); ALBUMIN 4.2 g/dL (3.5-5.0)
[2017-09-12] MEDS: Insulin Regular 100 units/ml SC SCH ×2 (06:30→12:43)
[2017-09-12 07:41] VITALS: PULSE 96
--- NOTE | 2017-09-12 08:04 | CP.PCM.PN ---
Subjective - Date & Time of Evaluation Date of Evaluation: 09/12/17 Time of Evaluation: 08:01 - Subjective Subjective: pt assassed at baseline. no f/c, n/v/d. bw noted. bun/cr trending down. bw noted. for yancy Objective - Vital Signs/Intake and Output Vital Signs (last 24 hours): Temp Pulse Resp BP Pulse Ox 97.9 F 96 H 18 145/73 99 09/12/17 07:40 09/12/17 07:40 09/12/17 07:40 09/12/17 07:40 09/12/17 07:40 - Medications Medications: Current Medications Acetaminophen (Tylenol 325mg Tab) 650 mg PO Q4 PRN PRN Reason: Pain, severe (8-10) Last Admin: 09/10/17 22:40 Dose: 650 mg Baclofen (Lioresal) 20 mg PO BID [facility] Last Admin: 09/11/17 17:42 Dose: 20 mg Citalopram Hydrobromide (Celexa) 40 mg PO [facility] Last Admin: 09/11/17 21:29 Dose: 40 mg Clopidogrel Bisulfate (Plavix) 75 mg PO DAILY [facility] Last Admin: 09/11/17 09:07 Dose: 75 mg Fenofibrate (Tricor) 48 mg PO QPM [facility] Last Admin: 09/11/17 17:43 Dose: 48 mg Furosemide (Lasix) 40 mg PO DAILY [facility] Last Admin: 09/11/17 09:08 Dose: 40 mg Gabapentin (Neurontin) 300 mg PO BID [facility] Last Admin: 09/11/17 17:42 Dose: 300 mg Glipizide (Glucotrol) 5 mg PO BID [facility] Last Admin: 09/11/17 17:41 Dose: 5 mg Heparin Sodium (Porcine) (Heparin) 5,000 units SC Q12 [facility] PRN Reason: Protocol Last Admin: 09/11/17 21:28 Dose: 5,000 units Sodium Chloride (Sodium Chloride 0.45%) 1,000 mls @ 80 mls/hr IV .[id number] [facility] Stop: 09/12/17 11:09 Last Admin: 09/11/17 23:00 Dose: 80 mls/hr Insulin Detemir (Levemir) 40 units SC [facility] Last Admin: 09/11/17 22:11 Dose: 40 units Insulin Human Regular (Humulin R) 0 units SC [facility] PRN Reason: Protocol Last Admin: 09/12/17 06:30 Dose: Not Given Multivitamins/Minerals (Therapeutic-M Tab) 1 tab PO DAILY [facility] Last Admin: 09/11/17 09:08 Dose: 1 tab Tamsulosin HCl (Flomax) 0.8 mg PO HS [facility] Last Admin: 09/11/17 21:29 Dose: 0.8 mg Topiramate (Topamax) 50 mg PO DAILY [facility] Last Admin: 09/11/17 11:09 Dose: 50 mg Trimethoprim/Sulfamethoxazole (Bactrim Ss Tab) 1 tab PO Q12 [facility] PRN Reason: Protocol Last Admin: 09/11/17 20:02 Dose: 1 tab - Labs Labs: 09/12/17 04:20 09/12/17 04:20 - Constitutional Appears: Non-toxic, No Acute Distress, Chronically Ill - Head Exam Head Exam: ATRAUMATIC, NORMAL INSPECTION, NORMOCEPHALIC - Eye Exam Eye Exam: EOMI, Normal appearance, PERRL Pupil Exam: NORMAL ACCOMODATION, PERRL - ENT Exam ENT Exam: Mucous Membranes Moist, Normal Exam - Neck Exam Neck Exam: Full ROM, Normal Inspection. absent: Lymphadenopathy - Respiratory Exam Respiratory Exam: Clear to Ausculation Bilateral, NORMAL BREATHING PATTERN - Cardiovascular Exam Cardiovascular Exam: REGULAR RHYTHM, RRR, +S1, +S2. absent: Murmur - GI/Abdominal Exam GI & Abdominal Exam: Soft, Normal Bowel Sounds. absent: Tenderness - Extremities Exam Extremities Exam: Full ROM, Normal Capillary Refill, Normal Inspection. absent : Joint Swelling, Pedal Edema - Back Exam Back Exam: NORMAL INSPECTION - Neurological Exam Neurological Exam: Abnormal Gait, Alert, Awake, CN II-XII Intact - Psychiatric Exam Psychiatric exam: Normal Affect, Normal Mood - Skin Skin Exam: Dry, Intact, Normal Color, Warm Assessment and Plan (1) ARF (acute renal failure) Status: Acute (2) Altered mental status Status: Acute (3) DVT prophylaxis Status: Acute (4) Multiple sclerosis Status: Acute - Assessment and Plan (Free Text) Assessment: (1) ARF (acute renal failure) Assessment and Plan: nephro monitor bw, gentle hydration improving Status: Acute (2) Altered mental status Assessment and Plan: ?? r/t ms or maycol neuro and nephro to follow improving Status: Acute (3) DVT prophylaxis Assessment and Plan: scd adn ae hose lovenox Status: Acute (4) Multiple sclerosis Assessment and Plan: neuro consult cont home meds pt/ot yancy-?? today Status: Acute
--- NOTE | 2017-09-12 08:30 | CP.PCM.PN ---
Subjective - Date & Time of Evaluation Date of Evaluation: 09/12/17 Time of Evaluation: 15:02 - Subjective Subjective: Patient is doing much better continued to improve. No nausea no vomiting Objective - Vital Signs/Intake and Output Vital Signs (last 24 hours): Temp Pulse Resp BP Pulse Ox 97.9 F 96 H 18 145/73 99 09/12/17 07:40 09/12/17 07:40 09/12/17 07:40 09/12/17 07:40 09/12/17 07:40 - Medications Medications: Current Medications Acetaminophen (Tylenol 325mg Tab) 650 mg PO Q4 PRN PRN Reason: Pain, severe (8-10) Last Admin: 09/10/17 22:40 Dose: 650 mg Baclofen (Lioresal) 20 mg PO BID [facility] Last Admin: 09/11/17 17:42 Dose: 20 mg Citalopram Hydrobromide (Celexa) 40 mg PO HS [facility] Last Admin: 09/11/17 21:29 Dose: 40 mg Clopidogrel Bisulfate (Plavix) 75 mg PO DAILY [facility] Last Admin: 09/11/17 09:07 Dose: 75 mg Fenofibrate (Tricor) 48 mg PO QPM [facility] Last Admin: 09/11/17 17:43 Dose: 48 mg Furosemide (Lasix) 40 mg PO DAILY [facility] Last Admin: 09/11/17 09:08 Dose: 40 mg Gabapentin (Neurontin) 300 mg PO BID [facility] Last Admin: 09/11/17 17:42 Dose: 300 mg Glipizide (Glucotrol) 5 mg PO BID [facility] Last Admin: 09/11/17 17:41 Dose: 5 mg Heparin Sodium (Porcine) (Heparin) 5,000 units SC Q12 [facility] PRN Reason: Protocol Last Admin: 09/11/17 21:28 Dose: 5,000 units Sodium Chloride (Sodium Chloride 0.45%) 1,000 mls @ 80 mls/hr IV .[id number] [facility] Stop: 09/12/17 11:09 Last Admin: 09/11/17 23:00 Dose: 80 mls/hr Insulin Detemir (Levemir) 40 units SC [facility] Last Admin: 09/11/17 22:11 Dose: 40 units Insulin Human Regular (Humulin R) 0 units SC ACHS [facility] PRN Reason: Protocol Last Admin: 09/12/17 06:30 Dose: Not Given Multivitamins/Minerals (Therapeutic-M Tab) 1 tab PO DAILY [facility] Last Admin: 09/11/17 09:08 Dose: 1 tab Tamsulosin HCl (Flomax) 0.8 mg PO HS [facility] Last Admin: 09/11/17 21:29 Dose: 0.8 mg Topiramate (Topamax) 50 mg PO DAILY [facility] Last Admin: 09/11/17 11:09 Dose: 50 mg Trimethoprim/Sulfamethoxazole (Bactrim Ss Tab) 1 tab PO Q12 [facility] PRN Reason: Protocol Last Admin: 09/11/17 20:02 Dose: 1 tab - Labs Labs: 09/12/17 04:20 09/12/17 04:20 - Constitutional Appears: No Acute Distress - ENT Exam ENT Exam: Mucous Membranes Moist - Respiratory Exam Respiratory Exam: absent: Accessory Muscle Use - Cardiovascular Exam Cardiovascular Exam: absent: Gallop, JVD, Rubs - GI/Abdominal Exam GI & Abdominal Exam: Soft, Normal Bowel Sounds - Extremities Exam Extremities Exam: absent: Calf Tenderness - Back Exam Back Exam: absent: CVA tenderness (L), CVA tenderness (R) - Neurological Exam Neurological Exam: Alert - Psychiatric Exam Psychiatric exam: Normal Affect - Skin Skin Exam: absent: Cyanosis Assessment and Plan (1) Altered mental status Status: Acute (2) Acute renal injury Assessment & Plan: Acute kidney injury continued to improve. Serum creatinine improving. Patient is going on to be discharged and follow-up as outpatient to repeat blood work in few days Status: Acute (3) Dehydration Status: Acute
[2017-09-12] MEDS: Tmp-Smz 400 mg-80 mg SS Tab PO SCH (08:52)
[2017-09-12] MEDS: Multivitamin With Minerals Tab PO SCH (08:55)
[2017-09-12 12:07] VITALS: BP 148/65; TEMP 98.2; O2SAT 97
[2017-09-13 01:25] LABS: SQUAMOUS EPITHIAL < 1 /hpf (0-5); URINE BILIRUBIN NEGATIVE (NEGATIVE); URINE BLOOD NEGATIVE (NEGATIVE); URINE CLARITY CLEAR (Clear); URINE COLOR STRAW (YELLOW); URINE GLUCOSE (UA) >=500 mg/dL (Normal); URINE LEUKOCYTE ESTERASE NEG Leu/uL (Negative); URINE PROTEIN NEGATIVE (NEGATIVE); URINE UROBILINOGEN 0.2-1.0 mg/dL (0.2-1.0)
== END 2017-09-12 15:08 | DRG 682 ==
LOC: H.ER 06:32 → H.ERHOLD 08:23 → H.TEL 10:37
PROVIDERS: ADMIT Family Medicine; ATTEND Family Medicine
DX: N17.9 Acute kidney failure, unspecified (principal); G92 Toxic encephalopathy; I13.0 Hypertensive heart and chronic kidney disease with heart failure and stage 1 through stage 4 chronic kidney disease, or unspecified chronic kidney disease; E78.2 Mixed hyperlipidemia; E11.22 Type 2 diabetes mellitus with diabetic chronic kidney disease; N18.3 Chronic kidney disease, stage 3 (moderate); E86.0 Dehydration; G35 Multiple sclerosis; F03.90 Unspecified dementia, unspecified severity, without behavioral disturbance, psychotic disturbance, mood disturbance, and anxiety; I25.10 Atherosclerotic heart disease of native coronary artery without angina pectoris; Z95.5 Presence of coronary angioplasty implant and graft; Z87.891 Personal history of nicotine dependence; F32.9 Major depressive disorder, single episode, unspecified; F41.9 Anxiety disorder, unspecified; Z86.718 Personal history of other venous thrombosis and embolism; I50.9 Heart failure, unspecified; E78.00 Pure hypercholesterolemia, unspecified; N40.0 Benign prostatic hyperplasia without lower urinary tract symptoms

== ENCOUNTER 2018-04-06 12:10 | Emergency (ER) | payer MEDICARE ==
[2018-04-06 12:10] VITALS: BMI 31.6
[2018-04-06 12:20] VITALS: PULSE 89; TEMP 98.7
--- NOTE | 2018-04-06 12:41 | ED PDOC ---
HPI: General Adult Time Seen by Provider: 04/06/18 12:24 Chief Complaint (Nursing): Shortness Of Breath Chief Complaint (Provider): Labored breathing History Per: Family (daughter at bedside) History/Exam Limitations: clinical condition (patient with dementia) Onset/Duration Of Symptoms: Hrs Current Symptoms Are (Timing): Still Present Additional Complaint(s): 77 year old male presents to the ED via EMS accompanied by daughter for labored breathing since this morning. Daughter reports patient has had a slight cough and congestion for the last few days. She also notes the patient has a history of dementia, recurrent kidney/Urinary infections, and MS. He expresses no complaints at this time. Accucheck was 106 upon arrival in ED. History limited due to patient's clinical condition. All history obtained from daughter. No reports of fever, chills, night sweats, N/V/D, rash, sick contacts, recent travel, headache, dizziness, abdominal pain, chest pain. PMD: [place] Past Medical History Reviewed: Historical Data, Nursing Documentation, Vital Signs Vital Signs: Last Vital Signs Temp 98.7 F 04/06/18 12:16 Pulse 89 04/06/18 12:16 Resp 20 04/06/18 12:16 BP 142/71 04/06/18 12:16 Pulse Ox 99 04/06/18 12:16 - Medical History PMH: Anxiety, Benign Prostatic Hyperplasia, CAD, CHF, COPD, Dementia, D epression, Diabetes, Deep Vein Thrombosis, HTN, Hypercholesterolemia, Hyperlipidemia, Multiple Sclerosis, Chronic Kidney Disease Other PMH: Pyelonephritis - Surgical History Surgical History: Coronary Stent (x1, hx of DVT 1992) - Family History Family History: States: Unknown Family Hx - Home Medications Home Medications: Ambulatory Orders Medication Instructions Recorded RX: Atorvastatin [Lipitor] 20 mg PO HS 12/25/16 RX: Baclofen [Lioresal] 20 mg PO Q12 12/25/16 RX: Citalopram Hydrobromide 40 mg PO DAILY 12/25/16 [Citalopram HBr] RX: Clopidogrel [Plavix] 75 mg PO DAILY 12/25/16 RX: Fenofibrate [Tricor] 48 mg PO HS 12/25/16 RX: Gabapentin [Neurontin] 300 mg PO Q12 12/25/16 RX: Glipizide [Glucotrol] 5 mg PO BID 12/25/16 RX: Tamsulosin [Flomax] 0.8 mg PO QPM 12/25/16 RX: Topiramate [Topamax] 50 mg PO HS 12/25/16 RX: hydroCHLOROthiazide [Microzide] 12.5 mg PO DAILY 12/25/16 RX: Furosemide [Lasix] 40 mg PO DAILY #30 tab 02/01/17 RX: Multimineral/Multivitamin 1 tab PO DAILY #30 tab 02/01/17 [Therapeutic-M Tab] RX: Insulin Detemir [Levemir] 40 units SC HS 04/06/17 Finasteride [Proscar] 5 mg PO DAILY 01/23/18 RX: Aspirin [Ecotrin] 81 mg PO DAILY 01/23/18 RX: cloNIDine [Catapres] 0.2 mg PO Q12 01/23/18 Albuterol Sulfate [Ventolin Hfa] 1 puff IH Q2 PRN #1 unit 04/06/18 - Allergies Allergies/Adverse Reactions: Allergies Allergy/AdvReac Type Severity Reaction Status Date / Time No Known Allergies Allergy Verified 01/24/17 01:35 Physical Exam - Reviewed Nursing Documentation Reviewed: Yes Vital Signs Reviewed: Yes - Physical Exam Comments: GENERAL APPEARANCE: Patient is awake, alert, oriented to person, in no acute distress. Resting comfortably, nontoxic appearing. SKIN: Warm, dry; (-) cyanosis. EYES: (-) conjunctival pallor. ENMT: Mucous membranes moist. Airway patent: (-) stridor. Pharynx: uvula m idline (-) swelling, (-) erythema. NECK: Supple, FROM (-) tenderness, (-) stiffness, (-) lymphadenopathy. CHEST AND RESPIRATORY: No respiratory distress. (-) wheezing; (-) rales, (-) rhonchi, (-) rub; breath sounds equal bilaterally. Respirations nonlabored (-) retractions HEART AND CARDIOVASCULAR: (-) irregularity ABDOMEN AND GI: Soft; (-) tenderness. EXTREMITIES: (-) deformity, (-) edema. NEURO AND PSYCH: Mental status as above; (-) focal findings (-) facial asymmetry. Pupils equal and reactive. - Laboratory Results Result Diagrams: 04/06/18 14:00 04/06/18 14:00 - ECG O2 Sat by Pulse Oximetry: 99 (RA) Pulse Ox Interpretation: Normal Medical Decision Making Medical Decision Making: Initial Impression: Cough, concern for SOB Initial Plan: --VBG --ECG --B-type natriuretic peptide stat --CMP --Troponin --CBC --PTT --Prothrombin time --Chest X-ray --Blood culture --Glucose accu --Influenza A B stat --Urinalysis 1220 EKG: NSR @ 89bpm (-) ST elevation, QTc 440 1300 CXR read by Nitesh JARAMILLO and ED MD Ramos, no acute disease. 1400 Influenza: negative CBC with no leukocytosis CMP with slight hypokalemia. Renal insufficiency noted but consistent with prior values. Coag profile WNL U/A unremarkable. Patient resting comfortably on re-evaluation. Daughter at bedside requesting admission. Albuterol 2.5mg INH ordered as daughter reports patient with subjective labored respirations. Patient resting comfortably, respirations nonlabored with no retractions, and no evidence of hypoxia. 1500 Case discussed with Eric Solis JUNIOR SYSTEMS ADMINISTRATOR, who is very familiar with patient. Agrees that patient does not require admission at this time. Recommends follow up in office this week. States that he has spoke to the patient's family multiple times about placement in assisted living/[place] [facility] however family has not followed through. 1530 Discussion with patient's daughter about conversation with Will BERRIOS. Patient's daughter states since she came in ambulance with patient, she wants to leave ED and get her car so that she can bring the patient home. Anticipate discharging patient when daughter returns to ED. 1630 Patient resting comfortably, no distress noted. Patient reports no pain or difficulty breathing. Daughter at bedside to take patient home. Vitals stable. Lungs clear to auscultation, cardiac RRR, abdomen soft, non-tender, repeat neuro exam shows no focal findings. Lab/Diagnostic results d/w the patient/daughter in great detail. Diagnosis of cough, concern for SOB d/w the patient/daughter. Based on history, exam and diagnostic results, plan will be for outpatient follow up with Cheryl. Patient instructed to follow-up with pmd / referral provided / the clinic in 1- 2 days without fail. Advised to take medication as prescribed. Return to the emergency room at any time for any new or worsening symptoms. Patient states he fully agrees with and understands discharge instructions. States that he agrees with the plan and disposition. Verbalized and repeated discharge instructions and plan. I have given the patient opportunity to ask any additional questions. Scribe Attestation: Documented by Dago Alan acting as a scribe for Becky GU. Provider Scribe Attestation: All medical record entries made by the Scribe were at my direction and personally dictated by me. I have reviewed the chart and agree that the record accurately reflects my personal performance of the history, physical exam, [facility] decision making, and the department course for this patient. I have also personally directed, reviewed, and agree with the discharge instructions and disposition. Disposition - Clinical Impression Clinical Impression: Cough - Patient ED Disposition Is Patient to be Admitted: No Discussed With Dr.: Eric Solis Doctor Will See Patient In The: Office Counseled Patient/Family Regarding: Studies Performed, Diagnosis, Need For Followup, Rx Given - Disposition Referrals: Eric Solis, CLARA, CIRCUIT DESIGNER [Advanced Practice Nurse] - Disposition: Routine/Home Disposition Time: 16:30 Condition: STABLE Additional Instructions: The emergency medical care you received today was directed at your acute symptoms. If you were prescribed any medication, please fill it and take as dire cted. It may take several days for your symptoms to resolve. Return to the Emergency Department if your symptoms worsen, do not improve, or if you have any other problems. Please contact your doctor in 2 days for re-evaluation and follow up / or call one of the physicians/clinics you have been referred to that are listed on the Patient Visit Information form that is included in your discharge packet. Bring any paperwork you were given at discharge with you along with any medications you are taking to your follow up visit. Our treatment cannot replace ongoing medical care by a primary care provider (PCP) outside of the emergency department. Prescriptions: Albuterol Sulfate [Ventolin Hfa] 1 puff IH Q2 PRN #1 unit PRN Reason: Shortness Of Breath Instructions: Cough in Adults, Viral Upper Respiratory Infection, Adult (DC) Forms: Global Active (Nigerian) Print Language: MONGOLIAN - POA Present On Arrival: None Results - Lab Results Lab Results: 04/06/18 04/06/18 04/06/18 14:00 14:00 14:00 WBC RBC Hgb Hct MCV MCH MCHC RDW Plt Count MPV Neut % (Auto) Lymph % (Auto) [place] % (Auto) Eos % (Auto) Baso % (Auto) Neut # (Auto) Lymph # (Auto) [place] # (Auto) Eos # (Auto) Baso # (Auto) PT 11.3 INR 1.0 APTT 36.3 pO2 VBG pH VBG pCO2 VBG HCO3 VBG Total CO2 VBG O2 Sat (Calc) VBG Base Excess VBG Potassium Sodium Chloride Glucose Lactate FiO2 Potassium Carbon Dioxide Anion Gap BUN Creatinine Est GFR ( Amer) Est GFR (Non-Af Amer) Random Glucose Calcium Total Bilirubin AST ALT Alkaline Phosphatase Troponin I NT-Pro-B Natriuret Pep Total Protein Albumin Globulin Albumin/Globulin Ratio Venous Blood Potassium Urine Color Straw Urine Clarity Clear Urine pH 6.0 Ur Specific [place] 1.009 Urine Protein Negative Urine Glucose (UA) Neg Urine Ketones Negative Urine Blood Negative Urine Nitrate Negative Urine Bilirubin Negative Urine Urobilinogen 0.2-1.0 Ur Leukocyte Esterase Neg Urine RBC (Auto) < 1 Urine Microscopic WBC < 1 Hyaline Casts 6-10 H Influenza Typ A,B (EIA) Negative for flu a/b 04/06/18 04/06/18 04/06/18 14:00 14:00 13:23 WBC 10.4 RBC 4.81 Hgb 14.0 Hct 42.9 MCV 89.2 D MCH 29.1 MCHC 32.6 L RDW 13.4 Plt Count 432 H MPV 7.4 Neut % (Auto) 57.6 Lymph % (Auto) 27.6 [place] % (Auto) 9.4 Eos % (Auto) 4.5 H Baso % (Auto) 0.9 Neut # (Auto) 6.0 Lymph # (Auto) 2.9 [place] # (Auto) 1.0 H Eos # (Auto) 0.5 Baso # (Auto) 0.1 PT INR APTT pO2 51 VBG pH 7.40 VBG pCO2 59 VBG HCO3 31.9 VBG Total CO2 38.3 H VBG O2 Sat (Calc) 87.8 H VBG Base Excess 9.4 H VBG Potassium 4.0 Sodium 141 132.0 Chloride 96 L 97.0 L Glucose 98 Lactate 0.8 FiO2 21.0 Potassium 3.4 L Carbon Dioxide 32 H Anion Gap 16 BUN 38 H Creatinine 1.9 H Est GFR ( Amer) 42 Est GFR (Non-Af Amer) 35 Random Glucose 100 Calcium 10.2 Total Bilirubin 0.3 AST 53 ALT 40 Alkaline Phosphatase 86 Troponin I 0.0130 NT-Pro-B Natriuret Pep 148 Total Protein 7.9 Albumin 4.5 Globulin 3.4 Albumin/Globulin Ratio 1.3 Venous Blood Potassium 4.0 Urine Color Urine Clarity Urine pH Ur Specific [place] Urine Protein Urine Glucose (UA) Urine Ketones Urine Blood Urine Nitrate Urine Bilirubin Urine Urobilinogen Ur Leukocyte Esterase Urine RBC (Auto) Urine Microscopic WBC Hyaline Casts Influenza Typ A,B (EIA)
[2018-04-06 14:16] LABS: PROTHROMBIN TIME 11.3 Seconds (9.8-13.1)
[2018-04-06 14:18] LABS: VENOUS BLOOD GAS BASE EXCESS 9.4 mmol/L (0.0-2.0); VENOUS BLOOD GAS PCO2 59 mmHg (40-60); VENOUS BLOOD GAS PO2 51 mm/Hg (30-55)
[2018-04-06 14:19] LABS: PARTIAL THROMBOPLASTIN TIME 36.3 Seconds (25.6-37.1)
[2018-04-06 14:21] LABS: ALB/GLOB RATIO 1.3 (1.0-2.1); ALBUMIN 4.5 g/dL (3.5-5.0); CALCIUM 10.2 mg/dL (8.4-10.2)
[2018-04-06 14:22] LABS: BASO # 0.1 K/uL (0.0-0.2); BASO % 0.9 % (0.0-2.0); EOS # 0.5 K/uL (0.0-0.7); EOS % 4.5 % (0.0-4.0); LYMPH # 2.9 K/uL (1.0-4.3); LYMPH % 27.6 % (20.0-40.0); MEAN CELL VOLUME 89.2 fl (80.0-94.0); MEAN CORPUSCULAR HEMOGLOBIN 29.1 pg (27.0-31.0); MEAN CORPUSCULAR HGB CONC 32.6 g/dL (33.0-37.0); MEAN PLATELET VOLUME 7.4 fl (7.2-11.7); MONO % 9.4 % (0.0-10.0); NEUT % 57.6 % (50.0-75.0); NRBC % 0.1 % (0.0-0.0); RBC 4.81 Mil/uL (4.40-5.90); RED CELL DISTRIBUTION WIDTH 13.4 % (11.5-14.5); WHITE BLOOD COUNT 10.4 K/uL (4.8-10.8)
[2018-04-06 14:25] LABS: URINE BILIRUBIN NEGATIVE (NEGATIVE); URINE BLOOD NEGATIVE (NEGATIVE); URINE CLARITY CLEAR (Clear); URINE COLOR STRAW (YELLOW); URINE GLUCOSE (UA) NEG (NEGATIVE); URINE LEUKOCYTE ESTERASE NEG Leu/uL (Negative); URINE PROTEIN NEGATIVE (NEGATIVE); URINE UROBILINOGEN 0.2-1.0 mg/dL (0.2-1.0)
[2018-04-06 14:33] LABS: TROPONIN I 0.013 ng/mL (0.00-0.120)
[2018-04-06] MEDS ORDERED: Albuterol 0.083% Inhal Sol (2.5 mg/3 mL) UD INH STA (15:15)
[2018-04-06] MEDS ORDERED: Albuterol 0.083% Inhal Sol (2.5 mg/3 mL) UD ONE (15:25)
[2018-04-06 16:47] VITALS: BP 119/60; RESP 16
--- NOTE | 2018-04-06 23:12 | CARD ---
APPROVED REPORT Date of service: 04/06/2018 EKG Measurement Heart [id number] <Conclusion> Normal sinus rhythm Normal ECG
--- NOTE | 2018-04-07 10:44 | RAD ---
Date of service: 04/06/2018 HISTORY: labored breathing COMPARISON: 01/22/2018 TECHNIQUE: Chest PA and lateral FINDINGS: LUNGS: No active pulmonary disease. PLEURA: No significant pleural effusion identified. No pneumothorax apparent. CARDIOVASCULAR: Aortic calcifications. Normal cardiac size. No pulmonary vascular congestion. OSSEOUS STRUCTURES: No significant abnormalities. VISUALIZED UPPER ABDOMEN: Normal. OTHER FINDINGS: None. IMPRESSION: No active disease.
[2018-04-10 19:59] VITALS: O2SAT 99
== END 2018-04-06 16:55 | disposition home or self-care (01) ==
LOC: H.ER 12:10
DX: R05 Cough (principal); E87.6 Hypokalemia; E78.00 Pure hypercholesterolemia, unspecified; F03.90 Unspecified dementia, unspecified severity, without behavioral disturbance, psychotic disturbance, mood disturbance, and anxiety; I13.0 Hypertensive heart and chronic kidney disease with heart failure and stage 1 through stage 4 chronic kidney disease, or unspecified chronic kidney disease; Z79.4 Long term (current) use of insulin; Z86.718 Personal history of other venous thrombosis and embolism; Z95.5 Presence of coronary angioplasty implant and graft

== ENCOUNTER 2018-06-30 10:12 | Inpatient (IN) | payer MEDICARE ==
[2018-06-30 10:15] VITALS: BMI 29.0
[2018-06-30] MEDS ORDERED: Albuterol-Ipratrop 3 mg / 0.5 (3 ml) UD INH STA ×2 (10:22→12:02)
[2018-06-30 10:41] LABS: BASO # 0.1 K/uL (0.0-0.2); BASO % 0.5 % (0.0-2.0); EOS % 0.2 % (0.0-4.0); HEMOGLOBIN 13.2 g/dL (12.0-18.0); LYMPH # 1.6 K/uL (1.0-4.3); LYMPH % 14.1 % (20.0-40.0); MEAN CELL VOLUME 88.3 fl (80.0-94.0); MEAN CORPUSCULAR HEMOGLOBIN 28.6 pg (27.0-31.0); MEAN CORPUSCULAR HGB CONC 32.4 g/dL (33.0-37.0); MEAN PLATELET VOLUME 7.3 fl (7.2-11.7); MONO # 1.3 K/uL (0.0-0.8); MONO % 12.2 % (0.0-10.0); NEUT # 8.1 K/uL (1.8-7.0); RBC 4.6 Mil/uL (4.40-5.90); RED CELL DISTRIBUTION WIDTH 13.4 % (11.5-14.5)
[2018-06-30 10:50] LABS: ALB/GLOB RATIO 1.3 (1.0-2.1); ALBUMIN 4.4 g/dL (3.5-5.0); CALCIUM 9.4 mg/dL (8.4-10.2)
--- NOTE | 2018-06-30 10:59 | ED PDOC ---
HPI: SOB/CHF/COPD Time Seen by Provider: 06/30/18 10:17 Chief Complaint (Provider): shortness of breath History Per: Family History/Exam Limitations: clinical condition, physical impairment Onset/Duration Of Symptoms: Days (3), Gradual Current Symptoms Are (Timing): Still Present Initiating Event: Upper Respiratory Illness Exacerbating Factor(s): Laying Flat, Coughing Current Respiratory Medications: See Home Med List Severity: Moderate Associated Symptoms: Chills, Dizziness Recently: Treated By A Physician Additional Complaint(s): 77yo male arrives with family notes he has been short of breath with mild dry cough ongoing for several days. Also notes anxiety, decreased PO intake and generalized weakness. No reports of fever, syncope, edema or falls. History limited as patient has MS, per family dementia and baseline mild confusion. Past Medical History Reviewed: Historical Data, Nursing Documentation, Vital Signs Vital Signs: Last Vital Signs Temp 98.4 F 06/30/18 10:15 Pulse 86 06/30/18 10:23 Resp 21 06/30/18 10:23 BP 186/73 H 06/30/18 10:23 Pulse Ox 97 06/30/18 10:23 - Medical History PMH: Anxiety, Benign Prostatic Hyperplasia, CAD, CHF, COPD, Dementia, Depression, Diabetes, Deep Vein Thrombosis, HTN, Hypercholesterolemia, Hyperlipidemia, Multiple Sclerosis, Chronic Kidney Disease Denies: Hepatitis, HIV, Seizures, Sexually Transmitted Disease - Surgical History Surgical History: Coronary Stent (x1, hx of DVT 1992) - Family History Family History: States: Unknown Family Hx - Immunization History Hx Tetanus Toxoid Vaccination: No Hx Influenza Vaccination: No Hx Pneumococcal Vaccination: No - Home Medications Home Medications: Ambulatory Orders Medication Instructions Recorded Atorvastatin [Lipitor] 20 mg PO HS 12/25/16 Baclofen [Lioresal] 20 mg PO Q12 12/25/16 Citalopram Hydrobromide 40 mg PO DAILY 12/25/16 [Citalopram HBr] Clopidogrel [Plavix] 75 mg PO DAILY 12/25/16 Fenofibrate [Tricor] 48 mg PO HS 12/25/16 Gabapentin [Neurontin] 300 mg PO Q12 12/25/16 Glipizide [Glucotrol] 5 mg PO BID 12/25/16 Tamsulosin [Flomax] 0.8 mg PO QPM 12/25/16 Topiramate [Topamax] 50 mg PO HS 12/25/16 hydroCHLOROthiazide [Microzide] 12.5 mg PO DAILY 12/25/16 Furosemide [Lasix] 40 mg PO DAILY #30 tab 02/01/17 Multimineral/Multivitamin 1 tab PO DAILY #30 tab 02/01/17 [Therapeutic-M Tab] Insulin Detemir [Levemir] 40 units SC HS 04/06/17 Aspirin [Ecotrin] 81 mg PO DAILY 01/23/18 Finasteride [Proscar] 5 mg PO DAILY 01/23/18 cloNIDine [Catapres] 0.2 mg PO Q12 01/23/18 Albuterol Sulfate [Ventolin Hfa] 1 puff IH Q2 PRN #1 unit 04/06/18 - Allergies Allergies/Adverse Reactions: Allergies Allergy/AdvReac Type Severity Reaction Status Date / Time No Known Allergies Allergy Verified 01/24/17 01:35 Review of Systems ROS Statement: Except As Marked, All Systems Reviewed And Found Negative Constitutional: Negative for: Fever Cardiovascular: Negative for: Chest Pain Respiratory: Positive for: Cough, Shortness of Breath, SOB with Exertion Genitourinary Male: Negative for: Dysuria Musculoskeletal: Negative for: Neck Pain Skin: Negative for: Rash, Lesions, Jaundice Neurological: Negative for: Weakness, Numbness Psych: Positive for: Anxiety Physical Exam - Reviewed Nursing Documentation Reviewed: Yes Vital Signs Reviewed: Yes - Physical Exam Appears: Positive for: Non-toxic Head Exam: Positive for: ATRAUMATIC, NORMAL INSPECTION, NORMOCEPHALIC Skin: Positive for: Normal Color, Warm, DRY Eye Exam: Positive for: EOMI, Normal appearance, PERRL ENT: Positive for: Normal ENT Inspection Neck: Positive for: Normal, Painless ROM Cardiovascular/Chest: Positive for: Regular Rate, Rhythm Respiratory: Positive for: Decreased Breath Sounds, Wheezing. Negative for: Respiratory Distress Pulses-Radial (L): 3+/4+ Pulses-Radial (R): 3+/4+ Gastrointestinal/Abdominal: Positive for: Normal Exam, Soft. Negative for: Tenderness Back: Positive for: Normal Inspection Extremity: Positive for: Normal ROM. Negative for: Tenderness, Swelling Neurological/Psych: Positive for: Awake, Alert, Normal Tone. Negative for: Oriented (confused), Facial Droop - Laboratory Results Result Diagrams: 06/30/18 10:38 06/30/18 10:38 Lab Results: Total Bilirubin 0.6 mg/dl (0.2-1.3) 06/30/18 10:38 AST 75 U/L (17-59) H D 06/30/18 10:38 ALT 44 U/L (21-72) 06/30/18 10:38 Alkaline Phosphatase 94 U/L (38-126) 06/30/18 10:38 Total Protein 7.8 G/DL (6.3-8.2) 06/30/18 10:38 Albumin 4.4 g/dL (3.5-5.0) 06/30/18 10:38 Globulin 3.5 gm/dL (2.2-3.9) 06/30/18 10:38 Albumin/Globulin Ratio 1.3 (1.0-2.1) 06/30/18 10:38 - ECG ECG: Positive for: Interpreted By Co ECG Rhythm: Positive for: Normal ST Segment, Sinus Rhythm, Sinus Tachycardia Rate: 85 O2 Sat by Pulse Oximetry: 97 Pulse Ox Interpretation: Normal Medical Decision Making Medical Decision Making: workup for wheeze/ cough with dyspnea initiated check EKG, labs, CXR and initiate bronchodilator and solumedrol labs reviewed, 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 Gentle IVF initiated for rehydration. 1155am remains dyspneic with tachypnea, wheeze b/l with mild retractions. Vapotherm ordered Admit [facility] for respiratory stabilization and renal monitoring, IVF. Additional bronchodilator ordered. D/w C Will 1205pm Disposition - Clinical Impression Clinical Impression: Respiratory failure, COPD exacerbation, Acute on chronic renal failure, Asthma exacerbation, Multiple sclerosis - Patient ED Disposition Is Patient to be Admitted: Yes - Disposition Disposition Time: 12:05 Condition: FAIR - Pt Status Changed To: Hospital Disposition Of: Inpatient - Admit Certification Admit to Inpatient:: After my assessment, the patient will require hospitalization for at least two midnights. This is because of the severity of symptoms shown, intensity of services needed, and/or the medical risk in this patient being treated as an outpatient.
[2018-06-30 11:01] LABS: TROPONIN I 0.029 ng/mL (0.00-0.120)
[2018-06-30] MEDS: Sodium Chloride 0.45% 1,000 ML IV SCH ×2 (11:26→20:33)
[2018-06-30 12:10] LABS: URINE BACTERIA OCC (<OCC); URINE BILIRUBIN NEGATIVE (NEGATIVE); URINE BLOOD NEGATIVE (NEGATIVE); URINE CLARITY CLEAR (Clear); URINE COLOR YELLOW (YELLOW); URINE GLUCOSE (UA) 50 mg/dL (NEGATIVE); URINE LEUKOCYTE ESTERASE NEG Leu/uL (Negative); URINE PROTEIN 30 mg/dL (NEGATIVE); URINE UROBILINOGEN 0.2-1.0 mg/dL (0.2-1.0)
[2018-06-30 12:17] LABS: SQUAMOUS EPITHIAL 2 /hpf (0-5)
--- NOTE | 2018-06-30 13:57 | RAD ---
Date of service: 06/30/2018 HISTORY: cough SOB COMPARISON: Comparison chest 04/06/2018 TECHNIQUE: Chest PA and lateral views FINDINGS: LUNGS: The interstitial markings are slightly increased and coarsened with a few scattered peribronchial cuffing changes. Rule out sequela of reactive/inflammatory airway disease or viral illness. PLEURA: No significant pleural effusion identified. No pneumothorax apparent. CARDIOVASCULAR: Moderate aortic atherosclerotic calcification present. Heart appears mildly enlarged.. No pulmonary vascular congestion. OSSEOUS STRUCTURES: Mild multilevel degenerative spondylosis of the thoracic spine. VISUALIZED UPPER ABDOMEN: Normal. OTHER FINDINGS: None. IMPRESSION: The interstitial markings are slightly increased and coarsened with a few scattered peribronchial cuffing changes. Rule out sequela of reactive/inflammatory airway disease or viral illness.
[2018-06-30] MEDS: Insulin Detemir 100 Units/ml Inj SC SCH (22:29)
[2018-07-01] MEDS: Sodium Chloride 0.45% 1,000 ML IV SCH (04:37)
[2018-07-01] MEDS ORDERED: Albuterol-Ipratrop 3 mg / 0.5 (3 ml) UD INH STA (05:09)
[2018-07-01 05:27] LABS: ABG ALLEN TEST YES; ARTERIAL BLOOD GAS HCO3 26.7 mmol/L (21-28); ARTERIAL BLOOD GAS HEMOGLOBIN 13.4 g/dL (11.7-17.4); ARTERIAL BLOOD GAS O2 CAPACITY 18.4 mL/dL (16-24); ARTERIAL BLOOD GAS O2 CONTENT 18.2 ML/dL (15-23); ARTERIAL BLOOD GAS PCO2 56 mm/Hg (35-45); ARTERIAL BLOOD GAS PH 7.33 (7.35-7.45); ARTERIAL BLOOD GAS PO2 94 mm/Hg (80-100); ARTERIAL BLOOD GAS TCO2 31.2 mmol/L (22-28)
--- NOTE | 2018-07-01 05:34 | CP.PCM.PCO ---
Assessment/Plan - Assessment and Plan (Free Text) Assessment: Notified by RN that patient was experiencing shortness of breath. Approached pt at bedside with Dr. Catherine. Pt noted to be using accessory muscles, tachypnic, not able to complete full sentence and anxious appearing. Vitals reviewed: Tachycardia 110's (sinus on pvc monitor), RR 20, with O2 saturation 95% on high flow with FIO2 35%. - Ordered STAT duonebilizer treatment, Prednisone 60mg po, and ABG. Chart and imaging reviewed. - Likely Asthma/COPD exacerbation. - Pt re-evaluated while receiving nebulizer treatment and noted to be breathing more comfortably and stated he felt better. - ABG c/w mild Respiratory acidosis (pCO2 56) w/ compensation, likely chronic CO2 retainer. PaO2 wnl. - Will repeat nebulizer treatment in 1 hr to optimize airways - Monitor respiratory status closely. Bria Champion, PGY2
[2018-07-01 05:55] LABS: BASO # 0.1 K/uL (0.0-0.2); BASO % 0.4 % (0.0-2.0); EOS % 0.1 % (0.0-4.0); HEMOGLOBIN 13.9 g/dL (12.0-18.0); LYMPH # 4.4 K/uL (1.0-4.3); LYMPH % 23.9 % (20.0-40.0); MEAN CELL VOLUME 88.6 fl (80.0-94.0); MEAN CORPUSCULAR HEMOGLOBIN 28.8 pg (27.0-31.0); MEAN CORPUSCULAR HGB CONC 32.5 g/dL (33.0-37.0); MEAN PLATELET VOLUME 7.7 fl (7.2-11.7); MONO # 2.8 K/uL (0.0-0.8); MONO % 15.1 % (0.0-10.0); NEUT # 11.2 K/uL (1.8-7.0); NEUT % 60.5 % (50.0-75.0); RBC 4.82 Mil/uL (4.40-5.90); RED CELL DISTRIBUTION WIDTH 13.5 % (11.5-14.5); WHITE BLOOD COUNT 18.5 K/uL (4.8-10.8)
[2018-07-01] MEDS ORDERED: Levalbuterol 0.63 MG/3 ML Inhal Soln UD IH ONE (06:00)
[2018-07-01 06:15] LABS: ALB/GLOB RATIO 1.3 (1.0-2.1); ALBUMIN 4.4 g/dL (3.5-5.0); CALCIUM 9.9 mg/dL (8.4-10.2)
[2018-07-01] MEDS: Albuterol-Ipratrop 3 mg / 0.5 (3 ml) UD INH SCH ×4 (07:26→19:25)
[2018-07-01] MEDS ORDERED: methylPREDNISolone 40 MG in Sodium Chloride 0.9% 50 ML IVPB SCH (09:00)
--- NOTE | 2018-07-01 09:11 | CARD ---
APPROVED REPORT Date of service: 06/30/2018 EKG Measurement Heart [id number] <Conclusion> Normal sinus rhythm Normal ECG
[2018-07-01] MEDS: MethylPREDNISolone 40 mg Vial IVP SCH ×2 (09:32→21:16)
[2018-07-01] MEDS: Multivitamin With Minerals Tab PO SCH (09:34)
[2018-07-01] MEDS: guaiFENesin-DM 600-30 mg ER Tab PO SCH ×2 (09:35→17:53)
--- NOTE | 2018-07-01 13:31 | CP.PCM.HP ---
History of Present Illness - History of Present Illness History of Present Illness: pt admitted for asthma exacerbation. no f/c, n/v/d. off [facility] dictation # [id number] Present on Admission - Present on Admission Any Indicators Present on Admission: No Past Patient History - Past Medical History & Family History Past Medical History?: Yes - Past Social History Smoking Status: Former Smoker - CARDIAC Hx Cardiac Disorders: Yes Hx Congestive Heart Failure: Yes Hx Hypercholesterolemia: Yes Hx Hypertension: Yes - PULMONARY Hx Respiratory Disorders: Yes Hx Chronic Obstructive Pulmonary Disease (COPD): Yes - NEUROLOGICAL Hx Neurological Disorder: Yes Hx Dementia: Yes Hx Multiple Sclerosis: Yes Hx Seizures: No - HEENT Hx HEENT Problems: Yes Other/Comment: [place] - RENAL Hx Chronic Kidney Disease: Yes - ENDOCRINE/METABOLIC Hx Endocrine Disorders: Yes Hx Diabetes Mellitus Type 1: Yes Hx Diabetes Mellitus Type 2: Yes - HEMATOLOGICAL/ONCOLOGICAL Hx Blood Disorders: No Hx Human Immunodeficiency Virus (HIV): No - INTEGUMENTARY Hx Dermatological Problems: Yes - MUSCULOSKELETAL/RHEUMATOLOGICAL Hx Musculoskeletal Disorders: Yes Hx Falls: Yes Hx Unsteady Gait: Yes - GASTROINTESTINAL Hx Gastrointestinal Disorders: No - GENITOURINARY/GYNECOLOGICAL Hx Genitourinary Disorders: No Hx Sexually Transmitted Disorders: No - PSYCHIATRIC Hx Psychophysiologic Disorder: Yes Hx Anxiety: Yes Hx Depression: Yes Hx Substance Use: No - SURGICAL HISTORY Hx Surgeries: Yes Hx Coronary Stent: Yes (x1, hx of DVT 1992) - ANESTHESIA Hx Anesthesia: Yes Hx Anesthesia Reactions: No Hx Malignant Hyperthermia: No Has any member of the family had a problem w/ anesthesia?: No Meds Allergies/Adverse Reactions: Allergies Allergy/AdvReac Type Severity Reaction Status Date / Time No Known Allergies Allergy Verified 01/24/17 01:35 Results - Vital Signs Recent Vital Signs: Last Vital Signs Temp 98.7 F 07/01/18 12:53 Pulse 77 07/01/18 12:53 Resp 20 07/01/18 12:53 BP 141/66 07/01/18 12:53 Pulse Ox 91 L 07/01/18 12:53 - Labs Result Diagrams: 07/01/18 04:45 07/01/18 04:45 Labs: Laboratory Results - last 24 hr 06/30/18 07/01/18 07/01/18 21:42 04:45 04:45 WBC 18.5 H D RBC 4.82 Hgb 13.9 Hct 42.7 MCV 88.6 MCH 28.8 MCHC 32.5 L RDW 13.5 Plt Count 395 MPV 7.7 Neut % (Auto) 60.5 Lymph % (Auto) 23.9 [place] % (Auto) 15.1 H Eos % (Auto) 0.1 Baso % (Auto) 0.4 Neut # (Auto) 11.2 H Lymph # (Auto) 4.4 H [place] # (Auto) 2.8 H Eos # (Auto) 0.0 Baso # (Auto) 0.1 pCO2 pO2 HCO3 ABG pH ABG Total CO2 ABG O2 Saturation ABG O2 Content ABG Base Excess ABG Hemoglobin ABG Carboxyhemoglobin POC ABG HHb (Measured) ABG Methemoglobin ABG O2 Capacity Rudy Test A-a O2 Difference Hgb O2 Saturation Liter Flow Vent Mode FiO2 Sodium 141 Potassium 4.5 Chloride 96 L Carbon Dioxide 31 H Anion Gap 19 BUN 58 H Creatinine 2.3 H Est GFR ( Amer) 34 Est GFR (Non-Af Amer) 28 POC Glucose (mg/dL) 245 H Random Glucose 184 H Calcium 9.9 Phosphorus 4.8 H Magnesium 2.8 H Total Bilirubin 0.6 AST 66 H ALT 39 Alkaline Phosphatase 82 Total Protein 7.9 Albumin 4.4 Globulin 3.5 Albumin/Globulin Ratio 1.3 07/01/18 07/01/18 07/01/18 05:20 05:24 11:25 WBC RBC Hgb Hct MCV MCH MCHC RDW Plt Count MPV Neut % (Auto) Lymph % (Auto) [place] % (Auto) Eos % (Auto) Baso % (Auto) Neut # (Auto) Lymph # (Auto) [place] # (Auto) Eos # (Auto) Baso # (Auto) pCO2 56 H pO2 94 HCO3 26.7 ABG pH 7.33 L ABG Total CO2 31.2 H ABG O2 Saturation 99.0 H ABG O2 Content 18.2 ABG Base Excess 2.3 ABG Hemoglobin 13.4 ABG Carboxyhemoglobin 1.9 H POC ABG HHb (Measured) 1.0 ABG Methemoglobin 1.2 ABG O2 Capacity 18.4 Rudy Test Yes A-a O2 Difference 50.0 Hgb O2 Saturation 95.9 Liter Flow 20 Vent Mode High flow lpm FiO2 30.0 Sodium Potassium Chloride Carbon Dioxide Anion Gap BUN Creatinine Est GFR ( Amer) Est GFR (Non-Af Amer) POC Glucose (mg/dL) 181 H 305 H Random Glucose Calcium Phosphorus Magnesium Total Bilirubin AST ALT Alkaline Phosphatase Total Protein Albumin Globulin Albumin/Globulin Ratio Decision To Admit - Pt Status Changed To: Hospital Disposition Of: Inpatient - Admit Certification Admit to Inpatient:: After my assessment, the patient will require hospitalization for at least two midnights. This is because of the severity of symptoms shown, intensity of services needed, and/or the medical risk in this patient being treated as an outpatient. - . Bed Request Type: Telemetry Admitting Physician: Pillo Kelly
[2018-07-01] MEDS: Insulin Detemir 100 Units/ml Inj SC SCH (22:00)
[2018-07-02 05:29] LABS: HEMOGLOBIN 12.4 g/dL (12.0-18.0); MEAN CELL VOLUME 87.4 fl (80.0-94.0); MEAN CORPUSCULAR HEMOGLOBIN 28.3 pg (27.0-31.0); MEAN CORPUSCULAR HGB CONC 32.4 g/dL (33.0-37.0); RBC 4.39 Mil/uL (4.40-5.90); RED CELL DISTRIBUTION WIDTH 13.7 % (11.5-14.5)
[2018-07-02 05:53] LABS: CALCIUM 9.5 mg/dL (8.4-10.2)
[2018-07-02] MEDS ORDERED: Albuterol-Ipratrop 3 mg / 0.5 (3 ml) UD INH STA (07:48)
[2018-07-02] MEDS: Albuterol-Ipratrop 3 mg / 0.5 (3 ml) UD INH SCH ×4 (07:48→18:59)
--- NOTE | 2018-07-02 08:25 | CP.PCM.PN ---
Subjective - Date & Time of Evaluation Date of Evaluation: 07/02/18 Time of Evaluation: 08:25 - Subjective Subjective: pt doing well. appears anxious. no f/c, n/v/d. bw noted. for yancy. ++ wheezing at present. no resp distress. Objective - Vital Signs/Intake and Output Vital Signs (last 24 hours): Temp Pulse Resp BP Pulse Ox 98.1 F 82 18 125/65 96 07/02/18 05:18 07/02/18 05:18 07/02/18 05:18 07/02/18 05:18 07/02/18 05:18 - Medications Medications: Current Medications Albuterol (Ventolin Hfa 90 Mcg/Actuation (8 G)) 1 puff IH Q2 PRN PRN Reason: Shortness of Breath Albuterol/Ipratropium (Duoneb 3 Mg/0.5 Mg (3 Ml) Ud) 3 ml INH RQID [facility] Last Admin: 07/02/18 07:48 Dose: 3 ml Alprazolam (Xanax) 0.25 mg PO BID PRN PRN Reason: Anxiety Stop: 07/08/18 16:31 Last Admin: 07/02/18 01:09 Dose: 0.25 mg Aspirin (Ecotrin) 81 mg PO DAILY [facility] Last Admin: 07/01/18 09:31 Dose: 81 mg Atorvastatin Calcium (Lipitor) 20 mg PO HS [facility] Last Admin: 07/01/18 21:16 Dose: 20 mg Baclofen (Lioresal) 20 mg PO Q12 [facility] Last Admin: 07/01/18 21:14 Dose: 20 mg Citalopram Hydrobromide (Celexa) 40 mg PO DAILY [facility] Last Admin: 07/01/18 09:32 Dose: 40 mg Clonidine HCl (Catapres) 0.2 mg PO Q12 [facility] Last Admin: 07/01/18 21:14 Dose: 0.2 mg Clopidogrel Bisulfate (Plavix) 75 mg PO DAILY [facility] Last Admin: 07/01/18 09:31 Dose: 75 mg Fenofibrate (Tricor) 48 mg PO HS [facility] Last Admin: 07/01/18 21:17 Dose: 48 mg Finasteride (Proscar) 5 mg PO DAILY [facility] Last Admin: 07/01/18 09:33 Dose: 5 mg Furosemide (Lasix) 40 mg PO DAILY [facility] Last Admin: 07/01/18 09:33 Dose: 40 mg Gabapentin (Neurontin) 300 mg PO Q12 [facility] Last Admin: 07/01/18 21:14 Dose: 300 mg Glipizide (Glucotrol) 5 mg PO BID [facility] Last Admin: 07/01/18 17:53 Dose: 5 mg Guaifenesin/Dextromethorphan (Mucinex-Dm 600-30 Mg) 1 tab PO BID [facility] Last Admin: 07/01/18 17:53 Dose: 1 tab Hydrochlorothiazide (Microzide) 12.5 mg PO DAILY [facility] Last Admin: 07/01/18 09:34 Dose: 12.5 mg Insulin Detemir (Levemir) 40 units SC HS [facility] Last Admin: 07/01/18 22:00 Dose: 40 units Methylprednisolone (Solu-Medrol) 40 mg IVP Q12 [facility] Last Admin: 07/01/18 21:16 Dose: 40 mg Multivitamins/Minerals (Therapeutic-M Tab) 1 tab PO DAILY [facility] Last Admin: 07/01/18 09:34 Dose: 1 tab Tamsulosin HCl (Flomax) 0.8 mg PO QPM [facility] Last Admin: 07/01/18 17:53 Dose: 0.8 mg Topiramate (Topamax) 50 mg PO HS [facility] Last Admin: 07/01/18 21:17 Dose: 50 mg - Labs Labs: 07/02/18 05:21 07/02/18 05:21 - Constitutional Appears: Well, Non-toxic, No Acute Distress - Head Exam Head Exam: ATRAUMATIC, NORMAL INSPECTION, NORMOCEPHALIC - Eye Exam Eye Exam: EOMI, Normal appearance, PERRL Pupil Exam: NORMAL ACCOMODATION, PERRL - ENT Exam ENT Exam: Mucous Membranes Moist, Normal Exam - Neck Exam Neck Exam: Full ROM, Normal Inspection. absent: Lymphadenopathy - Respiratory Exam Respiratory Exam: Wheezes, NORMAL BREATHING PATTERN - Cardiovascular Exam Cardiovascular Exam: REGULAR RHYTHM, RRR, +S1, +S2. absent: Murmur - GI/Abdominal Exam GI & Abdominal Exam: Soft, Normal Bowel Sounds. absent: Tenderness - Exam Speculum exam: NORMAL SPECULUM EXAM Bimanual exam: NORMAL BIMANUAL EXAM - Extremities Exam Extremities Exam: Full ROM, Normal Capillary Refill, Normal Inspection. absent: Joint Swelling, Pedal Edema - Back Exam Back Exam: NORMAL INSPECTION - Neurological Exam Neurological Exam: Abnormal Gait, Alert, Awake, CN II-XII Intact, Oriented x3 - Psychiatric Exam Psychiatric exam: Normal Affect, Normal Mood - Skin Skin Exam: Dry, Intact, Normal Color, Warm Assessment and Plan (1) Acute on chronic kidney failure Assessment & Plan: monitor hydration cont home meds Status: Acute (2) Asthma exacerbation Assessment & Plan: solu medrol o2 prn duonebs Status: Acute (3) Multiple sclerosis Assessment & Plan: cont home meds pt/ot ? yancy Status: Acute (4) DVT prophylaxis Assessment & Plan: scd nad ae hose heparin Status: Acute
[2018-07-02] MEDS: Multivitamin With Minerals Tab PO SCH (08:28)
[2018-07-02] MEDS: MethylPREDNISolone 40 mg Vial IVP SCH ×2 (08:28→21:12)
[2018-07-02] MEDS: guaiFENesin-DM 600-30 mg ER Tab PO SCH ×2 (08:30→17:22)
--- NOTE | 2018-07-02 10:26 | CP.PCM.CON ---
History of Present Illness - History of Present Illness History of Present Illness: Psychiatry consult note Pastoral Worker attempted to see patient but patient is acutely lethargic and unable to engage in psychiatric interview. Please call for consult when patient is arousable and able to engage in interview. No psychiatric complaints noted in the chart. Past Patient History - Past Medical History & Family History Past Medical History?: Yes - Past Social History Smoking Status: Former Smoker - CARDIAC Hx Cardiac Disorders: Yes Hx Congestive Heart Failure: Yes Hx Hypercholesterolemia: Yes Hx Hypertension: Yes - PULMONARY Hx Respiratory Disorders: Yes Hx Chronic Obstructive Pulmonary Disease (COPD): Yes - NEUROLOGICAL Hx Neurological Disorder: Yes Hx Dementia: Yes Hx Multiple Sclerosis: Yes Hx Seizures: No - HEENT Hx HEENT Problems: Yes Other/Comment: [place] - RENAL Hx Chronic Kidney Disease: Yes - ENDOCRINE/METABOLIC Hx Endocrine Disorders: Yes Hx Diabetes Mellitus Type 1: Yes Hx Diabetes Mellitus Type 2: Yes - HEMATOLOGICAL/ONCOLOGICAL Hx Blood Disorders: No Hx Human Immunodeficiency Virus (HIV): No - INTEGUMENTARY Hx Dermatological Problems: Yes - MUSCULOSKELETAL/RHEUMATOLOGICAL Hx Musculoskeletal Disorders: Yes Hx Falls: Yes Hx Unsteady Gait: Yes - GASTROINTESTINAL Hx Gastrointestinal Disorders: No - GENITOURINARY/GYNECOLOGICAL Hx Genitourinary Disorders: No Hx Sexually Transmitted Disorders: No - PSYCHIATRIC Hx Psychophysiologic Disorder: Yes Hx Anxiety: Yes Hx Depression: Yes Hx Substance Use: No - SURGICAL HISTORY Hx Surgeries: Yes Hx Coronary Stent: Yes (x1, hx of DVT 1992) - ANESTHESIA Hx Anesthesia: Yes Hx Anesthesia Reactions: No Hx Malignant Hyperthermia: No Has any member of the family had a problem w/ anesthesia?: No Meds Allergies/Adverse Reactions: Allergies Allergy/AdvReac Type Severity Reaction Status Date / Time No Known Allergies Allergy Verified 01/24/17 01:35 - Medications Medications: Current Medications Albuterol (Ventolin Hfa 90 Mcg/Actuation (8 G)) 1 puff IH Q2 PRN PRN Reason: Shortness of Breath Albuterol/Ipratropium (Duoneb 3 Mg/0.5 Mg (3 Ml) Ud) 3 ml INH RQID [facility] Last Admin: 07/02/18 07:48 Dose: 3 ml Alprazolam (Xanax) 0.5 mg PO BID PRN PRN Reason: Anxiety Stop: 07/08/18 16:31 Aspirin (Ecotrin) 81 mg PO DAILY [facility] Last Admin: 07/02/18 08:30 Dose: 81 mg Atorvastatin Calcium (Lipitor) 20 mg PO HS [facility] Last Admin: 07/01/18 21:16 Dose: 20 mg Baclofen (Lioresal) 20 mg PO Q12 [facility] Last Admin: 07/02/18 08:31 Dose: 20 mg Citalopram Hydrobromide (Celexa) 40 mg PO DAILY [facility] Last Admin: 07/02/18 08:31 Dose: 40 mg Clonidine HCl (Catapres) 0.2 mg PO Q12 [facility] Last Admin: 07/02/18 08:29 Dose: 0.2 mg Clopidogrel Bisulfate (Plavix) 75 mg PO DAILY [facility] Last Admin: 07/02/18 08:29 Dose: 75 mg Fenofibrate (Tricor) 48 mg PO HS [facility] Last Admin: 07/01/18 21:17 Dose: 48 mg Finasteride (Proscar) 5 mg PO DAILY [facility] Last Admin: 07/02/18 08:29 Dose: 5 mg Furosemide (Lasix) 40 mg PO DAILY [facility] Last Admin: 07/02/18 08:31 Dose: 40 mg Gabapentin (Neurontin) 300 mg PO Q12 [facility] Last Admin: 07/02/18 08:29 Dose: 300 mg Glipizide (Glucotrol) 5 mg PO BID [facility] Last Admin: 07/02/18 08:30 Dose: 5 mg Guaifenesin/Dextromethorphan (Mucinex-Dm 600-30 Mg) 1 tab PO BID [facility] Last Admin: 07/02/18 08:30 Dose: 1 tab Heparin Sodium (Porcine) (Heparin) 5,000 units SC Q12 [facility]; Protocol Hydrochlorothiazide (Microzide) 12.5 mg PO DAILY [facility] Last Admin: 07/02/18 08:28 Dose: 12.5 mg Insulin Detemir (Levemir) 40 units SC HS [facility] Last Admin: 07/01/18 22:00 Dose: 40 units Methylprednisolone (Solu-Medrol) 40 mg IVP Q12 [facility] Last Admin: 07/02/18 08:28 Dose: 40 mg Multivitamins/Minerals (Therapeutic-M Tab) 1 tab PO DAILY [facility] Last Admin: 07/02/18 08:28 Dose: 1 tab Tamsulosin HCl (Flomax) 0.8 mg PO QPM [facility] Last Admin: 04/01/19 17:53 Dose: 0.8 mg Topiramate (Topamax) 50 mg PO HS [facility] Last Admin: 07/01/18 21:17 Dose: 50 mg Results - Vital Signs Recent Vital Signs: Last Vital Signs Temp 98.2 F 07/02/18 08:00 Pulse 80 07/02/18 08:29 Resp 18 07/02/18 08:00 BP 125/65 07/02/18 08:31 Pulse Ox 94 L 07/02/18 08:00 - Labs Result Diagrams: 07/02/18 05:21 07/02/18 05:21 Labs: Laboratory Results - last 24 hr 07/01/18 07/01/18 07/01/18 11:25 16:21 21:29 WBC RBC Hgb Hct MCV MCH MCHC RDW Plt Count Sodium Potassium Chloride Carbon Dioxide Anion Gap BUN Creatinine Est GFR ( Amer) Est GFR (Non-Af Amer) POC Glucose (mg/dL) 305 H 372 H 322 H Random Glucose Calcium 07/02/18 07/02/18 07/02/18 05:21 05:21 05:42 WBC 12.0 H RBC 4.39 L Hgb 12.4 Hct 38.3 MCV 87.4 MCH 28.3 MCHC 32.4 L RDW 13.7 Plt Count 368 Sodium 136 Potassium 3.5 L Chloride 93 L Carbon Dioxide 30 Anion Gap 17 BUN 64 H Creatinine 2.1 H Est GFR ( Amer) 37 Est GFR (Non-Af Amer) 31 POC Glucose (mg/dL) 276 H Random Glucose 265 H Calcium 9.5
--- NOTE | 2018-07-02 14:14 | HP ---
HISTORY OF PRESENT ILLNESS: The patient admitted for asthma exacerbation and dehydration. The patient is well known to this provider. Has a history of neurological disorder, chronic kidney disease. He is maintaining okay, oxygenating well. on high flow oxygen. No distress. No complaints at this time. The a.m. labs and vital signs are noted. All imaging completed in ER, is reviewed by this provider. REVIEW OF SYSTEMS: Some intermittent shortness of breath and wheezing. He is comfortable at this time. PHYSICAL EXAMINATION: GENERAL: He is cognitively intact at his baseline. HEENT: Normal. HEART: S1 and S2 regular rate and rhythm. No murmur, rubs, or gallops. LUNGS: Diffuse wheezing. Good air entry. No rales or rhonchi. ABDOMEN: Soft, nontender. EXTREMITIES: Distal pulses and motor sensation neurologically intact. DIAGNOSIS AND PLAN: Asthma exacerbation. DuoNebs and Solu-Medrol. We will discontinue high flow. Start regular nasal cannula, titrate between 2 and 4 L/min to keep saturation above 94%. Physical therapy and occupational therapy evaluation. Prophylactic measures; gastrointestinal prophylaxis, venous thromboembolism prophylaxis, and ae hose. Chronic conditions, continue all medication. We will discuss with family for discharge home versus subacute in the next few days. ALTHEA Hinton MTDChloé
[2018-07-02] MEDS: Insulin Detemir 100 Units/ml Inj SC SCH (21:37)
[2018-07-03] MEDS: Albuterol HFA 90 mcg/actuation (8 g) IH PRN (04:54)
[2018-07-03 05:57] LABS: BASO % 0.1 % (0.0-2.0); LYMPH % 8.5 % (20.0-40.0); MEAN CELL VOLUME 87.9 fl (80.0-94.0); MEAN CORPUSCULAR HEMOGLOBIN 28.1 pg (27.0-31.0); MEAN PLATELET VOLUME 7.9 fl (7.2-11.7); MONO # 0.8 K/uL (0.0-0.8); MONO % 6.5 % (0.0-10.0); NEUT % 84.9 % (50.0-75.0); PLATELET COUNT 365 K/uL (130-400); RBC 4.26 Mil/uL (4.40-5.90); RED CELL DISTRIBUTION WIDTH 13.7 % (11.5-14.5); WHITE BLOOD COUNT 11.7 K/uL (4.8-10.8)
[2018-07-03 06:04] LABS: ALB/GLOB RATIO 1.3 (1.0-2.1); CALCIUM 9.7 mg/dL (8.4-10.2)
[2018-07-03] MEDS: Albuterol-Ipratrop 3 mg / 0.5 (3 ml) UD INH SCH ×4 (07:59→19:16)
[2018-07-03] MEDS: Multivitamin With Minerals Tab PO SCH (08:34)
[2018-07-03] MEDS: guaiFENesin-DM 600-30 mg ER Tab PO SCH ×2 (08:35→17:13)
[2018-07-03] MEDS: MethylPREDNISolone 40 mg Vial IVP SCH ×2 (08:39→21:46)
[2018-07-03 09:04] LABS: LYMPHOCYTE 8 % (20-50); MONOCYTE 2 % (0-10); MYELOCYTE 1 % (0-0); NEUTROPHIL 89 % (42-75); TOTAL CELLS COUNTED 100
[2018-07-03 09:05] LABS: PLATELET ESTIMATE NORMAL (NORMAL)
--- NOTE | 2018-07-03 09:10 | CP.PCM.PN ---
Subjective - Date & Time of Evaluation Date of Evaluation: 07/03/18 Time of Evaluation: 09:10 - Subjective Subjective: pt doing well, still anxious. no f/,c n/v/d. bw noted. kdur ordered. for yancy pt mental status at baseline Objective - Vital Signs/Intake and Output Vital Signs (last 24 hours): Temp Pulse Resp BP Pulse Ox 97.4 F L 84 20 125/65 96 07/03/18 08:10 07/03/18 08:36 07/03/18 08:10 07/03/18 08:36 07/03/18 08:10 - Medications Medications: Current Medications Albuterol (Ventolin Hfa 90 Mcg/Actuation (8 G)) 1 puff IH Q2 PRN PRN Reason: Shortness of Breath Last Admin: 07/03/18 04:54 Dose: 1 puff Albuterol/Ipratropium (Duoneb 3 Mg/0.5 Mg (3 Ml) Ud) 3 ml INH RQID [facility] Last Admin: 07/03/18 07:59 Dose: 3 ml Alprazolam (Xanax) 0.5 mg PO BID PRN PRN Reason: Anxiety Stop: 07/08/18 16:31 Last Admin: 07/02/18 21:08 Dose: 0.5 mg Aspirin (Ecotrin) 81 mg PO DAILY [facility] Last Admin: 07/03/18 08:35 Dose: 81 mg Atorvastatin Calcium (Lipitor) 20 mg PO HS [facility] Last Admin: 07/02/18 21:09 Dose: 20 mg Baclofen (Lioresal) 20 mg PO Q12 [facility] Last Admin: 07/03/18 08:36 Dose: 20 mg Citalopram Hydrobromide (Celexa) 40 mg PO DAILY [facility] Last Admin: 07/03/18 08:35 Dose: 40 mg Clonidine HCl (Catapres) 0.2 mg PO Q12 [facility] Last Admin: 07/03/18 08:36 Dose: 0.2 mg Clopidogrel Bisulfate (Plavix) 75 mg PO DAILY [facility] Last Admin: 07/03/18 08:35 Dose: 75 mg Fenofibrate (Tricor) 48 mg PO HS [facility] Last Admin: 07/02/18 21:23 Dose: 48 mg Finasteride (Proscar) 5 mg PO DAILY [facility] Last Admin: 07/03/18 08:35 Dose: 5 mg Furosemide (Lasix) 40 mg PO DAILY [facility] Last Admin: 07/03/18 08:36 Dose: 40 mg Gabapentin (Neurontin) 300 mg PO Q12 [facility] Last Admin: 07/03/18 08:34 Dose: 300 mg Glipizide (Glucotrol) 5 mg PO BID [facility] Last Admin: 07/03/18 08:35 Dose: 5 mg Guaifenesin/Dextromethorphan (Mucinex-Dm 600-30 Mg) 1 tab PO BID [facility] Last Admin: 07/03/18 08:35 Dose: 1 tab Heparin Sodium (Porcine) (Heparin) 5,000 units SC Q12 [facility]; Protocol Last Admin: 07/03/18 08:40 Dose: 5,000 units Hydrochlorothiazide (Microzide) 12.5 mg PO DAILY [facility] Last Admin: 07/03/18 08:36 Dose: 12.5 mg Insulin Detemir (Levemir) 40 units SC [facility] Last Admin: 07/02/18 21:37 Dose: 40 units Methylprednisolone (Solu-Medrol) 40 mg IVP Q12 [facility] Last Admin: 07/03/18 08:39 Dose: 40 mg Multivitamins/Minerals (Therapeutic-M Tab) 1 tab PO DAILY [facility] Last Admin: 07/03/18 08:34 Dose: 1 tab Potassium Chloride (K-Dur 20 Meq Er Tab) 20 meq PO ONCE ONE Stop: 07/03/18 09:10 Tamsulosin HCl (Flomax) 0.8 mg PO QPM [facility] Last Admin: 07/02/18 17:23 Dose: 0.8 mg Topiramate (Topamax) 50 mg PO [facility] Last Admin: 07/02/18 21:08 Dose: 50 mg - Labs Labs: 07/03/18 05:00 07/03/18 05:00 - Constitutional Appears: Non-toxic, No Acute Distress, Confused, Chronically Ill - Head Exam Head Exam: ATRAUMATIC, NORMAL INSPECTION, NORMOCEPHALIC - Eye Exam Eye Exam: EOMI, Normal appearance, PERRL Pupil Exam: NORMAL ACCOMODATION, PERRL - ENT Exam ENT Exam: Mucous Membranes Moist, Normal Exam - Neck Exam Neck Exam: Full ROM, Normal Inspection. absent: Lymphadenopathy - Respiratory Exam Respiratory Exam: Clear to Ausculation Bilateral, NORMAL BREATHING PATTERN - Cardiovascular Exam Cardiovascular Exam: REGULAR RHYTHM, RRR, +S1, +S2. absent: Murmur - GI/Abdominal Exam GI & Abdominal Exam: Soft, Normal Bowel Sounds. absent: Tenderness - Extremities Exam Extremities Exam: Full ROM, Normal Capillary Refill, Normal Inspection. absent: Joint Swelling, Pedal Edema - Back Exam Back Exam: NORMAL INSPECTION - Neurological Exam Neurological Exam: Abnormal Gait, Alert, Awake, CN II-XII Intact, Oriented x3 - Psychiatric Exam Psychiatric exam: Normal Affect, Normal Mood - Skin Skin Exam: Dry, Intact, Normal Color, Warm Assessment and Plan (1) Acute on chronic kidney failure Status: Acute (2) Asthma exacerbation Status: Acute (3) Multiple sclerosis Status: Acute (4) DVT prophylaxis Status: Acute - Assessment and Plan (Free Text) Assessment: (1) Acute on chronic kidney failure Assessment & Plan: monitor hydration cont home meds Status: Acute (2) Asthma exacerbation Assessment & Plan: solu medrol o2 prn duonebs Status: Acute (3) Multiple sclerosis Assessment & Plan: cont home meds pt/ot ? yancy Status: Acute (4) DVT prophylaxis Assessment & Plan: scd nad ae hose heparin Status: Acute
[2018-07-03] MEDS ORDERED: Potassium Chloride 20 mEq ER Tab PO ONE (09:15)
--- NOTE | 2018-07-03 11:52 | CP.PCM.CON ---
History of Present Illness - History of Present Illness History of Present Illness: Psychiatry consult note CC: AMS HPI: 77 yo [place] male, currently w/ AMS, unable to engage appropriately in psychiatric interview. Patient is awake, but keeps eyes closed and does not answer questions, just makes noises. PMHx: Multiple sclerosis, DM, HTN, and depression. SHx: , [place]. No drugs/etoh/cig. Impression: 77 yo male w/ history of depression, w/ acute delirium vs worsening major neurocognitive disorder. Patient is unable to provide any relevant information at this time due to AMS. -Recommend to stop Xanax as it may worsen confusion and agitation -Can consider treatment with Depakote 125 mg PO BID if patient has behavioral disturbances Past Patient History - Past Medical History & Family History Past Medical History?: Yes - Past Social History Smoking Status: Former Smoker - CARDIAC Hx Cardiac Disorders: Yes Hx Congestive Heart Failure: Yes Hx Hypercholesterolemia: Yes Hx Hypertension: Yes - PULMONARY Hx Respiratory Disorders: Yes Hx Chronic Obstructive Pulmonary Disease (COPD): Yes - NEUROLOGICAL Hx Neurological Disorder: Yes Hx Dementia: Yes Hx Multiple Sclerosis: Yes Hx Seizures: No - HEENT Hx HEENT Problems: Yes Other/Comment: [place] - RENAL Hx Chronic Kidney Disease: Yes - ENDOCRINE/METABOLIC Hx Endocrine Disorders: Yes Hx Diabetes Mellitus Type 1: Yes Hx Diabetes Mellitus Type 2: Yes - HEMATOLOGICAL/ONCOLOGICAL Hx Blood Disorders: No Hx Human Immunodeficiency Virus (HIV): No - INTEGUMENTARY Hx Dermatological Problems: Yes - MUSCULOSKELETAL/RHEUMATOLOGICAL Hx Musculoskeletal Disorders: Yes Hx Falls: Yes Hx Unsteady Gait: Yes - GASTROINTESTINAL Hx Gastrointestinal Disorders: No - GENITOURINARY/GYNECOLOGICAL Hx Genitourinary Disorders: No Hx Sexually Transmitted Disorders: No - PSYCHIATRIC Hx Psychophysiologic Disorder: Yes Hx Anxiety: Yes Hx Depression: Yes Hx Substance Use: No - SURGICAL HISTORY Hx Surgeries: Yes Hx Coronary Stent: Yes (x1, hx of DVT 1992) - ANESTHESIA Hx Anesthesia: Yes Hx Anesthesia Reactions: No Hx Malignant Hyperthermia: No Has any member of the family had a problem w/ anesthesia?: No Meds Allergies/Adverse Reactions: Allergies Allergy/AdvReac Type Severity Reaction Status Date / Time No Known Allergies Allergy Verified 01/24/17 01:35 - Medications Medications: Current Medications Albuterol (Ventolin Hfa 90 Mcg/Actuation (8 G)) 1 puff IH Q2 PRN PRN Reason: Shortness of Breath Last Admin: 07/03/18 04:54 Dose: 1 puff Albuterol/Ipratropium (Duoneb 3 Mg/0.5 Mg (3 Ml) Ud) 3 ml INH RQID [facility] Last Admin: 07/03/18 11:10 Dose: 3 ml Alprazolam (Xanax) 0.5 mg PO BID PRN PRN Reason: Anxiety Stop: 07/08/18 16:31 Last Admin: 07/02/18 21:08 Dose: 0.5 mg Aspirin (Ecotrin) 81 mg PO DAILY [facility] Last Admin: 07/03/18 08:35 Dose: 81 mg Atorvastatin Calcium (Lipitor) 20 mg PO HS [facility] Last Admin: 07/02/18 21:09 Dose: 20 mg Baclofen (Lioresal) 20 mg PO Q12 [facility] Last Admin: 07/03/18 08:36 Dose: 20 mg Citalopram Hydrobromide (Celexa) 40 mg PO DAILY [facility] Last Admin: 07/03/18 08:35 Dose: 40 mg Clonidine HCl (Catapres) 0.2 mg PO Q12 [facility] Last Admin: 07/03/18 08:36 Dose: 0.2 mg Clopidogrel Bisulfate (Plavix) 75 mg PO DAILY [facility] Last Admin: 07/03/18 08:35 Dose: 75 mg Fenofibrate (Tricor) 48 mg PO HS [facility] Last Admin: 07/02/18 21:23 Dose: 48 mg Finasteride (Proscar) 5 mg PO DAILY [facility] Last Admin: 07/03/18 08:35 Dose: 5 mg Furosemide (Lasix) 40 mg PO DAILY [facility] Last Admin: 07/03/18 08:36 Dose: 40 mg Gabapentin (Neurontin) 300 mg PO Q12 [facility] Last Admin: 07/03/18 08:34 Dose: 300 mg Glipizide (Glucotrol) 5 mg PO BID [facility] Last Admin: 07/03/18 08:35 Dose: 5 mg Guaifenesin/Dextromethorphan (Mucinex-Dm 600-30 Mg) 1 tab PO BID [facility] Last Admin: 07/03/18 08:35 Dose: 1 tab Heparin Sodium (Porcine) (Heparin) 5,000 units SC Q12 [facility]; Protocol Last Admin: 07/03/18 08:40 Dose: 5,000 units Hydrochlorothiazide (Microzide) 12.5 mg PO DAILY [facility] Last Admin: 07/03/18 08:36 Dose: 12.5 mg Insulin Detemir (Levemir) 40 units SC [facility] Last Admin: 07/02/18 21:37 Dose: 40 units Methylprednisolone (Solu-Medrol) 40 mg IVP Q12 [facility] Last Admin: 07/03/18 08:39 Dose: 40 mg Multivitamins/Minerals (Therapeutic-M Tab) 1 tab PO DAILY [facility] Last Admin: 07/03/18 08:34 Dose: 1 tab Tamsulosin HCl (Flomax) 0.8 mg PO QPM [facility] Last Admin: 07/02/18 17:23 Dose: 0.8 mg Topiramate (Topamax) 50 mg PO [facility] Last Admin: 07/02/18 21:08 Dose: 50 mg Results - Vital Signs Recent Vital Signs: Last Vital Signs Temp 97.4 F L 07/03/18 08:10 Pulse 104 H 07/03/18 09:00 Resp 20 07/03/18 08:10 BP 125/65 07/03/18 08:36 Pulse Ox 96 07/03/18 08:10 - Labs Result Diagrams: 07/03/18 05:00 07/03/18 05:00 Labs: Laboratory Results - last 24 hr 07/02/18 07/02/18 07/03/18 15:43 21:34 05:00 WBC 11.7 H RBC 4.26 L Hgb 12.0 Hct 37.4 MCV 87.9 MCH 28.1 MCHC 32.0 L RDW 13.7 Plt Count 365 MPV 7.9 Neut % (Auto) 84.9 H Lymph % (Auto) 8.5 L [place] % (Auto) 6.5 Eos % (Auto) 0.0 Baso % (Auto) 0.1 Neut # (Auto) 10.0 H Lymph # (Auto) 1.0 [place] # (Auto) 0.8 Eos # (Auto) 0.0 Baso # (Auto) 0.0 Neutrophils % (Manual) 89 H Lymphocytes % (Manual) 8 L Monocytes % (Manual) 2 Myelocytes % 1 H Platelet Estimate Normal RBC Morphology Normal Sodium Potassium Chloride Carbon Dioxide Anion Gap BUN Creatinine Est GFR ( Amer) Est GFR (Non-Af Amer) POC Glucose (mg/dL) 316 H 245 H Random Glucose Calcium Phosphorus Magnesium Total Bilirubin AST ALT Alkaline Phosphatase Total Protein Albumin Globulin Albumin/Globulin Ratio 07/03/18 07/03/18 07/03/18 05:00 05:29 11:08 WBC RBC Hgb Hct MCV MCH MCHC RDW Plt Count MPV Neut % (Auto) Lymph % (Auto) [place] % (Auto) Eos % (Auto) Baso % (Auto) Neut # (Auto) Lymph # (Auto) [place] # (Auto) Eos # (Auto) Baso # (Auto) Neutrophils % (Manual) Lymphocytes % (Manual) Monocytes % (Manual) Myelocytes % Platelet Estimate RBC Morphology Sodium 139 Potassium 3.5 L Chloride 95 L Carbon Dioxide 31 H Anion Gap 17 BUN 78 H Creatinine 2.5 H Est GFR ( Amer) 30 Est GFR (Non-Af Amer) 25 POC Glucose (mg/dL) 244 H 164 H Random Glucose 218 H Calcium 9.7 Phosphorus 4.2 Magnesium 2.6 H Total Bilirubin 0.5 AST 51 ALT 48 Alkaline Phosphatase 79 Total Protein 7.2 Albumin 4.0 Globulin 3.2 Albumin/Globulin Ratio 1.3
[2018-07-03] MEDS: Divalproex 125 mg DR (BID formulation) PO SCH (17:13)
[2018-07-03] MEDS: Insulin Detemir 100 Units/ml Inj SC SCH (22:02)
[2018-07-04] MEDS ORDERED: Dextrose 50% SYRINGE Inj (50 ml) IV PRN (06:01)
[2018-07-04] MEDS ORDERED: Glucagon Recombinant 1 mg Inj IM PRN (06:01)
[2018-07-04] MEDS: Albuterol-Ipratrop 3 mg / 0.5 (3 ml) UD INH SCH ×4 (08:06→19:21)
[2018-07-04] MEDS: Multivitamin With Minerals Tab PO SCH (08:35)
[2018-07-04] MEDS: Divalproex 125 mg DR (BID formulation) PO SCH ×2 (08:35→17:09)
[2018-07-04] MEDS: MethylPREDNISolone 40 mg Vial IVP SCH (08:36)
[2018-07-04] MEDS: guaiFENesin-DM 600-30 mg ER Tab PO SCH ×2 (08:36→17:09)
[2018-07-04] MEDS ORDERED: Sodium Chloride 3% for Inhalation 4 ML VIAL.NEB IH PRN (09:34)
--- NOTE | 2018-07-04 09:37 | CP.PCM.PN ---
Subjective - Date & Time of Evaluation Date of Evaluation: 07/04/18 Time of Evaluation: 09:35 - Subjective Subjective: pt in no pain/distress. no f/c, n/v/d. agitated and conslt form psych appriciated. nbw noted. vs noted.for yancy when stable Objective - Vital Signs/Intake and Output Vital Signs (last 24 hours): Temp Pulse Resp BP Pulse Ox 97.6 F 92 H 22 138/94 H 92 L 07/04/18 07:59 07/04/18 08:36 07/04/18 08:06 07/04/18 08:36 07/04/18 07:59 - Medications Medications: Current Medications Albuterol (Ventolin Hfa 90 Mcg/Actuation (8 G)) 1 puff IH Q2 PRN PRN Reason: Shortness of Breath Last Admin: 07/03/18 04:54 Dose: 1 puff Albuterol/Ipratropium (Duoneb 3 Mg/0.5 Mg (3 Ml) Ud) 3 ml INH RQ4 [facility] Aspirin (Ecotrin) 81 mg PO DAILY [facility] Last Admin: 07/04/18 08:35 Dose: 81 mg Atorvastatin Calcium (Lipitor) 20 mg PO HS [facility] Last Admin: 07/03/18 21:44 Dose: 20 mg Baclofen (Lioresal) 20 mg PO Q12 [facility] Last Admin: 07/04/18 08:37 Dose: 20 mg Citalopram Hydrobromide (Celexa) 40 mg PO DAILY [facility] Last Admin: 07/04/18 08:36 Dose: 40 mg Clonidine HCl (Catapres) 0.2 mg PO Q12 [facility] Last Admin: 07/04/18 08:36 Dose: 0.2 mg Clopidogrel Bisulfate (Plavix) 75 mg PO DAILY [facility] Last Admin: 07/04/18 08:35 Dose: 75 mg Dextrose (Dextrose 50% Inj) 0 ml IV STAT PRN; Protocol PRN Reason: Hypoglycemia Protocol Last Admin: 07/04/18 06:17 Dose: 50 ml Dextrose (Glutose 15) 0 gm PO ONCE PRN; Protocol PRN Reason: Hypoglycemia Protocol Divalproex Sodium (Depakote Dr(*Bid*)) 125 mg PO BID [facility] Last Admin: 07/04/18 08:35 Dose: 125 mg Fenofibrate (Tricor) 48 mg PO HS [facility] Last Admin: 07/03/18 21:44 Dose: 48 mg Finasteride (Proscar) 5 mg PO DAILY [facility] Last Admin: 07/04/18 08:36 Dose: 5 mg Furosemide (Lasix) 40 mg PO DAILY [facility] Last Admin: 07/04/18 08:35 Dose: 40 mg Gabapentin (Neurontin) 300 mg PO Q12 [facility] Last Admin: 07/04/18 08:37 Dose: 300 mg Glipizide (Glucotrol) 5 mg PO BID [facility] Last Admin: 07/04/18 08:36 Dose: 5 mg Glucagon (Glucagen Diagnostic Kit) 0 mg IM STAT PRN; Protocol PRN Reason: Hypoglycemia Protocol Guaifenesin/Dextromethorphan (Mucinex-Dm 600-30 Mg) 1 tab PO BID [facility] Last Admin: 07/04/18 08:36 Dose: 1 tab Heparin Sodium (Porcine) (Heparin) 5,000 units SC Q12 [facility]; Protocol Last Admin: 07/04/18 08:37 Dose: 5,000 units Hydrochlorothiazide (Microzide) 12.5 mg PO DAILY [facility] Last Admin: 07/04/18 08:34 Dose: 12.5 mg Methylprednisolone 60 mg/ (Sodium Chloride) 50 mls @ 100 mls/hr IVPB Q8 [facility] Insulin Detemir (Levemir) 40 units SC [facility] Last Admin: 07/03/18 22:02 Dose: 40 units Multivitamins/Minerals (Therapeutic-M Tab) 1 tab PO DAILY [facility] Last Admin: 07/04/18 08:35 Dose: 1 tab Tamsulosin HCl (Flomax) 0.8 mg PO QPM [facility] Last Admin: 07/02/18 17:23 Dose: 0.8 mg Topiramate (Topamax) 50 mg PO [facility] Last Admin: 07/03/18 21:45 Dose: 50 mg - Labs Labs: 07/03/18 05:00 07/03/18 05:00 - Constitutional Appears: Well, Non-toxic, No Acute Distress - Head Exam Head Exam: ATRAUMATIC, NORMAL INSPECTION, NORMOCEPHALIC - Eye Exam Eye Exam: EOMI, Normal appearance, PERRL Pupil Exam: NORMAL ACCOMODATION, PERRL - ENT Exam ENT Exam: Mucous Membranes Moist, Normal Exam - Neck Exam Neck Exam: Full ROM, Normal Inspection. absent: Lymphadenopathy - Respiratory Exam Respiratory Exam: Clear to Ausculation Bilateral, NORMAL BREATHING PATTERN - Cardiovascular Exam Cardiovascular Exam: REGULAR RHYTHM, RRR, +S1, +S2. absent: Murmur - GI/Abdominal Exam GI & Abdominal Exam: Soft, Normal Bowel Sounds. absent: Tenderness - Extremities Exam Extremities Exam: Full ROM, Normal Capillary Refill, Normal Inspection. absent: Joint Swelling, Pedal Edema - Back Exam Back Exam: NORMAL INSPECTION - Neurological Exam Neurological Exam: Abnormal Gait, Alert, Awake, CN II-XII Intact, Oriented x3 - Psychiatric Exam Psychiatric exam: Normal Affect, Normal Mood - Skin Skin Exam: Dry, Intact, Normal Color, Warm Assessment and Plan (1) Acute on chronic kidney failure Assessment & Plan: cont to trend ivf ?? elevation from steroids. will monitor Status: Acute (2) Asthma exacerbation Assessment & Plan: vapotherm prn o2 solu medrol duonebs Status: Acute (3) Multiple sclerosis Assessment & Plan: cont home meds pt/ot yancy Status: Acute (4) DVT prophylaxis Assessment & Plan: scd nad ae hose heparin Status: Acute
[2018-07-04] MEDS ORDERED: methylPREDNISolone 60 MG in Sodium Chloride 0.9% 50 ML IVPB SCH (09:45)
[2018-07-04] MEDS: Azithromycin 500 MG in Sodium Chloride 0.9% 250 ML IVPB SCH (10:41)
--- NOTE | 2018-07-04 11:08 | RAD ---
Date of service: 07/04/2018 PROCEDURE: CHEST RADIOGRAPH, 1 VIEW HISTORY: asthma exacerbation, hhypoxia COMPARISON: None available. FINDINGS: LUNGS: 06/30/2018 PLEURA: No pneumothorax or pleural fluid seen. CARDIOVASCULAR: No aortic atherosclerotic calcification present. Normal. OSSEOUS STRUCTURES: No significant abnormalities. VISUALIZED UPPER ABDOMEN: Normal. OTHER FINDINGS: None. IMPRESSION: No active disease.
[2018-07-04] MEDS: Acetylcysteine 20% Inhal Soln (4ml) PO SCH (11:26)
--- NOTE | 2018-07-04 14:35 | CON ---
DATE: 07/04/2018 HISTORY OF PRESENT ILLNESS: Mr. Rees is a 77-year-old male who was referred for pulmonary evaluation by Eric Solis. He was admitted via the emergency room because of progressively worsening shortness of breath for the past several days, associated with cough and thick, tenacious mucus production with blockage of airways. He was evaluated in the emergency room and admitted for shortness of breath and what appears to be exacerbation of chronic obstructive pulmonary disease. PAST MEDICAL HISTORY: He has a history of multiple sclerosis and dementia which has progressed over the past several years. He also has history of anxiety, benign prostatic hypertrophy, coronary artery disease, congestive heart failure, depression, diabetes mellitus, dizziness, thrombosis, hypertension, hyperlipidemia. FAMILY HISTORY: Nonrevealing. SOCIAL HISTORY: He used to smoke heavily in the past. Does not use drugs or alcohol. Lives at home with , but is presently scheduled to return to [facility]. PHYSICAL EXAMINATION: GENERAL: The patient is short of breath with episodes of agitation. The patient is responsive to touch but nonverbal. VITAL SIGNS: Blood pressure 186/73, pulse 86, respiratory rate 22-24 per minute, O2 saturation 92% on high-flow oxygen. HEENT: Mouth shows poor hygiene with thick mucous engorgement of pharynx and the patient has difficulty swallowing. LUNGS: Coarse bilateral rales with dullness at both bases and poor air entry. HEART: Regular. ABDOMEN: Soft, nontender, no organomegaly. EXTREMITIES: Shows no edema or cyanosis. CENTRAL NERVOUS SYSTEM: The patient is responsive to pain and touch, but nonverbal and has gross deficits bilaterally from both cognitive impairment and difficulty with ambulation and poor muscle tone. LABORATORY DATA: Remarkable for WBC of 11.7, hemoglobin 12, platelet count of 365,000. Arterial blood gas pH 7.33, pCO2 of 56, pO2 of 94 and O2 saturation 99%. This was on 30% high-flow oxygen. Sodium 139, potassium 3.5, BUN of 78, creatinine 2.5 and glucose of 244. Chest x-ray is remarkable for interstitial markings, slightly increased, coarse with few scattered peribronchial coughing changes, could be due to reactive airway disease or viral illness. EKG normal sinus rhythm. IMPRESSION: The patient's clinical picture is compatible with acute exacerbation of chronic obstructive pulmonary disease, superimposed on changes of multiple sclerosis and worsened by mucus plugging of airways. PLAN: The plan is intravenous steroids as well as bronchodilators. Will continue high-flow oxygen. Obtain sputum for Gram stain and cultures. Continue antibiotic therapy. Would obtain speech therapy for swallowing evaluation. Case was discussed with the patient's family at bedside son and and they understand that the patient's situation is extremely guarded. We will continue followup with you. The patient is to be in hospital for a few more days for adequate, appropriate medical medication [facility]. Roland Doty MD
[2018-07-04] MEDS: Insulin Detemir 100 Units/ml Inj SC SCH (22:02)
[2018-07-05] MEDS: Albuterol-Ipratrop 3 mg / 0.5 (3 ml) UD INH SCH ×7 (00:29→23:36)
[2018-07-05 08:23] LABS: ABG ALLEN TEST YES; ARTERIAL BLOOD GAS HCO3 32.7 mmol/L (21-28); ARTERIAL BLOOD GAS HEMOGLOBIN 13.1 g/dL (11.7-17.4); ARTERIAL BLOOD GAS O2 CAPACITY 17.9 mL/dL (16-24); ARTERIAL BLOOD GAS O2 CONTENT 17.5 ML/dL (15-23); ARTERIAL BLOOD GAS O2 SAT 97.9 % (95-98); ARTERIAL BLOOD GAS PCO2 43 mm/Hg (35-45); ARTERIAL BLOOD GAS PH 7.51 (7.35-7.45); ARTERIAL BLOOD GAS PO2 76 mm/Hg (80-100); ARTERIAL BLOOD GAS TCO2 35.6 mmol/L (22-28)
[2018-07-05] MEDS: Divalproex 125 mg DR (BID formulation) PO SCH ×2 (08:47→17:05)
[2018-07-05] MEDS: guaiFENesin-DM 600-30 mg ER Tab PO SCH ×2 (08:52→17:07)
[2018-07-05] MEDS: Azithromycin 500 MG in Sodium Chloride 0.9% 250 ML IVPB SCH (08:56)
[2018-07-05] MEDS: Multivitamin With Minerals Tab PO SCH (08:56)
--- NOTE | 2018-07-05 10:29 | CP.PCM.PN ---
Subjective - Date & Time of Evaluation Date of Evaluation: 07/05/18 Time of Evaluation: 10:29 - Subjective Subjective: MORE AWAKE TODAY SOB LESS ORAL SECRETIONS LESS STILL VERY CONFUSED Objective - Vital Signs/Intake and Output Vital Signs (last 24 hours): Temp Pulse Resp BP Pulse Ox 97.5 F L 86 22 165/88 H 96 07/05/18 08:14 07/05/18 08:44 07/05/18 08:14 07/05/18 08:50 07/05/18 08:14 - Medications Medications: Current Medications Acetylcysteine (Acetylcysteine 20%) 3 ml PO BID [facility] Stop: 07/05/18 17:01 Last Admin: 07/04/18 11:26 Dose: 3 ml Albuterol (Ventolin Hfa 90 Mcg/Actuation (8 G)) 1 puff IH Q2 PRN PRN Reason: Shortness of Breath Last Admin: 07/03/18 04:54 Dose: 1 puff Albuterol/Ipratropium (Duoneb 3 Mg/0.5 Mg (3 Ml) Ud) 3 ml INH RQ4 [facility] Last Admin: 07/05/18 08:07 Dose: 3 ml Aspirin (Ecotrin) 81 mg PO DAILY [facility] Last Admin: 07/05/18 08:47 Dose: 81 mg Atorvastatin Calcium (Lipitor) 20 mg PO HS [facility] Last Admin: 07/04/18 21:59 Dose: 20 mg Baclofen (Lioresal) 20 mg PO Q12 [facility] Last Admin: 07/05/18 08:51 Dose: 20 mg Citalopram Hydrobromide (Celexa) 40 mg PO DAILY [facility] Last Admin: 07/05/18 08:46 Dose: 40 mg Clonidine HCl (Catapres) 0.2 mg PO Q12 [facility] Last Admin: 07/05/18 08:44 Dose: 0.2 mg Clopidogrel Bisulfate (Plavix) 75 mg PO DAILY [facility] Last Admin: 07/05/18 08:53 Dose: 75 mg Dextrose (Dextrose 50% Inj) 0 ml IV STAT PRN; Protocol PRN Reason: Hypoglycemia Protocol Last Admin: 07/04/18 06:17 Dose: 50 ml Dextrose (Glutose 15) 0 gm PO ONCE PRN; Protocol PRN Reason: Hypoglycemia Protocol Divalproex Sodium (Depakote Dr(*Bid*)) 125 mg PO BID [facility] Last Admin: 07/05/18 08:47 Dose: 125 mg Fenofibrate (Tricor) 48 mg PO HS [facility] Last Admin: 07/04/18 21:58 Dose: 48 mg Finasteride (Proscar) 5 mg PO DAILY [facility] Last Admin: 07/05/18 08:53 Dose: 5 mg Furosemide (Lasix) 40 mg PO DAILY [facility] Last Admin: 07/05/18 08:50 Dose: 40 mg Gabapentin (Neurontin) 300 mg PO Q12 [facility] Last Admin: 07/05/18 08:52 Dose: 300 mg Glipizide (Glucotrol) 5 mg PO BID [facility] Last Admin: 07/05/18 08:47 Dose: 5 mg Glucagon (Glucagen Diagnostic Kit) 0 mg IM STAT PRN; Protocol PRN Reason: Hypoglycemia Protocol Guaifenesin/Dextromethorphan (Mucinex-Dm 600-30 Mg) 1 tab PO BID [facility] Last Admin: 07/05/18 08:52 Dose: 1 tab Heparin Sodium (Porcine) (Heparin) 5,000 units SC Q12 [facility]; Protocol Last Admin: 07/05/18 08:48 Dose: 5,000 units Hydrochlorothiazide (Microzide) 12.5 mg PO DAILY [facility] Last Admin: 07/05/18 08:51 Dose: 12.5 mg Azithromycin 500 mg/ Sodium (Chloride) 250 mls @ 250 mls/hr IVPB DAILY [facility]; Protocol Last Admin: 07/05/18 08:56 Dose: 250 mls/hr Insulin Detemir (Levemir) 40 units SC HS [facility] Last Admin: 07/04/18 22:02 Dose: 40 units Methylprednisolone (Solu-Medrol) 60 mg IV Q8H [facility] Last Admin: 07/05/18 08:54 Dose: 60 mg Multivitamins/Minerals (Therapeutic-M Tab) 1 tab PO DAILY [facility] Last Admin: 07/05/18 08:56 Dose: 1 tab Tamsulosin HCl (Flomax) 0.8 mg PO QPM [facility] Last Admin: 07/04/18 17:18 Dose: 0.8 mg Topiramate (Topamax) 50 mg PO HS [facility] Last Admin: 07/04/18 21:58 Dose: 50 mg - Labs Labs: 07/03/18 05:00 07/03/18 05:00 - Constitutional Appears: Confused, Chronically Ill - Head Exam Head Exam: ATRAUMATIC, NORMAL INSPECTION, NORMOCEPHALIC - Eye Exam Eye Exam: EOMI, Normal appearance, PERRL Pupil Exam: NORMAL ACCOMODATION, PERRL - ENT Exam ENT Exam: Mucous Membranes Moist, Normal Exam - Neck Exam Neck Exam: Full ROM, Normal Inspection. absent: Lymphadenopathy - Respiratory Exam Respiratory Exam: Decreased Breath Sounds, Prolonged Expiratory Phase, Rales, Wheezes, NORMAL BREATHING PATTERN Additional comments: ON HIGH FLOW O2 - Cardiovascular Exam Cardiovascular Exam: REGULAR RHYTHM, +S1, +S2. absent: Murmur - GI/Abdominal Exam GI & Abdominal Exam: Soft, Normal Bowel Sounds. absent: Tenderness - Rectal Exam Rectal Exam: NORMAL INSPECTION - Extremities Exam Extremities Exam: Full ROM, Normal Capillary Refill, Normal Inspection. absent: Joint Swelling, Pedal Edema - Back Exam Back Exam: NORMAL INSPECTION - Neurological Exam Neurological Exam: Alert, Awake, CN II-XII Intact, Normal Gait, Oriented x3 - Psychiatric Exam Psychiatric exam: Normal Affect, Normal Mood - Skin Skin Exam: Dry, Intact, Normal Color, Warm - Additional Findings Additional findings: CXR-NO ACTIVE DZ Assessment and Plan - Assessment and Plan (Free Text) Assessment: ACUTE EXAC OF COPD DEMENTIA HX OF MS Plan: CONTINUE CURRENT RX BEGIN TOP TAPER STEROIDS IN AM WEAN OFF HIGH FLOW O2
[2018-07-05] MEDS: MethylPREDNISolone 40 mg Vial IV SCH ×2 (12:59→17:44)
[2018-07-05] MEDS: Acetylcysteine 20% Inhal Soln (4ml) PO SCH ×3 (13:49→19:02)
--- NOTE | 2018-07-05 19:01 | CP.PCM.PN ---
Subjective - Date & Time of Evaluation Date of Evaluation: 07/05/18 Time of Evaluation: 19:01 - Subjective Subjective: pt doing well. no f/c, n/v/d. on high flow w/ daughter at bedside. case d/c w/ same. bw noted. cxr noted. pulm consult appriciated Objective - Vital Signs/Intake and Output Vital Signs (last 24 hours): Temp Pulse Resp BP Pulse Ox 97.2 F L 81 18 137/58 L 94 L 07/05/18 15:56 07/05/18 15:56 07/05/18 15:56 07/05/18 15:56 07/05/18 15:56 - Medications Medications: Current Medications Albuterol (Ventolin Hfa 90 Mcg/Actuation (8 G)) 1 puff IH Q2 PRN PRN Reason: Shortness of Breath Last Admin: 07/03/18 04:54 Dose: 1 puff Albuterol/Ipratropium (Duoneb 3 Mg/0.5 Mg (3 Ml) Ud) 3 ml INH RQ4 [facility] Last Admin: 07/05/18 15:47 Dose: 3 ml Aspirin (Ecotrin) 81 mg PO DAILY [facility] Last Admin: 07/05/18 08:47 Dose: 81 mg Atorvastatin Calcium (Lipitor) 20 mg PO HS [facility] Last Admin: 07/04/18 21:59 Dose: 20 mg Baclofen (Lioresal) 20 mg PO Q12 [facility] Last Admin: 07/05/18 08:51 Dose: 20 mg Citalopram Hydrobromide (Celexa) 40 mg PO DAILY [facility] Last Admin: 07/05/18 08:46 Dose: 40 mg Clonidine HCl (Catapres) 0.2 mg PO Q12 [facility] Last Admin: 07/05/18 08:44 Dose: 0.2 mg Clopidogrel Bisulfate (Plavix) 75 mg PO DAILY [facility] Last Admin: 07/05/18 08:53 Dose: 75 mg Dextrose (Dextrose 50% Inj) 0 ml IV STAT PRN; Protocol PRN Reason: Hypoglycemia Protocol Last Admin: 07/04/18 06:17 Dose: 50 ml Dextrose (Glutose 15) 0 gm PO ONCE PRN; Protocol PRN Reason: Hypoglycemia Protocol Divalproex Sodium (Depakote Dr(*Bid*)) 125 mg PO BID [facility] Last Admin: 07/05/18 17:05 Dose: 125 mg Fenofibrate (Tricor) 48 mg PO HS [facility] Last Admin: 07/04/18 21:58 Dose: 48 mg Finasteride (Proscar) 5 mg PO DAILY [facility] Last Admin: 07/05/18 08:53 Dose: 5 mg Furosemide (Lasix) 40 mg PO DAILY [facility] Last Admin: 07/05/18 08:50 Dose: 40 mg Gabapentin (Neurontin) 300 mg PO Q12 [facility] Last Admin: 07/05/18 08:52 Dose: 300 mg Glipizide (Glucotrol) 5 mg PO BID [facility] Last Admin: 07/05/18 17:06 Dose: 5 mg Glucagon (Glucagen Diagnostic Kit) 0 mg IM STAT PRN; Protocol PRN Reason: Hypoglycemia Protocol Guaifenesin/Dextromethorphan (Mucinex-Dm 600-30 Mg) 1 tab PO BID [facility] Last Admin: 07/05/18 17:07 Dose: 1 tab Heparin Sodium (Porcine) (Heparin) 5,000 units SC Q12 [facility]; Protocol Last Admin: 07/05/18 08:48 Dose: 5,000 units Hydrochlorothiazide (Microzide) 12.5 mg PO DAILY [facility] Last Admin: 07/05/18 08:51 Dose: 12.5 mg Azithromycin 500 mg/ Sodium (Chloride) 250 mls @ 250 mls/hr IVPB DAILY [facility]; Protocol Last Admin: 07/05/18 08:56 Dose: 250 mls/hr Insulin Detemir (Levemir) 40 units SC HS [facility] Last Admin: 07/04/18 22:02 Dose: 40 units Methylprednisolone (Solu-Medrol) 40 mg IV Q8H [facility] Last Admin: 07/05/18 17:44 Dose: 40 mg Multivitamins/Minerals (Therapeutic-M Tab) 1 tab PO DAILY [facility] Last Admin: 07/05/18 08:56 Dose: 1 tab Tamsulosin HCl (Flomax) 0.8 mg PO QPM [facility] Last Admin: 07/05/18 17:06 Dose: 0.8 mg Topiramate (Topamax) 50 mg PO HS [facility] Last Admin: 07/04/18 21:58 Dose: 50 mg - Labs Labs: 07/03/18 05:00 07/03/18 05:00 - Constitutional Appears: Well, Non-toxic, No Acute Distress - Head Exam Head Exam: ATRAUMATIC, NORMAL INSPECTION, NORMOCEPHALIC - Eye Exam Eye Exam: EOMI, Normal appearance, PERRL Pupil Exam: NORMAL ACCOMODATION, PERRL - ENT Exam ENT Exam: Mucous Membranes Moist, Normal Exam - Neck Exam Neck Exam: Full ROM, Normal Inspection. absent: Lymphadenopathy - Respiratory Exam Respiratory Exam: Clear to Ausculation Bilateral, NORMAL BREATHING PATTERN - Cardiovascular Exam Cardiovascular Exam: REGULAR RHYTHM, RRR, +S1, +S2. absent: Murmur - GI/Abdominal Exam GI & Abdominal Exam: Soft, Normal Bowel Sounds. absent: Tenderness - Extremities Exam Extremities Exam: Full ROM, Normal Capillary Refill, Normal Inspection. absent: Joint Swelling, Pedal Edema - Back Exam Back Exam: NORMAL INSPECTION - Neurological Exam Neurological Exam: Abnormal Gait, Alert, Awake, CN II-XII Intact, Oriented x3 - Psychiatric Exam Psychiatric exam: Normal Affect, Normal Mood - Skin Skin Exam: Dry, Intact, Normal Color, Warm Assessment and Plan (1) Acute on chronic kidney failure Status: Acute (2) Asthma exacerbation Status: Acute (3) Multiple sclerosis Status: Acute (4) DVT prophylaxis Status: Acute - Assessment and Plan (Free Text) Assessment: (1) Acute on chronic kidney failure Assessment & Plan: cont to trend ivf ?? elevation from steroids. will monitor Status: Acute (2) Asthma exacerbation Assessment & Plan: vapotherm prn o2 solu medrol duonebs zithromax added as per pulm Status: Acute (3) Multiple sclerosis Assessment & Plan: cont home meds pt/ot yancy Status: Acute (4) DVT prophylaxis Assessment & Plan: scd nad ae hose heparin Status: Acute
[2018-07-05] MEDS: Insulin Detemir 100 Units/ml Inj SC SCH (22:54)
[2018-07-06] MEDS: MethylPREDNISolone 40 mg Vial IV SCH ×2 (02:39→09:58)
[2018-07-06] MEDS: Albuterol-Ipratrop 3 mg / 0.5 (3 ml) UD INH SCH ×6 (03:43→23:30)
[2018-07-06] MEDS: Divalproex 125 mg DR (BID formulation) PO SCH ×2 (09:53→17:48)
[2018-07-06] MEDS: guaiFENesin-DM 600-30 mg ER Tab PO SCH ×2 (09:57→17:50)
[2018-07-06] MEDS: Multivitamin With Minerals Tab PO SCH (09:59)
[2018-07-06] MEDS: Azithromycin 500 MG in Sodium Chloride 0.9% 250 ML IVPB SCH (09:59)
--- NOTE | 2018-07-06 11:21 | CP.PCM.PN ---
Subjective - Date & Time of Evaluation Date of Evaluation: 07/06/18 Time of Evaluation: 11:22 - Subjective Subjective: AWAKE,ALERT AND ORIENTED TODAY/CALM RESPONDS APPROPRIATELY TO VERBAL COMMANDS FAMILY AT BEDSIDE--CASE DISCUSSED WITH THEM Objective - Vital Signs/Intake and Output Vital Signs (last 24 hours): Temp Pulse Resp BP Pulse Ox 97.4 F L 89 18 146/67 94 L 07/06/18 08:05 07/06/18 09:51 07/06/18 08:05 07/06/18 09:55 07/06/18 08:05 Intake and Output: 07/06/18 07/06/18 06:59 18:59 Intake Total 1450 Balance 1450 - Medications Medications: Current Medications Albuterol (Ventolin Hfa 90 Mcg/Actuation (8 G)) 1 puff IH Q2 PRN PRN Reason: Shortness of Breath Last Admin: 07/03/18 04:54 Dose: 1 puff Albuterol/Ipratropium (Duoneb 3 Mg/0.5 Mg (3 Ml) Ud) 3 ml INH RQ4 [facility] Last Admin: 07/06/18 07:30 Dose: 3 ml Aspirin (Ecotrin) 81 mg PO DAILY [facility] Last Admin: 07/06/18 09:53 Dose: 81 mg Atorvastatin Calcium (Lipitor) 20 mg PO HS [facility] Last Admin: 07/05/18 21:25 Dose: 20 mg Baclofen (Lioresal) 20 mg PO Q12 [facility] Last Admin: 07/06/18 09:56 Dose: 20 mg Citalopram Hydrobromide (Celexa) 40 mg PO DAILY [facility] Last Admin: 07/06/18 09:52 Dose: 40 mg Clonidine HCl (Catapres) 0.2 mg PO Q12 [facility] Last Admin: 07/06/18 09:51 Dose: 0.2 mg Clopidogrel Bisulfate (Plavix) 75 mg PO DAILY [facility] Last Admin: 07/06/18 09:57 Dose: 75 mg Dextrose (Dextrose 50% Inj) 0 ml IV STAT PRN; Protocol PRN Reason: Hypoglycemia Protocol Last Admin: 07/04/18 06:17 Dose: 50 ml Dextrose (Glutose 15) 0 gm PO ONCE PRN; Protocol PRN Reason: Hypoglycemia Protocol Divalproex Sodium (Depakote Dr(*Bid*)) 125 mg PO BID [facility] Last Admin: 07/06/18 09:53 Dose: 125 mg Fenofibrate (Tricor) 48 mg PO HS [facility] Last Admin: 07/05/18 21:25 Dose: 48 mg Finasteride (Proscar) 5 mg PO DAILY [facility] Last Admin: 07/06/18 09:58 Dose: 5 mg Furosemide (Lasix) 40 mg PO DAILY [facility] Last Admin: 07/06/18 09:55 Dose: 40 mg Gabapentin (Neurontin) 300 mg PO Q12 [facility] Last Admin: 07/06/18 09:57 Dose: 300 mg Glipizide (Glucotrol) 5 mg PO BID [facility] Last Admin: 07/06/18 09:54 Dose: 5 mg Glucagon (Glucagen Diagnostic Kit) 0 mg IM STAT PRN; Protocol PRN Reason: Hypoglycemia Protocol Guaifenesin/Dextromethorphan (Mucinex-Dm 600-30 Mg) 1 tab PO BID [facility] Last Admin: 07/06/18 09:57 Dose: 1 tab Heparin Sodium (Porcine) (Heparin) 5,000 units SC Q12 [facility]; Protocol Last Admin: 07/06/18 09:54 Dose: 5,000 units Hydrochlorothiazide (Microzide) 12.5 mg PO DAILY [facility] Last Admin: 07/06/18 09:56 Dose: 12.5 mg Azithromycin 500 mg/ Sodium (Chloride) 250 mls @ 250 mls/hr IVPB DAILY [facility]; Protocol Last Admin: 07/06/18 09:59 Dose: 250 mls/hr Methylprednisolone 40 mg/ (Sodium Chloride) 50 mls @ 100 mls/hr IVPB DAILY [facility] Insulin Detemir (Levemir) 40 units SC HS [facility] Last Admin: 07/05/18 22:54 Dose: 40 units Multivitamins/Minerals (Therapeutic-M Tab) 1 tab PO DAILY [facility] Last Admin: 07/06/18 09:59 Dose: 1 tab Tamsulosin HCl (Flomax) 0.8 mg PO QPM [facility] Last Admin: 07/05/18 17:06 Dose: 0.8 mg Topiramate (Topamax) 50 mg PO HS [facility] Last Admin: 07/05/18 21:25 Dose: 50 mg - Labs Labs: 07/03/18 05:00 07/03/18 05:00 - Constitutional Appears: Chronically Ill - Head Exam Head Exam: ATRAUMATIC, NORMAL INSPECTION, NORMOCEPHALIC - Eye Exam Eye Exam: EOMI, Normal appearance, PERRL Pupil Exam: NORMAL ACCOMODATION, PERRL - ENT Exam ENT Exam: Mucous Membranes Moist, Normal Exam - Neck Exam Neck Exam: Full ROM, Normal Inspection. absent: Lymphadenopathy - Respiratory Exam Respiratory Exam: Prolonged Expiratory Phase, Rales, Wheezes, NORMAL BREATHING PATTERN Additional comments: ON HIGH FLOW O2 - Cardiovascular Exam Cardiovascular Exam: REGULAR RHYTHM, +S1, +S2. absent: Murmur - GI/Abdominal Exam GI & Abdominal Exam: Soft, Normal Bowel Sounds. absent: Tenderness - Rectal Exam Rectal Exam: NORMAL INSPECTION - Extremities Exam Extremities Exam: Full ROM, Normal Capillary Refill, Normal Inspection. absent: Joint Swelling, Pedal Edema - Back Exam Back Exam: NORMAL INSPECTION - Neurological Exam Neurological Exam: Alert, Awake, CN II-XII Intact, Normal Gait, Oriented x3 - Psychiatric Exam Psychiatric exam: Anxious - Skin Skin Exam: Dry, Intact, Normal Color, Warm Assessment and Plan - Assessment and Plan (Free Text) Assessment: COPD-IMPROVING MUCUS PLUGGING OF AIRWAYS MS ANXIETY DEMENTIA Plan: D/C HIGH FLOW O2 BEGIN NC O2 TAPER STEROIDS
[2018-07-06] MEDS ORDERED: methylPREDNISolone 40 MG in Sodium Chloride 0.9% 50 ML IVPB SCH (11:30)
[2018-07-06] MEDS: MethylPREDNISolone 40 mg Vial IVP SCH (11:50)
--- NOTE | 2018-07-06 19:37 | CP.PCM.PN ---
Subjective - Date & Time of Evaluation Date of Evaluation: 07/06/18 Time of Evaluation: 19:36 - Subjective Subjective: pt doign well. no complaints. bw and vs noted. no f/c, n/v/d. for dc to [facility] sunday pulm consult appriciated cont all current meds/anbx/o2 Objective - Vital Signs/Intake and Output Vital Signs (last 24 hours): Temp Pulse Resp BP Pulse Ox 97.8 F 83 18 114/58 L 95 07/06/18 16:35 07/06/18 16:35 07/06/18 16:35 07/06/18 16:35 07/06/18 16:35 - Medications Medications: Current Medications Albuterol (Ventolin Hfa 90 Mcg/Actuation (8 G)) 1 puff IH Q2 PRN PRN Reason: Shortness of Breath Last Admin: 07/03/18 04:54 Dose: 1 puff Albuterol/Ipratropium (Duoneb 3 Mg/0.5 Mg (3 Ml) Ud) 3 ml INH RQ4 [facility] Last Admin: 07/06/18 19:19 Dose: 3 ml Aspirin (Ecotrin) 81 mg PO DAILY [facility] Last Admin: 07/06/18 09:53 Dose: 81 mg Atorvastatin Calcium (Lipitor) 20 mg PO HS [facility] Last Admin: 07/05/18 21:25 Dose: 20 mg Baclofen (Lioresal) 20 mg PO Q12 [facility] Last Admin: 07/06/18 09:56 Dose: 20 mg Citalopram Hydrobromide (Celexa) 40 mg PO DAILY [facility] Last Admin: 07/06/18 09:52 Dose: 40 mg Clonidine HCl (Catapres) 0.2 mg PO Q12 [facility] Last Admin: 07/06/18 09:51 Dose: 0.2 mg Clopidogrel Bisulfate (Plavix) 75 mg PO DAILY [facility] Last Admin: 07/06/18 09:57 Dose: 75 mg Dextrose (Dextrose 50% Inj) 0 ml IV STAT PRN; Protocol PRN Reason: Hypoglycemia Protocol Last Admin: 07/04/18 06:17 Dose: 50 ml Dextrose (Glutose 15) 0 gm PO ONCE PRN; Protocol PRN Reason: Hypoglycemia Protocol Divalproex Sodium (Depakote Dr(*Bid*)) 125 mg PO BID [facility] Last Admin: 07/06/18 17:48 Dose: 125 mg Fenofibrate (Tricor) 48 mg PO HS [facility] Last Admin: 07/05/18 21:25 Dose: 48 mg Finasteride (Proscar) 5 mg PO DAILY [facility] Last Admin: 07/06/18 09:58 Dose: 5 mg Furosemide (Lasix) 40 mg PO DAILY [facility] Last Admin: 07/06/18 09:55 Dose: 40 mg Gabapentin (Neurontin) 300 mg PO Q12 [facility] Last Admin: 07/06/18 09:57 Dose: 300 mg Glipizide (Glucotrol) 5 mg PO BID [facility] Last Admin: 07/06/18 17:49 Dose: 5 mg Glucagon (Glucagen Diagnostic Kit) 0 mg IM STAT PRN; Protocol PRN Reason: Hypoglycemia Protocol Guaifenesin/Dextromethorphan (Mucinex-Dm 600-30 Mg) 1 tab PO BID [facility] Last Admin: 07/06/18 17:50 Dose: 1 tab Heparin Sodium (Porcine) (Heparin) 5,000 units SC Q12 [facility]; Protocol Last Admin: 07/06/18 09:54 Dose: 5,000 units Hydrochlorothiazide (Microzide) 12.5 mg PO DAILY [facility] Last Admin: 07/06/18 09:56 Dose: 12.5 mg Azithromycin 500 mg/ Sodium (Chloride) 250 mls @ 250 mls/hr IVPB DAILY [facility]; Protocol Last Admin: 07/06/18 09:59 Dose: 250 mls/hr Insulin Detemir (Levemir) 40 units SC HS [facility] Last Admin: 07/05/18 22:54 Dose: 40 units Methylprednisolone (Solu-Medrol) 40 mg IVP DAILY [facility] Last Admin: 07/06/18 11:50 Dose: Not Given Multivitamins/Minerals (Therapeutic-M Tab) 1 tab PO DAILY [facility] Last Admin: 07/06/18 09:59 Dose: 1 tab Tamsulosin HCl (Flomax) 0.8 mg PO QPM [facility] Last Admin: 07/06/18 17:49 Dose: 0.8 mg Topiramate (Topamax) 50 mg PO HS [facility] Last Admin: 07/05/18 21:25 Dose: 50 mg - Labs Labs: 07/03/18 05:00 07/03/18 05:00
[2018-07-06] MEDS: Insulin Detemir 100 Units/ml Inj SC SCH (21:30)
[2018-07-07] MEDS: Albuterol-Ipratrop 3 mg / 0.5 (3 ml) UD INH SCH ×5 (05:00→19:08)
[2018-07-07] MEDS: guaiFENesin-DM 600-30 mg ER Tab PO SCH ×2 (08:36→17:07)
[2018-07-07] MEDS: Divalproex 125 mg DR (BID formulation) PO SCH ×2 (08:37→17:06)
[2018-07-07] MEDS: Multivitamin With Minerals Tab PO SCH (08:37)
[2018-07-07] MEDS: MethylPREDNISolone 40 mg Vial IVP SCH (08:40)
[2018-07-07] MEDS: Albuterol HFA 90 mcg/actuation (8 g) IH PRN (08:46)
[2018-07-07 09:11] LABS: ABG ALLEN TEST YES; ARTERIAL BLOOD GAS HCO3 32.6 mmol/L (21-28); ARTERIAL BLOOD GAS HEMOGLOBIN 13.8 g/dL (11.7-17.4); ARTERIAL BLOOD GAS O2 CAPACITY 18.7 mL/dL (16-24); ARTERIAL BLOOD GAS O2 CONTENT 17.8 ML/dL (15-23); ARTERIAL BLOOD GAS O2 SAT 95.1 % (95-98); ARTERIAL BLOOD GAS PCO2 47 mm/Hg (35-45); ARTERIAL BLOOD GAS PH 7.48 (7.35-7.45); ARTERIAL BLOOD GAS PO2 63 mm/Hg (80-100); ARTERIAL BLOOD GAS TCO2 36.4 mmol/L (22-28)
--- NOTE | 2018-07-07 10:05 | CP.PCM.PN ---
Subjective - Date & Time of Evaluation Date of Evaluation: 07/07/18 Time of Evaluation: 10:05 - Subjective Subjective: MUCH MORE ALERT AND AWAKE RESPONDS APPROPRIATELY TO VERBAL COMMANDS VSS Objective - Vital Signs/Intake and Output Vital Signs (last 24 hours): Temp Pulse Resp BP Pulse Ox 97.5 F L 95 H 20 126/61 95 07/07/18 08:25 07/07/18 08:39 07/07/18 08:25 07/07/18 08:39 07/07/18 08:25 - Medications Medications: Current Medications Albuterol (Ventolin Hfa 90 Mcg/Actuation (8 G)) 1 puff IH Q2 PRN PRN Reason: Shortness of Breath Last Admin: 07/07/18 08:46 Dose: 1 puff Albuterol/Ipratropium (Duoneb 3 Mg/0.5 Mg (3 Ml) Ud) 3 ml INH RQ4 [facility] Last Admin: 07/07/18 07:58 Dose: 3 ml Aspirin (Ecotrin) 81 mg PO DAILY [facility] Last Admin: 07/07/18 08:42 Dose: 81 mg Atorvastatin Calcium (Lipitor) 20 mg PO HS [facility] Last Admin: 07/06/18 21:32 Dose: 20 mg Baclofen (Lioresal) 20 mg PO Q12 [facility] Last Admin: 07/07/18 08:38 Dose: 20 mg Citalopram Hydrobromide (Celexa) 40 mg PO DAILY [facility] Last Admin: 07/07/18 08:36 Dose: 40 mg Clonidine HCl (Catapres) 0.2 mg PO Q12 [facility] Last Admin: 07/07/18 08:39 Dose: 0.2 mg Clopidogrel Bisulfate (Plavix) 75 mg PO DAILY [facility] Last Admin: 07/07/18 08:36 Dose: 75 mg Dextrose (Dextrose 50% Inj) 0 ml IV STAT PRN; Protocol PRN Reason: Hypoglycemia Protocol Last Admin: 07/04/18 06:17 Dose: 50 ml Dextrose (Glutose 15) 0 gm PO ONCE PRN; Protocol PRN Reason: Hypoglycemia Protocol Divalproex Sodium (Depakote Dr(*Bid*)) 125 mg PO BID [facility] Last Admin: 07/07/18 08:37 Dose: 125 mg Fenofibrate (Tricor) 48 mg PO HS [facility] Last Admin: 07/06/18 21:33 Dose: 48 mg Finasteride (Proscar) 5 mg PO DAILY [facility] Last Admin: 07/07/18 08:40 Dose: 5 mg Furosemide (Lasix) 40 mg PO DAILY [facility] Last Admin: 07/07/18 08:36 Dose: 40 mg Gabapentin (Neurontin) 300 mg PO Q12 [facility] Last Admin: 07/07/18 08:36 Dose: 300 mg Glipizide (Glucotrol) 5 mg PO BID [facility] Last Admin: 07/07/18 08:36 Dose: 5 mg Glucagon (Glucagen Diagnostic Kit) 0 mg IM STAT PRN; Protocol PRN Reason: Hypoglycemia Protocol Guaifenesin/Dextromethorphan (Mucinex-Dm 600-30 Mg) 1 tab PO BID [facility] Last Admin: 07/07/18 08:36 Dose: 1 tab Heparin Sodium (Porcine) (Heparin) 5,000 units SC Q12 [facility]; Protocol Last Admin: 07/07/18 08:37 Dose: 5,000 units Hydrochlorothiazide (Microzide) 12.5 mg PO DAILY [facility] Last Admin: 07/07/18 08:38 Dose: 12.5 mg Insulin Detemir (Levemir) 40 units SC [facility] Last Admin: 07/06/18 21:30 Dose: 40 units Methylprednisolone (Solu-Medrol) 40 mg IVP DAILY [facility] Last Admin: 07/07/18 08:40 Dose: 40 mg Multivitamins/Minerals (Therapeutic-M Tab) 1 tab PO DAILY [facility] Last Admin: 07/07/18 08:37 Dose: 1 tab Tamsulosin HCl (Flomax) 0.8 mg PO QPM [facility] Last Admin: 07/06/18 17:49 Dose: 0.8 mg Topiramate (Topamax) 50 mg PO [facility] Last Admin: 07/06/18 21:33 Dose: 50 mg - Labs Labs: 07/03/18 05:00 07/03/18 05:00 - Constitutional Appears: No Acute Distress - Head Exam Head Exam: ATRAUMATIC, NORMAL INSPECTION, NORMOCEPHALIC - Eye Exam Eye Exam: EOMI, Normal appearance, PERRL Pupil Exam: NORMAL ACCOMODATION, PERRL - ENT Exam ENT Exam: Mucous Membranes Moist, Normal Exam - Neck Exam Neck Exam: Full ROM, Normal Inspection. absent: Lymphadenopathy - Respiratory Exam Respiratory Exam: Prolonged Expiratory Phase, NORMAL BREATHING PATTERN - Cardiovascular Exam Cardiovascular Exam: REGULAR RHYTHM, +S1, +S2. absent: Murmur - GI/Abdominal Exam GI & Abdominal Exam: Soft, Normal Bowel Sounds. absent: Tenderness - Rectal Exam Rectal Exam: NORMAL INSPECTION - Extremities Exam Extremities Exam: Full ROM, Normal Capillary Refill, Normal Inspection. absent: Joint Swelling, Pedal Edema - Back Exam Back Exam: NORMAL INSPECTION - Neurological Exam Neurological Exam: Alert, Awake, CN II-XII Intact, Normal Gait - Psychiatric Exam Psychiatric exam: Normal Affect, Normal Mood - Skin Skin Exam: Dry, Intact, Normal Color, Warm Assessment and Plan - Assessment and Plan (Free Text) Assessment: COPD IMPROVED MS Plan: CONTINUE PRESENT RX NO FURTHER PULMONARY INTERVENTION FOR NOW WILL SIGN OFF CASE AND SEE AGAIN AT YOUR REQUEST
[2018-07-07] MEDS: Azithromycin 500 MG in Sodium Chloride 0.9% 250 ML IVPB SCH (10:11)
[2018-07-07] MEDS: Insulin Detemir 100 Units/ml Inj SC SCH (21:00)
[2018-07-08] MEDS: Albuterol-Ipratrop 3 mg / 0.5 (3 ml) UD INH SCH ×4 (00:05→11:42)
[2018-07-08] MEDS: Divalproex 125 mg DR (BID formulation) PO SCH ×2 (09:38→16:10)
[2018-07-08] MEDS: guaiFENesin-DM 600-30 mg ER Tab PO SCH ×2 (09:41→16:10)
[2018-07-08] MEDS: Multivitamin With Minerals Tab PO SCH (09:42)
[2018-07-08] MEDS: MethylPREDNISolone 40 mg Vial IVP SCH (11:20)
[2018-07-08 12:00] VITALS: RESP 20; TEMP 98
[2018-07-08 13:36] LABS: HEMOGLOBIN 13.2 g/dL (12.0-18.0); MEAN CELL VOLUME 87.4 fl (80.0-94.0); MEAN CORPUSCULAR HEMOGLOBIN 28.2 pg (27.0-31.0); MEAN CORPUSCULAR HGB CONC 32.3 g/dL (33.0-37.0); RBC 4.67 Mil/uL (4.40-5.90); RED CELL DISTRIBUTION WIDTH 13.7 % (11.5-14.5)
[2018-07-08 13:41] LABS: CALCIUM 10.2 mg/dL (8.4-10.2)
[2018-07-08 16:27] VITALS: BP 150/64; PULSE 98; O2SAT 95
--- NOTE | 2018-07-08 21:54 | CP.PCM.DIS ---
Provider - Provider Date of Admission: 06/30/18 12:06 Attending physician: Pillo Kelly MD Consults: 07/02/18 10:00 Psychiatry Consult Routine Comment: Consulting Provider: Sheron Bautista Consulting Physician: Sheron Bautista Reason for Consult: anxiety, depression 07/03/18 16:05 Pulmonology Consult Routine Comment: Consulting Provider: Roland Doty I Consulting Physician: Roland Doty I Reason for Consult: asthma exacerbation 07/07/18 22:19 Wound Care [Nursing Referral for Wound Care] Routine Comment: Physician Instructions: Reason For Exam: sacral redness Time Spent in preparation of Discharge (in minutes): 15 Hospital Course - Lab Results Lab Results: Micro Results 07/06/18 13:20 Sputum Gram Stain - Final Most Recent Lab Values WBC 16.0 K/uL (4.8-10.8) H 07/08/18 13:15 RBC 4.67 Mil/uL (4.40-5.90) 07/08/18 13:15 Hgb 13.2 g/dL (12.0-18.0) 07/08/18 13:15 Hct 40.8 % (35.0-51.0) 07/08/18 13:15 MCV 87.4 fl (80.0-94.0) 07/08/18 13:15 MCH 28.2 pg (27.0-31.0) 07/08/18 13:15 MCHC 32.3 g/dL (33.0-37.0) L 07/08/18 13:15 RDW 13.7 % (11.5-14.5) 07/08/18 13:15 Plt Count 427 K/uL (130-400) H 07/08/18 13:15 MPV 7.9 fl (7.2-11.7) 07/03/18 05:00 Neut % (Auto) 84.9 % (50.0-75.0) H 07/03/18 05:00 Lymph % (Auto) 8.5 % (20.0-40.0) L 07/03/18 05:00 Arthur % (Auto) 6.5 % (0.0-10.0) 07/03/18 05:00 Eos % (Auto) 0.0 % (0.0-4.0) 07/03/18 05:00 Baso % (Auto) 0.1 % (0.0-2.0) 07/03/18 05:00 Neut # (Auto) 10.0 K/uL (1.8-7.0) H 07/03/18 05:00 Lymph # (Auto) 1.0 K/uL (1.0-4.3) 07/03/18 05:00 Arthur # (Auto) 0.8 K/uL (0.0-0.8) 07/03/18 05:00 Eos # (Auto) 0.0 K/uL (0.0-0.7) 07/03/18 05:00 Baso # (Auto) 0.0 K/uL (0.0-0.2) 07/03/18 05:00 Neutrophils % (Manual) 89 % (42-75) H 07/03/18 05:00 Lymphocytes % (Manual) 8 % (20-50) L 07/03/18 05:00 Monocytes % (Manual) 2 % (0-10) 07/03/18 05:00 Myelocytes % 1 % (0-0) H 07/03/18 05:00 Platelet Estimate Normal (NORMAL) 07/03/18 05:00 RBC Morphology Normal (NORMAL) 07/03/18 05:00 pCO2 47 mm/Hg (35-45) H 07/07/18 05:04 pO2 63 mm/Hg (80-100) L 07/07/18 05:04 HCO3 32.6 mmol/L (21-28) H 07/07/18 05:04 ABG pH 7.48 (7.35-7.45) H 07/07/18 05:04 ABG Total CO2 36.4 mmol/L (22-28) H 07/07/18 05:04 ABG O2 Saturation 95.1 % (95-98) 07/07/18 05:04 ABG O2 Content 17.8 ML/dL (15-23) 07/07/18 05:04 ABG Base Excess 10.0 mmol/L (-2.0-3.0) H 07/07/18 05:04 ABG Hemoglobin 13.8 g/dL (11.7-17.4) 07/07/18 05:04 ABG Carboxyhemoglobin 1.8 % (0.5-1.5) H 07/07/18 05:04 POC ABG HHb (Measured) 4.7 % (0.0-5.0) 07/07/18 05:04 ABG Methemoglobin 1.6 % (0.0-3.0) 07/07/18 05:04 ABG O2 Capacity 18.7 mL/dL (16-24) 07/07/18 05:04 Rudy Test Yes 07/07/18 05:04 A-a O2 Difference 106.0 mm/Hg 07/07/18 05:04 Hgb O2 Saturation 92.0 % (95.0-98.0) L 07/07/18 05:04 Liter Flow 20 07/05/18 04:00 Vent Mode 3lnc 07/07/18 05:04 FiO2 32.0 % 07/07/18 05:04 Sodium 135 mmol/l (132-148) 07/08/18 13:15 Potassium 3.8 MMOL/L (3.6-5.0) 07/08/18 13:15 Chloride 89 mmol/L (98-107) L 07/08/18 13:15 Carbon Dioxide 36 mmol/L (22-30) H 07/08/18 13:15 Anion Gap 14 (10-20) 07/08/18 13:15 BUN 67 mg/dl (9-20) H 07/08/18 13:15 Creatinine 2.1 mg/dl (0.8-1.5) H 07/08/18 13:15 Est GFR ( Amer) 37 07/08/18 13:15 Est GFR (Non-Af Amer) 31 07/08/18 13:15 POC Glucose (mg/dL) 163 mg/dL (65-110) H 07/08/18 16:52 Random Glucose 79 mg/dL (75-110) 07/08/18 13:15 Calcium 10.2 mg/dL (8.4-10.2) 07/08/18 13:15 Phosphorus 4.2 mg/dl (2.5-4.5) 07/03/18 05:00 Magnesium 2.6 MG/DL (1.6-2.3) H 07/03/18 05:00 Total Bilirubin 0.5 mg/dl (0.2-1.3) 07/03/18 05:00 AST 51 U/L (17-59) 07/03/18 05:00 ALT 48 U/L (21-72) 07/03/18 05:00 Alkaline Phosphatase 79 U/L (38-126) 07/03/18 05:00 Troponin I 0.0290 ng/mL (0.00-0.120) 06/30/18 10:38 NT-Pro-B Natriuret Pep 444 pg/ml (0-900) 06/30/18 10:38 Total Protein 7.2 G/DL (6.3-8.2) 07/03/18 05:00 Albumin 4.0 g/dL (3.5-5.0) 07/03/18 05:00 Globulin 3.2 gm/dL (2.2-3.9) 07/03/18 05:00 Albumin/Globulin Ratio 1.3 (1.0-2.1) 07/03/18 05:00 Urine Color Yellow (YELLOW) 06/30/18 11:50 Urine Clarity Clear (Clear) 06/30/18 11:50 Urine pH 5.0 (5.0-8.0) 06/30/18 11:50 Ur Specific [place] 1.012 (1.003-1.030) 06/30/18 11:50 Urine Protein 30 mg/dL (NEGATIVE) 06/30/18 11:50 Urine Glucose (UA) 50 mg/dL (NEGATIVE) 06/30/18 11:50 Urine Ketones Negative mg/dL (NEGATIVE) 06/30/18 11:50 Urine Blood Negative (NEGATIVE) 06/30/18 11:50 Urine Nitrate Negative (NEGATIVE) 06/30/18 11:50 Urine Bilirubin Negative (NEGATIVE) 06/30/18 11:50 Urine Urobilinogen 0.2-1.0 mg/dL (0.2-1.0) 06/30/18 11:50 Ur Leukocyte Esterase Neg Mayra/uL (Negative) 06/30/18 11:50 Urine RBC (Auto) 1 /hpf (0-3) 06/30/18 11:50 Urine Microscopic WBC < 1 /hpf (0-5) 06/30/18 11:50 Ur Squamous Epith Cells 2 /hpf (0-5) 06/30/18 11:50 Urine Bacteria Occ (<OCC) H 06/30/18 11:50 Hyaline Casts 3-5 /hpf (0-2) H 06/30/18 11:50 - Hospital Course Hospital Course: pt admitted for asthma exacerbation, dehydration, ams. no complaints at present. cleared by pulm for dc. off highf low x24h. wbc, bun/cr noted. will be repeated in 1 wk Discharge Exam - Head Exam Head Exam: ATRAUMATIC, NORMAL INSPECTION, NORMOCEPHALIC Discharge Plan - Follow Up Plan Condition: FAIR Disposition: REHAB FACILITY/REHAB UNIT Additional Instructions: final dx-acute on ckd, asthma exacerbation doingw ell, off high flow. no distress. nbw noted. repeat labs 1 wk cleared by pulm
--- NOTE | 2018-07-08 21:55 | CP.PCM.PN ---
Subjective - Date & Time of Evaluation Date of Evaluation: 07/07/18 Time of Evaluation: 21:54 - Subjective Subjective: pt doing well. no f/c, n/v/d. off high flow. pulm consults appriciated. for yancy tomorrow Objective - Vital Signs/Intake and Output Vital Signs (last 24 hours): Temp Pulse Resp BP Pulse Ox 98.0 F 98 H 20 150/64 95 07/08/18 16:26 07/08/18 16:26 07/08/18 16:26 07/08/18 16:26 07/08/18 16:26 - Labs Labs: 07/08/18 13:15 07/08/18 13:15
== END 2018-07-08 18:05 | DRG 683 ==
LOC: H.ER 10:12 → H.ERHOLD 12:06 → H.TEL 21:30
PROVIDERS: ADMIT Family Medicine; ATTEND Family Medicine
PROC: 5A0955Z Assistance with Respiratory Ventilation, Greater than 96 Consecutive Hours (ICD-10-PCS; principal; 2018-06-30)
DX: N17.9 Acute kidney failure, unspecified (principal); J44.1 Chronic obstructive pulmonary disease with (acute) exacerbation; J45.901 Unspecified asthma with (acute) exacerbation; I13.0 Hypertensive heart and chronic kidney disease with heart failure and stage 1 through stage 4 chronic kidney disease, or unspecified chronic kidney disease; E87.2 Acidosis; E86.0 Dehydration; G35 Multiple sclerosis; N18.9 Chronic kidney disease, unspecified; Z87.891 Personal history of nicotine dependence; E78.00 Pure hypercholesterolemia, unspecified; I25.10 Atherosclerotic heart disease of native coronary artery without angina pectoris; Z95.5 Presence of coronary angioplasty implant and graft; Z86.718 Personal history of other venous thrombosis and embolism; Z79.02 Long term (current) use of antithrombotics/antiplatelets; Z79.4 Long term (current) use of insulin; Z79.82 Long term (current) use of aspirin; I50.9 Heart failure, unspecified; F32.9 Major depressive disorder, single episode, unspecified; F03.90 Unspecified dementia, unspecified severity, without behavioral disturbance, psychotic disturbance, mood disturbance, and anxiety; F41.9 Anxiety disorder, unspecified; N40.0 Benign prostatic hyperplasia without lower urinary tract symptoms; E78.5 Hyperlipidemia, unspecified; T17.990A Other foreign object in respiratory tract, part unspecified in causing asphyxiation, initial encounter; E10.22 Type 1 diabetes mellitus with diabetic chronic kidney disease

== ENCOUNTER 2018-07-10 19:20 | Inpatient (IN) | payer MEDICARE ==
[2018-07-10 23:19] LABS: BASO % 0.2 % (0.0-2.0); EOS # 0.3 K/uL (0.0-0.7); EOS % 1.6 % (0.0-4.0); HEMOGLOBIN 12.6 g/dL (12.0-18.0); LYMPH # 2.7 K/uL (1.0-4.3); LYMPH % 17.7 % (20.0-40.0); MEAN CELL VOLUME 86.7 fl (80.0-94.0); MEAN CORPUSCULAR HEMOGLOBIN 28.4 pg (27.0-31.0); MEAN CORPUSCULAR HGB CONC 32.7 g/dL (33.0-37.0); MEAN PLATELET VOLUME 7.9 fl (7.2-11.7); MONO # 1.2 K/uL (0.0-0.8); MONO % 8.1 % (0.0-10.0); NEUT # 11.1 K/uL (1.8-7.0); NEUT % 72.4 % (50.0-75.0); NRBC % 0.1 % (0.0-0.0); RBC 4.44 Mil/uL (4.40-5.90); RED CELL DISTRIBUTION WIDTH 13.7 % (11.5-14.5); WHITE BLOOD COUNT 15.3 K/uL (4.8-10.8)
[2018-07-10 23:24] LABS: ACETAMINOPHEN < 10.0 ug/ml (10.0-30.0); BLOOD UREA NITROGEN 71 mg/dl (9-20); CALCIUM 9.4 mg/dL (8.4-10.2); GFR NON-AFRICAN AMERICAN 29; SALICYLATE < 1.0 mg/dl
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
--- NOTE | 2018-07-11 09:49 | ED PDOC ---
- Laboratory Results Result Diagrams: 07/10/18 23:00 07/10/18 23:00 - ECG O2 Sat by Pulse Oximetry: 97 - Progress ED Course And Treament: 700: Alert. Took over care from Dr. Small. [place] [facility] [place] otherwise similar to old. 948: Stable. [facility] pending. 1000: Pt. aggressive. Possible harm to self and staff. To relieve agitation, will give ativan. 1200: Dr. Bautista to admit psych. Medically stable for further eval psychiatrically. Disposition - Clinical Impression Clinical Impression: Dementia - POA Present On Arrival: None - Disposition Disposition: Admitted as In-Patient Disposition Time: 12:11 Condition: STABLE
--- NOTE | 2018-07-11 11:06 | RAD ---
Date of service: 07/11/2018 HISTORY: psych COMPARISON: 07/04/2018 TECHNIQUE: 1 view obtained. FINDINGS: LUNGS: No active pulmonary disease. PLEURA: No significant pleural effusion identified, no pneumothorax apparent. CARDIOVASCULAR: No aortic atherosclerotic calcification present. Normal cardiac size. No pulmonary vascular congestion. OSSEOUS STRUCTURES: No significant abnormalities. VISUALIZED UPPER ABDOMEN: Normal. OTHER FINDINGS: None. IMPRESSION: No active disease.
[2018-07-11 11:56] LABS: SQUAMOUS EPITHIAL < 1 /hpf (0-5); URINE BILIRUBIN NEGATIVE (NEGATIVE); URINE BLOOD NEGATIVE (NEGATIVE); URINE CLARITY CLEAR (Clear); URINE COLOR YELLOW (YELLOW); URINE GLUCOSE (UA) 50 mg/dL (NEGATIVE); URINE LEUKOCYTE ESTERASE NEG Leu/uL (Negative); URINE PROTEIN NEGATIVE (NEGATIVE); URINE UROBILINOGEN 0.2-1.0 mg/dL (0.2-1.0)
[2018-07-11 12:09] LABS: BARBITURATES, UR NEGATIVE (NEGATIVE); BENZODIAZEPINES, UR NEGATIVE (NEGATIVE); OPIATES, UR NEGATIVE (NEGATIVE); PHENCYCLIDINE, UR NEGATIVE (NEGATIVE)
[2018-07-11] MEDS ORDERED: Alum-Mag Hydrox-Simethicone Susp (30 mL) PO PRN (13:00)
[2018-07-11] MEDS ORDERED: Magnesium Hydroxide Susp 30 ml UD PO PRN (13:00)
[2018-07-11] MEDS ORDERED: Bismuth Subsalicylate 262 mg/15 ml Sus (240 ml) PO PRN (13:00)
--- NOTE | 2018-07-11 13:50 | PCM.PSYCH ---
Initial Psychiatric Evaluation - Initial Psychiatric Evaluation Type of Admission: Voluntary Legal Status: DPOA Chief Complaint (in patient's own words): Worsening agitation/behavioral disturbances Patient's Reaction to Hospitalization: HPI: 77 yo male, prison resident, admitted w/ worsening aggressive behavior, yelling, screaming, mood lability, irritability and agitation. He also made suicidal threats, yelling that he would kill himself, but did not express a particular plan. Patient's daughter, CRISTEL, believes the patient needs psychiatric admission for treatment and stabilization. PMHx: DMII, MS, HTN, COPD, HLD PPHx: h/o Depression and Anxiety ALL: NKDA SHx: Resident at [facility]; no current drugs/etoh/cig use Current Medications: Active Medications Generic Name Dose Route Start Last Admin Trade Name Freq PRN Reason Stop Dose Admin Acetaminophen 650 mg 07/11/18 13:00 Tylenol 325mg Tab PO Q4 PRN Pain, moderate (4-7) Al Hydrox/Mg Hydrox/Simethicone 30 ml 07/11/18 13:00 Maalox Plus 30 Ml PO Q4 PRN Dyspepsia Bismuth Subsalicylate 524 mg 07/11/18 13:00 Pepto-Bismol PO Q4 PRN Diarrhea Lorazepam 0.5 mg 07/11/18 13:00 Ativan PO 07/25/18 13:01 HS PRN Insomnia Lorazepam 0.5 mg 07/11/18 13:00 Ativan PO 07/25/18 13:01 Q6 PRN Anixety/Agitation Magnesium Hydroxide 30 ml 07/11/18 13:00 Milk Of Magnesia PO HS PRN Constipation Past Psychiatric History - Past Psychiatric History Pertinent Medical Hx (Current Medical&Sleep Prob, Allergies): Allergies Allergy/AdvReac Type Severity Reaction Status Date / Time No Known Allergies Allergy Verified 01/24/17 01:35 Atorvastatin [Lipitor] 20 mg PO HS 12/25/16 Baclofen [Lioresal] 20 mg PO Q12 12/25/16 Citalopram Hydrobromide [Citalopram HBr] 40 mg PO DAILY 12/25/16 Clopidogrel [Plavix] 75 mg PO DAILY 12/25/16 Fenofibrate [Tricor] 48 mg PO HS 12/25/16 Gabapentin [Neurontin] 300 mg PO Q12 12/25/16 Glipizide [Glucotrol] 5 mg PO BID 12/25/16 Tamsulosin [Flomax] 0.8 mg PO QPM 12/25/16 Topiramate [Topamax] 50 mg PO HS 12/25/16 hydroCHLOROthiazide [Microzide] 12.5 mg PO DAILY 12/25/16 Multimineral/Multivitamin [Therapeutic-M Tab] 1 tab PO DAILY #30 tab 02/01/17 Insulin Detemir [Levemir] 40 units SC HS 04/06/17 Aspirin [Ecotrin] 81 mg PO DAILY 01/23/18 Finasteride [Proscar] 5 mg PO DAILY 01/23/18 cloNIDine [Catapres] 0.2 mg PO Q12 01/23/18 Albuterol Sulfate [Ventolin Hfa] 1 puff IH Q2 PRN #1 unit 04/06/18 Albuterol/Ipratropium [Duoneb 3 mg/0.5 mg (3 ml) UD] 3 ml INH RQ4 neb 07/08/18 Glucagon [Glucagen Diagnostic Kit] 0 mg IM STAT PRN vial 07/08/18 Heparin 5,000 units SC Q12 vial 07/08/18 guaiFENesin/Dextromethorphan [Mucinex-DM 600-30 mg] 1 tab PO BID tab 07/08/18 Acetaminophen [Tylenol] 650 mg PO Q4 PRN 07/11/18 Acetaminophen [Tylenol] 650 mg PO Q4 PRN 07/11/18 Divalproex [Depakote DR(*BID*)] 250 mg PO BID 07/11/18 Prednisone [Deltasone] 20 mg PO DAILY 07/11/18 Review of Systems - Psychiatric Psychiatric: As Per HPI, Anxiety, Behavioral Changes, Confusion, Depression, Difficulty Concentrating, Irritability, Memory Loss, Suicidal Ideation Mental Status Examination - Personal Presentation Personal Presentation: Looks stated age - Affect Affect: Other (Labile) - Motor Activity Motor Activity: Psychomotor Agitation - Reliability in Providing Information Reliability in Providing Information: Poor, due to cognitve impairment - Speech Speech: Tangential - Mood Mood: Depressed, Anxious - Formal Thought Process Formal Thought Process: Loosening of associations - Hallucinations/Delusions Additional comments: No AH/VH/paranoia - Obsessions/Compulsions Obsessions: No Compulsions: No - Cognitive Functions Orientation: Person Attention/Concentration: Easily distracted Judgement: Imparied, as evidence by: Poor judgement, Imparied, as evidence by: Lack of insight into illness Memory: Recent impaired, as evidence by: Inability to recall events of the day, Recent imparied as evidence by:Inability to complete 3/3 object recall, Remote impaired as evidenced by: Inability to recall sig life events, Remote impaired as evidenced by: Inability to recall historical events - Risk Risk: Suicidal, Diminished functioning - Strength & Assets Inventory Strength & Assets Inventory: Family support - Limitations Limitations: Decreased memory, recent DSM 5 DX - DSM 5 DSM 5 Diagnosis: Dementia with behavioral disturbances, Depressive Disorder - Recommended/Plan of Treatment Treatment Recommendations and Plan of Treatment: Dementia with behavioral disturbances, Depressive Disorder -Admit to psychiatry unit -Individual and group therapy -Psychoeducation -Titrate Depakote, check VPA level -Discuss case w/ POA -Medicine consult -Disposition planning Projected ELOS: 5-10 days Discharge Plan and Discharge Criteria: Discharge when patient is psychiatrically stable - Smoking Cessation Smoking Cessation Initiated: No Reason for not providing: Not indicated
[2018-07-11] MEDS ORDERED: Albuterol-Ipratrop 3 mg / 0.5 (3 ml) UD INH PRN (14:06)
[2018-07-11] MEDS ORDERED: Divalproex 125 mg DR (BID formulation) PO SCH (17:00)
--- NOTE | 2018-07-11 17:41 | PCM.BM ---
- Milieu Protocol Milieu Narrative: Dementia with behavioral disturbances, Depressive Disorder -Admit to psychiatry unit -Individual and group therapy -Psychoeducation -Titrate Depakote, check VPA level -Discuss case w/ POA -Medicine consult -Disposition planning Discharge/Continuing Care - Treatment Team Participation Patient/Family/SO Statement: Dementia with behavioral disturbances, Depressive Disorder -Admit to psychiatry unit -Individual and group therapy -Psychoeducation -Titrate Depakote, check VPA level -Discuss case w/ POA -Medicine consult -Disposition planning
[2018-07-11] MEDS: Divalproex 250 mg DR(BID formulation) PO SCH ×2 (18:16→20:42)
--- NOTE | 2018-07-11 18:33 | PCM.BM ---
<MarvaOdalis - Last Filed: 07/11/18 18:39> Treatment Plan Problems - Problems identified on initial assessmt high risk: Violence Date Initiated: 07/11/18 Time Initiated: 18:37 Assessment reference: HP, NA Status: Active Priority: 2 Alterered glucose metabolism Date Initiated: 07/11/18 Time Initiated: 18:38 Assessment reference: HP, NA Status: Active Priority: 3 Agitated/aggressive behavior Date Initiated: 07/11/18 Time Initiated: 18:40 Assessment reference: HP, NA Status: Active Priority: 1 Treatment assets and liabiliti Patient Assests: educated, good support system, financial stabiity Patient Liabilities: relationship conflicts, dietary restrictions, medical problems, imparied memory, unable to read/write - Milieu Protocol Maintain good personal hygiene: daily Encourage regular showers, every shift Remind patient to perform daily oral care, every shift Assist patient to perform ADL's Maintain personal safety: every shift Educate patient to report safety concerns to staff, every shift Monitor environment for contraband/sharps Medication safety: Monitor for expected outcome, potential side effects: every shift, Assess barriers to learning: every shift, Assess readiness for medication education: every shift Milieu Narrative: Dementia with behavioral disturbances, Depressive Disorder -Admit to psychiatry unit -Individual and group therapy -Psychoeducation -Titrate Depakote, check VPA level -Discuss case w/ POA -Medicine consult -Disposition planning Discharge/Continuing Care - Treatment Team Participation Patient/Family/SO Statement: Dementia with behavioral disturbances, Depressive Disorder -Admit to psychiatry unit -Individual and group therapy -Psychoeducation -Titrate Depakote, check VPA level -Discuss case w/ POA -Medicine consult -Disposition planning <Sheron Bautista - Last Filed: 07/12/18 10:32> - Diagnosis (1) Dementia with behavioral disturbance Status: Acute Interventions: Medicine management, Individual and group therapy, Psychoeducation (2) Depressive disorder Status: Acute Interventions: Medicine management, Individual and group therapy, Psychoeducation 07/12/18 10:32 <Patsy Li - Last Filed: 07/12/18 12:19> Family Contact Family involvement: Family/SO is involved Family contact: Patient agrees to contact, Family has been contacted by patient, Telephone contact initiated by staff, Other (Daughter, Jael Rees is POA) Family contact name: Jael - daughter Family contacted how many times per week?: 2 Family contact comment: [phone] - Outside Agency [facility] Care involvment: Information-sharing Agency contact number: [phone] - Goals for Treatment Patient goals for treatment: Pt will improve overall mood. Pt will be free of aggresisve behaviors. Pt will be able to keep hands to hismelf. Pt will be more re-directable. Pt will comply with prescribed meidcations. Discharge/Continuing Care - Education Needs Education Needs: Family Medication, Family Diagnosis/Disease Process, Family Coping Skills, Family Placement options, Family Community resources, Family Activities of Daily Living, Family Uses of Medical Equipment, Family Health Practices/Safety, Family Personal Hygiene/Grooming, Family Aftercare Safety Plan, Patient Medication, Patient Diagnosis/Disease Process, Patient Coping Skills, Patient Placement options, Patient Community resources, Patient Activities of Daily Living, Patient Uses of Medical Equipment, Patient Health Practices/Safety, Patient Personal Hygiene/Grooming, Patient Aftercare Safety Plan - Discharge Discharge Criteria: Tolerates medication w/o severe side effects, Free of agitation, Normal sleep pattern, Ability to care for self, Reduction of target symptoms Discharge to:: Shelter - Additional Comments 07/12/18 12:13 Pt discussed in team meeting. Interdisciplinary team attempted to meet with pt at bedside in room 313-1; however pt was observed to be asleep and not aroused. Pt is currently on a 1:1 for safety and fall precautions. Pt attempting to get up on his own. Prior to hospitalization, pt was a resident at [facility] for rehab. Reportedly, pt became agitated, aggressive and combative at the facility and referred to the ED for psych evaluation. Pt is dx with dementia with behavioral disturbances. Poor sleep pattern. Pt's medical and social issues reviewed and discussed. Pt's medications reviewed and discussed. Daughter is POA and attending MD will contact daughter to review and discuss tx plan. SW will continue to follow case. - Treatment Team Participation Discussed with Family/SO: Yes (MD discussed tx plan with daughter via telephone) Was Patient/Family/SO present at Treatment Team Meeting: Yes
--- NOTE | 2018-07-11 18:38 | PCM.BM ---
Treatment Plan Problems - Problems identified on initial assessmt high risk: Violence Date Initiated: 07/11/18 Time Initiated: 18:37 Assessment reference: HP NA Status: Active Priority: 2 Alterered glucose metabolism Date Initiated: 07/11/18 Time Initiated: 18:38 Assessment reference: HP, NA Status: Active Priority: 3 Treatment assets and liabiliti Patient Assests: educated, good support system, financial stabiity Patient Liabilities: relationship conflicts, dietary restrictions, medical problems, imparied memory, unable to read/write - Milieu Protocol Maintain good personal hygiene: daily Encourage regular showers, every shift Remind patient to perform daily oral care, every shift Assist patient to perform ADL's Maintain personal safety: every shift Educate patient to report safety concerns to staff, every shift Monitor environment for contraband/sharps Medication safety: Monitor for expected outcome, potential side effects: every shift, Assess barriers to learning: every shift, Assess readiness for medication education: every shift Milieu Narrative: Dementia with behavioral disturbances, Depressive Disorder -Admit to psychiatry unit -Individual and group therapy -Psychoeducation -Titrate Depakote, check VPA level -Discuss case w/ POA -Medicine consult -Disposition planning Discharge/Continuing Care - Treatment Team Participation Patient/Family/SO Statement: Dementia with behavioral disturbances, Depressive Disorder -Admit to psychiatry unit -Individual and group therapy -Psychoeducation -Titrate Depakote, check VPA level -Discuss case w/ POA -Medicine consult -Disposition planning
[2018-07-11] MEDS: Insulin Detemir 100 Units/ml Inj SC SCH (21:01)
--- NOTE | 2018-07-11 23:04 | CARD ---
APPROVED REPORT Date of service: 07/11/2018 EKG Measurement Heart [id number] <Conclusion> Normal sinus rhythm Normal ECG
[2018-07-12] MEDS: Albuterol HFA 90 mcg/actuation (8 g) IH PRN (02:15)
[2018-07-12 06:39] LABS: HEMOGLOBIN 13.1 g/dL (12.0-18.0); MEAN CELL VOLUME 88.1 fl (80.0-94.0); MEAN CORPUSCULAR HEMOGLOBIN 28.8 pg (27.0-31.0); MEAN CORPUSCULAR HGB CONC 32.7 g/dL (33.0-37.0); RBC 4.55 Mil/uL (4.40-5.90); RED CELL DISTRIBUTION WIDTH 13.7 % (11.5-14.5)
[2018-07-12 06:42] LABS: PROTHROMBIN TIME 11.1 Seconds (9.8-13.1)
[2018-07-12 06:45] LABS: PARTIAL THROMBOPLASTIN TIME 32.4 Seconds (25.6-37.1)
[2018-07-12 07:26] LABS: ALB/GLOB RATIO 1.3 (1.0-2.1); ALBUMIN 3.8 g/dL (3.5-5.0); CALCIUM 9.4 mg/dL (8.4-10.2)
[2018-07-12] MEDS: Multivitamin With Minerals Tab PO SCH (08:47)
[2018-07-12] MEDS: guaiFENesin-DM 600-30 mg ER Tab PO PRN (08:49)
[2018-07-12] MEDS: Divalproex 250 mg DR(BID formulation) PO SCH ×3 (08:52→17:19)
--- NOTE | 2018-07-12 10:35 | PCM.PYCHPN ---
Psychiatric Progress Note - Psychiatric Progress Note Patient seen today, length of contact: Pt evaluated, case discussed w/ team, chart reviewed Patient Chief Complaint: Worsening agitation/behavioral disturbances Problems Identified/Issues Discussed: Patient continues to be disoriented. He continues to have periods of yelling and mood lability. He has not made any self-injurious threats or comments. Hot Stick Worker spoke with patient's daughter, Jael Rees [phone], we discussed his medications and treatment. She expressed concerns that he may need short or manager long term care placement as she and her mother are no longer able to manage him at home. Hot Stick Worker given permission to modify medications as medically and psychiatrically indicated. Diagnostic Results: VPA 57.8 on 07/12/18 Medication Change: No Medical Record Reviewed: Yes Consults ordered or reviewed: Medicine consult Mental Status Examination - Cognitive Function Orientation: Person - Mood Mood: Depressed, Anxious - Affect Affect: Other (Labile) - Formal Thought Process Formal Thought Process: Loosening of associations Psychotic Thoughts and Behaviors: No acute AH/VH - Suicidal Ideation Suicidal Ideation: No - Homicidal Ideation Homicidal Ideation: No Goal/Treatment Plan - Goal/Treatment Plan Need for Continued Stay: Remain at risks for inpatient hospitalization, Severe functional impairment Progress Toward Problem(s) and Goals/Treatment Plan: Dementia with behavioral disturbances, Depressive Disorder -Individual and group therapy -Psychoeducation -Continue Depakote, VPA 57.8 on 07/12/18 -Case discussed w/ POA -Medicine consult -Disposition planning
[2018-07-12] MEDS: Insulin Detemir 100 Units/ml Inj SC SCH (21:47)
[2018-07-13] MEDS: Divalproex 250 mg DR(BID formulation) PO SCH ×3 (08:15→16:19)
[2018-07-13] MEDS: Multivitamin With Minerals Tab PO SCH (08:19)
[2018-07-13] MEDS: Insulin Lispro (humaLOG) 100 Units/ml Inj SC SCH ×4 (09:54→21:04)
--- NOTE | 2018-07-13 12:17 | PCM.PYCHPN ---
Psychiatric Progress Note - Psychiatric Progress Note Patient seen today, length of contact: Pt evaluated, case discussed w/ team, chart reviewed Patient Chief Complaint: pt has remained very labile and continues to have angry mood outbursts and maintained on 1:1 observation . Medication Change: No Medical Record Reviewed: Yes Mental Status Examination - Cognitive Function Orientation: Person - Mood Mood: Depressed, Anxious - Affect Affect: Other (Labile) - Formal Thought Process Formal Thought Process: Loosening of associations - Suicidal Ideation Suicidal Ideation: No - Homicidal Ideation Homicidal Ideation: No Goal/Treatment Plan - Goal/Treatment Plan Need for Continued Stay: Remain at risks for inpatient hospitalization, Severe functional impairment Progress Toward Problem(s) and Goals/Treatment Plan: will continue to stabilize the pt by adjusting the meds and engage pt in therapy and groups disposition as per dr newton.
[2018-07-13] MEDS: Insulin Detemir 100 Units/ml Inj SC SCH (21:04)
[2018-07-14] MEDS: Albuterol HFA 90 mcg/actuation (8 g) IH PRN (03:41)
[2018-07-14] MEDS: Divalproex 250 mg DR(BID formulation) PO SCH ×3 (08:10→17:24)
[2018-07-14] MEDS: Insulin Lispro (humaLOG) 100 Units/ml Inj SC SCH ×4 (08:12→21:19)
[2018-07-14] MEDS: Multivitamin With Minerals Tab PO SCH (08:15)
--- NOTE | 2018-07-14 14:52 | PCM.PYCHPN ---
Psychiatric Progress Note - Psychiatric Progress Note Patient seen today, length of contact: Pt evaluated, case discussed w/ team, chart reviewed Patient Chief Complaint: pt has been obsessed with racing thoughts about her family and obsessed with his to be contacted but has remained very confused with cognitive deficits and still very labile and continues to have angry mood outbursts and maintained on 1:1 observation . Medication Change: No Medical Record Reviewed: Yes Mental Status Examination - Cognitive Function Orientation: Person - Mood Mood: Depressed, Anxious - Affect Affect: Other (Labile) - Formal Thought Process Formal Thought Process: Loosening of associations - Suicidal Ideation Suicidal Ideation: No - Homicidal Ideation Homicidal Ideation: No Goal/Treatment Plan - Goal/Treatment Plan Need for Continued Stay: Remain at risks for inpatient hospitalization, Severe functional impairment Progress Toward Problem(s) and Goals/Treatment Plan: will continue to stabilize the pt by adjusting the meds and engage pt in therapy and groups disposition as per dr newton.
[2018-07-14] MEDS: Insulin Detemir 100 Units/ml Inj SC SCH (21:16)
[2018-07-15] MEDS: Multivitamin With Minerals Tab PO SCH (08:54)
[2018-07-15] MEDS: Insulin Lispro (humaLOG) 100 Units/ml Inj SC SCH ×4 (08:55→21:30)
[2018-07-15] MEDS: Divalproex 250 mg DR(BID formulation) PO SCH ×3 (09:10→16:20)
--- NOTE | 2018-07-15 16:41 | PCM.PYCHPN ---
Psychiatric Progress Note - Psychiatric Progress Note Patient seen today, length of contact: Pt evaluated, case discussed w/ team, chart reviewed Patient Chief Complaint: pt is confused requires redirection and total care, pt is on one to one for falls, anxious at times calling out, pt received prn for anxiety. pt adherent with medication but requires total care. Problems Identified/Issues Discussed: alteration in mood alteration in self care falls precautions Medical Problems: per chart Diagnostic Results: per psychiatry per medicine per nursing per social group worker per recreational therapy DSM 5 Symptoms Update: continues to be confused is on one to one for safety falls Medication Change: No Medical Record Reviewed: Yes Consults ordered or reviewed: pt being followed by medicine Mental Status Examination - Cognitive Function Orientation: Person - Mood Mood: Depressed, Anxious - Affect Affect: Other (Labile) - Formal Thought Process Formal Thought Process: Loosening of associations - Suicidal Ideation Suicidal Ideation: No - Homicidal Ideation Homicidal Ideation: No Goal/Treatment Plan - Goal/Treatment Plan Need for Continued Stay: Remain at risks for inpatient hospitalization, Severe functional impairment Progress Toward Problem(s) and Goals/Treatment Plan: inpt franky adjust meds per clinical status vital signs and clinical observation per protocol and per clinical status falls precautions/pt on 1 to 1 discharge planning in progress Estimated Date of D/C: 07/19/18 - Smoking Cessation Smoking Cessation Initiated: No Reason for not providing: defers
[2018-07-15] MEDS: Insulin Detemir 100 Units/ml Inj SC SCH (21:29)
[2018-07-16] MEDS: guaiFENesin-DM 600-30 mg ER Tab PO PRN (08:33)
[2018-07-16] MEDS: Multivitamin With Minerals Tab PO SCH (08:34)
[2018-07-16] MEDS: Divalproex 250 mg DR(BID formulation) PO SCH ×3 (08:34→17:17)
[2018-07-16] MEDS: Insulin Lispro (humaLOG) 100 Units/ml Inj SC SCH ×4 (09:08→21:08)
--- NOTE | 2018-07-16 16:33 | PCM.PYCHPN ---
Psychiatric Progress Note - Psychiatric Progress Note Patient seen today, length of contact: Pt evaluated, case discussed w/ team, chart reviewed Patient Chief Complaint: pt remains on for safety, pt is confused yelling out requires redirection. pt has been receiving prednisone 40mg po daily, pt with hx. of multiple sclerosis. requires total care and support at this time. team members have been in contact with pt.'s poa to discuss treatment plan and status. Problems Identified/Issues Discussed: alteration in neurologic function (hx. of ms) alteration in mood alteration in self care falls precautions Medical Problems: per chart Diagnostic Results: per psychiatry per medicine per nursing per psychologist social per recreational therapy DSM 5 Symptoms Update: continues to be confused requires redirection and total care Medication Change: No Medical Record Reviewed: Yes Consults ordered or reviewed: pt seen by hospitalist Mental Status Examination - Cognitive Function Orientation: Person Attention: Poor Concentration: Poor Association: Loose Fund of Knowledge: Poor Decription of patient's judgement and insights: impaired - Mood Mood: Depressed, Anxious - Affect Affect: Other (Labile) - Formal Thought Process Formal Thought Process: Loosening of associations - Suicidal Ideation Suicidal Ideation: No - Homicidal Ideation Homicidal Ideation: No Goal/Treatment Plan - Goal/Treatment Plan Need for Continued Stay: Remain at risks for inpatient hospitalization, Severe functional impairment Progress Toward Problem(s) and Goals/Treatment Plan: inpt mileu adjust meds per clinical status vital signs and clinical observation per protocol and per clinical status falls precautions/pt on neurology consult hx. of dementia/hx ms/prednisone treatment dr. Obrien discharge planning in progress Estimated Date of D/C: 07/19/18 - Smoking Cessation Smoking Cessation Initiated: No Reason for not providing: not per history
[2018-07-16] MEDS: Insulin Detemir 100 Units/ml Inj SC SCH (21:04)
[2018-07-17] MEDS ORDERED: Glucagon Recombinant 1 mg Inj IM STA (05:33)
[2018-07-17] MEDS: Divalproex 250 mg DR(BID formulation) PO SCH ×3 (08:53→17:54)
[2018-07-17] MEDS: Insulin Lispro (humaLOG) 100 Units/ml Inj SC SCH ×4 (08:57→21:13)
[2018-07-17] MEDS: guaiFENesin-DM 600-30 mg ER Tab PO PRN (08:58)
[2018-07-17] MEDS: Multivitamin With Minerals Tab PO SCH (09:01)
--- NOTE | 2018-07-17 14:36 | CP.PCM.CON ---
History of Present Illness - History of Present Illness History of Present Illness: Neurology Consultation Note: Consult requested by Dr. Bautista Mr. Rees is a 76-year-old man with a past medical history of DM, HTN, HLD, CHF, multiple sclerosis, significant chronic white matter disease and chronic lacunar infarcts in both basal ganglia, who is currently admitted to psychiatry for confusion, altered mental status, etc. I have seen the patient in the past for acute encephalopathy. He continues to exhibit this behavior of dementia. He has also had some behavioral changes and is currently on depakote and topama x. Neurology was consulted to assist with the progressive changes in mental status. When I saw the patient, he was moaning and making noises that were not coherent. He answered some simple questions and followed some simple commands, but was generally not very responsive and appeared to be responding to some possible internal stimulus. He was able to move all extremities and reportedly is eating all of his food. Review of Systems - Review of Systems Systems not reviewed;Unavailable: Altered Mental Status Past Patient History - Past Medical History & Family History Past Medical History?: Yes - Past Social History Smoking Status: Former Smoker - CARDIAC Hx Congestive Heart Failure: Yes Hx Hypercholesterolemia: Yes Hx Hypertension: No - PULMONARY Hx Chronic Obstructive Pulmonary Disease (COPD): Yes - NEUROLOGICAL Hx Dementia: Yes Hx Multiple Sclerosis: Yes Hx Seizures: No - HEENT Hx HEENT Problems: Yes Other/Comment: [place] - RENAL Hx Chronic Kidney Disease: Yes - ENDOCRINE/METABOLIC Hx Endocrine Disorders: Yes Hx Diabetes Mellitus Type 1: Yes Hx Diabetes Mellitus Type 2: Yes - HEMATOLOGICAL/ONCOLOGICAL Hx Human Immunodeficiency Virus (HIV): No - INTEGUMENTARY Hx Dermatological Problems: Yes - MUSCULOSKELETAL/RHEUMATOLOGICAL Hx Musculoskeletal Disorders: Yes Hx Falls: Yes Hx Unsteady Gait: Yes - GASTROINTESTINAL Hx Gastrointestinal Disorders: No - GENITOURINARY/GYNECOLOGICAL Hx Sexually Transmitted Disorders: No - PSYCHIATRIC Hx Anxiety: Yes Hx Depression: Yes - SURGICAL HISTORY Hx Coronary Stent: Yes (x1, hx of DVT 1992) - ANESTHESIA Hx Anesthesia: Yes Hx Anesthesia Reactions: No Hx Malignant Hyperthermia: No Meds Allergies/Adverse Reactions: Allergies Allergy/AdvReac Type Severity Reaction Status Date / Time No Known Allergies Allergy Verified 01/24/17 01:35 - Medications Medications: Current Medications Acetaminophen (Tylenol 325mg Tab) 650 mg PO Q4 PRN PRN Reason: Pain, moderate (4-7) Last Admin: 04/16/19 20:40 Dose: 650 mg Al Hydrox/Mg Hydrox/Simethicone (Maalox Plus 30 Ml) 30 ml PO Q4 PRN PRN Reason: Dyspepsia Albuterol (Ventolin Hfa 90 Mcg/Actuation (8 G)) 1 puff IH Q2 PRN PRN Reason: Shortness of Breath Last Admin: 07/14/18 03:41 Dose: 1 puff Albuterol/Ipratropium (Duoneb 3 Mg/0.5 Mg (3 Ml) Ud) 3 ml INH RQ4 PRN PRN Reason: Shortness of Breath Aspirin (Ecotrin) 81 mg PO DAILY [facility] Last Admin: 07/17/18 08:56 Dose: 81 mg Atorvastatin Calcium (Lipitor) 20 mg PO HS [facility] Last Admin: 07/16/18 21:03 Dose: 20 mg Baclofen (Lioresal) 20 mg PO Q12 [facility] Last Admin: 07/17/18 08:59 Dose: 20 mg Bismuth Subsalicylate (Pepto-Bismol) 524 mg PO Q4 PRN PRN Reason: Diarrhea Citalopram Hydrobromide (Celexa) 40 mg PO DAILY [facility] Last Admin: 07/17/18 08:55 Dose: 40 mg Clonidine HCl (Catapres) 0.2 mg PO Q12 [facility] Last Admin: 07/17/18 08:54 Dose: 0.2 mg Clopidogrel Bisulfate (Plavix) 75 mg PO DAILY [facility] Last Admin: 07/17/18 09:00 Dose: 75 mg Divalproex Sodium (Depakote Dr(*Bid*)) 250 mg PO TID [facility] Last Admin: 07/17/18 13:19 Dose: 250 mg Fenofibrate (Tricor) 48 mg PO HS [facility] Last Admin: 07/16/18 21:03 Dose: 48 mg Finasteride (Proscar) 5 mg PO DAILY [facility] Last Admin: 07/17/18 08:58 Dose: 5 mg Gabapentin (Neurontin) 300 mg PO Q12 [facility] Last Admin: 07/17/18 08:59 Dose: 300 mg Glipizide (Glucotrol) 5 mg PO BID [facility] Last Admin: 07/17/18 08:57 Dose: 5 mg Guaifenesin/Dextromethorphan (Mucinex-Dm 600-30 Mg) 1 tab PO BID PRN PRN Reason: Cough Last Admin: 07/17/18 08:58 Dose: 1 tab Hydrochlorothiazide (Microzide) 12.5 mg PO DAILY [facility] Last Admin: 07/17/18 08:59 Dose: 12.5 mg Insulin Detemir (Levemir) 20 units SC [facility] Insulin Human Lispro (Humalog) 0 units SC [facility]; Protocol Last Admin: 07/17/18 13:19 Dose: Not Given Lorazepam (Ativan) 1 mg IM Q6 PRN PRN Reason: Agitation Last Admin: 07/16/18 23:19 Dose: 1 mg Lorazepam (Ativan) 0.5 mg PO Q6 PRN PRN Reason: Agitation Last Admin: 07/17/18 13:19 Dose: 0.5 mg Lorazepam (Ativan) 0.5 mg PO HS PRN PRN Reason: Insomnia Magnesium Hydroxide (Milk Of Magnesia) 30 ml PO HS PRN PRN Reason: Constipation Multivitamins/Minerals (Therapeutic-M Tab) 1 tab PO DAILY [facility] Last Admin: 07/17/18 09:01 Dose: 1 tab Tamsulosin HCl (Flomax) 0.8 mg PO QPM [facility] Last Admin: 07/16/18 17:14 Dose: 0.8 mg Topiramate (Topamax) 50 mg PO HS [facility] Last Admin: 07/16/18 21:03 Dose: 50 mg Physical Exam - Constitutional Appears: Well - Head Exam Head Exam: ATRAUMATIC, NORMAL INSPECTION, NORMOCEPHALIC - Eye Exam Eye Exam: EOMI, Normal appearance, PERRL Pupil Exam: NORMAL ACCOMODATION, PERRL - ENT Exam ENT Exam: Mucous Membranes Moist, Normal Exam - Neck Exam Neck exam: Positive for: Normal Inspection - Respiratory Exam Respiratory Exam: Clear to Auscultation Bilateral, NORMAL BREATHING PATTERN - Cardiovascular Exam Cardiovascular Exam: REGULAR RHYTHM, +S1, +S2 - GI/Abdominal Exam GI & Abdominal Exam: Normal Bowel Sounds, Soft. absent: Tenderness - Extremities Exam Extremities exam: Positive for: normal inspection - Back Exam Back exam: NORMAL INSPECTION - Neurological Exam Neurological exam: Altered, CN II-XII Intact, Reflexes Normal Additional comments: Confused, disoriented, is able to tell me his name, but does not know where he is, he is dysarthric and somewhat aphasic as well, but difficult to determine since he was mostly moaning and yelling. Moves all extremities, but does not follow commands well for strength testing. Unable to ambulate. - Psychiatric Exam Psychiatric exam: Normal Affect, Normal Mood - Skin Skin Exam: Dry, Intact, Normal Color, Warm Results - Vital Signs Recent Vital Signs: Last Vital Signs Temp 98.1 F 07/17/18 05:44 Pulse 69 07/17/18 08:54 Resp 19 07/17/18 05:44 BP 160/89 H 07/17/18 08:54 Pulse Ox 94 L 07/11/18 20:56 - Labs Result Diagrams: 07/12/18 06:10 07/12/18 06:10 Labs: Laboratory Results - last 24 hr 07/12/18 07/16/18 07/16/18 06:10 16:59 20:18 POC Glucose (mg/dL) 274 H 182 H Topiramate 2.4 07/17/18 07/17/18 07/17/18 05:21 05:25 06:09 POC Glucose (mg/dL) 34 L* 39 L 99 Topiramate 07/17/18 11:25 POC Glucose (mg/dL) 139 H Topiramate Assessment & Plan (1) Dementia with behavioral disturbance Assessment and Plan: The behavioral disturbances are being addressed by psychiatry. With regard to the dementia, some options include starting Aricept 5 mg daily and Namenda 5 mg daily. Neuroimaging in the past was done and confirmed significant white matter disease. The patients does appear to be progressing and is more encephalopathic. There was no notable muscle twitching, myoclonic jerking or other concerning findings. I do not believe this is a rapidly progressive dementia or CJD. This appears to be related to chronic disease. A repeat non- contrast CT scan of the head is recommended. Thank you for this consultation. Status: Acute
--- NOTE | 2018-07-17 16:54 | PCM.PYCHPN ---
Psychiatric Progress Note - Psychiatric Progress Note Patient seen today, length of contact: Pt evaluated, case discussed w/ team, chart reviewed Patient Chief Complaint: pt remains on for safety, pt is confused yelling out requires redirection. pt has been receiving prednisone 40mg po daily, pt with hx. of multiple sclerosis. pt was seen by dr alston today (neurology). pt is confused yelling out at times. remains on for safety. Problems Identified/Issues Discussed: alteration in neurologic function (hx. of ms) alteration in mood alteration in self care falls precautions Medical Problems: per chart Diagnostic Results: per psychiatry per medicine per nursing per marriage and family social worker per recreational therapy DSM 5 Symptoms Update: confused yelling out Medication Change: No Medical Record Reviewed: Yes Consults ordered or reviewed: pt seen by dr alston dementia with behavioral disturbance: significant white matter disease, appears to be progressing with encephalopathic Mental Status Examination - Cognitive Function Orientation: Person Attention: Poor Concentration: Poor Association: Loose Fund of Knowledge: Poor Decription of patient's judgement and insights: impaired - Mood Mood: Depressed, Anxious - Affect Affect: Other (Labile) - Formal Thought Process Formal Thought Process: Loosening of associations - Suicidal Ideation Suicidal Ideation: No - Homicidal Ideation Homicidal Ideation: No Goal/Treatment Plan - Goal/Treatment Plan Need for Continued Stay: Remain at risks for inpatient hospitalization, Severe functional impairment Progress Toward Problem(s) and Goals/Treatment Plan: inpt mileu adjust meds per clinical status vital signs and clinical observation per protocol and per clinical status pt seen by dr alston today recommends aricept 5mg po pm as well as a ct of head without contrast spoke with pt.'s daughter Jael (pt.'s POA) verbally agreeable to plan falls precautions/pt on discharge planning in progress Estimated Date of D/C: 07/19/18 - Smoking Cessation Smoking Cessation Initiated: No
[2018-07-17] MEDS ORDERED: Insulin Detemir 100 Units/ml Inj SC SCH (22:00)
[2018-07-18] MEDS: guaiFENesin-DM 600-30 mg ER Tab PO PRN (08:17)
[2018-07-18] MEDS: Divalproex 250 mg DR(BID formulation) PO SCH ×3 (08:18→17:02)
[2018-07-18] MEDS: Multivitamin With Minerals Tab PO SCH (08:21)
[2018-07-18] MEDS: Insulin Lispro (humaLOG) 100 Units/ml Inj SC SCH ×4 (08:38→21:07)
--- NOTE | 2018-07-18 13:44 | CT ---
Date of service: 07/18/2018 PROCEDURE: CT HEAD WITHOUT CONTRAST. HISTORY: pt w/hx ms, changes in behavior, seen by dr alston COMPARISON: MRI brain without contrast from 01/24/2018. TECHNIQUE: Axial computed tomography images were obtained through the head/brain without intravenous contrast. Radiation dose: Total exam DLP = 1409.75 mGy-cm. This CT exam was performed using one or more of the following dose reduction techniques: Automated exposure control, adjustment of the mA and/or kV according to patient size, and/or use of iterative reconstruction technique. FINDINGS: HEMORRHAGE: No intracranial hemorrhage. BRAIN: There are mild chronic microangiopathic changes. There is no mass, mass effect or abnormal extra-axial fluid collection. There is no territorial infarction. The midline sagittal structures are normal. VENTRICLES: There is mild age-related global parenchymal volume loss and proportionate enlargement of the ventricles and cortical sulci. CALVARIUM: There is no calvarial fracture or extracranial soft tissue swelling. PARANASAL SINUSES: There fluid in the right sphenoid chamber. There is a retention cyst/polyp in the left maxillary sinus. The remaining included paranasal sinuses are predominantly clear. MASTOID AIR CELLS: Predominantly clear. OTHER FINDINGS: None. IMPRESSION: No acute intracranial abnormality. Mild chronic microangiopathic changes and mild age-related global parenchymal volume loss.
[2018-07-18] MEDS ORDERED: Glucagon Recombinant 1 mg Inj IM ONE (16:34)
--- NOTE | 2018-07-18 16:52 | PCM.PYCHPN ---
Psychiatric Progress Note - Psychiatric Progress Note Patient seen today, length of contact: Pt evaluated, case discussed w/ team, chart reviewed Patient Chief Complaint: pt remains on for safety, pt less yelling out requires less redirection. pt has been receiving prednisone 40mg po daily, pt with hx. of multiple sclerosis-was renewed by hospitalist. ct of head without contrast was obtained today. yesterday (last evening) pt became anxious and required prn lorzaepam 1mg im. Problems Identified/Issues Discussed: alteration in neurologic function (hx. of ms) alteration in mood alteration in self care falls precautions Medical Problems: per chart Diagnostic Results: per psychiatry per medicine per nursing per social contact worker per recreational therapy DSM 5 Symptoms Update: alteration in mood/cognition alteration in neurologic function hx of ms Medication Change: No Medical Record Reviewed: Yes Consults ordered or reviewed: pt being followed by hospitalist pt being followed by neurologistderek Mental Status Examination - Cognitive Function Orientation: Person Attention: Poor Concentration: Poor Association: Loose Fund of Knowledge: Poor Decription of patient's judgement and insights: impaired - Mood Mood: Depressed, Anxious - Affect Affect: Other (Labile) - Formal Thought Process Formal Thought Process: Loosening of associations - Suicidal Ideation Suicidal Ideation: No - Homicidal Ideation Homicidal Ideation: No Goal/Treatment Plan - Goal/Treatment Plan Need for Continued Stay: Remain at risks for inpatient hospitalization, Severe functional impairment Progress Toward Problem(s) and Goals/Treatment Plan: inpt mileu adjust meds per clinical status vital signs and clinical observation per protocol and per clinical status ct of head performed today per dr alecia vizcarra falls precautions/pt on safety discharge planning in progress Estimated Date of D/C: 07/19/18 - Smoking Cessation Smoking Cessation Initiated: No Reason for not providing: pt defers
[2018-07-18 17:08] VITALS: O2SAT 96
[2018-07-18] MEDS ORDERED: Glucagon Recombinant 1 mg Inj IM PRN (18:17)
[2018-07-18] MEDS: Insulin Detemir 100 Units/ml Inj SC SCH (21:11)
[2018-07-19] MEDS: Insulin Lispro (humaLOG) 100 Units/ml Inj SC SCH ×4 (08:44→21:08)
[2018-07-19] MEDS: Divalproex 250 mg DR(BID formulation) PO SCH ×3 (08:46→16:22)
[2018-07-19] MEDS: Multivitamin With Minerals Tab PO SCH (08:52)
--- NOTE | 2018-07-19 11:26 | CP.PCM.PN ---
Subjective - Date & Time of Evaluation Date of Evaluation: 07/19/18 Time of Evaluation: 11:24 - Subjective Subjective: Neuro Follow-Up Note: Mr. Rees was evaluated this afternoon in [facility]. He has a 1:1 sitter at bedside. He was able to answer some simple questions and was able to follows some simple commands. When not answering my questions or following commands, he would moan, speech incomprehensible. Pt was oob to chair earlier today and tolerated well per sitter; he is also able to move all extremities. Overnight events noted; discussed pt with primary RN and with sitter at bedside. Pt offers no complaints today. ROS is unremarkable. Objective - Vital Signs/Intake and Output Vital Signs (last 24 hours): Temp Pulse Resp BP Pulse Ox 97.5 F L 73 19 136/72 96 07/19/18 05:54 07/19/18 08:45 07/19/18 05:54 07/19/18 08:45 07/18/18 17:07 - Medications Medications: Current Medications Acetaminophen (Tylenol 325mg Tab) 650 mg PO Q4 PRN PRN Reason: Pain, moderate (4-7) Last Admin: 07/16/18 20:40 Dose: 650 mg Al Hydrox/Mg Hydrox/Simethicone (Maalox Plus 30 Ml) 30 ml PO Q4 PRN PRN Reason: Dyspepsia Albuterol (Ventolin Hfa 90 Mcg/Actuation (8 G)) 1 puff IH Q2 PRN PRN Reason: Shortness of Breath Last Admin: 07/14/18 03:41 Dose: 1 puff Albuterol/Ipratropium (Duoneb 3 Mg/0.5 Mg (3 Ml) Ud) 3 ml INH RQ4 PRN PRN Reason: Shortness of Breath Aspirin (Ecotrin) 81 mg PO DAILY [facility] Last Admin: 07/19/18 08:47 Dose: 81 mg Atorvastatin Calcium (Lipitor) 20 mg PO HS [facility] Last Admin: 07/18/18 21:08 Dose: 20 mg Baclofen (Lioresal) 20 mg PO Q12 [facility] Last Admin: 07/19/18 08:49 Dose: 20 mg Bismuth Subsalicylate (Pepto-Bismol) 524 mg PO Q4 PRN PRN Reason: Diarrhea Citalopram Hydrobromide (Celexa) 40 mg PO DAILY [facility] Last Admin: 07/19/18 08:46 Dose: 40 mg Clonidine HCl (Catapres) 0.2 mg PO Q12 [facility] Last Admin: 07/19/18 08:45 Dose: 0.2 mg Clopidogrel Bisulfate (Plavix) 75 mg PO DAILY [facility] Last Admin: 07/19/18 08:50 Dose: 75 mg Divalproex Sodium (Depakote Dr(*Bid*)) 250 mg PO TID [facility] Last Admin: 07/19/18 08:46 Dose: 250 mg Donepezil HCl (Aricept) 5 mg PO HS [facility] Last Admin: 07/18/18 21:06 Dose: 5 mg Fenofibrate (Tricor) 48 mg PO [facility] Last Admin: 07/18/18 21:08 Dose: 48 mg Finasteride (Proscar) 5 mg PO DAILY [facility] Last Admin: 07/19/18 08:52 Dose: 5 mg Gabapentin (Neurontin) 300 mg PO Q12 [facility] Last Admin: 07/19/18 08:50 Dose: 300 mg Glipizide (Glucotrol) 5 mg PO BID [facility] Last Admin: 07/19/18 08:47 Dose: 5 mg Glucagon (Glucagen Diagnostic Kit) 1 mg IM ONCE PRN PRN Reason: Hypoglycemia Guaifenesin/Dextromethorphan (Mucinex-Dm 600-30 Mg) 1 tab PO BID PRN PRN Reason: Cough Last Admin: 07/18/18 08:17 Dose: 1 tab Hydrochlorothiazide (Microzide) 12.5 mg PO DAILY [facility] Last Admin: 07/19/18 08:49 Dose: 12.5 mg Insulin Detemir (Levemir) 10 units SC [facility] Last Admin: 07/18/18 21:11 Dose: 10 units Insulin Human Lispro (Humalog) 0 units SC [facility]; Protocol Last Admin: 07/19/18 08:44 Dose: Not Given Lorazepam (Ativan) 1 mg IM Q6 PRN PRN Reason: Agitation Last Admin: 07/17/18 23:44 Dose: 1 mg Lorazepam (Ativan) 0.5 mg PO Q6 PRN PRN Reason: Agitation Last Admin: 07/18/18 22:47 Dose: 0.5 mg Lorazepam (Ativan) 0.5 mg PO HS PRN PRN Reason: Insomnia Magnesium Hydroxide (Milk Of Magnesia) 30 ml PO HS PRN PRN Reason: Constipation Multivitamins/Minerals (Therapeutic-M Tab) 1 tab PO DAILY [facility] Last Admin: 07/19/18 08:52 Dose: 1 tab Prednisone (Prednisone Tab) 40 mg PO DAILY [facility] Last Admin: 07/19/18 08:51 Dose: 40 mg Tamsulosin HCl (Flomax) 0.8 mg PO QPM [facility] Last Admin: 07/18/18 17:05 Dose: 0.8 mg Topiramate (Topamax) 50 mg PO HS [facility] Last Admin: 07/18/18 21:08 Dose: 50 mg Topiramate (Topamax) 25 mg PO DAILY [facility] Last Admin: 07/19/18 08:54 Dose: 25 mg - Labs Labs: 07/12/18 06:10 07/12/18 06:10 PT 11.1 Seconds (9.8-13.1) 07/12/18 06:10 INR 1.0 07/12/18 06:10 APTT 32.4 Seconds (25.6-37.1) 07/12/18 06:10 - Constitutional Appears: Well, Other (? withdrawn) - Head Exam Head Exam: ATRAUMATIC, NORMAL INSPECTION, NORMOCEPHALIC - Eye Exam Eye Exam: EOMI, Normal appearance Pupil Exam: NORMAL ACCOMODATION - ENT Exam ENT Exam: Mucous Membranes Moist - Neck Exam Neck Exam: Full ROM - Respiratory Exam Respiratory Exam: NORMAL BREATHING PATTERN - Extremities Exam Extremities Exam: Normal Inspection. absent: Calf Tenderness, Pedal Edema - Neurological Exam Neurological Exam: Altered, CN II-XII Intact, Reflexes Normal Additional comments: Pt is confused and disoriented; he is oriented to himself but does not know where he is nor the month/year. Able to answer simple questions and follow some simple commands. Speech incomprehensible at times throughout the exam. Appears somewhat withdrawn? very little eye contact. He was able to move BLE, but when assessing strength he had difficulty following my commands. Strength to BUE 4/5 proximally and distally. No sensory deficits noted. No tremors or abnormal movements noted. Gait not assessed. - Psychiatric Exam Additional comments: Pt is confused and disoriented; he is oriented to himself but does not know where he is nor the month/year. Able to answer simple questions and follow some simple commands. Appears somewhat withdrawn? very little eye contact. - Skin Skin Exam: Normal Color Assessment and Plan (1) Dementia with behavioral disturbance Assessment & Plan: Imaging reviewed: -CT head (07/18/18): No acute intracranial abnormality. Mild chronic microangiopathic changes and mild age-related global parenchymal volume loss. -R/O CJD though unlikely vs chronic disease. -Recommend EEG to assist in ruling out CJD--will f/u once it is completed. -Continue current medications including Aricept 5 mg PO Daily. -Notify neuro team of any acute changes in pt's condition. Yvonne Casarez DNP, [employer] d/w Dr. Obrien Status: Acute
--- NOTE | 2018-07-19 17:08 | PCM.PYCHPN ---
Psychiatric Progress Note - Psychiatric Progress Note Patient seen today, length of contact: Pt evaluated, case discussed w/ team, chart reviewed Patient Chief Complaint: pt remains on for safety, pt less yelling out at times, bedside eeg was perfomed today per neurology team, pt received prn lorazepam earlier today, 40mg po daily prednisone was renewed by hospitalist, requires total care. Problems Identified/Issues Discussed: alteration in neurologic function (hx. of ms) alteration in mood alteration in self care falls precautions Medical Problems: per chart Diagnostic Results: per psychiatry per medicine per nursing per social security benefits interviewer per recreational therapy DSM 5 Symptoms Update: lability in mood confusion Medication Change: No Medical Record Reviewed: Yes Consults ordered or reviewed: pt being followed by neurology team, bedside eeg performed today Mental Status Examination - Cognitive Function Orientation: Person Attention: Poor Concentration: Poor Association: Loose Fund of Knowledge: Poor Decription of patient's judgement and insights: impaired - Mood Additional comments: labile - Affect Affect: Other (labile) - Speech Speech: Loud (varies from quiete to yelling out, including speaking in Gabonese and German) - Formal Thought Process Formal Thought Process: Loosening of associations - Suicidal Ideation Suicidal Ideation: No - Homicidal Ideation Homicidal Ideation: No Goal/Treatment Plan - Goal/Treatment Plan Need for Continued Stay: Remain at risks for inpatient hospitalization, Severe functional impairment Progress Toward Problem(s) and Goals/Treatment Plan: inpt mileu adjust meds per clinical status vital signs and clinical observation per protocol and per clinical status team to re evaluate pt in am consider adjusting medications per clinical statusn falls precautions/pt on safety discharge planning in progress Estimated Date of D/C: 07/22/18 - Smoking Cessation Smoking Cessation Initiated: No Reason for not providing: defers
[2018-07-19] MEDS: Insulin Detemir 100 Units/ml Inj SC SCH (21:07)
--- NOTE | 2018-07-20 07:07 | PCM.EEG ---
Electroencephalogram Report - Electroencephalogram Report Procedure Date: 07/19/18 Medication: Baclofen, Depakote, Gabapentin. Interpretation: Technical Information: This was a 16-channel EEG, 1-channel EKG , performed using an [employer] machine., electrodes were applied according to the 10/20 international placement system, impedances were less than 5 K Ohm. Start; 15;15 End; 16;00 Total 45 minutes. Clinical Information: This EEG was performed on a 77-year old patient with a history MS and alter mental status. EEG Detail: During resting wakefulness there was a symmetric posterior dominant rhythm at 7 Hz, 30-50 uV, which was poorly reactive to eye opening and closing, this was poorly sustained. Drowsiness (15;43) was associated with fragmentation of the posterior dominant rhythm and with slow roving eye move ments. Sleep was not seen. There were occasional bursts of bi frontal paroxysmal activity at 3 to 4 , lasting less than 1 second. Hyperventilation was not performed. Photic stimulation was performed and there were no changes in the record. ECG was associated with a normal sinus rhythm. Impression: This is an abnormal EEG record that demonstrate the presence of a mild non specific diffuse disturbance of cortical activity, this is in keeping with a diffuse price matter dysfunction. These findings do not support a specific etiology. No seizures, not in status epilepticus
[2018-07-20] MEDS: Insulin Lispro (humaLOG) 100 Units/ml Inj SC SCH ×4 (07:30→21:03)
[2018-07-20] MEDS: Multivitamin With Minerals Tab PO SCH (08:48)
[2018-07-20] MEDS: Divalproex 250 mg DR(BID formulation) PO SCH ×3 (09:00→17:45)
--- NOTE | 2018-07-20 12:34 | PCM.PYCHPN ---
Psychiatric Progress Note - Psychiatric Progress Note Patient seen today, length of contact: Pt evaluated, case discussed w/ team, chart reviewed Patient Chief Complaint: i want to see my Problems Identified/Issues Discussed: pt seen in bed with anxious mood and affect, confused oriented to person only and still very labile and continues to have angry mood outbursts and maintained on 1:1 observation . DSM 5 Symptoms Update: major neurocognitive disorder Medication Change: No Medical Record Reviewed: Yes Mental Status Examination - Cognitive Function Orientation: Person Attention: Poor Concentration: Poor Association: Loose Fund of Knowledge: Poor - Mood Mood: Depressed, Anxious - Affect Affect: Other (labile) - Speech Speech: Loud (varies from quiete to yelling out, including speaking in Burkinan and Bulgarian) - Formal Thought Process Formal Thought Process: Loosening of associations - Suicidal Ideation Suicidal Ideation: No - Homicidal Ideation Homicidal Ideation: No Goal/Treatment Plan - Goal/Treatment Plan Need for Continued Stay: Remain at risks for inpatient hospitalization, Severe functional impairment Progress Toward Problem(s) and Goals/Treatment Plan: continue 1;1 for safety continue current management Estimated Date of D/C: 07/22/18
[2018-07-20] MEDS: Insulin Detemir 100 Units/ml Inj SC SCH (21:04)
[2018-07-21] MEDS: Divalproex 250 mg DR(BID formulation) PO SCH ×3 (08:28→16:50)
[2018-07-21] MEDS: Insulin Lispro (humaLOG) 100 Units/ml Inj SC SCH ×4 (08:34→21:04)
[2018-07-21] MEDS: Multivitamin With Minerals Tab PO SCH (08:38)
--- NOTE | 2018-07-21 12:10 | PCM.PYCHPN ---
Psychiatric Progress Note - Psychiatric Progress Note Patient seen today, length of contact: Pt evaluated, case discussed w/ team, chart reviewed Patient Chief Complaint: I am good Problems Identified/Issues Discussed: pt seen in a chair. less anxious , requesting to see his , confused oriented to person only , as per staff continues to have angry mood outbursts and maintained on 1:1 observation . DSM 5 Symptoms Update: major neurocognitive disorder Medication Change: No Medical Record Reviewed: Yes Mental Status Examination - Cognitive Function Orientation: Person Attention: Poor Concentration: Poor Association: Loose Fund of Knowledge: Poor - Mood Mood: Depressed, Anxious - Affect Affect: Other (labile) - Speech Speech: Loud (varies from quiete to yelling out, including speaking in Vietnamese and English) - Formal Thought Process Formal Thought Process: Loosening of associations - Suicidal Ideation Suicidal Ideation: No - Homicidal Ideation Homicidal Ideation: No Goal/Treatment Plan - Goal/Treatment Plan Need for Continued Stay: Remain at risks for inpatient hospitalization, Severe functional impairment Progress Toward Problem(s) and Goals/Treatment Plan: continue 1;1 for safety continue current management Estimated Date of D/C: 07/22/18
[2018-07-21] MEDS: Insulin Detemir 100 Units/ml Inj SC SCH (21:06)
[2018-07-22] MEDS: Divalproex 250 mg DR(BID formulation) PO SCH ×3 (08:47→16:54)
[2018-07-22] MEDS: Multivitamin With Minerals Tab PO SCH (08:49)
[2018-07-22] MEDS: Insulin Lispro (humaLOG) 100 Units/ml Inj SC SCH ×4 (08:50→21:12)
--- NOTE | 2018-07-22 12:24 | PCM.PYCHPN ---
Psychiatric Progress Note - Psychiatric Progress Note Patient seen today, length of contact: Pt evaluated, case discussed w/ team, chart reviewed Patient Chief Complaint: Worsening agitation/behavioral disturbances Problems Identified/Issues Discussed: Patient continues to be disoriented. He continues to have periods of yelling and mood lability. He has not made any self-injurious threats or comments. Service Crew Supervisor spoke with patient's daughter, Jael Rees [phone], we discussed his medications and treatment. She expressed concerns that he may need short or client manager large law placement as she and her mother are no longer able to manage him at home. Service Crew Supervisor given permission to modify medications as medically and psychiatrically indicated. Diagnostic Results: VPA 57.8 on 07/12/18 Medication Change: No Medical Record Reviewed: Yes Mental Status Examination - Cognitive Function Orientation: Person Attention: Poor Concentration: Poor Association: Loose Fund of Knowledge: Poor - Mood Mood: Depressed, Anxious - Affect Affect: Other (labile) - Speech Speech: Loud (varies from quiete to yelling out, including speaking in Senegalese and Kosovan) - Formal Thought Process Formal Thought Process: Loosening of associations - Suicidal Ideation Suicidal Ideation: No - Homicidal Ideation Homicidal Ideation: No Goal/Treatment Plan - Goal/Treatment Plan Need for Continued Stay: Remain at risks for inpatient hospitalization, Severe functional impairment Progress Toward Problem(s) and Goals/Treatment Plan: Dementia with behavioral disturbances, Depressive Disorder -Individual and group therapy -Psychoeducation -Continue Demi, VPA 57.8 on 07/12/18 -Case discussed w/ POA -Medicine consult -Disposition planning Estimated Date of D/C: 07/22/18
--- NOTE | 2018-07-22 13:21 | CP.PCM.PCO ---
Physician Communication Note - Physician Communication Note Physician Communication Note: neuro sign off
--- NOTE | 2018-07-22 14:02 | PCM.PYCHPN ---
Psychiatric Progress Note - Psychiatric Progress Note Patient seen today, length of contact: Pt evaluated, case discussed w/ team, chart reviewed Patient Chief Complaint: Behavioral disturbances, now improving Problems Identified/Issues Discussed: Patient continues to be disoriented, but this seems to be his baseline due to chronic neurocognitive impairment. He is calmer, less irritable. No current behavioral disturbances or agitation. Projection Camera Operator spoke with patient's daughter, who states that she believes he father is improving clinically. Diagnostic Results: VPA 57.8 on 07/12/18 Medication Change: No Medical Record Reviewed: Yes Consults ordered or reviewed: Medicine consult Mental Status Examination - Cognitive Function Orientation: Person Attention: Poor Concentration: Poor Association: Loose Fund of Knowledge: Poor Decription of patient's judgement and insights: Chronic poor I/J due to dementia - Mood Mood: Anxious - Affect Affect: Other (labile) - Speech Speech: Appropriate - Formal Thought Process Formal Thought Process: Loosening of associations Psychotic Thoughts and Behaviors: No AH/VH - Suicidal Ideation Suicidal Ideation: No - Homicidal Ideation Homicidal Ideation: No Goal/Treatment Plan - Goal/Treatment Plan Need for Continued Stay: Remain at risks for inpatient hospitalization, Severe functional impairment Progress Toward Problem(s) and Goals/Treatment Plan: Dementia with behavioral disturbances, Depressive Disorder -Individual and group therapy -Psychoeducation -Continue Kielte, VPA 57.8 on 07/12/18 -Case discussed w/ POA -Medicine consult -Disposition planning
[2018-07-22] MEDS: Insulin Detemir 100 Units/ml Inj SC SCH (21:12)
[2018-07-23] MEDS: Insulin Lispro (humaLOG) 100 Units/ml Inj SC SCH ×4 (07:51→21:14)
[2018-07-23] MEDS: Multivitamin With Minerals Tab PO SCH (08:53)
[2018-07-23] MEDS: Divalproex 250 mg DR(BID formulation) PO SCH ×2 (08:53→17:33)
--- NOTE | 2018-07-23 09:42 | PCM.PYCHPN ---
Psychiatric Progress Note - Psychiatric Progress Note Patient seen today, length of contact: Pt evaluated, case discussed w/ team, chart reviewed Patient Chief Complaint: Behavioral disturbances Problems Identified/Issues Discussed: Patient continues to have behavioral disturbances and mood lability. He was acutely agitated, yelling, cursing at staff last night. No physical aggression. He continues to have chronic poor insight/judgment due to dementia. Medication Change: Yes (Increase Depakote) Medical Record Reviewed: Yes Mental Status Examination - Cognitive Function Orientation: Person Attention: Poor Concentration: Poor Association: Loose Fund of Knowledge: Poor Decription of patient's judgement and insights: Chronic poor I/J due to dementia - Mood Mood: Anxious - Affect Affect: Other (labile) - Speech Speech: Appropriate - Formal Thought Process Formal Thought Process: Loosening of associations Psychotic Thoughts and Behaviors: No AH/VH - Suicidal Ideation Suicidal Ideation: No - Homicidal Ideation Homicidal Ideation: No Goal/Treatment Plan - Goal/Treatment Plan Need for Continued Stay: Severe functional impairment Progress Toward Problem(s) and Goals/Treatment Plan: Dementia with behavioral disturbances, Depressive Disorder -Individual and group therapy -Psychoeducation -Increase Depakote, VPA 57.8 on 07/12/18 -Case discussed w/ POA -Medicine consult -Disposition planning
[2018-07-23] MEDS: Divalproex 125 mg Sprinkle Capsule PO SCH (21:12)
[2018-07-23] MEDS: Insulin Detemir 100 Units/ml Inj SC SCH (21:12)
[2018-07-24] MEDS: Divalproex 250 mg DR(BID formulation) PO SCH ×2 (08:10→17:43)
[2018-07-24] MEDS: Multivitamin With Minerals Tab PO SCH (08:13)
[2018-07-24] MEDS: Insulin Lispro (humaLOG) 100 Units/ml Inj SC SCH ×4 (08:16→21:19)
--- NOTE | 2018-07-24 08:29 | PCM.PYCHPN ---
Psychiatric Progress Note - Psychiatric Progress Note Patient seen today, length of contact: Pt evaluated, case discussed w/ team, chart reviewed Patient Chief Complaint: Behavioral disturbances, now improving Problems Identified/Issues Discussed: No acute behavioral disturbances overnight. Patient currently calm and cooperative. He is improving clinically. He is less labile. He continues to have chronic poor insight/judgment due to dementia. Medication Change: No Medical Record Reviewed: Yes Consults ordered or reviewed: Medicine consult Mental Status Examination - Cognitive Function Orientation: Person Attention: Poor Concentration: Poor Association: Loose Fund of Knowledge: Poor Decription of patient's judgement and insights: Chronic poor I/J due to dementia - Mood Mood: Neutral - Affect Affect: Other (labile) - Speech Speech: Appropriate - Formal Thought Process Formal Thought Process: Loosening of associations Psychotic Thoughts and Behaviors: No AH/VH - Suicidal Ideation Suicidal Ideation: No - Homicidal Ideation Homicidal Ideation: No Goal/Treatment Plan - Goal/Treatment Plan Need for Continued Stay: Severe functional impairment Progress Toward Problem(s) and Goals/Treatment Plan: Dementia with behavioral disturbances, Depressive Disorder -Individual and group therapy -Psychoeducation -Continue Depcarloste, VPA 57.8 on 07/12/18 -Case discussed w/ POA -Medicine consult -Disposition planning
--- NOTE | 2018-07-24 10:51 | HP ---
HISTORY OF PRESENT ILLNESS: The patient is seen on step in no distress. He was sent back to [facility] from [facility] for behavioral disturbances. As per nursing reports, has been verbally aggressive, physically aggressive. Psych notes, nursing notes have been reviewed as well as neurologist. Labs have been reviewed as well.mental status at baseline at present. has been on steroids w/o taper REVIEW OF SYSTEMS: Agitation. PHYSICAL EXAMINATION: CONSTITUTIONAL: Awake, alert, oriented to his baseline. HEENT: Normal. CARDIAC: S1, S2. Normal rate and rhythm. No murmurs, rubs, or gallops. LUNGS: Clear to auscultation bilaterally. ABDOMEN: Soft, nontender. Bowel sounds x4. EXTREMITIES: Distal PMS is intact. Cap refill is brisk. DIAGNOSIS AND PLAN: Parkinson's, continue Neuro consult. Dementia with behavioral disturbances, psych meds and interventional therapy. to cont as per Psychiatry Team. dm-riss, fsbg, home meds. Continue all chronic home meds. asthma cont albuterol prn, taper steroids ALTHEA Hinton MTDChloé
[2018-07-24] MEDS: Divalproex 125 mg Sprinkle Capsule PO SCH (21:18)
[2018-07-24] MEDS: Insulin Detemir 100 Units/ml Inj SC SCH (21:20)
[2018-07-25 08:02] LABS: BASO % 0.1 % (0.0-2.0); EOS % 0.3 % (0.0-4.0); HEMOGLOBIN 13.9 g/dL (12.0-18.0); LYMPH # 2.4 K/uL (1.0-4.3); LYMPH % 20.2 % (20.0-40.0); MEAN CELL VOLUME 87.7 fl (80.0-94.0); MEAN CORPUSCULAR HEMOGLOBIN 28.9 pg (27.0-31.0); MEAN PLATELET VOLUME 7.8 fl (7.2-11.7); MONO % 8.3 % (0.0-10.0); NEUT # 8.4 K/uL (1.8-7.0); NEUT % 71.1 % (50.0-75.0); NRBC % 0.1 % (0.0-0.0); RBC 4.79 Mil/uL (4.40-5.90); WHITE BLOOD COUNT 11.8 K/uL (4.8-10.8)
[2018-07-25] MEDS: Divalproex 250 mg DR(BID formulation) PO SCH ×2 (08:08→16:35)
[2018-07-25] MEDS: Multivitamin With Minerals Tab PO SCH (08:09)
[2018-07-25] MEDS: Insulin Lispro (humaLOG) 100 Units/ml Inj SC SCH ×4 (08:16→21:20)
[2018-07-25 08:37] LABS: ALB/GLOB RATIO 1.4 (1.0-2.1); ALBUMIN 3.9 g/dL (3.5-5.0); CALCIUM 10.2 mg/dL (8.4-10.2)
[2018-07-25] MEDS ORDERED: Sod Polystyrene Sulf 15 gm/60 ml Susp PO ONE (09:50)
--- NOTE | 2018-07-25 09:56 | PCM.PYCHPN ---
Psychiatric Progress Note - Psychiatric Progress Note Patient seen today, length of contact: Pt evaluated, case discussed w/ team, chart reviewed Patient Chief Complaint: Behavioral disturbances, now improving Problems Identified/Issues Discussed: Patient continues to improve clinically. He has intermittent periods of mood lability, but has not been aggressive or agitated towards others. He continues to have chronic poor insight/judgment due to dementia. Diagnostic Results: VPA 55.4 on 07/25/18 Medication Change: No Medical Record Reviewed: Yes Consults ordered or reviewed: Medicine consult Mental Status Examination - Cognitive Function Orientation: Person Attention: Poor Concentration: Poor Association: Loose Fund of Knowledge: Poor Decription of patient's judgement and insights: Chronic poor I/J due to dementia - Mood Mood: Neutral - Affect Affect: Other (labile) - Speech Speech: Appropriate - Formal Thought Process Formal Thought Process: Loosening of associations Psychotic Thoughts and Behaviors: No AH/VH - Suicidal Ideation Suicidal Ideation: No - Homicidal Ideation Homicidal Ideation: No Goal/Treatment Plan - Goal/Treatment Plan Need for Continued Stay: Severe functional impairment Progress Toward Problem(s) and Goals/Treatment Plan: Dementia with behavioral disturbances, Depressive Disorder -Individual and group therapy -Psychoeducation -Continue Demi, VPA 55.4 on 07/25/18 -Case discussed w/ POA -Medicine consult -Disposition planning
[2018-07-25] MEDS: Insulin Detemir 100 Units/ml Inj SC SCH (21:16)
[2018-07-25] MEDS: Divalproex 125 mg Sprinkle Capsule PO SCH (21:18)
[2018-07-26 07:36] LABS: ALB/GLOB RATIO 1.3 (1.0-2.1); ALBUMIN 3.4 g/dL (3.5-5.0); CALCIUM 9.3 mg/dL (8.4-10.2)
[2018-07-26] MEDS: guaiFENesin-DM 600-30 mg ER Tab PO PRN (09:06)
[2018-07-26] MEDS: Multivitamin With Minerals Tab PO SCH (09:06)
[2018-07-26] MEDS: Divalproex 250 mg DR(BID formulation) PO SCH ×2 (09:09→18:00)
[2018-07-26] MEDS: Insulin Lispro (humaLOG) 100 Units/ml Inj SC SCH ×4 (09:10→21:06)
--- NOTE | 2018-07-26 09:55 | PCM.PYCHPN ---
Psychiatric Progress Note - Psychiatric Progress Note Patient seen today, length of contact: Pt evaluated, case discussed w/ team, chart reviewed Patient Chief Complaint: Behavioral disturbances, now improving Problems Identified/Issues Discussed: Patient had improved sleep. He continues to have periods of mood lability. No acute behavioral disturbances. He continues to have chronic poor insight/judgment due to dementia. He need monitoring and redirection from staff. Diagnostic Results: VPA 55.4 on 07/25/18 Medication Change: No Medical Record Reviewed: Yes Consults ordered or reviewed: Medicine consult Mental Status Examination - Cognitive Function Orientation: Person Attention: Poor Concentration: Poor Association: Loose Fund of Knowledge: Poor Decription of patient's judgement and insights: Chronic poor I/J due to dementia - Mood Mood: Neutral - Affect Affect: Other (labile) - Speech Speech: Appropriate - Formal Thought Process Formal Thought Process: Loosening of associations Psychotic Thoughts and Behaviors: No AH/VH - Suicidal Ideation Suicidal Ideation: No - Homicidal Ideation Homicidal Ideation: No Goal/Treatment Plan - Goal/Treatment Plan Need for Continued Stay: Severe functional impairment Progress Toward Problem(s) and Goals/Treatment Plan: Dementia with behavioral disturbances, Depressive Disorder -Individual and group therapy -Psychoeducation -Continue Demi, VPA 55.4 on 07/25/18 -Case discussed w/ POA -Medicine consult -Disposition planning
[2018-07-26 11:34] VITALS: BMI 20.9
--- NOTE | 2018-07-26 14:54 | PCM.BM ---
Treatment Plan Problems - Problems identified on initial assessmt high risk: Violence Date Initiated: 07/11/18 Time Initiated: 18:37 Assessment reference: HP, NA Status: Active Priority: 2 Alterered glucose metabolism Date Initiated: 07/11/18 Time Initiated: 18:38 Assessment reference: HP, NA Status: Active Priority: 3 Agitated/aggressive behavior Date Initiated: 07/11/18 Time Initiated: 18:40 Assessment reference: HP, NA Status: Active Priority: 1 Treatment assets and liabiliti Patient Assests: educated, good support system, financial stabiity Patient Liabilities: relationship conflicts, dietary restrictions, medical problems, imparied memory, unable to read/write - Milieu Protocol Maintain good personal hygiene: daily Encourage regular showers, every shift Remind patient to perform daily oral care, every shift Assist patient to perform ADL's Maintain personal safety: every shift Educate patient to report safety concerns to staff, every shift Monitor environment for contraband/sharps Medication safety: Monitor for expected outcome, potential side effects: every shift, Assess barriers to learning: every shift, Assess readiness for medication education: every shift Milieu Narrative: Dementia with behavioral disturbances, Depressive Disorder -Individual and group therapy -Psychoeducation -Continue Depakote, VPA 55.4 on 07/25/18 -Case discussed w/ POA -Medicine consult -Disposition planning Family Contact Family involvement: Family/SO is involved Family contact: Patient agrees to contact, Family has been contacted by patient, Telephone contact initiated by staff - Outside Agency [facility] @ [facility] involvment: Information-sharing Agency contact number: [phone] - Goals for Treatment Patient goals for treatment: Pt will improve overall mood. Pt will be free of aggresisve behaviors. Pt will be able to keep hands to hismelf. Pt will be more re-directable. Pt will comply with prescribed meidcations. Discharge/Continuing Care - Education Needs Education Needs: Family Medication, Family Diagnosis/Disease Process, Family Coping Skills, Family Placement options, Family Community resources, Family Activities of Daily Living, Family Uses of Medical Equipment, Family Health Practices/Safety, Family Personal Hygiene/Grooming, Family Aftercare Safety Plan, Patient Medication, Patient Diagnosis/Disease Process, Patient Coping Skills, Patient Placement options, Patient Community resources, Patient Activities of Daily Living, Patient Uses of Medical Equipment, Patient Health Practices/Safety, Patient Personal Hygiene/Grooming, Patient Aftercare Safety Plan - Discharge Discharge Criteria: Tolerates medication w/o severe side effects, Free of agitation, Normal sleep pattern, Ability to care for self, Reduction of target symptoms Discharge to:: [facility] - Additional Comments 07/12/18 12:13 Pt discussed in team meeting. Interdisciplinary team attempted to meet with pt at bedside in room 313-1; however pt was observed to be asleep and not aroused. Pt is currently on a 1:1 for safety and fall precautions. Pt attempting to get up on his own. Prior to hospitalization, pt was a resident at [facility] for rehab. Reportedly, pt became agitated, aggressive and combative at the facility and referred to the ED for psych evaluation. Pt is dx with dementia with behavioral disturbances. Poor sleep pattern. Pt's medical and social issues reviewed and discussed. Pt's medications reviewed and discussed. Daughter is POA and attending MD will contact daughter to review and discuss tx plan. SW will continue to follow case. - Treatment Team Participation Patient/Family/SO Statement: Dementia with behavioral disturbances, Depressive Disorder -Individual and group therapy -Psychoeducation -Continue Depakote, VPA 55.4 on 07/25/18 -Case discussed w/ POA -Medicine consult -Disposition planning Discussed with Family/SO: Yes (MD discussed tx plan with daughter via telephone) Was Patient/Family/SO present at Treatment Team Meeting: Yes Treatment Plan Review Patient participation: Yes Family/SO/Caregiver participation: No Additional Comments: Pt seen and discussed in team meeting. Pt's progress and bx on the unit reviewed and discussed. Pt observed to be sitting up on the gerichair and wearing the hospital gown. Pt reported feeling " like S-H-I-T." Pt reported having a good night sleep. Pt reported having good appetite. Pt continues to be on a 1:1 for safety precautions, pt attempts to climb out of the gerichair or bed alone. Pt unable to ambulate. Pt labile and tearful when talking about her family. pt provided with emotional support. Pt's medications reviewed and discussed by attending psychiatrist. Pt's tx plan reviewed and discussed. Pt is pending stabilization for LTC placement. [facility]. SW will continue to follow case. - Problem high risk: Violence Date Initiated: 07/11/18 Time Initiated: 18:37 Progress toward outcomes: resolved (Pt has not exhibited any aggressive/assaultive bx's on the unit.) Alterered glucose metabolism Date Initiated: 07/11/18 Time Initiated: 18:38 Progress toward outcomes: improved Agitated/aggressive behavior Date Initiated: 07/11/18 Time Initiated: 18:40 Progress toward outcomes: improved (Pt is less agitated and aggressive on the unit. Pt is re-directable.) - Discharge / Continuing Care [facility]:: [facility]: Other (Medication management; structured group therapy) Health Needs: Follow up care/test, Doctor appointments, Special equipment, Nutritional, Medications/Rx, Educational, Recreational/Social
[2018-07-26] MEDS: Divalproex 125 mg Sprinkle Capsule PO SCH (21:05)
[2018-07-26] MEDS: Insulin Detemir 100 Units/ml Inj SC SCH (21:06)
[2018-07-27] MEDS: Divalproex 250 mg DR(BID formulation) PO SCH ×2 (08:59→16:24)
[2018-07-27] MEDS: Insulin Lispro (humaLOG) 100 Units/ml Inj SC SCH ×4 (09:04→21:38)
--- NOTE | 2018-07-27 12:36 | PCM.PYCHPN ---
Psychiatric Progress Note - Psychiatric Progress Note Patient seen today, length of contact: Pt evaluated, case discussed w/ team, chart reviewed Patient Chief Complaint: pt seen seated in kaur chair in unit. pt smiles appropriately at times, spoke in [place] citizen short sentences some appropriate some confused. continues to require total care. pt denies pain. pt requires total care. Problems Identified/Issues Discussed: alteration in neurologic function (hx. of ms) alteration in mood alteration in self care falls precautions Medical Problems: per chart Diagnostic Results: per psychiatry per medicine per nursing per psychologist social per recreational therapy DSM 5 Symptoms Update: somewhat improved cognition but continues to be significantly impaired Medication Change: No Medical Record Reviewed: Yes Consults ordered or reviewed: pt being followed by medical team Mental Status Examination - Cognitive Function Orientation: Person Attention: Poor Concentration: Poor Association: Loose Fund of Knowledge: Poor Decription of patient's judgement and insights: significantly impaired - Mood Mood: Neutral - Affect Affect: Other (labile) - Speech Speech: Appropriate - Formal Thought Process Formal Thought Process: Loosening of associations - Suicidal Ideation Suicidal Ideation: No - Homicidal Ideation Homicidal Ideation: No Goal/Treatment Plan - Goal/Treatment Plan Need for Continued Stay: Severe functional impairment Progress Toward Problem(s) and Goals/Treatment Plan: inpt mileu adjust meds per clinical status vital signs and clinical observation per protocol and per clinical status team to re evaluate pt in am consider adjusting medications per clinical status discharge planning in progress Estimated Date of D/C: 08/02/18 - Smoking Cessation Smoking Cessation Initiated: No Reason for not providing: pt defers
[2018-07-27] MEDS: Multivitamin With Minerals Tab PO SCH (12:45)
[2018-07-27] MEDS: Divalproex 125 mg Sprinkle Capsule PO SCH (21:35)
[2018-07-27] MEDS: Insulin Detemir 100 Units/ml Inj SC SCH (21:37)
[2018-07-28] MEDS: Multivitamin With Minerals Tab PO SCH (08:42)
[2018-07-28] MEDS: guaiFENesin-DM 600-30 mg ER Tab PO PRN (08:43)
[2018-07-28] MEDS: Insulin Lispro (humaLOG) 100 Units/ml Inj SC SCH ×4 (08:45→21:07)
[2018-07-28] MEDS: Divalproex 250 mg DR(BID formulation) PO SCH ×2 (08:47→17:10)
--- NOTE | 2018-07-28 17:21 | PCM.PYCHPN ---
Psychiatric Progress Note - Psychiatric Progress Note Patient seen today, length of contact: Pt evaluated, case discussed w/ team, chart reviewed Patient Chief Complaint: pt seen seated in kaur chair in unit. pt smiles appropriately at times, spoke in palauan short sentences some appropriate some confused. continues to require total care. pt denies pain. pt requires total care. Problems Identified/Issues Discussed: alteration in neurologic function (hx. of ms) alteration in mood alteration in self care falls precautions Medical Problems: per chart Diagnostic Results: per psychiatry per medicine per nursing per psychiatric social worker per recreational therapy DSM 5 Symptoms Update: appears to be reaching baseline function Medication Change: No Medical Record Reviewed: Yes Consults ordered or reviewed: pt being followed by medical team Mental Status Examination - Cognitive Function Orientation: Person, Place Attention: Poor Concentration: Poor Association: Loose Fund of Knowledge: Poor Decription of patient's judgement and insights: significantly impaired - Mood Mood: Neutral - Affect Affect: Other (labile) - Speech Speech: Appropriate - Formal Thought Process Formal Thought Process: Loosening of associations - Suicidal Ideation Suicidal Ideation: No - Homicidal Ideation Homicidal Ideation: No Goal/Treatment Plan - Goal/Treatment Plan Need for Continued Stay: Severe functional impairment Progress Toward Problem(s) and Goals/Treatment Plan: inpt milgurdeep adjust meds per clinical status vital signs and clinical observation per protocol and per clinical status team to re evaluate pt in am consider adjusting medications per clinical status discharge planning in progress Estimated Date of D/C: 08/02/18 - Smoking Cessation Smoking Cessation Initiated: No Reason for not providing: pt defers
[2018-07-28] MEDS: Divalproex 125 mg Sprinkle Capsule PO SCH (21:07)
[2018-07-28] MEDS: Insulin Detemir 100 Units/ml Inj SC SCH (21:07)
--- NOTE | 2018-07-29 08:20 | PCM.PYCHPN ---
Psychiatric Progress Note - Psychiatric Progress Note Patient seen today, length of contact: Pt evaluated, case discussed w/ team, chart reviewed Patient Chief Complaint: Inability to care for self Problems Identified/Issues Discussed: No significant events over the weekend. Patient currently calm, cooperative, without any acute behavioral issues. No 1:1 indicated. No acute mood lability or agitation. Patient is at his baseline of functioning and is psychiatrically stable for referral to exterminator termite placement. He continues to have chronic poor insight/judgment and inability to care for himself due to dementia. Diagnostic Results: VPA 55.4 on 07/25/18 Medication Change: No Medical Record Reviewed: Yes Consults ordered or reviewed: Medicine consult Mental Status Examination - Cognitive Function Orientation: Person, Place Memory: Impaired Attention: Poor Concentration: Poor Association: Loose Fund of Knowledge: Poor Decription of patient's judgement and insights: Chronic limitations in insight/judgment due to dementia - Mood Mood: Neutral - Affect Affect: Broad - Speech Speech: Appropriate - Formal Thought Process Formal Thought Process: Loosening of associations Psychotic Thoughts and Behaviors: No AH/VH/paranoia/delusions - Suicidal Ideation Suicidal Ideation: No - Homicidal Ideation Homicidal Ideation: No Goal/Treatment Plan - Goal/Treatment Plan Progress Toward Problem(s) and Goals/Treatment Plan: Major Neurocognitive Disorder; Depressive Disorder; patient is psychiatrically stable for referral to exterminator termite placement at this time -Individual and group therapy -Psychoeducation -Continue Demi, VPA 55.4 on 07/25/18 -Case discussed w/ POA -Medicine consult -Disposition planning- will refer to exterminator termite placement Estimated Date of D/C: 08/02/18 - Smoking Cessation Smoking Cessation Initiated: No Reason for not providing: Not indicated
[2018-07-29] MEDS: Multivitamin With Minerals Tab PO SCH (08:41)
[2018-07-29] MEDS: Insulin Lispro (humaLOG) 100 Units/ml Inj SC SCH ×4 (08:42→21:20)
[2018-07-29] MEDS: Divalproex 250 mg DR(BID formulation) PO SCH ×2 (08:46→16:44)
[2018-07-29] MEDS: Divalproex 125 mg Sprinkle Capsule PO SCH (21:20)
[2018-07-29] MEDS: Insulin Detemir 100 Units/ml Inj SC SCH (21:24)
[2018-07-30 06:35] VITALS: RESP 18
[2018-07-30 06:35] LABS: BASO % 0.5 % (0.0-2.0); EOS # 0.2 K/uL (0.0-0.7); EOS % 2.6 % (0.0-4.0); LYMPH # 3.1 K/uL (1.0-4.3); LYMPH % 33.6 % (20.0-40.0); MEAN CELL VOLUME 89.2 fl (80.0-94.0); MEAN CORPUSCULAR HEMOGLOBIN 29.3 pg (27.0-31.0); MEAN CORPUSCULAR HGB CONC 32.9 g/dL (33.0-37.0); MEAN PLATELET VOLUME 7.7 fl (7.2-11.7); MONO # 1.1 K/uL (0.0-0.8); MONO % 12.1 % (0.0-10.0); NEUT # 4.7 K/uL (1.8-7.0); NEUT % 51.2 % (50.0-75.0); NRBC % 0.1 % (0.0-0.0); RBC 4.09 Mil/uL (4.40-5.90); RED CELL DISTRIBUTION WIDTH 15.4 % (11.5-14.5); WHITE BLOOD COUNT 9.1 K/uL (4.8-10.8)
[2018-07-30 07:15] LABS: ALB/GLOB RATIO 1.2 (1.0-2.1); CALCIUM 8.8 mg/dL (8.4-10.2)
--- NOTE | 2018-07-30 08:10 | PCM.PYCHPN ---
Psychiatric Progress Note - Psychiatric Progress Note Patient seen today, length of contact: Pt evaluated, case discussed w/ team, chart reviewed Patient Chief Complaint: Inability to care for self Problems Identified/Issues Discussed: No new events. Patient currently calm, cooperative, without any behavioral issues. No acute mood lability or agitation. Patient is at his baseline of functioning and is psychiatrically stable for referral to penitentiary placement. He continues to have chronic poor insight/judgment and inability to care for himself due to dementia. Diagnostic Results: VPA 55.4 on 07/25/18 Medication Change: No Medical Record Reviewed: Yes Consults ordered or reviewed: Medicine consult Mental Status Examination - Cognitive Function Orientation: Person, Place Memory: Impaired Attention: Poor Concentration: Poor Association: Loose Fund of Knowledge: Poor Decription of patient's judgement and insights: Chronic limitations in insight/judgment due to dementia - Mood Mood: Neutral - Affect Affect: Broad - Speech Speech: Appropriate - Formal Thought Process Formal Thought Process: Loosening of associations Psychotic Thoughts and Behaviors: No AH/VH/paranoia/delusions - Suicidal Ideation Suicidal Ideation: No - Homicidal Ideation Homicidal Ideation: No Goal/Treatment Plan - Goal/Treatment Plan Progress Toward Problem(s) and Goals/Treatment Plan: Major Neurocognitive Disorder; Depressive Disorder; patient is psychiatrically stable for referral to termite control technician placement at this time -Individual and group therapy -Psychoeducation -Continue Demi, VPA 55.4 on 07/25/18 -Case discussed w/ POA -Medicine consult -Disposition planning- will refer to penitentiary placement
[2018-07-30] MEDS: Multivitamin With Minerals Tab PO SCH (08:51)
[2018-07-30] MEDS: Divalproex 250 mg DR(BID formulation) PO SCH ×2 (08:52→16:17)
[2018-07-30] MEDS: Insulin Lispro (humaLOG) 100 Units/ml Inj SC SCH ×4 (08:55→21:10)
[2018-07-30] MEDS ORDERED: Potassium Chloride 20 mEq ER Tab PO ONE (12:25)
[2018-07-30] MEDS: Divalproex 125 mg Sprinkle Capsule PO SCH (21:09)
[2018-07-30] MEDS: Insulin Detemir 100 Units/ml Inj SC SCH (21:11)
[2018-07-31 06:44] VITALS: PULSE 69; TEMP 97.1
[2018-07-31] MEDS: Divalproex 250 mg DR(BID formulation) PO SCH (08:28)
[2018-07-31 08:30] VITALS: BP 149/88
[2018-07-31] MEDS: Insulin Lispro (humaLOG) 100 Units/ml Inj SC SCH ×2 (08:30→11:06)
[2018-07-31] MEDS: Multivitamin With Minerals Tab PO SCH (08:35)
--- NOTE | 2018-07-31 08:48 | PCM.PYCHDC ---
Mental Status Examination - Mental Status Examination Orientation: Person Memory: Impaired Mood: Neutral Affect: Broad Speech: Appropriate Attention: Poor Concentration: Poor Formal Thought Process: Loosening of associations Description of patient's judgement and insight: Chronic limitations in insight/judgment due to dementia Psychotic Thoughts and Behaviors: No AH/VH/paranoia/delusions Suicidal Ideation: No Current Homicidal Ideation?: No Discharge Summary - Discharge Note Reason for Hospitalization: HPI: 77 yo male, residential resident, admitted w/ worsening aggressive behavior, yelling, screaming, mood lability, irritability and agitation. He also made suicidal threats, yelling that he would kill himself, but did not express a particular plan. Patient's daughter, POA, believes the patient needs psychiatric admission for treatment and stabilization. PMHx: DMII, MS, HTN, COPD, HLD PPHx: h/o Depression and Anxiety ALL: NKDA SHx: Resident at [facility]; no current drugs/etoh/cig use Laboratory Data: Abnormal Lab Results 07/30/18 07/30/18 07/30/18 11:38 16:11 20:44 POC Glucose (mg/dL) 146 H 151 H 178 H VPA 55.4 on 07/25/18 Consultations:: List each consultation separately and include: 1. Reason for request. 2. Findings. 3. Follow-up Consultations: Medicine consult, Physical Therapy, Neurology consult Summary of Hospital Course include:: 1. Description of specific treatment plan utilized for patients during their course of treatmen. 2. Summarize the time- course for resolution of acute symptoms and/or regressed behaviors. 3. Describe issues identified and worked on during hospitalization. 4. Describe medication utilized. 5. Describe medical problems identified and treated. 6. Reassessment of suicide risk Summary of Hospital Course: Patient was stabilized on Celexa 40 mg PO Daily, Depakote 250 mg PO BID/375 mg PO HS (VPA 55.4 on 07/25/18) and Aricept 5 mg PO HS. He has chronic neurocognitive deficits which limit his ability to care for himself and also limit his insight/judgment. He is currently calm and cooperative without any acute behavioral disturbances. He is psychiatrically stable for discharge at this time. Case discussed w/ daughter/POA. - Diagnosis (1) Dementia with behavioral disturbance Current Visit: Yes Status: Acute (2) Depressive disorder Current Visit: Yes Status: Acute - Final Diagnosis (DSM 5) Condition upon Discharge: STABLE DSM 5: Major Neurocognitive Disorder; Depressive Disorder Disposition: TRANSF TO SNF Follow-up Treatment Plan: Major Neurocognitive Disorder; Depressive Disorder; patient is psychiatrically stable for discharge. - Smoking Cessation Smoking Cessation Medication prescribed: No Reason for not providing: Not indicated - Antipsychotic Medications Pt discharged on 2 or more routine antipsychotic medications: No
== END 2018-07-31 13:30 | DRG 884 ==
LOC: H.ER 19:20 → H.ERHOLD 07-11 12:10 → H.STEP 07-11 14:24
PROVIDERS: ADMIT Psychiatry & Neurology Psychiatry; ATTEND Psychiatry & Neurology Psychiatry
PROC: GZHZZZZ Group Psychotherapy (ICD-10-PCS; principal; 2018-07-11)
DX: F01.51 Vascular dementia, unspecified severity, with behavioral disturbance (principal); I13.0 Hypertensive heart and chronic kidney disease with heart failure and stage 1 through stage 4 chronic kidney disease, or unspecified chronic kidney disease; G93.40 Encephalopathy, unspecified; G35 Multiple sclerosis; N40.0 Benign prostatic hyperplasia without lower urinary tract symptoms; I25.10 Atherosclerotic heart disease of native coronary artery without angina pectoris; I50.9 Heart failure, unspecified; N18.9 Chronic kidney disease, unspecified; E78.5 Hyperlipidemia, unspecified; Z95.5 Presence of coronary angioplasty implant and graft; Z86.718 Personal history of other venous thrombosis and embolism; J44.9 Chronic obstructive pulmonary disease, unspecified; E78.00 Pure hypercholesterolemia, unspecified; Z79.02 Long term (current) use of antithrombotics/antiplatelets; Z79.4 Long term (current) use of insulin; Z79.82 Long term (current) use of aspirin; Z87.891 Personal history of nicotine dependence; F32.9 Major depressive disorder, single episode, unspecified; F41.9 Anxiety disorder, unspecified; R90.82 White matter disease, unspecified; E11.22 Type 2 diabetes mellitus with diabetic chronic kidney disease